=== PATIENT | male | born 1965 | race American Indian/Alaskan Native ===

== ENCOUNTER 2023-08-01 10:09 | Outpatient (CLI) | payer OTHER, SELFPAY ==
--- NOTE | 2023-08-02 14:24 | WPDNEUROLOGY ---
Neurology EEG Report General Information Date of Study: 08/01/23 TEST eeg DIAGNOSIS syncopal episode and collapse CONDITION OF RECORDING awake drowsy and sleep EEG NUMBER [id number] CLINICAL HISTORY patient reports he has been having episodes of losing consciousness over the last couple of months. EEG DESCRIPTION Basic resting occipital frequency consists of 11 to 13 hertz per 2nd alpha activity admixed with low-voltage 15 to 18 hertz per 2nd beta activity and with poor isaiah posterior gradient. Low-voltage beta activity seen diffusely during drowsiness admixed with multiple movement artifacts. Bilateral symmetrical activities noted during sleep. Photic stimulation produced normal drive. Hyperventilation not done. Intermittent EKG artifacts are noted. Non paroxysmal. Nonfocal. Nonlateralizing. IMPRESSION No significant abnormalities noted
== END 2023-08-01 10:10 | disposition home or self-care (01) ==
PROVIDERS: Visit Provider Internal Medicine Infectious Disease
DX: R55 Syncope and collapse (principal)
CPT/HCPCS: 95816

== ENCOUNTER 2025-02-21 13:39 | Outpatient (CLI) | payer OTHER, SELFPAY ==
[2025-02-21 15:08] LABS: Iron 94 ug/dL (49-181)
[2025-02-21 15:15] LABS: Alanine Aminotransferase 22 U/L (6-50); Albumin Level 4.4 g/dL (3.5-5.1); Alkaline Phosphatase 74 U/L (38-126); Aspartate Amino Transferase 44 U/L (17-59); Bilirubin,Total 0.9 mg/dL (0.2-1.3); Total Protein 7.6 g/dL (6.3-8.2)
[2025-02-21 15:16] LABS: INR 1.1; Prothrombin Time 13.8 Seconds (11.1-14.7)
[2025-02-21 15:18] LABS: Percent Iron Saturation 30 % (20-50)
--- OUTSIDE RECORDS SUMMARY | 2025-02-21 15:18 | XMS_ITS | Clinical Summary ---
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
--- OUTSIDE RECORDS SUMMARY | 2025-02-21 15:18 | XMS_ITS | Clinical Summary ---
Author Organization [facility] Initiative Gaming Address [address] [place] [address] Care Team Providers Care Harnessmaker Apprentice Name Role Phone Shabbir Andrade MD Primary Care Provider Source Comments [facility],non-owned Affiliates and Associated Physician Practices is amultiple site organization consisting of ambulatory clinics and hospital sitesin [place], [place], [place] and [place]. This disclosure is being madepursuant to the Care Everywhere program and may not contain all information available regarding this patient. Last updated 18.[facility] [employer] Allergies No known active allergies Medications * Be aware that medications may not be up to date on this document. Alwaysverify current medications with the patient. sildenafil (Viagra) 100 MG tablet Viagra 100 mg tablet Take 1 TABLET 1 HOUR PRIOR TO SEXUAL ACTIVITY DIRECTED, BUT NOT TO EXCEED MORE THAN 1 IN 24 HOURS. MUST LAST 30 DAYS Active polyethylene glycol 3350 (Miralax) 17 g packet Take 17 (seventeen) g by mouth once daily 30 packet 5 Active nystatin (Mycostatin) 453192 UNIT/GM cream Apply to affected area 3 times daily Apply to toes 3 times daily 4 Active benzonatate (Tessalon) 100 MG capsule Take 1 (one) capsule by mouth 3 times daily as needed for Cough 30 capsule 5 Active aspirin (Aspirin) 81 MG chew tablet Take 1 (one) tablet by mouth once daily (chew and swallow) 30 tablet 12/17/2024 3:44 PM CDT Active albuterol HFA (Ventolin HFA) 108 (90 Base) MCG/ACT inhaler Inhale 2 (two) puffs by mouth every 4 hours as needed 8.5 g Active atorvastatin (Lipitor) 40 MG tablet Take 1 (one) tablet by mouth at bedtime 30 tablet 12/17/2024 3:44 PM CDT Active losartan (Cozaar) 25 MG tablet Take 1 (one) tablet by mouth once daily 30 tablet Active metoprolol succinate XL 24hr (Toprol XL) 25 MG tablet Take 0.5 (one-half) tablet by mouth once daily 15 tablet 12/17/2024 3:44 PM CDT Active furosemide (Lasix) 80 MG tablet Take 1 (one) tablet by mouth 2 times daily 60 tablet 12/17/2024 3:44 PM CDT Active omeprazole (PriLOSEC) 40 MG capsule Take 1 (one) capsule by mouth daily before breakfast 30 capsule 5 Active Active Problems Problem Noted Date Diagnosed Date Demand ischemia 12/14/2024 Assessment & Plan (12/16/2024 1:14 PM CDT): Due to acute CHF. Assessment & Plan (12/15/2024 1:17 PM CDT): Due to acute CHF. Assessment & Plan (12/14/2024 12:33 PM CDT): Due to acute CHF. Acute on chronic systolic heart failure 11/15/19 Assessment & Plan (12/16/2024 2:43 PM CDT): Switch Lasix to 80 mg PO b.i.d.. Continue losartan 25 mg daily. Continue metoprolol succinate 12.5 mg daily. Monitor strict I/O. Discussed case with Dr. Ramos from Cardiology. Assessment & Plan (12/15/2024 1:17 PM CDT): Continue IV diuresis with Lasix 80 mg IV b.i.d.. Restart losartan 25 mg daily. Continue metoprolol succinate 12.5 mg daily. Monitor strict I/O. Discussed case with Dr. Ramos from Cardiology. The patient does not look particularly overloaded on exam. If his symptoms do not improve, can try dose of prednisone for COPD component. Assessment & Plan (12/14/2024 12:33 PM CDT): Continue IV diuresis, increase dose of furosemide to 80 mg IV b.i.d.. Continue strict I/O. Hold ARB at this time given slight bump in creatinine but anticipate starting the next day. Continue home metoprolol succinate at 12.5 mg daily. Restart spironolactone 25 mg daily. Monitor BMP daily. Consulted cardiology. Acute on chronic heart failu re with reduced ejection fraction and diastolic dysfunction 11/14/2024 Other cirrhosis of liver 07/18/2024 Assessment & Plan (12/16/2024 1:14 PM CDT): Unknown etiology. Will discuss further with the patient. Ascites noted could be due to CHF. Assessment & Plan (12/15/2024 1:17 PM CDT): Unknown etiology. Will discuss further with the patient. Ascites noted could be due to CHF. Assessment & Plan (12/14/2024 12:48 PM CDT): Unknown etiology. Will discuss further with the patient. Ascites noted could be due to CHF. Acute heart failure with red uced ejection fraction (HFrEF, <= 40%) 05/25/2024 Leukocytosis 05/25/2024 MSSA bacteremia 05/22/2024 Acute hypoxic respiratory failure 05/21/2024 Methamphetamine abuse 05/21/2024 Transaminitis 05/21/2024 Elevated lactic acid level 05/21/2024 Sinus tachycardia 05/21/2024 Non compliance w medication regimen 05/20/2024 COPD exacerbation 05/20/2024 Class 1 obesity due to exces s calories without serious comorbidity with body mass index (BMI) of 32.0 to 32.9 in adult 05/16/2024 Influenza A 05/16/2024 Abdominal wall hematoma 05/14/2024 Prediabetes 09/05/2022 Chronic obstructive pulmonary disease (COPD) Assessment & Plan (12/16/2024 2:43 PM CDT): Will give trial of prednisone 40 mg daily in case he has a component of COPD worsening. Assessment & Plan (12/15/2024 1:17 PM CDT): Not in exacerbation. Continue nebulizers PRN. Assessment & Plan (12/14/2024 12:33 PM CDT): Not in exacerbation. Continue nebulizers PRN. Hypertension, unspecified type 08/22/2022 IVDU (intravenous drug user) 08/22/2022 Ankle wound, left, subsequent encounter 08/23/19 23 Cellulitis of left ankle 08/03/2022 Essential hypertension 08/03/2022 Assessment & Plan (12/16/2024 1:14 PM CDT): Restart losartan 25 mg daily. Assessment & Plan (12/15/2024 1:17 PM CDT): Restart losartan 25 mg daily. Assessment & Plan (12/15/2024 7:20 AM CDT): Anticipate starting losartan in AM if renal function amenable ROSE (acute kidney injury) 08/03/2022 History of hepatitis C 08/03/2022 Open wound of left lower leg, initial encounter 08/02/2022 Pneumonia of both lungs due to infectious organi sm 09/16/2019 Right flank pain 09/16/2019 Generalized anxiety disorder 09/16/2019 Abdominal pain, generalized 12/11/2018 Hematochezia 12/11/2018 Colitis 12/11/2018 Chronic right shoulder pain 09/08/2017 AA (alcohol abuse) 11/28/2015 Abuse, drug or alcohol 11/28/2015 Gastroesophageal reflux disease without esophagi tis 11/28/2015 Assessment & Plan (12/16/2024 1:14 PM CDT): Continue PPI daily Assessment & Plan (12/15/2024 1:17 PM CDT): Continue PPI daily Assessment & Plan (12/14/2024 12:33 PM CDT): Continue PPI daily Tobacco abuse 11/28/2015 HLD (hyperlipidemia) 11/28/2015 Intravenous drug user 11/28/2015 Nodule, subcutaneous 11/28/2015 Polysubstance abuse 11/28/2015 Resolved Problems Problem Noted Date Diagnosed Date Resolved Date Hepatitis C 08/22/2022 05/21/2024 Overview (05/21/2024): Treated per pt Dehydration 09/16/2019 09/30/2019 Constipation 12/11/2018 01/08/2019 Encounters Date Type Department Care Team Description 12/13/2024 8:49 PM CDT - 12/17/2024 4:00 PM CDT Hospital Encounter [facility] 4 Transitional Care Unit [address] [place] [address] [address] [facility] [address] [facility] Hayes, David M, MD Hospitalist Discharge Disposition: Home or Self Care 12/13/2024 Travel 11/27/2024 7:50 PM CDT - 11/28/2024 1:01 AM CDT Emergency ER at [address] [address] Flakito Bhatti DO Shortness of breath; Tachycardia Discharge Disposition: Home or Self Care 11/27/2024 Travel from Last 3 Months Immunizations Immunization Administration Dates Next Due FLU VACCINE QUAD IIV4 SPLIT 0.25 ML IM 2,01/08/2016 HEP A VACCINE, ADULT 01/08/2016,10/23/2006 Hep B, Adjuvanted 08/15/2022 INFLUENZA VACCINE, QUADR. (A FLURIA, FLUZONE QUADRIVALENT; 6MO+) (IIV4) 02/11/2020 INFLUENZA VACCINE, QUADR. (F LUZONE; FLULAVAL; FLUARIX; AFLURIA QUADRIVALENT; 6MO+), 0.5 ML (IIV4) 12/31/2016 PNEUMOCOCCAL PCV20 CONJ VAC IM 08/15/2022 PNEUMOCOCCAL PPSV23 01/08/2016 TDAP (7yrs+) 02/05/2016 Zoster Hzv Vacc Recombinant Inj Im 08/15/2022 Social History Tobacco Use Types Packs/Day Years Used Date Smoking Tobacco: Every Day Cigarettes 0.3 30 Smokeless Tobacco: Never Tobacco Cessation:Ready to Q uit: No; Counseling Given: Yes Alcohol Use Standard Drinks/Week Comments Yes 0 (1 standard drink = 0.6 oz pure alcohol) social drinking rarely per month AUDIT-C Answer Date Recorded Q1: How often do you have a drink containing alc ohol? Monthly or less 12/14/2024 Q2: How many drinks containi ng alcohol do you have on a typical day when you are drinking? 3 or 4 12/14/2024 Q3: How often do you have si x or more drinks on one occasion? Never 12/14/2024 Overall Financial Resource Strain (CARDIA) Answe r Date Recorded How hard is it for you to pa y for the very basics like food, housing, medical care, and heating? Not hard at all 12/14/2024 [facility] - Occupational Stress Questionnaire Answer Date Recorded Do you feel stress - tense, restless, nervous, or anxious, or unable to sleep at night because your mind is troubled all the time - these days? Not at all 12/14/2024 Hunger Vital Sign Answer Date Recorded Within the past 12 months, y ou worried that your food would run out before you got the money to buy more. Never true 12/15/19 25 Within the past 12 months, t he food you bought just didn't last and you didn't have money to get more. Never true 12/14/2024 PRAPARE - Transportation Answer Date Re corded In the past 12 months, has l ack of transportation kept you from medical appointments or from getting medications? Yes 11/26 In the past 12 months, has l ack of transportation kept you from meetings, work, or from getting things needed for daily living? Yes 12/14/2024 Housing Stability Vital Sign Answer Joao e Recorded In the last 12 months, was t here a time when you were not able to pay the mortgage or rent on time? Yes 08/24/2022 In the last 12 months, how many places have you lived? 1 08/24/2022 In the last 12 months, was t here a time when you did not have a steady place to sleep or slept in a fdc (including now)? No 08/24/2022 Housing Stability Vital Sign Answer Joao e Recorded In the last 12 months, was t here a time when you were not able to pay the mortgage or rent on time? No 12/14/2024 In the past 12 months, how m any times have you moved where you were living? 20 12/14/2024 At any time in the [facility] were you homeless or living in a fdc (including now)? Yes 12/14/2024 Sex and Gender Information Value Date Recorded Sex Assigned at Not on file Legal Sex Male 2:15 PM CDT Gender Identity Not on file Sexual Orientation Not on file Last Filed Vital Signs Vital Sign Reading Time Taken Comments Blood Pressure 121/86 12/17/2024 11:03 AM CDT Pulse 69 12/17/2024 9:03 AM CDT Temperature 36.1 C (97 F) 12/17/2024 11:03 AM CDT Respiratory Rate 18 12/17/2024 2:48 PM CDT Oxygen Saturation 96% 12/17/2024 12: 01 PM CDT Inhaled Oxygen Concentration 100% 12:37 PM CDT Weight 77.5 kg (170 lb 13.7 oz) 12/17/2024 4:26 AM CDT Height 170.2 cm (5' 7) 12/14/2024 3:00 PM CDT Body Mass Index 26.76 12/14/2024 3:00 PM CDT Plan of Treatment Health Maintenance Due Date Last Done Comments COLOGUARD (AGES 45-75) - COLON CA SCREENING 1963 COLON MONITORING 1963 COLONOSCOPY - COLON CA SCREENING 1963 CT COLONOGRAPHY - COLON CA SCREENING 1963 Colorectal Cancer Screening 1963 FIT - COLON CA SCREENING 1963 FLEX SIG - COLON CA SCREENING 1965 HEPATITIS B VACCINE (2 of 2 - CpG risk 2-dose series) 09/12/2022 08/15/2022 ZOSTER VACCINE (2 of 2) 10/10/2022 08/15/2022 Respiratory Syncytial Virus (RSV) Vaccine Pt: or over 60 yrs (1 - Risk 60-74 years 1-dose series) 2023 DEPRESSION SCREENING 04/28/2024 COVID-19 VACCINE ( - season) 2024 INFLUENZA VACCINE (#1) 2024 2, 02/11/2020, 12/31/2016, Additional history exists DTAP/TDAP/TD VACCINES (2 - Td or Tdap) 02/04/2026 02/05/2016 SCREENING FOR DIABETES 12/17/2027 5, 12/15/2024, 12/13/2024, Additional history exists HIV SCREENING Completed 08/03/2022, 09/18/2019 PNEUMOCOCCAL VACCINE 50+ Completed 08/15/2022, 12/27 HEPATITIS C SCREENING Completed 05/21/2024 , 08/21/2022, 08/03/2022, Additional history exists HIB VACCINE Aged Out No longer eligi ble based on patient's age to complete this topic HPV VACCINE Aged Out No longer eligi ble based on patient's age to complete this topic MENINGOCOCCAL (Group B) VACCINE SHARED DECISION-MAKING Aged Out No longer eligible based on patient's age to complete this topic MENINGOCOCCAL GROUPS A/C/Y/W VACCINE Aged Out No longer eligible based on patient's age to complete this topic Procedures Procedure Name Priority Date/Time Associated Diagnosis Comments CARDIAC RHYTHM STRIP ORDER 01/06/2025 4:18 PM CDT HOME O2 EVAL (DESATURATION SCREEN) Routine 12/17/2024 8:00 AM CDT BASIC METABOLIC PANEL (CALCIUM TOTAL) Routine 12/16/2024 7:46 AM CDT CBC W AUTO DIFFERENTIAL STAT 12/15/2024 7:08 AM CDT Acute on chronic congestive heart failure, unspecified heart failure type (HCC) PHOSPHORUS BLOOD STAT 12/15/2024 7:08 AM CDT Acute on chronic congestive heart failure, unspecified heart failure type (HCC) COMPREHENSIVE METABOLIC PANEL STAT 12/15/2024 7:08 AM CDT Acute on chronic congestive heart failure, unspecified heart failure type (HCC) CARDIAC EKG ORDER 12/14/2024 3:5 0 PM CDT TROPONIN-I HIGH SENSITIVE REFLEX 1HOUR Timed 12/13/2024 10:46 PM CDT OXYGEN WITH TITRATION PROTOCOL (ADULT) Routine 12/13/2024 9:43 PM CDT XR CHEST 1VW PORTABLE STAT 12/13/2024 9:20 PM CDT SOB (shortness of breath) DIFFERENTIAL MANUAL STAT 12/13/2024 9 :09 PM CDT MAGNESIUM BLOOD STAT 12/13/2024 9:09 PM CDT B-TYPE NATRIURETIC PEPTIDE STAT 12/13/2024 9:09 PM CDT TROPONIN-I HIGH SENSITIVE BASELINE + 1HR STAT 12/13/2024 9:09 PM CDT BASIC METABOLIC PANEL (CALCIUM TOTAL) STAT 12/13/2024 9:09 PM CDT CBC W AUTO DIFFERENTIAL STAT 12/13/2024 9:09 PM CDT EKG 12-LEAD STAT 12/13/2024 8:56 PM CDT SOB (shortness of breath) CARDIAC EKG ORDER 11/29/2024 5:[address] ANGIO CHEST PULM EMBOLISM STAT 11/27/2024 9:35 PM CDT Shortness of breath Tachycardia TROPONIN-I HIGH SENSITIVE REFLEX 1HOUR Timed 11/27/2024 9:23 PM CDT XR CHEST 1VW STAT 11/27/2024 8:27 PM CDT Shortness of breath B-TYPE NATRIURETIC PEPTIDE STAT 11/27/2024 8:26 PM CDT TROPONIN-I HIGH SENSITIVE BASELINE + 1HR STAT 11/27/2024 8:26 PM CDT COMPREHENSIVE METABOLIC PANEL STAT 11/27/2024 8:26 PM CDT CBC W AUTO DIFFERENTIAL STAT 11/27/2024 8:26 PM CDT EKG 12-LEAD STAT 11/27/2024 7:53 PM CDT Shortness of breath CARDIAC RHYTHM STRIP ORDER 11/22/2024 7:07 PM CDT LAB RESULTS ORDER 11/22/2024 7:0 7 PM CDT HEPATITIS C AB SCREEN RFLX NAAT QUANT Routine 08/03/2022 12:11 AM CDT IVDU (intravenous drug user) HIV-1 HIV-2 ANTIBODY + HIV P24 AG PANEL Routine 08/03/2022 12:11 AM CDT IVDU (intravenous drug user) from Last 3 Months or Most Recently Relevant to Health Maintenance Results * CARDIAC RHYTHM STRIP ORDER (01/06/2025 4:18 PM CDT) Only the most recent of2 resultswithin the time period is included. Narrative 01/06/2025 4:18 PM CDT Ordered by an unspecified provider. us Scanned Document CARDIAC SERVICES ORDERABLES Wil clarita Result - Final * (ABNORMAL) BASIC METABOLIC PANEL (CALCIUM TOTAL) (12/16/2024 7:46 AM CDT) Only the most recent of2 resultswithin the time period is included. Glucose 113(H) 70 - 99 mg/dL 12/16/2024 8:25 AM CDT [facility] Sodium 135(L) 136 - 145 mmol/L 12/16/2024 8:25 AM CDT [facility] Potassium 3.6 3.5 - 5.1 mmol/L 12/16/2024 8:25 AM CDT [facility] Chloride 107 98 - 107 mmol/L 12/16/2024 8:25 AM CDT [facility] CO2 20(L) 22 - 29 mmol/L 12/16/2024 8:25 AM CDT [facility] Calcium 7.6(L) 8.4 - 10.4 mg/dL 12/16/2024 8:25 AM CDT [facility] Anion Gap 8 6 - 16 mmol/L 12/16/2024 8:25 AM CDT [facility] BUN 27(H) 7 - 26 mg/dL 12/16/2024 8:25 AM CDT [facility] Creatinine 1.39(H) 0.72 - 1.25 mg/dL 12/16/2024 8:25 AM T [facility] eGFR by CKD-EPI 58(L) >=90 mL/min/1.7 3 m2 12/16/2024 8:25 AM T [facility] Comment:Estimated Glomerular Filtration Rate (eGFR) calculated using the CKD-EPI Creatinine Equation (2020), per the National Kidney Foundation and [place] [employer] of Nephrology recommendations. Blood BLOOD SPECIMEN / Unknown Lab Venipuncture / Unknown 12/16/2024 7:46 AM CDT 12/16/2024 7:52 AM CDT Channing Fuentes MD LAB - CHEMISTRY ORDERABLES Opal negron Result [facility] [address] [place] [address] * (ABNORMAL) CBC W AUTO DIFFERENTIAL (12/15/2024 7:08 AM CDT) Only the most recent of3 resultswithin the time period is included. WBC 4.3 4.0 - 10.7 x10E9/L 12/15/2024 7:29 AM CDT [facility] RBC Count 5.17 4.30 - 5.80 x10E12/L 12/15/2024 7:29 AM CDT [facility] Hemoglobin 13.9 13.3 - 17.5 g/dL 12/15/2024 7:29 AM CDT [facility] Hematocrit 42.9 38.7 - 51.1 % 12/15/2024 7:29 AM CDT [facility] MCV 83.0 80.0 - 98.0 fL 12/15/2024 7:29 AM CDT [facility] MCH 26.9 26.7 - 33.6 pg 12/15/2024 7:29 AM CDT [facility] MCHC 32.4 31.7 - 36.3 g/dL 12/15/2024 7:29 AM CDT [facility] RDW-CV 15.9(H) 11.3 - 14.8 % 12/15/2024 7:29 AM CDT [facility] Platelet Count 153 150 - 420 x10E9/L 12/15/2024 7:29 AM CDT [facility] MPV 9.8 7.8 - 11.4 fL 12/15/2024 7:29 AM [facility] Neutrophil % 38.6(L) 41.0 - 74.0 % 12/15/2024 7:29 AM [facility] Lymphocyte % 46.9 17.0 - 47.0 % 12/15/2024 7:29 AM [facility] Monocyte % 11.4(H) 3.0 - 11.0 % 12/15/2024 7:29 AM [facility] Eosinophil % 2.1 0.0 - 7.0 % 12/15/2024 7:29 AM [facility] Basophil % 0.5 0.0 - 1.6 % 12/15/2024 7:29 AM [facility] Immature Granulocytes % 0.5 0.0 - 1.0 % 12/15/2024 7:29 AM [facility] Neutrophil Absolute 1.67 1.60 - 7.50 x10E9/L 12/15/2024 7:29 AM CDT [facility] Lymphocyte Absolute 2.02 1.00 - 4.40 x10E9/L 12/15/2024 7:29 AM CDT [facility] Monocyte Absolute 0.49 0.15 - 1.00 x10E9/L 12/15/2024 7:29 AM CDT [facility] Eosinophil Absolute 0.09 0.00 - 0.60 x10E9/L 12/15/2024 7:29 AM CDT [facility] Basophil Absolute 0.02 0.00 - 0.13 x10E9/L 12/15/2024 7:29 AM [facility] Blood BLOOD SPECIMEN / Unknown Lab Venipuncture / Unknown 12/15/2024 7:08 AM CDT 12/15/2024 7:27 AM CDT us Frankie Pranav Jennifer GROUP ACTIVITIES AIDE-BILLPOSTER LAB - HEMATOLOGY ORDER DALE Final Result [facility] [address] [place] [address] * (ABNORMAL) COMPREHENSIVE METABOLIC PANEL (12/15/2024 7:08 AM CDT) Only the most recent of2 resultswithin the time period is included. Glucose 87 70 - 99 mg/dL 12/15/2024 7:45 AM [facility] Sodium 138 136 - 145 mmol/L 12/15/2024 7:45 AM [facility] Potassium 3.3(L) 3.5 - 5.1 mmol/L 12/15/2024 7:45 AM [facility] Chloride 107 98 - 107 mmol/L 12/15/2024 7:45 AM [facility] CO2 20(L) 22 - 29 mmol/L 12/15/2024 7:45 AM [facility] Calcium 7.5(L) 8.4 - 10.4 mg/dL 12/15/2024 7:45 AM [facility] Anion Gap 11 6 - 16 mmol/L 12/15/2024 7:45 AM [facility] BUN 23 7 - 26 mg/dL 12/15/2024 7:45 AM [facility] Creatinine 1.35(H) 0.72 - 1.25 mg/dL 12/15/2024 7:45 AM [facility] Alkaline Phosphatase 68 40 - 150 U/L 12/15/2024 7:45 AM [facility] ALT 8 6 - 57 U/L 12/15/2024 7:45 AM [facility] AST 28 10 - 48 U/L 12/15/2024 7:45 AM [facility] Protein Total 6.3(L) 6.4 - 8.3 gm/dL 12/15/2024 7:45 AM CDT [facility] Albumin 3.2 3.1 - 4.5 gm/dL 12/15/2024 7:45 AM CDT [facility] Bilirubin Total 1.1 0.2 - 1.2 mg/dL 12/15/2024 7:45 AM CDT [facility] eGFR by CKD-EPI 60(L) >=90 mL/min/1.7 3 m2 12/15/2024 7:45 AM CDT [facility] Comment:Estimated Glomerular Filtration Rate (eGFR) calculated using the CKD-EPI Creatinine Equation (2020), per the National Kidney Foundation and [place] [employer] of Nephrology recommendations. Blood BLOOD SPECIMEN / Unknown Lab Venipuncture / Unknown 12/15/2024 7:08 AM CDT 12/15/2024 7:27 AM CDT Frankie Rodriguez GROUP ACTIVITIES AIDE-BILLPOSTER LAB - CHEMISTRY ORDERA BLES Final Result Performing Organization Address City/[facility]/ZIP Co de Phone Number [facility] [address] [place] [address] [phone] * PHOSPHORUS BLOOD (12/15/2024 7:08 AM CDT) [facility] Phosphorus 3.8 2.5 - 4.5 mg/dL 12/15/2024 7:45 AM CDT [facility] Blood BLOOD SPECIMEN / Unknown Lab Venipuncture / Unknown 12/15/2024 7:08 AM CDT 12/15/2024 7:27 AM CDT Frankie Rodriguez GROUP ACTIVITIES AIDE-BILLPOSTER LAB - CHEMISTRY ORDERA BLES Final Result [facility] [address] [place] [address] [phone] * CARDIAC EKG ORDER (12/14/2024 3:50 PM CDT) Only the most recent of2 resultswithin the time period is included. Narrative 12/14/2024 3:50 PM CDT Ordered by an unspecified provider. Scanned Document CARDIAC SERVICES ORDERABLES Fin al Result * (ABNORMAL) TROPONIN-I HIGH SENSITIVE REFLEX 1HOUR (12/13/2024 10:46 PM CDT) Only the most recent of2 resultswithin the time period is included. Troponin I High Sensitive 37(H) <=35 ng/L 12/13/2024 11:31 PM CDT [facility] Delta Troponin I HS 12/13/2024 11:31 PM CDT [facility] Comment:Delta value intentio amara not calculated. Baseline to 1 hour specimen collection interval exceeded. Blood BLOOD SPECIMEN / Unknown Venipuncture / Unknown 12/13/2024 10:46 PM CDT 12/13/2024 10:52 PM CDT Flakito Bhatti DO LAB - CHEMISTRY ORDERABLES Final Result Performing Organization Address City/State/[facility] Co de Phone Number [facility] [address] [place] [address] * XR CHEST 1VW PORTABLE (12/13/2024 9:20 PM CDT) Anatomical Region Laterality Modality Chest Radiographic Disha ging 12/14/2024 9:01 AM CDT Narrative 12/14/2024 9:02 AM CDT PROCEDURE: XR CHEST 1VW PORTABLE DATE/TIME OF EXAM: 12/13/2024 9:21 PM CLINICAL INFORMATION: None relevant/not provided if blank. Indication: R06.02: SOB (shortness of breath) Additional History: Findings/impression: Heart is markedly enlarged. No focal consolidation is seen. No pleural effusion is seen. No pneumothorax is identified. > Interpreting Provider: Amandeep Orozco MD on 12/14/2024 9:02 AM Procedure Note Amandeep Orozco MD - 12/14/2024 PROCEDURE: XR CHEST 1VW PORTABLE DATE/TIME OF EXAM: 12/13/2024 9:21 PM CLINICAL INFORMATION: None relevant/not provided if blank. Indication: R06.02: SOB (shortness of breath) Additional History: Findings/impression: Heart is markedly enlarged. No focal consolidationis seen. No pleural effusion is seen. No pneumothorax is identified. > Interpreting Provider: Amandeep Orozco MD on 12/14/2024 9:02 AM Flakito Bhatti DO DIAGNOSTIC IMAGING ORDERABLES Fi nal Result * (ABNORMAL) TROPONIN-I HIGH SENSITIVE BASELINE + 1HR (12/13/2024 9:09 PM CDT) Only the most recent of2 resultswithin the time period is included. [facility] Troponin I High Sensitive 37(H) <=35 ng/L 12/13/2024 9:37 PM CDT [facility] Blood BLOOD SPECIMEN / Unknown Venipuncture / Unknown 12/13/2024 9:09 PM CDT 12/13/2024 9:12 PM CDT Flakito Bhatti DO LAB - CHEMISTRY ORDERABLES Final Result Performing Organization Address City/State/[facility] Co de Phone Number [facility] [address] [place] [address] [phone] * (ABNORMAL) DIFFERENTIAL MANUAL (12/13/2024 9:09 PM CDT) [facility] Neutrophil % 54 41 - 74 % 12/13/2024 10:24 PM CDT [facility] [facility] Lymphocyte % 38 17 - 47 % 12/13/2024 10:24 PM CDT [facility] Monocyte % 4 3 - 11 % 12/13/2024 10:24 PM CDT [facility] Eosinophil % 1 0 - 7 % 12/13/2024 10:24 PM CDT [facility] Basophil % 3(H) 0 - 2 % 12/13/2024 10:24 PM CDT [facility] Neutrophil Absolute 2.27 1.60 - 7.50 x10E9/L 12/13/2024 10:24 PM CDT [facility] Lymphocyte Absolute 1.60 1.00 - 4.40 x10E9/L 12/13/2024 10:24 PM CDT [facility] Monocyte Absolute 0.17 0.15 - 1.00 x10E9/L 12/13/2024 10:24 PM CDT [facility] Eosinophil Absolute 0.04 0.00 - 0.60 x10E9/L 12/13/2024 10:24 PM CDT [facility] Basophil Absolute 0.13 0.00 - 0.13 x10E9/L 12/13/2024 10:24 PM CDT [facility] RBC Morphology REVIEWED 12/13/2024 10:24 PM CDT [facility] Wheeling Cells MANY(A) (none) 12/13/2024 10:24 PM CDT [facility] Blood BLOOD SPECIMEN / Unknown Venipuncture / Unknown 12/13/2024 9:09 PM CDT 12/13/2024 9:12 PM CDT Flakito Bhatti DO LAB - HEMATOLOGY ORDERABLES Opal l Result Performing Organization Address [facility] Co de Phone Number [facility] [address] [place] [address] * (ABNORMAL) B-TYPE NATRIURETIC PEPTIDE (12/13/2024 9:09 PM CDT) Only the most recent of2 resultswithin the time period is included. BNP 4,997(H) <=100 pg/mL 12/13/2024 9:36 PM CDT [facility] Blood BLOOD SPECIMEN / Unknown Venipuncture / Unknown 12/13/2024 9:09 PM CDT 12/13/2024 9:12 PM CDT [facility] - 12/13/2024 9:36 PM CDT A cutoff of 100 pg/mL has been demonstrated to provide the maximal combination of sensitivity, specificity, and negative predictive value for contributing to the diagnosis of congestive heart failure (CHF) only. A B-Type Natriuretic Peptide (BNP) value greater than or equal to 100 pg/mL is consistent with a diagnosis of CHF in the appropriate clinical setting. False positive results are more common in females greater than 75 years of age. Blood concentrations of natriuretic peptides may also be elevated in patients with myocardial infarction and in patients who are candidates for or are undergoing renal dialysis. Flakito Bhatti DO LAB - CHEMISTRY ORDERABLES Final Result Performing Organization Address [facility] Co de Phone Number [facility] [address] [place] [address] * MAGNESIUM BLOOD (12/13/2024 9:09 PM CDT) Magnesium 1.9 1.6 - 2.6 mg/dL 12/13/2024 9:56 PM CDT [facility] Blood BLOOD SPECIMEN / Unknown Venipuncture / Unknown 12/13/2024 9:09 PM CDT 12/13/2024 9:12 PM CDT Flakito Bhatti DO LAB - CHEMISTRY ORDERABLES Final Result Performing Organization Address [facility] de Phone Number [facility] [address] [place] [address] * EKG 12-Lead (12/13/2024 8:56 PM CDT) Only the most recent of2 resultswithin the time period is included. Ventricular Rate 104 BPM [facility] Atrial Rate 104 BPM [facility] P-R Interval 162 ms [facility] QRS Duration ms 92 ms [facility] Q-T Interval ms 372 ms [facility] QTC Calculation (Bezet) 489 ms [facility] Calculated P [place] 66 degrees [facility] Calculated R [place] 96 degrees [facility] Calculated T [place] 26 degrees [facility] Interpretation EKG SINUS TACHYCARDIA WITH PREMATURE ATRIAL COMPLEXES WITH ABERRANT CONDUCTION POSSIBLE LEFT ATRIAL ENLARGEMENT RIGHTWARD AXIS INCOMPLETE RIGHT BUNDLE BRANCH BLOCK POSSIBLE ANTERIOR INFARCT (CITED ON OR BEFORE 27-NOV-2024) ABNORMAL ECG WHEN COMPARED WITH ECG OF 27-NOV-2024 19:53, ABERRANT CONDUCTION IS NOW PRESENT NONSPECIFIC T WAVE ABNORMALITY HAS REPLACED INVERTED T WAVES IN INFERIOR LEADS Confirmed by DO RAMOS STEPHANIE ([id number]) on 12/14/2024 6:17:34 PM SM MUSE 12/13/2024 8:56 PM CDT 12/14/2024 6:17 PM CDT Flakito Bhatti DO ECG ORDERABLES Edited Result - Final Performing Organization Address [facility] Co de Phone Number [facility] * CT Angio Chest Pulm Embolism (11/27/2024 9:35 PM CDT) Anatomical Region Laterality Modality Chest Computed Tomogra phy 11/28/2024 9:58 AM CDT Impressions 11/28/2024 10:08 AM CDT IMPRESSION: 1. No pulmonary embolism. 2. Severe cardiomegaly with minimal interstitial edema. 3. Tracheobronchial malacia 4. Liver cirrhosis with small ascites > Interpreting Provider: Ponce Ko MD on 11/28/2024 10:08 AM Narrative 11/28/2024 10:08 AM CDT PROCEDURE: CT ANGIO CHEST PULM EMBOLISM DATE/TIME OF EXAM: 11/27/2024 9:35 PM CLINICAL INFORMATION: None relevant/not provided if blank. Indication: R06.02: Shortness of breath R00.0: Tachycardia Additional History: COMPARISON: Chest CT from 05/24/2024 TECHNIQUE: CT angiography of the chest was performed with IV contrast. MIP (maximum intensity projection) images or 3D post processing was performed. CT dose reduction technique was used including Automated Exposure Control CONTRAST: IOPAMIDOL 76 % IV SOLN:100 mL FINDINGS: Overall exam quality is moderate to good for evaluating the pulmonary arteries. There are no intraluminal filling defects to indicate pulmonary embolism. The main pulmonary artery is somewhat enlarged up to 4.3 cm but the right and left main pulmonary arteries are normal in size. No pneumonia, mass or pleural effusion. Minimal interstitial edema in the dependent portions of the lungs. The heart is enlarged including the left and right ventricle and especially the right atrium. No pericardial effusion. Mild calcified plaques in the coronary arteries. The thoracic aorta is normal in size. No significant mediastinal or axillary adenopathy. The trachea is somewhat narrowed in the AP dimension. There is also moderate narrowing of both the right and left mainstem bronchi which is similar to the prior exam. This could indicate underlying tracheomalacia. The liver surface is diffusely nodular suggesting underlying cirrhosis. Small ascites in the upper abdomen. No acute bony findings. Procedure Note Ponce Ko MD - 11/28/2024 PROCEDURE: CT ANGIO CHEST PULM EMBOLISM DATE/TIME OF EXAM: 11/27/2024 9:35 PM CLINICAL INFORMATION: None relevant/not provided if blank. Indication: R06.02: Shortness of breath R00.0: Tachycardia Additional History: COMPARISON: Chest CT from 05/24/2024 TECHNIQUE: CT angiography of the chest was performed with IV contrast. MIP (maximum intensity projection) images or 3D post processing was performed. CTdose reduction technique was used including Automated Exposure Control CONTRAST: IOPAMIDOL 76 % IV SOLN:100 mL FINDINGS: Overall exam quality is moderate to good for evaluating the pulmonary arteries. There are no intraluminal filling defects to indicatepulmonary embolism. The main pulmonary artery is somewhat enlarged up to 4.3 cmbut the right and left main pulmonary arteries are normal in size. No pneumonia, mass or pleural effusion. Minimal interstitial edema in the dependent portions of the lungs. The heart is enlarged including the left and right ventricle andespecially the right atrium. No pericardial effusion. Mild calcified plaques inthe coronary arteries. The thoracic aorta is normal in size. Nosignificant mediastinal or axillary adenopathy. The trachea is somewhat narrowed in the AP dimension. There is also moderate narrowing of both the right and left mainstem bronchi which is similar to the prior exam. This could indicate underlyingtracheomalacia. The liver surface is diffusely nodular suggesting underlying cirrhosis. Small ascites in the upper abdomen. No acute bony findings. IMPRESSION: 1. No pulmonary embolism. 2. Severe cardiomegaly with minimal interstitial edema. 3. Tracheobronchial malacia 4. Liver cirrhosis with small ascites > Interpreting Provider: Ponce Ko MD on 11/28/2024 10:08 AM [address]ito Bhatti DO CT ORDERABLES Final Result * XR Chest 1Vw (11/27/2024 8:27 PM CDT) Anatomical Region Laterality Modality Chest Radiographic Disha ging 11/28/2024 11:0 6 AM CDT Impressions 11/28/2024 11:07 AM CDT IMPRESSION: No acute findings > Interpreting Provider: Ponce Ko MD on 11/28/2024 11:07 AM Narrative 11/28/2024 11:07 AM CDT PROCEDURE: XR CHEST 1VW DATE/TIME OF EXAM: 11/27/2024 8:27 PM CLINICAL INFORMATION: None relevant/not provided if blank. Indication: R06.02: Shortness of breath Additional History: COMPARISON: Chest from 11/14/2024 FINDINGS: The lungs are clear and free of effusion. The heart is chronically enlarged. Mediastinum and bony thorax are unremarkable. Procedure Note Ponce Ko MD - 11/28/2024 PROCEDURE: XR CHEST 1VW DATE/TIME OF EXAM: 11/27/2024 8:27 PM CLINICAL INFORMATION: None relevant/not provided if blank. Indication: R06.02: Shortness of breath Additional History: COMPARISON: Chest from 11/14/2024 FINDINGS: The lungs are clear and free of effusion. The heart is chronically enlarged. Mediastinum and bony thorax are unremarkable. IMPRESSION: No acute findings > Interpreting Provider: Ponce Ko MD on 11/28/2024 11:07 AM us Oneyda Castaneda PA-C DIAGNOSTIC IMAGING OR DERABLES Final Result * LAB RESULTS ORDER (11/22/2024 7:07 PM CDT) Narrative 11/22/2024 7:07 PM CDT Ordered by an unspecified provider. us Scanned Document LAB - THERAPEUTIC DRUG MONITORI NG ORDERABLES Final Result * (ABNORMAL) HEPATITIS C AB SCREEN RFLX NAAT QUANT (08/03/2022 12:11 AM CDT) Hepatitis C Antibody Reactive( A) Non-react bharat 08/03/2022 2:06 AM CDT [facility] Comment:Serum for supplement al Hepatitis C quantitative RNA PCR testing will be reflexively sent out by the lab. Blood BLOOD SPECIMEN / Unknown Lab Venipuncture / Unknown 08/03/2022 12:11 AM CDT 08/03/2022 1:04 AM CDT us Kishan Nolan PA-C LAB - CHEMISTRY ORDERABLE S Final Result [facility] [address] [place] [id number], [place] [phone] * HIV-1 HIV-2 ANTIBODY + HIV P24 AG PANEL (08/03/2022 12:11 AM CDT) HIV Antigen/Antibod y 1 & 2 Non-reacti ve Non-react bharat 08/03/2022 1:43 AM CDT [facility] Comment:No Laboratory eviden ce of HIV infection. Blood BLOOD SPECIMEN / Unknown Lab Venipuncture / Unknown 08/03/2022 12:11 AM CDT 08/03/2022 1:04 AM CDT us Kishan Nolan PA-C LAB - CHEMISTRY ORDERABLE S Final Result [facility] [address] [place] [address], [place] [phone] from Last 3 Months or Most Recently Relevant to Health Maintenance Additional Health Concerns Infection Onset Date Last Indicated MRSA Hx Comment:Wound culture - 08/02/22 08/02/2022 02/26/2023 Insurance [facility] Member Subscriber Plan / Payer (Ef fective 2016-Present) Name:Steffany Sykes Relation to Subscriber:Self Name:Steffany Sykes Payer ID:Not on file Group ID:Not on file Type:Medicaid Managed Care Address: [address] [place], [place] [id number] [place] [address] [facility] Advance Directives * DNR - IF PULSELESS NO CPR, NO SHOCK (Latest Code Status on File) Date Activated Date Inactivated Comments 12/14/2024 3:22 AM 12/17/2024 5:30 PM Question Answer Comments : DO NOT discontinue a ny active orders without asking attending physician. * Full Code Date Activated Date Inactivated Comments 12/13/2024 11:39 PM 12/14/2024 3:22 AM * LIMITED RESUSCITATION-PRIOR AND AFTER ARREST Date Activated Date Inactivated Comments 11/14/2024 5:20 PM 11/19/2024 4:46 PM Question Answer Comments Limited Resuscitation: No Chest Compress ionNo Cardioversion, No Defibrilation, No External or Internal PacemakerNo Intubation, No Invasive Ventilation * LIMITED RESUSCITATION-PRIOR AND AFTER ARREST Date Activated Date Inactivated Comments 11/14/2024 4:54 PM 11/14/2024 5:20 PM Question Answer Comments Limited Resuscitation: No Chest Compress ionNo Intubation, No Invasive Ventilation * DNR - IF PULSELESS NO CPR, NO SHOCK Date Activated Date Inactivated Comments 11/14/2024 4:29 PM 11/14/2024 4:54 PM Question Answer Comments : DO NOT discontinue a ny active orders without asking attending physician. 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
--- OUTSIDE RECORDS SUMMARY | 2025-02-21 15:18 | XMS_ITS | Clinical Summary ---
Author Organization [facility] al Address [address] [place] [address] Care Team Providers Care Cementer Name Role Phone Shabbir Andrade MD Primary Care Provider Allergies No known active allergies Medications losartan (COZAAR) 25 mg tablet Take 1 tablet (25 mg total) by mouth daily 90 tablet 2 10/15/2024 Active spironolactone (ALDACTONE) 25 mg tablet Take 1 tablet (25 mg total) by mouth daily 90 tablet 2 10/15/2024 Active aspirin 81 mg chewable tablet Take 1 tablet (81 mg total) by mouth daily 11/20/2024 Active atorvastatin (LIPITOR) 40 mg tablet Take 1 tablet (40 mg total) by mouth nightly 11/19/2024 Active furosemide (LASIX) 80 mg tablet Take 1 tablet (80 mg total) by mouth daily 11/19/2024 Active metoprolol XL (TOPROL-XL) 50 mg extended release tabletIndicatio ns:Chronic systolic congestive heart failure (HCC) Take 1 tablet (50 mg total) by mouth daily 90 tablet 3 11/29/2024 Active empagliflozin (JARDIANCE) 10 mg tabletIndicatio ns:Heart Failure Take 1 tablet (10 mg total) by mouth daily 90 tablet 3 11/29/2024 Active Active Problems Problem Noted Date Diagnosed Date Chronic systolic congestive heart failure 2024 Drug abuse 10/15/2024 Encounters Date Type Department Care Team Description 01/10/2025 Telephone [facility] [address] [facility] [address] [place] [address] Damon Barker II, MD 11/29/2024 1:30 PM CDT Office Visit [facility] [address] [place] [id number] Chika Cruz NP Chronic systolic congestive heart failure (HCC) (Primary Dx); Nonischemic cardiomyopathy (HCC); Methamphetamine abuse (HCC); Hospital discharge follow-up from Last 3 Months Medical History Medical History Date Comments GERD (gastroesophageal reflux disease) Hypertension Social History Tobacco Use Types Packs/Day Years Used Date Smoking Tobacco: Every Day Cigarettes Smokeless Tobacco: Never Tobacco Cessation:Ready to Q uit: Not Asked; Counseling Given: Not Answered Sex and Gender Information Value Date Recorded Sex Assigned at Not on file 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 Gender Identity Not on file Sexual Orientation Not on file Obstetrics History Last Filed Vital Signs Vital Sign Reading Time Taken Comments Blood Pressure 112/72 11/29/2024 1:40 PM CDT Pulse 100 11/29/2024 1:40 PM CDT Temperature 36.2 C (97.1 F) 01/02/2022 5:40 PM CDT Respiratory Rate 21 01/03/2022 2:30 AM CDT Oxygen Saturation 96% 11/29/2024 1:40 PM CDT Inhaled Oxygen Concentration - - Weight 82.6 kg (182 lb) 11/29/2024 1:40 PM CDT Height 170.2 cm (5' 7) 11/29/2024 1:40 PM CDT Body Mass Index 28.51 11/29/2024 1:40 PM CDT Plan of Treatment Health Maintenance Due Date Last Done Comments Depression Screening 1965 Hepatitis C Screening 1965 Prostate Cancer Screening-PSA 1965 Regular Well Visit/Exam 18-64 12/02/1981 Zoster Vaccine (2 of 2) 10/10/2022 08/15/2022 Influenza Vaccine (#1) 2024 4, 01/25/2022, 02/11/2020, Additional history exists DTaP/Tdap/Td Vaccine (2 - Td or Tdap) 02/04/2026 02/05/2016 Colon Cancer Screening-Colonoscopy 09/27/2032 09/27/2022 Hepatitis B Screening Completed 08/15/2022 Pneumococcal vaccine <65 Completed 08/15/2022, 12/27 Colon Cancer Screening-CT Colonography Discontinued 09/27/2022 Colon Cancer Screening-DNA Stool Discontinued 09/28/19 Colon Cancer Screening-FIT Discontinued 09/27/2022 Colon Cancer Screening-Sigmoidoscopy Discontinued 09/27/2022 Procedures Procedure Name Priority Date/Time Associated Diagnosis Comments CT VIRTUAL COLONOSCOPY DIAGNOSTIC WO CONTRAST Schedule Routine, Read Routine (OP Routine) 09/27/2022 1:54 PM CDT Procedure and treatment not carried out because of other contraindication from Last 3 Months or Most Recently Relevant to Health Maintenance Results * CT Colonoscopy Diagnostic WO Contrast (09/27/2022 1:54 PM CDT) Anatomical Region Laterality Modality Body N/A Computed Tomogra phy 09/27/2022 3:27 PM CDT Impressions 09/30/2022 7:55 AM CDT C3: Polyp, possible advanced adenoma, follow-up colonoscopy recommended. Dictated by: Annette Anderson D.O. The radiology attending physician has personally reviewed this study, and had reviewed and/or edited this written report and agrees with it. Electronically signed by: Katy Hewitt M.D. Narrative 09/30/2022 7:55 AM CDT EXAMINATION: CT colonography without intravenous contrast HISTORY: Incomplete colonoscopy. TECHNIQUE: Transaxial computed tomographic images through the abdomen and pelvis were obtained without intravenous contrast after insufflation of the colon with CO2 through a rectal catheter. Images were obtained in the supine and right lateral decubitus positions. COMPARISON: None FINDINGS: The following findings are reported according to the CT Colonography Reporting and Data System (C-RADS) from Radiology 2005; 236:3-9. Colonic preparation and distention: adequate. All six segments of the colon are adequately distended on both supine and right lateral decubitus views. Colonic findings: There is colonic diverticulosis Multiple polyps greater than 5 mm are present and detailed below: - posterior wall of the lower rectum, 1.5 cm (series 2 image 419) - upper rectum along a fold, 0.5 cm (series 2 image 390 and image 310 of coronal reconstruction) - mid ascending colon along a fold, 0.9 cm (series 2 image 247) Extracolonic findings: This CT examination is performed without intravenous contrast and with a low dose technique optimized for evaluation of the colon. There is coronary artery calcification. The liver, spleen, pancreas, gallbladder, adrenal glands, and kidneys are unremarkable within the context of limited noncontrast technique. No renal stones or hydronephrosis. No lymphadenopathy. Mild calcific atherosclerosis of the right common iliac artery. No arterial aneurysm. No free fluid. No suspicious osseous lesions. Severe degenerative changes of the lower lumbar spine. Procedure Note Ktay Hewitt MD - 09/30/2022 EXAMINATION: CT colonography without intravenous contrast HISTORY: Incomplete colonoscopy. TECHNIQUE: Transaxial computed tomographic images through the abdomen and pelvis were obtained without intravenous contrast after insufflation of the colon with CO2 through a rectal catheter. Images were obtained in the supine and right lateral decubitus positions. COMPARISON: None FINDINGS: The following findings are reported according to the CT Colonography Reporting and Data System (C-RADS) from Radiology 2005; 236:3-9. Colonic preparation and distention: adequate. All six segments of the colon are adequately distended on both supine and right lateral decubitus views. Colonic findings: There is colonic diverticulosis Multiple polyps greater than 5 mm are present and detailed below: - posterior wall of the lower rectum, 1.5 cm (series 2 image 419) - upper rectum along a fold, 0.5 cm (series 2 image 390 and image 310 of coronal reconstruction) - mid ascending colon along a fold, 0.9 cm (series 2 image 247) Extracolonic findings: This CT examination is performed without intravenous contrast and with a low dose technique optimized for evaluation of the colon. There is coronary artery calcification. The liver, spleen, pancreas, gallbladder, adrenal glands, and kidneys are unremarkable within the context of limited noncontrast technique. No renal stones or hydronephrosis. No lymphadenopathy. Mild calcific atherosclerosis of the right common iliac artery. No arterial aneurysm. No free fluid. No suspicious osseous lesions. Severe degenerative changes of the lower lumbar spine. IMPRESSION: C3: Polyp, possible advanced adenoma, follow-up colonoscopy recommended. Dictated by: Annette Fraum, D.O. The radiology attending physician has personally reviewed this study, and had reviewed and/or edited this written report and agrees with it. Electronically signed by: Katy Hewitt M.D. Zay De Leon MD IMG CT PROCEDURES Final Result from Last 3 Months or Most Recently Relevant to Health Maintenance Insurance Member Subscriber Plan / Payer (Ef fective 2022-Present) Name:Lex Sykes Cookie Relation to Subscriber:Self Name:Lex Sykes Cookie Payer ID:[id number] (NAIC) Group ID:Not on file Type:MEDICAID RISK OTHER Address: ATTN: CLAIMS DEPT [address] [facility] [place] [phone] Care Teams Cementer Relationship Specialty [place] [address] [place] [phone] PCP - General Internal Medicine 08/09/24
--- OUTSIDE RECORDS SUMMARY | 2025-02-21 15:18 | XMS_ITS | Data Portability ---
Author Organization [facility] TEJJanetteWalnut Shawna Address [address] [place] [address] Care Team Providers Care Tour Counselor Name Role Phone MAGGIE HERNANDEZ Supervisor Baking SCOOBY ALEGRE Concrete Carpenter ANTOLIN VORA Furniture Designer Assessment Encounter Date Assessment Date Assessment LastModified by Organization Details LastModified Time 08/17/2024 08/17/2024 Dietitian/ Branch Billing Payroll Clerk Consult August 17, 2024 Assessment: I was able to meet with this patient for their nutrition assessment over the phone. Pt stated that they drink a lot of milk, states that he drinks a gallon in 1 day, 1500 calories. Pt states that he drank skim milk before but now he has been drinking Whole milk. States that he gained 20 lbs in less than 20 weeks. Pt is agreeable to receive educational materials through email. I asked this patient if they had any questions for me and they said no. I also asked the patient what they normally eat and they state: Breakfast- Bowl of cereal, oatmeal with toast and raspberry preserves and butter OR Frozen Waffle with sausage and eggs Lunch/Dinner- Tuna [place] with lettuce, tomatoes, onions, peppers, banana peppers Beverages- Tacos with ground beef, spaghetti, meatloaf, sweet potatoes Snacks- chips, cookies, yogurt, raspberry sorbet Exercise- milk, koolaid, iced tea Labs: 06/21/2024: HgA1c- 6.2 Nutrition Diagnosis: Food and nutrition related knowledge deficit related to limited previous nutrition education as evidenced by HbA1c 6.2%. Intervention/Mon itoring/Evaluati on: We talked about MyPlate - Eating more nonstarchy vegetables (carrots, cucumbers, tomatoes, broccoli, cauliflower, etc), whole grains (brown rice, oatmeal, popcorn; potatoes, peas, corn) and lean proteins (chicken, fish, turkey, lean beef, beans, eggs, peanut butter). I educated patient on the importance of not skipping meals. We talked about reading the nutrition facts label. We talked about monitoring carbohydrates to have at least 45-60g of carbohydrates at each meal and about 30-45g to lose weight. We talked about eating less saturated fats, sodium, and added sugars. I encouraged them to drink more water, sugar free drinks/pour-ins, and sparkling water. We talked about meeting the 150 minutes of exercise each week or 30 minutes/day. Emailed Education Material: MyPlate Plate, Plan Your Portions, Best Foods For You: Making Healthy Food Choices and Healthy Snack Choices, Nutrition for Life, Recipes, and Meal Plan. (Email did not work/not able to send an email.) Goals: 1. Continue to monitor carbohydrates 2. Work on a balanced plate/MyPlate Thank you for this referral! Sincerely, Russell Chong MS, RDN, LDN Registered Dietitian [facility] [email or web address] Not available 08/19/2024 12:15:41 01/06/2025 01/06/2025 He is not here with his medications and the renewals were based on the most recent hospital discharge on 12/17/2024. [email or web address] Not available 01/06/2025 18:24:44 01/12/2025 01/12/2025 rtc 3 mo [email or web address] Not available 12/27 14:26:47 02/11/2025 02/11/2025 He is not here with his medications and the renewals were based on the most recent hospital discharge on 12/17/2024. [email or web address] Not available 02/11/2025 14:21:06 Plan of Treatment Reminders Order Date Submit Date Provider Last Modified By Organization Details Last Modified Time Details Appointments ANY 15 2024 01:00P M [place] Christiano DPM Not available Not available Not available ANY 30 2025 02:00P M Shabbir Andrade MD Not available Not available Not available Lab HbA1c (hemoglob in A1c), blood 2024 025 [facility], [address] [facility], [place], [address], 01/25/2025 10:12:21 lipid panel, serum 2024 025 [facility], [address] [facility], [place], [address], 01/25/2025 08:32:53 albumin/c reatinine , mass ratio, urine 2024 025 [facility], [address] [facility], [address], [place], [address], 01/25/2025 10:12:19 CBC 2024 025 [facility], [address] [facility], [facility] [address], [place], [address], 01/25/2025 08:32:54 magnesium , serum or plasma 2024 025 [facility], [address] [facility], [place], [address], 01/25/2025 08:32:54 CMP, serum or plasma 2024 025 [facility], [address] [facility], [address], [place], [address], 01/25/2025 10:12:[address] referral 2024 025 [place], [address], [place], [address], 02/11/2025 14:12:51 diabetic ophthalmo logy referral 2024 025 [facility], [address], [place], [address], 02/11/2025 14:20:44 Procedures None recorded. Surgeries None recorded. Imaging None recorded. Medication Orders ammonium lactate 12 % lotion 2024 [facility][id number], [address] , [place], [place], [id number], 01/12/2025 14:26:45 ketoconaz ole 2 % topical cream 2024 [facility] #[id number], [address] [facility], [place], [place], [id number], 01/12/2025 14:26:45 furosemid e 80 mg tablet 2024 025 [facility] #[id number], [address] [facility], [place], [place], [id number], 01/06/2025 15:23:03 metoprolo l succinate ER 25 mg tablet,ex tended release 24 hr 2024 025 [facility] #[id number], [address] [facility], [place], [place], [id number], 01/06/2025 15:26:53 aspirin 81 mg tablet,de layed release 2024 025 [facility] #[id number], [address] [facility], [place], [place], [id number], 01/06/2025 15:26:57 omeprazol e 40 mg capsule,d elayed release 2024 025 [facility] #[id number], [address] [facility], [place], [place], [id number], 01/06/2025 15:28:26 albuterol sulfate HFA 90 mcg/actua tion aerosol inhaler [address] [facility] #[id number], [address] [facility], [place], [place], [id number], 01/06/2025 15:53:50 losartan 25 mg tablet 2024 025 [id number], [address] , [place], [place], [id number], 01/06/2025 15:26:53 ketoconaz ole 2 % topical cream 2024 025 [facility] #[id number], [address] , [place], [place], [id number], 10/13/2024 14:26:45 Patient TargetsNo targets recorded. Patient Instructions Encounter Date Encounter Id Patient Instructions Last Modified By Organization Details Last Modified Time 10/13/2024 [id number] toenail fungus: care instructions Not available 10/13/2024 14:26:34 athlete's foot: care instructions Not available 10/13/2024 14:26:34 01/06/2025 [id number] learning about type 2 diabetes oajao Not available 01/06/2025 15:26:47 type 2 diabetes: care instructions oajao Not available 01/06/2025 15:26:48 Labs Cardiology follow up (Scheduled) Nephrology (Scheduled) Neurology follow up Follow up in 4 weeks with all your medications or an accurate list Ophthalmology oajao Not available 01/06/2025 18:26:46 Very detailed follow up visit oajao Not available 01/06/2025 18:26:21 01/12/2025 [id number] toenail fungus: care instructions Not available 01/12/2025 14:26:37 athlete's foot: care instructions Not available 01/12/2025 14:26:38 02/11/2025 [id number] A healthy lifestyle: care instructions oajao Not available 02/11/2025 18:59:14 Clarify the dose of Jardiance Follow up in 3 months and PRN oajao Not available 02/11/2025 14:34:56 Reason for Referral Diabetic Ophthalmology Refer ral for Type 2 diabetes mellitus Referring Physician: Shabbir Andrade, Internal Medicine, Encounter Date: 01/06/2025 Neurologist Referral for His tory of cerebrovascular accident CVA with left sided weakness Referring Physician: Shabbir Andrade, Internal Medicine, Encounter Date: 01/06/2025 Results Created Date Observation Date Name Description Value Unit Range Abnormal Flag Note LastModifiedBy Organization Detail LastModifiedTime 07/18/1907/17/2024 Gas panel - Arter ial blood Unknown Analyte 7.223 pH_un its low: 7.35pH unitsh igh: 7.45pH units critical low Not Available Not Available 07/30/2024 11:51:08 07/18/19 25 07/17/2024 Gas panel - Arter ial blood Unknown Analyte 31.8 mm[hg ] low: 35mm[h g]high : 48mm[h g] low Not Available Not Available 07/30/2024 11:51:08 07/18/19 25 07/17/2024 Gas panel - Arter ial blood Unknown Analyte 96.8 mm[hg ] low: 83mm[h g]high : 108mm[ hg] normal Not Available Not Available 07/30/2024 11:51:08 07/18/19 25 07/17/2024 Gas panel - Arter ial blood HCO3 13.1 mmol/ L low: 21mmol /Lhigh : 28mmol /L critical low Not Available Not Available 07/30/2024 11:51:08 07/18/19 25 07/17/2024 Gas panel - Arter ial blood base excess -13.3 mmol/ L text: -2.0 low Not Available Not Available 07/30/2024 11:51:08 07/18/19 25 07/17/2024 Gas panel - Arter ial blood CO2, calculated 14.1 mmol/ L low: 18mmol /Lhigh : 28mmol /L low Not Available Not Available 07/30/2024 11:51:08 07/18/19 25 07/17/2024 Gas panel - Arter ial blood A-A gradient 324.9 mm[hg ] low: 0mm[hg ]high: 14mm[h g] high Not Available Not Available 07/30/2024 11:51:08 07/18/19 25 07/17/2024 Gas panel - Arter ial blood jae's test Jae test for arteri al compet ency normal Not Available Not Available 11:51:08 07/18/19 25 07/17/2024 Gas panel - Arter ial blood Unknown Analyte Arteri al site normal Not Available Not Available 11:51:08 07/18/19 25 07/17/2024 Gas panel - Arter ial blood Unknown Analyte 65 % normal Not Available Not Available 07/2024 11:51:08 07/18/19 25 07/17/2024 Gas panel - Arter ial blood Unknown Analyte On ventil ator normal Not Available Not Available 11:51:08 07/18/19 25 07/17/2024 Gas panel - Arter ial blood Unknown Analyte AC16 VT500 P7 normal Not Available Not Available 11:51:08 07/18/19 25 07/17/2024 Gluco se [Mass /volu me] in Capil george blood by Gluco meter glucose [mass/volume ] in capillary blood by glucometer 135 mg/dL low: 74mg/d Lhigh: 99mg/d L high Not Available Not Available 07/30/2024 11:51:08 07/18/19 25 07/17/2024 Basic metab olic 1999 panel - Serum or Plasm a sodium [moles/volum e] in blood 141 mmol/ L low: 137mmo l/Lhig h: 145mmo l/L normal Not Available Not Available 07/30/2024 11:51:08 07/18/19 25 07/17/2024 Basic metab olic 1999 panel - Serum or Plasm a potassium [moles/volum e] in serum or plasma 4.8 mmol/ L low: 3.5mmo l/Lhig h: 5.1mmo l/L normal Not Available Not Available 07/30/2024 11:51:08 07/18/19 25 07/17/2024 Basic metab olic 1999 panel - Serum or Plasm a chloride [moles/volum e] in serum or plasma 107 mmol/ L low: 98mmol /Lhigh : 107mmo l/L normal Not Available Not Available 07/30/2024 11:51:08 07/18/19 25 07/17/2024 [facility] 1999 panel - Serum or Plasm a carbon dioxide, total [moles/volum e] in serum or plasma 13 mmol/ L low: 22mmol /Lhigh : 30mmol /L low Not Available Not Available 07/30/2024 11:51:08 07/18/19 25 07/17/2024 [facility] 1999 panel - Serum or Plasm a anion gap in serum or plasma by calculation 25.8 mmol/ L low: 14mmol /Lhigh : 22mmol /L high Not Available Not Available 07/30/2024 11:51:08 07/18/19 25 07/17/2024 [facility] 1999 panel - Serum or Plasm a glucose [mass/volume ] in serum or plasma 154 mg/dL low: 70mg/d Lhigh: 99mg/d L high Not Available Not Available 07/30/2024 11:51:08 07/18/19 25 07/17/2024 [facility] 1999 panel - Serum or Plasm a urea nitrogen [mass or moles/volume ] in serum or plasma 33 mg/dL low: 8mg/dL high: 19mg/d L high Not Available Not Available 07/30/2024 11:51:08 07/18/19 25 07/17/2024 [facility] 1999 panel - Serum or Plasm a creatinine [mass/volume ] in serum or plasma 2.14 mg/dL low: 0.66mg /dLhig h: 1.25mg /dL high Not Available Not Available 07/30/2024 11:51:08 07/18/19 25 07/17/2024 [facility] 1999 panel - Serum or Plasm a glomerular filtration rate [volume rate/area] in serum, plasma or blood by based on 1.73 sq M 32 1 normal Not Available Not Available 11:51:08 07/18/19 25 07/17/2024 [facility] 1999 panel - Serum or Plasm a calcium [mass/volume ] in serum or plasma 7.7 mg/dL low: 8.4mg/ dLhigh : 10.2mg /dL low Not Available Not Available 07/30/2024 11:51:08 07/18/19 25 07/17/2024 Aceta minop hen [Mass /volu me] in Serum or Plasm a acetaminophe n [mass/volume ] in serum or plasma <10 low: 10mcg/ mLhigh : 30mcg/ mL normal Not Available Not Available 07/30/2024 11:51:07 07/18/19 25 07/17/2024 Lacta te [Mole s/vol ume] in Serum or Plasm a lactate [moles/volum e] in serum or plasma 7.8 mmol/ L low: 0.7mmo l/Lhig h: 1.9mmo l/L critical high Not Available Not Available 07/30/2024 11:51:07 07/18/19 25 07/17/2024 Basic metab olic 1999 panel - Serum or Plasm a sodium [moles/volum e] in blood 137 mmol/ L low: 137mmo l/Lhig h: 145mmo l/L normal Not Available Not Available 07/30/2024 11:51:07 07/18/19 25 07/17/2024 Basic metab olic 1999 panel - Serum or Plasm a potassium [moles/volum e] in serum or plasma 4.6 mmol/ L low: 3.5mmo l/Lhig h: 5.1mmo l/L normal Not Available Not Available 07/30/2024 11:51:07 07/18/19 25 07/17/2024 Basic metab olic 1999 panel - Serum or Plasm a chloride [moles/volum e] in serum or plasma 111 mmol/ L low: 98mmol /Lhigh : 107mmo l/L high Not Available Not Available 07/30/2024 11:51:07 07/18/19 25 07/17/2024 Basic metab olic 1999 panel - Serum or Plasm a carbon dioxide, total [moles/volum e] in serum or plasma 10 mmol/ L low: 22mmol /Lhigh : 30mmol /L low Not Available Not Available 07/30/2024 11:51:07 07/18/19 25 07/17/2024 Basic metab olic 1999 panel - Serum or Plasm a anion gap in serum or plasma by calculation 20.6 mmol/ L low: 14mmol /Lhigh : 22mmol /L normal Not Available Not Available 07/30/2024 11:51:07 07/18/19 25 07/17/2024 [facility] 1999 panel - Serum or Plasm a glucose [mass/volume ] in serum or plasma 135 mg/dL low: 70mg/d Lhigh: 99mg/d L high Not Available Not Available 07/30/2024 11:51:07 07/18/19 25 07/17/2024 [facility] 1999 panel - Serum or Plasm a urea nitrogen [mass or moles/volume ] in serum or plasma 31 mg/dL low: 8mg/dL high: 19mg/d L high Not Available Not Available 07/30/2024 11:51:07 07/18/19 25 07/17/2024 [facility] 1999 panel - Serum or Plasm a creatinine [mass/volume ] in serum or plasma 1.88 mg/dL low: 0.66mg /dLhig h: 1.25mg /dL high Not Available Not Available 07/30/2024 11:51:07 07/18/19 25 07/17/2024 [facility] 1999 panel - Serum or Plasm a glomerular filtration rate [volume rate/area] in serum, plasma or blood by based on 1.73 sq M 37 1 normal Not Available Not Available 11:51:07 07/18/19 25 07/17/2024 [facility] 1999 panel - Serum or Plasm a calcium [mass/volume ] in serum or plasma 8.2 mg/dL low: 8.4mg/ dLhigh : 10.2mg /dL low Not Available Not Available 07/30/2024 11:51:07 07/18/19 25 07/17/2024 Gluco se [Mass /volu me] in Capil george blood by Gluco meter glucose [mass/volume ] in capillary blood by glucometer 185 mg/dL low: 74mg/d Lhigh: 99mg/d L high Not Available Not Available 07/30/2024 11:51:08 07/18/19 25 07/17/2024 Gluco se [Mass /volu me] in Capil george blood by Gluco meter glucose [mass/volume ] in capillary blood by glucometer 64 mg/dL low: 74mg/d Lhigh: 99mg/d L low Not Available Not Available 07/30/2024 11:51:07 07/18/19 25 07/17/2024 Compr ehens bharat metab olic 1999 panel - Serum or Plasm a sodium [moles/volum e] in blood 138 mmol/ L low: 137mmo l/Lhig h: 145mmo l/L normal Not Available Not Available 07/30/2024 11:51:07 07/18/19 25 07/17/2024 Compr ehens bharat metab olic 1999 panel - Serum or Plasm a potassium [moles/volum e] in serum or plasma 6.6 mmol/ L low: 3.5mmo l/Lhig h: 5.1mmo l/L critical high Not Available Not Available 07/30/2024 11:51:07 07/18/19 25 07/17/2024 Compr ehens bharat metab olic 1999 panel - Serum or Plasm a chloride [moles/volum e] in serum or plasma 109 mmol/ L low: 98mmol /Lhigh : 107mmo l/L high Not Available Not Available 07/30/2024 11:51:07 07/18/19 25 07/17/2024 Compr ens bharat metab olic 1999 panel - Serum or Plasm a carbon dioxide, total [moles/volum e] in serum or plasma 10 mmol/ L low: 22mmol /Lhigh : 30mmol /L low Not Available Not Available 07/30/2024 11:51:07 07/18/19 25 07/17/2024 Compr ens bharat metab olic 1999 panel - Serum or Plasm a anion gap in serum or plasma by calculation 25.6 mmol/ L low: 14mmol /Lhigh : 22mmol /L high Not Available Not Available 07/30/2024 11:51:07 07/18/19 25 07/17/2024 Compr ehens bharat metab olic 1999 panel - Serum or Plasm a glucose [mass/volume ] in serum or plasma 60 mg/dL low: 70mg/d Lhigh: 99mg/d L low Not Available Not Available 07/30/2024 11:51:07 07/18/19 25 07/17/2024 Compr ehens bharat metab olic 1999 panel - Serum or Plasm a urea nitrogen [mass or moles/volume ] in serum or plasma 26 mg/dL low: 8mg/dL high: 19mg/d L high Not Available Not Available 07/30/2024 11:51:07 07/18/19 25 07/17/2024 [facility] [employer] [facility] [employer] [facility] 1999 panel - Serum or Plasm a creatinine [mass/volume ] in serum or plasma 1.9 mg/dL low: 0.66mg /dLhig h: 1.25mg /dL high Not Available Not Available 07/30/2024 11:51:07 07/18/19 25 07/17/2024 [facility] [employer] [facility] [employer] [facility] 1999 panel - Serum or Plasm a glomerular filtration rate [volume rate/area] in serum, plasma or blood by based on 1.73 sq M 36 1 normal Not Available Not Available 11:51:07 07/18/19 25 07/17/2024 [facility] [employer] [facility] 1999 panel - Serum or Plasm a alkaline phosphatase [enzymatic activity/vol ume] in serum or plasma 88 U/L low: 38U/Lh igh: 126U/L normal Not Available Not Available 07/30/2024 11:51:07 07/18/19 25 07/17/2024 [facility] [employer] [facility]har[facility] [employer] ic 1999 panel - Serum or Plasm a alanine aminotransfe rase [enzymatic activity/vol ume] in serum or plasma 173 U/L low: 0U/Lhi gh: 50U/L high Not Available Not Available 07/30/2024 11:51:07 07/18/19 25 07/17/2024 [facility] [employer] bharat metab olic 1999 panel - Serum or Plasm a aspartate aminotransfe rase [enzymatic activity/vol ume] in serum or plasma 362 U/L low: 15U/Lh igh: 46U/L high Not Available Not Available 07/30/2024 11:51:07 07/18/19 25 07/17/2024 Compr Omiciaens bharat [employer] [facility] 1999 panel - Serum or Plasm a bilirubin.to christina [mass/volume ] in serum or plasma 4.4 mg/dL low: 0.2mg/ dLhigh : 1.3mg/ dL high Not Available Not Available 07/30/2024 11:51:07 07/18/19 25 07/17/2024 Compr Omiciaens bharat [employer] olic 2000 panel - Serum or Plasm a calcium [mass/volume ] in serum or plasma 8.7 mg/dL low: 8.4mg/ dLhigh : 10.2mg /dL normal Not Available Not Available 07/30/2024 11:51:07 07/18/19 25 07/17/2024 [facility] [employer] olic 1999 panel - Serum or Plasm a protein [mass/volume ] in serum or plasma 8 g/dL low: 6.3g/d Lhigh: 8.2g/d L normal Not Available Not Available 07/30/2024 11:51:07 07/18/19 25 07/17/2024 [facility] [employer] olic 1999 panel - Serum or Plasm a albumin [mass/volume ] in serum or plasma 4.8 g/dL low: 3.4g/d Lhigh: 5g/dL normal Not Available Not Available 07/30/2024 11:51:07 07/18/19 25 07/17/2024 [facility] [employer] ic 1999 panel - Serum or Plasm a globulin [mass/volume ] in serum 3.2 g/dL low: 2.6g/d Lhigh: 4.2g/d L normal Not Available Not Available 07/30/2024 11:51:07 07/18/19 25 07/17/2024 [facility] [employer] ic 1999 panel - Serum or Plasm a albumin/glob ulin [mass ratio] in serum or plasma 1.5 ratio low: 1ratio high: 2ratio normal Not Available Not Available 07/30/2024 11:51:07 07/18/19 25 07/17/2024 Lacta te [Mole s/vol ume] in Serum or Plasm a lactate [moles/volum e] in serum or plasma 9.3 mmol/ L low: 0.7mmo l/Lhig h: 1.9mmo l/L critical high Not Available Not Available 07/30/2024 11:51:07 07/18/19 25 07/17/2024 Dipesh ol [Mass /volu me] in Serum or Plasm a ethanol [mass/volume ] in serum or plasma <10 low: 0mg/dL high: 10mg/d L normal Not Available Not Available 07/30/2024 11:51:07 07/18/19 25 07/17/2024 Beta hydro xybut yrate [Mole s/vol ume] in Serum or Plasm a beta hydroxybutyr ate [moles/volum e] in serum or plasma 0.34 mmol/ L low: 0.02mm ol/Lhi gh: 0.27mm ol/L high Not Available Not Available 07/30/2024 11:51:07 07/18/19 25 07/17/2024 Drugs ident ified in Urine by Scree frieda paceo rylie Nomin al amphetamines [presence] in urine Positi ve Not Available Not Available 11:51:07 07/18/19 25 07/17/2024 Drugs ident ified in Urine by Scree n metho rylie Nomin al barbiturates [presence] in urine Negati ve normal Not Available Not Available 11:51:07 07/18/19 25 07/17/2024 Drugs ident ified in Urine by Scree frieda Guillaumein al benzodiazepi eliza [presence] in urine Negati ve normal Not Available Not Available 11:51:07 07/18/19 25 07/17/2024 Drugs ident ified in Urine by Scree frieda metho rylie Nomin al cocaine [presence] in urine Negati ve normal Not Available Not Available 11:51:07 07/18/19 25 07/17/2024 Drugs ident ified in Urine by Scree frieda metho rylie Nomin al fentanyl Negati ve normal Not Available Not Available 11:51:07 07/18/19 25 07/17/2024 Drugs ident ified in Urine by Scree frieda metho rylie Nomin al methadone [presence] in urine Negati ve normal Not Available Not Available 11:51:07 07/18/19 25 07/17/2024 Drugs ident ified in Urine by Scree frieda metho rylie Nomin al opiates [presence] in urine Negati ve normal Not Available Not Available 11:51:07 07/18/19 25 07/17/2024 Drugs ident ified in Urine by Scree frieda metho rylie Nomin al oxycodone [presence] in urine Negati ve normal Not Available Not Available 11:51:07 07/18/19 25 07/17/2024 Drugs ident ified in Urine by Sera lindsey phencyclidin e [presence] in urine Negati ve normal Not Available Not Available 11:51:07 07/18/19 25 07/17/2024 Drugs ident ified in Urine by Screprince lindsey cannabinoids [presence] in urine Negati ve normal Not Available Not Available 11:51:07 07/18/19 25 07/17/2024 Urina lysis compl ete W Refle x Cultu re panel - Urine color of urine by auto Color of urine normal Not Available Not Available 11:51:07 07/18/19 25 07/17/2024 Urina lysis compl ete W Refle x Cultu re panel - Urine appearance of urine Urine specim en Not Available Not Available 11:51:07 07/18/19 25 07/17/2024 Urina lysis compl ete W Refle x Cultu re panel - Urine specific gravity of urine by test strip 1.013 1 low: 1.001h igh: 1.03 normal Not Available Not Available 07/30/2024 11:51:07 07/18/19 25 07/17/2024 Urina lysis compl ete W Refle x Cultu re panel - Urine pH of urine by test strip 5 pH_un its low: 5pH unitsh igh: 9pH units normal Not Available Not Available 07/30/2024 11:51:07 07/18/19 25 07/17/2024 Urina lysis compl ete W Refle x Cultu re panel - Urine leukocytes [#/volume] in urine by test strip Leukoc yte estera se measur ement text: negati ve normal Not Available Not Available 07/30/2024 11:51:07 07/18/19 25 07/17/2024 Urina lysis compl ete W Refle x Cultu re panel - Urine nitrite [presence] in urine by test strip Labora tory test findin g text: negati ve normal Not Available Not Available 07/30/2024 11:51:07 07/18/19 25 07/17/2024 Urina lysis compl ete W Refle x Cultu re panel - Urine protein [mass/volume ] in urine by test strip 70 mg/dL text: negati ve Not Available Not Available 07/30/2024 11:51:07 07/18/19 25 07/17/2024 Urina lysis compl ete W Refle x Cultu re panel - Urine glucose [moles/volum e] in urine by test strip Labora tory test findin g text: normal normal Not Available Not Available 07/30/2024 11:51:07 07/18/19 25 07/17/2024 Urina lysis compl ete W Refle x Cultu re panel - Urine ketones [moles/volum e] in urine by test strip Labora tory test findin g text: negati ve normal Not Available Not Available 07/30/2024 11:51:07 07/18/19 25 07/17/2024 Urina lysis compl ete W Refle x Cultu re panel - Urine urobilinogen [mass/volume ] in urine by test strip Urobil inogen measur ement, urine text: normal normal Not Available Not Available 07/30/2024 11:51:07 07/18/19 25 07/17/2024 Urina lysis compl ete W Refle x Cultu re panel - Urine bilirubin.to christina [mass/volume ] in urine by test strip Urine dipsti ck for biliru bin text: negati ve normal Not Available Not Available 07/30/2024 11:51:07 07/18/19 25 07/17/2024 Urina lysis compl ete W Refle x Cultu re panel - Urine erythrocytes [#/volume] in urine by test strip Urine dipsti ck for blood text: negati ve Not Available Not Available 07/30/2024 11:51:07 07/18/19 25 07/17/2024 Urina lysis compl ete W Refle x Cultu re panel - Urine leukocytes [#/area] in urine sediment by automated count Leukoc ytes in urine low: 0/[hpf ]high: 8/[hpf ] normal Not Available Not Available 07/30/2024 11:51:07 07/18/19 25 07/17/2024 Urina lysis compl ete W Refle x Cultu re panel - Urine erythrocytes [#/area] in urine sediment by automated count Blood in urine low: 0/[hpf ]high: 4/[hpf ] Not Available Not Available 07/30/2024 11:51:07 07/18/19 25 07/17/2024 Urina lysis compl ete W Refle x Cultu re panel - Urine bacteria [presence] in urine by automated Urine findin g Not Available Not Available 11:51:07 07/18/19 25 07/17/2024 Urina lysis compl ete W Refle x Cultu re panel - Urine mucus [#/area] in urine sediment by automated count Urine findin g Not Available Not Available 11:51:07 07/18/19 25 07/17/2024 Urina lysis compl ete W Refle x Cultu re panel - Urine epithelial cells.squ[place] us [#/area] in urine sediment by automated count Urine findin g Not Available Not Available 11:51:07 07/18/19 25 07/17/2024 Urina lysis compl ete W Refle x Cultu re panel - Urine hyaline casts [#/area] in urine sediment by automated count Urine findin g text: none seen Not Available Not Available 07/30/2024 11:51:07 07/18/19 25 07/17/2024 Tropo young I.car diac [Mass /volu me] in Serum or Plasm a by Detec tion limit <= 0.01 ng/mL troponin I.cardiac [mass/volume ] in serum or plasma by detection limit <= 0.01 NG/mL 0.033 NG/mL low: 0NG/mL high: 0.034N G/mL normal Not Available Not Available 07/30/2024 11:51:07 07/18/19 25 07/17/2024 CBC W Auto Diffe renti al panel - Blood leukocytes [#/volume] in blood by automated count 7.3 x10'3 /uL low: 4.2x10 '3/uLh igh: 10.8x1 0'3/uL normal Not Available Not Available 07/30/2024 11:51:06 07/18/19 25 07/17/2024 CBC W Auto Diffe renti al panel - Blood erythrocytes [#/volume] in blood by automated count 5.56 x10'6 /uL low: 4.1x10 '6/uLh igh: 5.8x10 '6/uL normal Not Available Not Available 07/30/2024 11:51:06 07/18/19 25 07/17/2024 CBC W Auto Diffe renti al panel - Blood hemoglobin [mass/volume ] in blood 15.8 g/dL low: 13.2g/ dLhigh : 17g/dL normal Not Available Not Available 07/30/2024 11:51:06 07/18/19 25 07/17/2024 CBC W Auto Diffe renti al panel - Blood hematocrit [volume fraction] of blood by automated count 50.5 % low: 39.3%h igh: 50% high Not Available Not Available 07/30/2024 11:51:06 07/18/19 25 07/17/2024 CBC W Auto Diffe renti al panel - Blood MCV [entitic mean volume] in red blood cells by automated count 90.8 fL low: 80fLhi gh: 97fL normal Not Available Not Available 07/30/2024 11:51:06 07/18/19 25 07/17/2024 CBC W Auto Diffe andrei al panel - Blood MCH [entitic mass] by automated count 28.4 pg low: 27pghi gh: 33pg normal Not Available Not Available 07/30/2024 11:51:06 07/18/19 25 07/17/2024 CBC W Auto Diffe andrei lindsey panel - Blood MCHC [entitic mass/volume] in red blood cells by automated count 31.3 g/dL low: 31g/dL high: 36g/dL normal Not Available Not Available 07/30/2024 11:51:06 07/18/19 25 07/17/2024 CBC W Auto Diffe rentone al panel - Blood erythrocyte [distwidth] in red blood cells 20.8 % low: 11.8%h igh: 15.5% high Not Available Not Available 07/30/2024 11:51:06 07/18/19 25 07/17/2024 CBC W Auto Diffe andrei al panel - Blood platelets [#/volume] in blood by automated count 316 x10'3 /uL low: 150x10 '3/uLh igh: 400x10 '3/uL normal Not Available Not Available 07/30/2024 11:51:06 07/18/19 25 07/17/2024 CBC W Auto Diffe renti al panel - Blood platelet [entitic mean volume] in blood by automated count 9.3 fL low: 9fLhig h: 12.4fL normal Not Available Not Available 07/30/2024 11:51:06 07/18/19 25 07/17/2024 CBC W Auto Diffe renti al panel - Blood neutrophils/ leukocytes in blood 70.9 % low: 39%hig h: 72% normal Not Available Not Available 07/30/2024 11:51:06 07/18/19 25 07/17/2024 CBC W Auto Diffe renti al panel - Blood lymphocytes/ leukocytes in blood 23.8 % low: 16%hig h: 47% normal Not Available Not Available 07/30/2024 11:51:06 07/18/19 25 07/17/2024 CBC W Auto Diffe renti al panel - Blood monocytes/le ukocytes in blood 4.5 % low: 5%high : 12% low Not Available Not Available 07/30/2024 11:51:06 07/18/19 25 07/17/2024 CBC W Auto Diffe renti al panel - Blood eosinophils [#/volume] in blood 0.1 % low: 1%high : 7% low Not Available Not Available 07/30/2024 11:51:06 07/18/19 25 07/17/2024 CBC W Auto Diffe renti al panel - Blood basophils/le ukocytes in blood 0.3 % low: 0%high : 2% normal Not Available Not Available 07/30/2024 11:51:06 07/18/19 25 07/17/2024 CBC W Auto Diffe renti al panel - Blood immature granulocytes /leukocytes in blood 0.4 % low: 0%high : 0.5% normal Not Available Not Available 07/30/2024 11:51:06 07/18/19 25 07/17/2024 CBC W Auto Diffe renti al panel - Blood neutrophils [#/volume] in blood 5.2 x10'3 /uL low: 1.5x10 '3/uLh igh: 8x10'3 /uL normal Not Available Not Available 07/30/2024 11:51:06 07/18/19 25 07/17/2024 CBC W Auto Diffe renti al panel - Blood lymphocytes [#/volume] in blood 1.75 x10'3 /uL low: 1.07x1 0'3/uL high: 3.43x1 0'3/uL normal Not Available Not Available 07/30/2024 11:51:06 07/18/19 25 07/17/2024 CBC W Auto Diffe renti al panel - Blood monocytes [#/volume] in blood 0.33 x10'3 /uL low: 0.29x1 0'3/uL high: 0.99x1 0'3/uL normal Not Available Not Available 07/30/2024 11:51:06 07/18/19 25 07/17/2024 CBC W Auto Diffe renti al panel - Blood eosinophils [#/volume] in blood 0.01 x10'3 /uL low: 0.02x1 0'3/uL high: 0.53x1 0'3/uL low Not Available Not Available 07/30/2024 11:51:06 07/18/19 25 07/17/2024 CBC W Auto Diffe renti al panel - Blood basophils [#/volume] in blood 0.02 x10'3 /uL low: 0.01x1 0'3/uL high: 0.08x1 0'3/uL normal Not Available Not Available 07/30/2024 11:51:06 07/18/19 25 07/17/2024 CBC W Auto Diffe renti al panel - Blood immature granulocytes [#/volume] in blood 0.03 x10'3 /uL low: 0x10'3 /uLhig h: 0.05x1 0'3/uL normal Not Available Not Available 07/30/2024 11:51:06 07/18/19 25 07/17/2024 CBC W Auto Diffe renti al panel - Blood nucleated erythrocytes /leukocytes [ratio] in blood 0 % high: 0% normal Not Available Not Available 07/30/2024 11:51:06 07/18/19 25 07/17/2024 CBC W Auto Diffe renti al panel - Blood nucleated erythrocytes [#/volume] in blood by automated count 0 x10'3 /uL normal Not Available Not Available 07/31/19 11:51:06 07/18/19 25 07/17/2024 CBC W Auto Diffe renti al panel - Blood anisocytosis [presence] in blood by light microscopy Labora tory data interp retati on normal Not Available Not Available 11:51:06 07/18/19 25 07/17/2024 CBC W Auto Diffe renti al panel - Blood poikilocytos is [presence] in blood by light microscopy Labora tory data interp retati on normal Not Available Not Available 11:51:06 07/18/19 25 07/17/2024 CBC W Auto Diffe renti al panel - Blood target cells [presence] in blood by light microscopy Labora tory data interp retati on normal Not Available Not Available 11:51:06 07/18/19 25 07/17/2024 CBC W Auto Diffe renti al panel - Blood ovalocytes [presence] in blood by light microscopy Labora tory data interp retati on normal Not Available Not Available 11:51:06 07/18/19 25 07/17/2024 Basic metab olic 1999 panel - Serum or Plasm a sodium [moles/volum e] in blood 141 mmol/ L low: 137mmo l/Lhig h: 145mmo l/L normal Not Available Not Available 07/30/2024 11:51:05 07/18/19 25 07/17/2024 Basic metab olic 1999 panel - Serum or Plasm a potassium [moles/volum e] in serum or plasma 5.5 mmol/ L low: 3.5mmo l/Lhig h: 5.1mmo l/L high Not Available Not Available 07/30/2024 11:51:05 07/18/19 25 07/17/2024 Basic metab olic 1999 panel - Serum or Plasm a chloride [moles/volum e] in serum or plasma 110 mmol/ L low: 98mmol /Lhigh : 107mmo l/L high Not Available Not Available 07/30/2024 11:51:05 07/18/19 25 07/17/2024 Basic metab olic 2000 panel - Serum or Plasm a carbon dioxide, total [moles/volum e] in serum or plasma 9 mmol/ L low: 22mmol /Lhigh : 30mmol /L critical low Not Available Not Available 07/30/2024 11:51:05 07/18/19 25 07/17/2024 [facility] 1999 panel - Serum or Plasm a anion gap in serum or plasma by calculation 27.5 mmol/ L low: 14mmol /Lhigh : 22mmol /L high Not Available Not Available 07/30/2024 11:51:05 07/18/19 25 07/17/2024 [facility] 1999 panel - Serum or Plasm a glucose [mass/volume ] in serum or plasma 115 mg/dL low: 70mg/d Lhigh: 99mg/d L high Not Available Not Available 07/30/2024 11:51:05 07/18/19 25 07/17/2024 [facility] 1999 panel - Serum or Plasm a urea nitrogen [mass or moles/volume ] in serum or plasma 24 mg/dL low: 8mg/dL high: 19mg/d L high Not Available Not Available 07/30/2024 11:51:05 07/18/19 25 07/17/2024 [facility] 1999 panel - Serum or Plasm a creatinine [mass/volume ] in serum or plasma 1.53 mg/dL low: 0.66mg /dLhig h: 1.25mg /dL high Not Available Not Available 07/30/2024 11:51:05 07/18/19 25 07/17/2024 [facility] 1999 panel - Serum or Plasm a glomerular filtration rate [volume rate/area] in serum, plasma or blood by based on 1.73 sq M 47 1 normal Not Available Not Available 11:51:05 07/18/19 25 07/17/2024 [facility] 1999 panel - Serum or Plasm a calcium [mass/volume ] in serum or plasma 8.9 mg/dL low: 8.4mg/ dLhigh : 10.2mg /dL normal Not Available Not Available 07/30/2024 11:51:05 07/18/19 25 07/17/2024 Tropo young I.car diac [Mass /volu me] in Serum or Plasm a by Detec tion limit <= 0.01 ng/mL troponin I.cardiac [mass/volume ] in serum or plasma by detection limit <= 0.01 NG/mL 0.033 NG/mL low: 0NG/mL high: 0.034N G/mL normal Not Available Not Available 07/30/2024 11:51:06 07/19/19 25 07/18/2024 Osmol ality of Serum or Plasm a osmolality of serum or plasma 313 mosmo l/kg low: 280mos mol/kg high: 301mos mol/kg high Not Available Not Available 07/30/2024 11:51:09 07/19/19 25 07/18/2024 Osmol ality of Serum or Plasm a osmolality of serum or plasma 311 mosmo l/k low: 275mos mol/kh igh: 295mos mol/k high Not Available Not Available 07/30/2024 11:51:09 07/19/19 25 07/18/2024 Drugs ident ified in Urine by Screprince Guillaumein al amphetamines [presence] in urine Positi ve Not Available Not Available 11:51:05 07/19/19 25 07/18/2024 Drugs ident ified in Urine by Screprince Guillaumein al barbiturates [presence] in urine Negati ve normal Not Available Not Available 11:51:05 07/19/19 25 07/18/2024 Drugs ident ified in Urine by Scree frieda paceo rylie Guillaumein césar benzodiazepi eliza [presence] in urine Positi ve Not Available Not Available 11:51:05 07/19/19 25 07/18/2024 Drugs ident ified in Urine by Scree n metho rylie Nomin al cocaine [presence] in urine Negati ve normal Not Available Not Available 11:51:05 07/19/19 25 07/18/2024 Drugs ident ified in Urine by Scree n metho d Nomin al fentanyl Negati ve normal Not Available Not Available 11:51:05 07/19/19 25 07/18/2024 Drugs ident ified in Urine by Scree n metho d Nomin al methadone [presence] in urine Negati ve normal Not Available Not Available 11:51:05 07/19/19 25 07/18/2024 Drugs ident ified in Urine by Sera lindsey opiates [presence] in urine Negati ve normal Not Available Not Available 11:51:05 07/19/19 25 07/18/2024 Drugs ident ified in Urine by Sera lindsey oxycodone [presence] in urine Negati ve normal Not Available Not Available 11:51:05 07/19/19 25 07/18/2024 Drugs ident ified in Urine by Sera lindsey phencyclidin e [presence] in urine Negati ve normal Not Available Not Available 11:51:05 07/19/19 25 07/18/2024 Drugs ident ified in Urine by Sera lindsey cannabinoids [presence] in urine Negati ve normal Not Available Not Available 11:51:05 07/19/19 25 07/18/2024 Gluco se [Mass /volu me] in Capil george blood by Gluco meter glucose [mass/volume ] in capillary blood by glucometer 167 mg/dL low: 74mg/d Lhigh: 99mg/d L high Not Available Not Available 07/30/2024 11:51:09 07/19/19 25 07/18/2024 Creat inine [Mass /volu me] in Urine creatinine [mass/volume ] in urine 149.8 mg/dL normal Not Available Not Available 0 07/30/2024 11:51:08 07/19/19 25 07/18/2024 Gluco se [Mass /volu me] in Capil george blood by Gluco meter glucose [mass/volume ] in capillary blood by glucometer 262 mg/dL low: 74mg/d Lhigh: 99mg/d L high Not Available Not Available 07/30/2024 11:51:09 07/19/19 25 07/18/2024 Sodiu m [Mole s/vol ume] in Urine sodium [moles/volum e] in urine 18 mmol/ L low: 30mmol /Lhigh : 90mmol /L low Not Available Not Available 07/30/2024 11:51:09 07/19/19 25 07/18/2024 Potas sium [Mole s/vol ume] in Urine potassium [moles/volum e] in urine 112.4 mmol/ L low: 12mmol /Lhigh : 62mmol /L high Not Available Not Available 07/30/2024 11:51:09 07/19/19 25 07/18/2024 Chlor jovani [Mole s/vol ume] in Urine chloride [moles/volum e] in urine 52 mmol/ L normal Not Available Not Available 07/31/19 11:51:08 07/19/19 25 07/18/2024 Osmol ality of Urine osmolality of urine 376 mosmo l/k low: 50mosm ol/khi gh: 1200mo smol/k normal Not Available Not Available 07/30/2024 11:51:08 07/19/19 25 07/18/2024 Osmol ality of Urine osmolality of urine 377 mosmo l/k low: 50mosm ol/khi gh: 1200mo smol/k normal Not Available Not Available 07/30/2024 11:51:08 07/19/19 25 07/18/2024 CBC W Auto Diffe renti al panel - Blood leukocytes [#/volume] in blood by automated count 26.3 x10'3 /uL low: 4.2x10 '3/uLh igh: 10.8x1 0'3/uL high Not Available Not Available 07/30/2024 11:51:06 07/19/19 25 07/18/2024 CBC W Auto Diffe renti al panel - Blood erythrocytes [#/volume] in blood by automated count 5.32 x10'6 /uL low: 4.1x10 '6/uLh igh: 5.8x10 '6/uL normal Not Available Not Available 07/30/2024 11:51:06 07/19/19 25 07/18/2024 CBC W Auto Diffe renti al panel - Blood hemoglobin [mass/volume ] in blood 15.1 g/dL low: 13.2g/ dLhigh : 17g/dL normal Not Available Not Available 07/30/2024 11:51:06 03/23/20 25 07/18/2024 CBC W Auto Diffe renti al panel - Blood hematocrit [volume fraction] of blood by automated count 46.6 % low: 39.3%h igh: 50% normal Not Available Not Available 07/30/2024 11:51:06 07/19/19 25 07/18/2024 CBC W Auto Diffe renti al panel - Blood MCV [entitic mean volume] in red blood cells by automated count 87.6 fL low: 80fLhi gh: 97fL normal Not Available Not Available 07/30/2024 11:51:06 07/19/19 25 07/18/2024 CBC W Auto Diffe renti al panel - Blood MCH [entitic mass] by automated count 28.4 pg low: 27pghi gh: 33pg normal Not Available Not Available 07/30/2024 11:51:06 07/19/19 25 07/18/2024 CBC W Auto Diffe renti al panel - Blood MCHC [entitic mass/volume] in red blood cells by automated count 32.4 g/dL low: 31g/dL high: 36g/dL normal Not Available Not Available 07/30/2024 11:51:06 07/19/19 25 07/18/2024 CBC W Auto Diffe renti al panel - Blood erythrocyte [distwidth] in red blood cells 21.2 % low: 11.8%h igh: 15.5% high Not Available Not Available 07/30/2024 11:51:06 07/19/19 25 07/18/2024 CBC W Auto Diffe renti al panel - Blood platelets [#/volume] in blood by automated count 294 x10'3 /uL low: 150x10 '3/uLh igh: 400x10 '3/uL normal Not Available Not Available 07/30/2024 11:51:06 07/19/19 25 07/18/2024 CBC W Auto Diffe renti al panel - Blood platelet [entitic mean volume] in blood by automated count 10.2 fL low: 9fLhig h: 12.4fL normal Not Available Not Available 07/30/2024 11:51:06 07/19/19 25 07/18/2024 CBC W Auto Diffe renti al panel - Blood neutrophils/ leukocytes in blood 91 % low: 39%hig h: 72% high Not Available Not Available 07/30/2024 11:51:06 07/19/19 25 07/18/2024 CBC W Auto Diffe renti al panel - Blood band form neutrophils/ leukocytes in blood 1 % low: 0%high : 3% normal Not Available Not Available 07/30/2024 11:51:06 07/19/19 25 07/18/2024 CBC W Auto Diffe renti al panel - Blood lymphocytes/ leukocytes in blood 4 % low: 16%hig h: 47% low Not Available Not Available 07/30/2024 11:51:06 07/19/19 25 07/18/2024 CBC W Auto Diffe renti al panel - Blood monocytes/le ukocytes in blood 1 % low: 5%high : 12% low Not Available Not Available 07/30/2024 11:51:06 07/19/19 25 07/18/2024 CBC W Auto Diffe renti al panel - Blood basophils/le ukocytes in blood 1 % low: 0%high : 2% normal Not Available Not Available 07/30/2024 11:51:06 07/19/19 25 07/18/2024 CBC W Auto Diffe renti al panel - Blood myelocytes/l eukocytes in blood 2 % high: 0% high Not Available Not Available 07/30/2024 11:51:06 07/19/19 25 07/18/2024 CBC W Auto Diffe renti al panel - Blood neutrophils [#/volume] in blood 22.73 x10'3 /uL low: 1.5x10 '3/uLh igh: 8x10'3 /uL high Not Available Not Available 07/30/2024 11:51:06 07/19/19 25 07/18/2024 CBC W Auto Diffe renti al panel - Blood anisocytosis [presence] in blood by light microscopy Beea audelia data interp retati on normal Not Available Not Available 11:51:06 07/19/19 25 07/18/2024 Basic metab olic 2000 panel - Serum or Plasm a sodium [moles/volum e] in blood 137 mmol/ L low: 137mmo l/Lhig h: 145mmo l/L normal Not Available Not Available 07/30/2024 11:51:06 07/19/19 25 07/18/2024 [facility] 1999 panel - Serum or Plasm a potassium [moles/volum e] in serum or plasma 5.4 mmol/ L low: 3.5mmo l/Lhig h: 5.1mmo l/L high Not Available Not Available 07/30/2024 11:51:06 07/19/19 25 07/18/2024 [facility] 1999 panel - Serum or Plasm a chloride [moles/volum e] in serum or plasma 105 mmol/ L low: 98mmol /Lhigh : 107mmo l/L normal Not Available Not Available 07/30/2024 11:51:06 07/19/19 25 07/18/2024 [facility] 1999 panel - Serum or Plasm a carbon dioxide, total [moles/volum e] in serum or plasma 14 mmol/ L low: 22mmol /Lhigh : 30mmol /L low Not Available Not Available 07/30/2024 11:51:06 07/19/19 25 07/18/2024 [facility] 1999 panel - Serum or Plasm a anion gap in serum or plasma by calculation 23.4 mmol/ L low: 14mmol /Lhigh : 22mmol /L high Not Available Not Available 07/30/2024 11:51:06 07/19/19 25 07/18/2024 [facility] 1999 panel - Serum or Plasm a glucose [mass/volume ] in serum or plasma 140 mg/dL low: 70mg/d Lhigh: 99mg/d L high Not Available Not Available 07/30/2024 11:51:06 07/19/19 25 07/18/2024 [facility] 1999 panel - Serum or Plasm a urea nitrogen [mass or moles/volume ] in serum or plasma 38 mg/dL low: 8mg/dL high: 19mg/d L high Not Available Not Available 07/30/2024 11:51:06 07/19/19 25 07/18/2024 [facility] 1999 panel - Serum or Plasm a creatinine [mass/volume ] in serum or plasma 2.79 mg/dL low: 0.66mg /dLhig h: 1.25mg /dL high Not Available Not Available 07/30/2024 11:51:06 07/19/19 25 07/18/2024 Basic metab olic 2000 panel - Serum or Plasm a glomerular filtration rate [volume rate/area] in serum, plasma or blood by based on 1.73 sq M 23 1 normal Not Available Not Available 11:51:06 07/19/19 25 07/18/2024 Basic metab olic 2000 panel - Serum or Plasm a calcium [mass/volume ] in serum or plasma 7.4 mg/dL low: 8.4mg/ dLhigh : 10.2mg /dL low Not Available Not Available 07/30/2024 11:51:06 07/19/19 25 07/18/2024 Proth rombi n time (PT) prothrombin time (PT) 31.6 secon ds low: 9.7sec ondshi gh: 12.2se conds high Not Available Not Available 07/30/2024 11:51:09 07/19/19 25 07/18/2024 Proth rombi n time (PT) INR in platelet poor plasma by coagulation assay 3.1 1 normal Not Available Not Available 07/2024 11:51:09 07/19/19 25 07/18/2024 Creat ine kinas e panel - Serum or Plasm a creatine kinase [enzymatic activity/vol ume] in serum or plasma 864 U/L text: 41-331 critical high Not Available Not Available 07/30/2024 11:51:09 07/19/19 25 07/18/2024 Creat ine kinas e panel - Serum or Plasm a creatine kinase.macro molecular type 2/creatine kinase.total in serum or plasma 0 % text: not observ ed normal Not Available Not Available 07/30/2024 11:51:09 07/19/19 25 07/18/2024 Creat ine kinas e panel - Serum or Plasm a creatine kinase.mm/cr eatine kinase.total in serum or plasma by electrophore sis 100 % text: 97-100 normal Not Available Not Available 07/30/2024 11:51:09 07/19/19 25 07/18/2024 Creat ine kinas e panel - Serum or Plasm a creatine kinase.macro molecular type 1/creatine kinase.total in serum or plasma 0 % text: not observ ed normal Not Available Not Available 07/30/2024 11:51:09 07/19/19 25 07/18/2024 Creat ine kinas e panel - Serum or Plasm a creatine kinase.mb/cr eatine kinase.total in serum or plasma by electrophore sis 0 % text: 0-3 normal Not Available Not Available 07/30/2024 11:51:09 07/19/19 25 07/18/2024 Creat ine kinas e panel - Serum or Plasm a creatine kinase.bb/cr eatine kinase.total in serum or plasma by electrophore sis 0 % low: 0 normal Not Available Not Available 07/2024 11:51:09 07/19/19 25 07/18/2024 Compr ehens bharat metab olic 1999 panel - Serum or Plasm a sodium [moles/volum e] in blood 135 mmol/ L low: 137mmo l/Lhig h: 145mmo l/L low Not Available Not Available 07/30/2024 11:51:08 07/19/19 25 07/18/2024 Compr ehens bharat metab olic 1999 panel - Serum or Plasm a potassium [moles/volum e] in serum or plasma 5.7 mmol/ L low: 3.5mmo l/Lhig h: 5.1mmo l/L high Not Available Not Available 07/30/2024 11:51:08 07/19/19 25 07/18/2024 Compr ehens bharat metab olic 1999 panel - Serum or Plasm a chloride [moles/volum e] in serum or plasma 106 mmol/ L low: 98mmol /Lhigh : 107mmo l/L normal Not Available Not Available 07/30/2024 11:51:08 07/19/19 25 07/18/2024 Compr ehens bharat metab olic 1999 panel - Serum or Plasm a carbon dioxide, total [moles/volum e] in serum or plasma 12 mmol/ L low: 22mmol /Lhigh : 30mmol /L low Not Available Not Available 07/30/2024 11:51:08 07/19/19 25 07/18/2024 Compr ehens bharat metab olic 2000 panel - Serum or Plasm a anion gap in serum or plasma by calculation 22.7 mmol/ L low: 14mmol /Lhigh : 22mmol /L high Not Available Not Available 07/30/2024 11:51:08 07/19/19 25 07/18/2024 Compr Omiciaens bharat metab ol 1999 panel - Serum or Plasm a glucose [mass/volume ] in serum or plasma 136 mg/dL low: 70mg/d Lhigh: 99mg/d L high Not Available Not Available 07/30/2024 11:51:08 07/19/19 25 07/18/2024 Compr ehens bharat metab olic 1999 panel - Serum or Plasm a urea nitrogen [mass or moles/volume ] in serum or plasma 36 mg/dL low: 8mg/dL high: 19mg/d L high Not Available Not Available 07/30/2024 11:51:08 07/19/19 25 07/18/2024 [facility] Omiciaens bharat metab ol 1999 panel - Serum or Plasm a creatinine [mass/volume ] in serum or plasma 2.72 mg/dL low: 0.66mg /dLhig h: 1.25mg /dL high Not Available Not Available 07/30/2024 11:51:08 07/19/19 25 07/18/2024 [facility] [employer]har[employer] [facility] 1999 panel - Serum or Plasm a glomerular filtration rate [volume rate/area] in serum, plasma or blood by based on 1.73 sq M 24 1 normal Not Available Not Available 11:51:08 07/19/19 25 07/18/2024 [facility] Omiciaens bharat metab olic 1999 panel - Serum or Plasm a alkaline phosphatase [enzymatic activity/vol ume] in serum or plasma 73 U/L low: 38U/Lh igh: 126U/L normal Not Available Not Available 07/30/2024 11:51:08 07/19/19 25 07/18/2024 Compr Omiciaens bharat metab olic 1999 panel - Serum or Plasm a alanine aminotransfe rase [enzymatic activity/vol ume] in serum or plasma 1387 U/L low: 0U/Lhi gh: 50U/L high Not Available Not Available 07/30/2024 11:51:08 07/19/19 25 07/18/2024 Compr Omiciaens bharat metab olic 2000 panel - Serum or Plasm a aspartate aminotransfe rase [enzymatic activity/vol ume] in serum or plasma 4018 U/L low: 15U/Lh igh: 46U/L high Not Available Not Available 07/30/2024 11:51:08 07/19/19 25 07/18/2024 [facility] [employer] 1999 panel - Serum or Plasm a bilirubin.to christina [mass/volume ] in serum or plasma 3.7 mg/dL low: 0.2mg/ dLhigh : 1.3mg/ dL high Not Available Not Available 07/30/2024 11:51:08 07/19/19 25 07/18/2024 [facility] [employer] 1999 panel - Serum or Plasm a bilirubin.di rect [mass/volume ] in serum or plasma 1.22 mg/dL low: 0mg/dL high: 0.3mg/ dL high Not Available Not Available 07/30/2024 11:51:08 07/19/19 25 07/18/2024 Compr [employer] ol 1999 panel - Serum or Plasm a bilirubin.in direct [mass/volume ] in serum or plasma 1.3 mg/dL low: 0mg/dL high: 1.1mg/ dL high Not Available Not Available 07/30/2024 11:51:08 07/19/19 25 07/18/2024 [facility] [employer] [facility] 1999 panel - Serum or Plasm a calcium [mass/volume ] in serum or plasma 7.2 mg/dL low: 8.4mg/ dLhigh : 10.2mg /dL low Not Available Not Available 07/30/2024 11:51:08 07/19/19 25 07/18/2024 [facility] [employer] 1999 panel - Serum or Plasm a protein [mass/volume ] in serum or plasma 6.8 g/dL low: 6.3g/d Lhigh: 8.2g/d L normal Not Available Not Available 07/30/2024 11:51:08 07/19/19 25 07/18/2024 [facility] [employer] 1999 panel - Serum or Plasm a albumin [mass/volume ] in serum or plasma 4 g/dL low: 3.4g/d Lhigh: 5g/dL normal Not Available Not Available 07/30/2024 11:51:08 07/19/19 25 07/18/2024 Compr ehens bharat metab [facility] 1999 panel - Serum or Plasm a globulin [mass/volume ] in serum 2.8 g/dL low: 2.6g/d Lhigh: 4.2g/d L normal Not Available Not Available 07/30/2024 11:51:08 07/19/19 25 07/18/[facility]24 [facility] 1999 panel - Serum or Plasm a albumin/glob ulin [mass ratio] in serum or plasma 1.4 ratio low: 1ratio high: 2ratio normal Not Available Not Available 07/30/2024 11:51:08 07/19/19 25 07/18/2024 Lacta te [Mole s/vol ume] in Serum or Plasm a lactate [moles/volum e] in serum or plasma 8.5 mmol/ L low: 0.7mmo l/Lhig h: 1.9mmo l/L critical high Not Available Not Available 07/30/2024 11:51:08 07/19/19 25 07/18/2024 Phosp hate [Mass /volu me] in Serum or Plasm a phosphate [mass/volume ] in serum or plasma 10.9 mg/dL low: 2.5mg/ dLhigh : 4.5mg/ dL critical high Not Available Not Available 07/30/2024 11:51:08 07/19/19 25 07/18/2024 [facility] 1999 panel - Serum or Plasm a sodium [moles/volum e] in blood 134 mmol/ L low: 137mmo l/Lhig h: 145mmo l/L low Not Available Not Available 07/30/2024 11:51:08 07/19/19 25 07/18/2024 Compr ens bharat metab [facility] 1999 panel - Serum or Plasm a potassium [moles/volum e] in serum or plasma 6.4 mmol/ L low: 3.5mmo l/Lhig h: 5.1mmo l/L critical high Not Available Not Available 07/30/2024 11:51:08 07/19/19 25 07/18/2024 Compr ens bharat metab [facility] 1999 panel - Serum or Plasm a chloride [moles/volum e] in serum or plasma 108 mmol/ L low: 98mmol /Lhigh : 107mmo l/L high Not Available Not Available 07/30/2024 11:51:08 07/19/19 25 07/18/2024 Compr [employer]harat metab olic 1999 panel - Serum or Plasm a carbon dioxide, total [moles/volum e] in serum or plasma 10 mmol/ L low: 22mmol /Lhigh : 30mmol /L low Not Available Not Available 07/30/2024 11:51:08 07/19/19 25 07/18/2024 Compr ehens bharat metab olic 1999 panel - Serum or Plasm a anion gap in serum or plasma by calculation 22.4 mmol/ L low: 14mmol /Lhigh : 22mmol /L high Not Available Not Available 07/30/2024 11:51:08 07/19/19 25 07/18/2024 [facility] [employer]lic 1999 panel - Serum or Plasm a glucose [mass/volume ] in serum or plasma 150 mg/dL low: 70mg/d Lhigh: 99mg/d L high Not Available Not Available 07/30/2024 11:51:08 07/19/19 25 07/18/2024 Compr [employer] olic 1999 panel - Serum or Plasm a urea nitrogen [mass or moles/volume ] in serum or plasma 34 mg/dL low: 8mg/dL high: 19mg/d L high Not Available Not Available 07/30/2024 11:51:08 07/19/19 25 07/18/2024 [facility] [employer]lic 1999 panel - Serum or Plasm a creatinine [mass/volume ] in serum or plasma 2.48 mg/dL low: 0.66mg /dLhig h: 1.25mg /dL high Not Available Not Available 07/30/2024 11:51:08 07/19/19 25 07/18/2024 Compr [employer] olic 1999 panel - Serum or Plasm a glomerular filtration rate [volume rate/area] in serum, plasma or blood by based on 1.73 sq M 27 1 normal Not Available Not Available 11:51:08 07/19/19 25 07/18/2024 Compr [employer] olic 2000 panel - Serum or Plasm a alkaline phosphatase [enzymatic activity/vol ume] in serum or plasma 71 U/L low: 38U/Lh igh: 126U/L normal Not Available Not Available 07/30/2024 11:51:08 07/19/19 25 07/18/2024 [facility] [employer] [facility] 1999 panel - Serum or Plasm a alanine aminotransfe rase [enzymatic activity/vol ume] in serum or plasma 1127 U/L low: 0U/Lhi gh: 50U/L high Not Available Not Available 07/30/2024 11:51:08 07/19/19 25 07/18/2024 [facility] [employer] [facility] 1999 panel - Serum or Plasm a aspartate aminotransfe rase [enzymatic activity/vol ume] in serum or plasma 3372 U/L low: 15U/Lh igh: 46U/L high Not Available Not Available 07/30/2024 11:51:08 07/19/19 25 07/18/2024 [facility] [employer] [facility] 1999 panel - Serum or Plasm a bilirubin.to christina [mass/volume ] in serum or plasma 3.2 mg/dL low: 0.2mg/ dLhigh : 1.3mg/ dL high Not Available Not Available 07/30/2024 11:51:08 07/19/19 25 07/18/2024 [facility] [employer] [facility] 1999 panel - Serum or Plasm a bilirubin.di rect [mass/volume ] in serum or plasma 0.79 mg/dL low: 0mg/dL high: 0.3mg/ dL high Not Available Not Available 07/30/2024 11:51:08 07/19/19 25 07/18/2024 [facility] [employer] [facility] 1999 panel - Serum or Plasm a bilirubin.in direct [mass/volume ] in serum or plasma 1.3 mg/dL low: 0mg/dL high: 1.1mg/ dL high Not Available Not Available 07/30/2024 11:51:08 07/19/19 25 07/18/2024 [facility] [employer] [place] [id number] panel - Serum or Plasm a calcium [mass/volume ] in serum or plasma 7.5 mg/dL low: 8.4mg/ dLhigh : 10.2mg /dL low Not Available Not Available 07/30/2024 11:51:08 07/19/19 25 07/18/2024 [facility] [employer]lic 1999 panel - Serum or Plasm a protein [mass/volume ] in serum or plasma 6.9 g/dL low: 6.3g/d Lhigh: 8.2g/d L normal Not Available Not Available 07/30/2024 11:51:08 07/19/19 25 07/18/2024 [facility] 1999 panel - Serum or Plasm a albumin [mass/volume ] in serum or plasma 4.1 g/dL low: 3.4g/d Lhigh: 5g/dL normal Not Available Not Available 07/30/2024 11:51:08 07/19/19 25 07/18/2024 Compr ens bharat metab olic 1999 panel - Serum or Plasm a globulin [mass/volume ] in serum 2.8 g/dL low: 2.6g/d Lhigh: 4.2g/d L normal Not Available Not Available 07/30/2024 11:51:08 07/19/19 25 07/18/2024 [facility] panel - Serum or Plasm a albumin/glob ulin [mass ratio] in serum or plasma 1.5 ratio low: 1ratio high: 2ratio normal Not Available Not Available 07/30/2024 11:51:08 07/19/19 25 07/18/2024 Lacta te [Mole s/vol ume] in Serum or Plasm a lactate [moles/volum e] in serum or plasma 8.2 mmol/ L low: 0.7mmo l/Lhig h: 1.9mmo l/L critical high Not Available Not Available 07/30/2024 11:51:08 07/20/19 25 07/19/2024 Gluco se [Mass /volu me] in Capil george blood by Gluco meter glucose [mass/volume ] in capillary blood by glucometer 122 mg/dL low: 74mg/d Lhigh: 99mg/d L high Not Available Not Available 07/30/2024 11:51:09 07/20/19 25 07/19/2024 [facility] [employer]har[employer] metab olic 2000 panel - Serum or Plasm a sodium [moles/volum e] in blood 140 mmol/ L low: 137mmo l/Lhig h: 145mmo l/L normal Not Available Not Available 07/30/2024 11:51:09 07/20/19 25 07/19/2024 Compr [employer] bharat metab olic 1999 panel - Serum or Plasm a potassium [moles/volum e] in serum or plasma 3.3 mmol/ L low: 3.5mmo l/Lhig h: 5.1mmo l/L low Not Available Not Available 07/30/2024 11:51:09 07/20/19 25 07/19/2024 Compr ehens bharat metab olic 1999 panel - Serum or Plasm a chloride [moles/volum e] in serum or plasma 99 mmol/ L low: 98mmol /Lhigh : 107mmo l/L normal Not Available Not Available 07/30/2024 11:51:09 07/20/19 25 07/19/2024 Compr [employer] bharat metab olic 1999 panel - Serum or Plasm a carbon dioxide, total [moles/volum e] in serum or plasma 34 mmol/ L low: 22mmol /Lhigh : 30mmol /L high Not Available Not Available 07/30/2024 11:51:09 07/20/19 25 07/19/2024 Compr [employer] olic 1999 panel - Serum or Plasm a anion gap in serum or plasma by calculation 10.3 mmol/ L low: 14mmol /Lhigh : 22mmol /L low Not Available Not Available 07/30/2024 11:51:09 07/20/19 25 07/19/2024 Compr [employer]har[employer] olic 1999 panel - Serum or Plasm a glucose [mass/volume ] in serum or plasma 158 mg/dL low: 70mg/d Lhigh: 99mg/d L high Not Available Not Available 07/30/2024 11:51:09 07/20/19 25 07/19/2024 Compr [employer]har[employer] olic 1999 panel - Serum or Plasm a urea nitrogen [mass or moles/volume ] in serum or plasma 54 mg/dL low: 8mg/dL high: 19mg/d L high Not Available Not Available 07/30/2024 11:51:09 07/20/19 25 07/19/2024 Compr [employer]harat [employer] olic 1999 panel - Serum or Plasm a creatinine [mass/volume ] in serum or plasma 2.56 mg/dL low: 0.66mg /dLhig h: 1.25mg /dL high Not Available Not Available 07/30/2024 11:51:09 07/20/19 25 07/19/2024 [facility] [employer] [facility] 1999 panel - Serum or Plasm a glomerular filtration rate [volume rate/area] in serum, plasma or blood by based on 1.73 sq M 26 1 normal Not Available Not Available 11:51:09 07/20/19 25 07/19/2024 [facility] [employer] [facility] 1999 panel - Serum or Plasm a alkaline phosphatase [enzymatic activity/vol ume] in serum or plasma 92 U/L low: 38U/Lh igh: 126U/L normal Not Available Not Available 07/30/2024 11:51:09 07/20/19 25 07/19/2024 [facility] [employer] [facility] 1999 panel - Serum or Plasm a alanine aminotransfe rase [enzymatic activity/vol ume] in serum or plasma 2058 U/L low: 0U/Lhi gh: 50U/L high Not Available Not Available 07/30/2024 11:51:09 07/20/19 25 07/19/2024 [facility] [employer] [facility] 1999 panel - Serum or Plasm a aspartate aminotransfe rase [enzymatic activity/vol ume] in serum or plasma 2749 U/L low: 15U/Lh igh: 46U/L high Not Available Not Available 07/30/2024 11:51:09 07/20/19 25 07/19/2024 [facility] [employer] [facility] 1999 panel - Serum or Plasm a bilirubin.to christina [mass/volume ] in serum or plasma 3.7 mg/dL low: 0.2mg/ dLhigh : 1.3mg/ dL high Not Available Not Available 07/30/2024 11:51:09 07/20/19 25 07/19/2024 [facility] [employer] [facility] 1999 panel - Serum or Plasm a bilirubin.di rect [mass/volume ] in serum or plasma 1.41 mg/dL low: 0mg/dL high: 0.3mg/ dL high Not Available Not Available 07/30/2024 11:51:09 07/20/19 25 07/19/2024 [facility] [employer] [facility] 1999 panel - Serum or Plasm a bilirubin.in direct [mass/volume ] in serum or plasma 1.1 mg/dL low: 0mg/dL high: 1.1mg/ dL normal Not Available Not Available 07/30/2024 11:51:09 07/20/19 25 07/19/2024 [facility] [employer] [facility] 1999 panel - Serum or Plasm a calcium [mass/volume ] in serum or plasma 6.8 mg/dL low: 8.4mg/ dLhigh : 10.2mg /dL low Not Available Not Available 07/30/2024 11:51:09 07/20/19 25 07/19/2024 [facility] [employer] [facility] 1999 panel - Serum or Plasm a protein [mass/volume ] in serum or plasma 6.1 g/dL low: 6.3g/d Lhigh: 8.2g/d L low Not Available Not Available 07/30/2024 11:51:09 07/20/19 25 07/19/2024 [facility] [employer] [facility] 1999 panel - Serum or Plasm a albumin [mass/volume ] in serum or plasma 3.5 g/dL low: 3.4g/d Lhigh: 5g/dL normal Not Available Not Available 07/30/2024 11:51:09 07/20/19 25 07/19/2024 [facility] [employer] [facility] 1999 panel - Serum or Plasm a globulin [mass/volume ] in serum 2.6 g/dL low: 2.6g/d Lhigh: 4.2g/d L normal Not Available Not Available 07/30/2024 11:51:09 07/20/19 25 07/19/2024 [facility] [employer] [facility] 1999 panel - Serum or Plasm a albumin/glob ulin [mass ratio] in serum or plasma 1.3 ratio low: 1ratio high: 2ratio normal Not Available Not Available 07/30/2024 11:51:09 07/20/19 25 07/19/2024 [facility] al panel - Blood leukocytes [#/volume] in blood by automated count 21.4 x10'3 /uL low: 4.2x10 '3/uLh igh: 10.8x1 0'3/uL high Not Available Not Available 07/30/2024 11:51:06 07/20/19 25 07/19/2024 CBC W Auto [employer] [facility]rei al panel - Blood erythrocytes [#/volume] in blood by automated count 5.11 x10'6 /uL low: 4.1x10 '6/uLh igh: 5.8x10 '6/uL normal Not Available Not Available 07/30/2024 11:51:06 07/20/19 25 07/19/2024 CBC W Auto [employer]iffe rentoen al panel - Blood hemoglobin [mass/volume ] in blood 14.4 g/dL low: 13.2g/ dLhigh : 17g/dL normal Not Available Not Available 07/30/2024 11:51:06 07/20/19 25 07/19/2024 CBC W Auto [employer]rei al panel - Blood hematocrit [volume fraction] of blood by automated count 43.3 % low: 39.3%h igh: 50% normal Not Available Not Available 07/30/2024 11:51:06 07/20/19 25 07/19/2024 CBC W Auto [employer]iffe andrei lindsey panel - Blood MCV [entitic mean volume] in red blood cells by automated count 84.7 fL low: 80fLhi gh: 97fL normal Not Available Not Available 07/30/2024 11:51:06 07/20/19 25 07/19/2024 CBC W Auto [employer] andrei al panel - Blood MCH [entitic mass] by automated count 28.2 pg low: 27pghi gh: 33pg normal Not Available Not Available 07/30/2024 11:51:06 07/20/19 25 07/19/2024 CBC W Auto [employer] andrei lindsey panel - Blood MCHC [entitic mass/volume] in red blood cells by automated count 33.3 g/dL low: 31g/dL high: 36g/dL normal Not Available Not Available 07/30/2024 11:51:06 07/20/19 25 07/19/2024 CBC W Auto Diffe rentone al panel - Blood erythrocyte [distwidth] in red blood cells 20.3 % low: 11.8%h igh: 15.5% high Not Available Not Available 07/30/2024 11:51:06 07/20/19 25 07/19/2024 CBC W Auto Diffe renti al panel - Blood platelets [#/volume] in blood by automated count 261 x10'3 /uL low: 150x10 '3/uLh igh: 400x10 '3/uL normal Not Available Not Available 07/30/2024 11:51:06 07/20/19 25 07/19/2024 CBC W Auto [employer]iffe renti al panel - Blood platelet [entitic mean volume] in blood by automated count 10 fL low: 9fLhig h: 12.4fL normal Not Available Not Available 07/30/2024 11:51:06 07/20/19 25 07/19/2024 CBC W Auto [employer] renti al panel - Blood neutrophils/ leukocytes in blood 90.3 % low: 39%hig h: 72% high Not Available Not Available 07/30/2024 11:51:06 07/20/19 25 07/19/2024 CBC W Auto [employer]iffe renti al panel - Blood lymphocytes/ leukocytes in blood 3.5 % low: 16%hig h: 47% low Not Available Not Available 07/30/2024 11:51:06 07/20/19 25 07/19/2024 CBC W Auto Diffe renti al panel - Blood monocytes/le ukocytes in blood 5 % low: 5%high : 12% normal Not Available Not Available 07/30/2024 11:51:06 07/20/19 25 07/19/2024 CBC W Auto [employer] renti al panel - Blood eosinophils [#/volume] in blood 0 % low: 1%high : 7% low Not Available Not Available 07/30/2024 11:51:06 07/20/19 25 07/19/2024 CBC W Auto [employer]iffe renti al panel - Blood basophils/le ukocytes in blood 0.1 % low: 0%high : 2% normal Not Available Not Available 07/30/2024 11:51:06 07/20/19 25 07/19/2024 CBC W Auto [employer]iffe renti al panel - Blood immature granulocytes /leukocytes in blood 1.1 % low: 0%high : 0.5% high Not Available Not Available 07/30/2024 11:51:06 07/20/19 25 07/19/2024 CBC W Auto [employer]iffe renti al panel - Blood neutrophils [#/volume] in blood 19.34 x10'3 /uL low: 1.5x10 '3/uLh igh: 8x10'3 /uL high Not Available Not Available 07/30/2024 11:51:06 07/20/19 25 07/19/2024 CBC W Auto [employer]iffe renti al panel - Blood lymphocytes [#/volume] in blood 0.74 x10'3 /uL low: 1.07x1 0'3/uL high: 3.43x1 0'3/uL low Not Available Not Available 07/30/2024 11:51:06 07/20/19 25 07/19/2024 CBC W Auto [employer] renti al panel - Blood monocytes [#/volume] in blood 1.08 x10'3 /uL low: 0.29x1 0'3/uL high: 0.99x1 0'3/uL high Not Available Not Available 07/30/2024 11:51:06 07/20/19 25 07/19/2024 CBC W Auto [employer]iffe renti al panel - Blood eosinophils [#/volume] in blood 0 x10'3 /uL low: 0.02x1 0'3/uL high: 0.53x1 0'3/uL low Not Available Not Available 07/30/2024 11:51:06 07/20/19 25 07/19/2024 CBC W Auto [employer]iffe renti al panel - Blood basophils [#/volume] in blood 0.02 x10'3 /uL low: 0.01x1 0'3/uL high: 0.08x1 0'3/uL normal Not Available Not Available 07/30/2024 11:51:06 07/20/19 25 07/19/2024 CBC W Auto [employer]iffe renti al panel - Blood immature granulocytes [#/volume] in blood 0.23 x10'3 /uL low: 0x10'3 /uLhig h: 0.05x1 0'3/uL high Not Available Not Available 07/30/2024 11:51:06 07/20/19 25 07/19/2024 CBC W Auto Diffe renti al panel - Blood nucleated erythrocytes /leukocytes [ratio] in blood 0.5 % high: 0% high Not Available Not Available 07/30/2024 11:51:06 07/20/19 25 07/19/2024 CBC W Auto Diffe renti al panel - Blood nucleated erythrocytes [#/volume] in blood by automated count 0.11 x10'3 /uL normal Not Available Not Available 07/31/19 11:51:06 07/20/19 25 07/19/2024 CBC W Auto Diffe renti al panel - Blood anisocytosis [presence] in blood by light microscopy Labora tory data interp retati on normal Not Available Not Available 11:51:06 07/20/19 25 07/19/2024 CBC W Auto Diffe renti al panel - Blood polychromasi a [presence] in blood by light microscopy Labora tory data interp retati on normal Not Available Not Available 11:51:06 07/20/19 25 07/19/2024 CBC W Auto Diffe renti al panel - Blood target cells [presence] in blood by light microscopy Labora tory data interp retati on normal Not Available Not Available 11:51:06 07/20/19 25 07/19/2024 CBC W Auto Diffe renti al panel - Blood ovalocytes [presence] in blood by light microscopy Labora tory data interp retati on normal Not Available Not Available 11:51:06 07/20/19 25 07/19/2024 CBC W Auto Diffe renti al panel - Blood toxic granules [presence] in blood by light microscopy Labora tory data interp retati on normal Not Available Not Available 11:51:06 07/20/19 25 07/19/2024 Basic metab olic 1999 panel - Serum or Plasm a sodium [moles/volum e] in blood 138 mmol/ L low: 137mmo l/Lhig h: 145mmo l/L normal Not Available Not Available 07/30/2024 11:51:06 07/20/19 25 07/19/2024 Basic metab olic 1999 panel - Serum or Plasm a potassium [moles/volum e] in serum or plasma 3.7 mmol/ L low: 3.5mmo l/Lhig h: 5.1mmo l/L normal Not Available Not Available 07/30/2024 11:51:06 07/20/19 25 07/19/2024 Basic [facility] 1999 panel - Serum or Plasm a chloride [moles/volum e] in serum or plasma 99 mmol/ L low: 98mmol /Lhigh : 107mmo l/L normal Not Available Not Available 07/30/2024 11:51:06 07/20/19 25 07/19/2024 Basic metab [facility] 1999 panel - Serum or Plasm a carbon dioxide, total [moles/volum e] in serum or plasma 26 mmol/ L low: 22mmol /Lhigh : 30mmol /L normal Not Available Not Available 07/30/2024 11:51:06 07/20/19 25 07/19/2024 Basic metab ic 1999 panel - Serum or Plasm a anion gap in serum or plasma by calculation 16.7 mmol/ L low: 14mmol /Lhigh : 22mmol /L normal Not Available Not Available 07/30/2024 11:51:06 07/20/19 25 07/19/2024 [facility] - Serum or Plasm a glucose [mass/volume ] in serum or plasma 194 mg/dL low: 70mg/d Lhigh: 99mg/d L high Not Available Not Available 07/30/2024 11:51:06 07/20/19 25 07/19/2024 Basic [employer] ic 1999 panel - Serum or Plasm a urea nitrogen [mass or moles/volume ] in serum or plasma 53 mg/dL low: 8mg/dL high: 19mg/d L high Not Available Not Available 07/30/2024 11:51:06 07/20/19 25 07/19/2024 Basic [facility] 1999 panel - Serum or Plasm a creatinine [mass/volume ] in serum or plasma 2.79 mg/dL low: 0.66mg /dLhig h: 1.25mg /dL high Not Available Not Available 07/30/2024 11:51:06 07/20/19 25 07/19/2024 Basic [facility] 1999 panel - Serum or Plasm a glomerular filtration rate [volume rate/area] in serum, plasma or blood by based on 1.73 sq M 23 1 normal Not Available Not Available 11:51:06 07/20/19 25 07/19/2024 Basic metab olic 1999 panel - Serum or Plasm a calcium [mass/volume ] in serum or plasma 6.6 mg/dL low: 8.4mg/ dLhigh : 10.2mg /dL low Not Available Not Available 07/30/2024 11:51:06 07/20/19 25 07/19/2024 Creat ine kinas e [Enzy matic activ ity/v olume ] in Serum or Plasm a creatine kinase [enzymatic activity/vol ume] in serum or plasma 775 U/L low: 55U/Lh igh: 170U/L high Not Available Not Available 07/30/2024 11:51:09 07/21/19 25 07/20/2024 Gluco se [Mass /volu me] in Capil george blood by Gluco meter glucose [mass/volume ] in capillary blood by glucometer 146 mg/dL low: 74mg/d Lhigh: 99mg/d L high Not Available Not Available 07/30/2024 11:51:10 07/21/19 25 07/20/2024 Gluco se [Mass /volu me] in Capil george blood by Gluco meter glucose [mass/volume ] in capillary blood by glucometer 148 mg/dL low: 74mg/d Lhigh: 99mg/d L high Not Available Not Available 07/30/2024 11:51:10 07/21/19 25 07/20/2024 Compr ehens bharat metab olic 1999 panel - Serum or Plasm a sodium [moles/volum e] in blood 144 mmol/ L low: 137mmo l/Lhig h: 145mmo l/L normal Not Available Not Available 07/30/2024 11:51:10 07/21/19 25 07/20/2024 Compr ehens bharat metab olic 1999 panel - Serum or Plasm a potassium [moles/volum e] in serum or plasma 2.9 mmol/ L low: 3.5mmo l/Lhig h: 5.1mmo l/L low Not Available Not Available 07/30/2024 11:51:10 07/21/19 25 07/20/2024 Compr ehens bharat metab olic 1999 panel - Serum or Plasm a chloride [moles/volum e] in serum or plasma 99 mmol/ L low: 98mmol /Lhigh : 107mmo l/L normal Not Available Not Available 07/30/2024 11:51:10 07/21/19 25 07/20/2024 Compr ehens bharat metab olic 1999 panel - Serum or Plasm a carbon dioxide, total [moles/volum e] in serum or plasma 37 mmol/ L low: 22mmol /Lhigh : 30mmol /L high Not Available Not Available 07/30/2024 11:51:10 07/21/19 25 07/20/2024 Compr ehens bharat metab olic 1999 panel - Serum or Plasm a anion gap in serum or plasma by calculation 10.9 mmol/ L low: 14mmol /Lhigh : 22mmol /L low Not Available Not Available 07/30/2024 11:51:10 07/21/19 25 07/20/2024 [facility] [employer] [facility]at metab olic 1999 panel - Serum or Plasm a glucose [mass/volume ] in serum or plasma 159 mg/dL low: 70mg/d Lhigh: 99mg/d L high Not Available Not Available 07/30/2024 11:51:10 07/21/19 25 07/20/2024 Compr [employer] bharat [employer] olic 1999 panel - Serum or Plasm a urea nitrogen [mass or moles/volume ] in serum or plasma 59 mg/dL low: 8mg/dL high: 19mg/d L high Not Available Not Available 07/30/2024 11:51:10 07/21/19 25 07/20/2024 [facility] [employer] bharat metab olic 1999 panel - Serum or Plasm a creatinine [mass/volume ] in serum or plasma 1.54 mg/dL low: 0.66mg /dLhig h: 1.25mg /dL high Not Available Not Available 07/30/2024 11:51:10 07/21/19 25 07/20/2024 Compr ehens bharat [employer] olic 1999 panel - Serum or Plasm a glomerular filtration rate [volume rate/area] in serum, plasma or blood by based on 1.73 sq M 46 1 normal Not Available Not Available 11:51:10 07/21/19 25 07/20/2024 Compr ehens bharat metab olic 1999 panel - Serum or Plasm a alkaline phosphatase [enzymatic activity/vol ume] in serum or plasma 85 U/L low: 38U/Lh igh: 126U/L normal Not Available Not Available 07/30/2024 11:51:10 07/21/19 25 07/20/2024 [facility] [employer] [facility] 1999 panel - Serum or Plasm a alanine aminotransfe rase [enzymatic activity/vol ume] in serum or plasma 1180 U/L low: 0U/Lhi gh: 50U/L high Not Available Not Available 07/30/2024 11:51:10 07/21/19 25 07/20/2024 [facility] [employer] [facility] 1999 panel - Serum or Plasm a aspartate aminotransfe rase [enzymatic activity/vol ume] in serum or plasma 824 U/L low: 15U/Lh igh: 46U/L high Not Available Not Available 07/30/2024 11:51:10 07/21/19 25 07/20/2024 [facility] [employer] [facility] 1999 panel - Serum or Plasm a bilirubin.to christina [mass/volume ] in serum or plasma 4.6 mg/dL low: 0.2mg/ dLhigh : 1.3mg/ dL high Not Available Not Available 07/30/2024 11:51:10 07/21/19 25 07/20/2024 [facility] [employer] [facility] 1999 panel - Serum or Plasm a bilirubin.di rect [mass/volume ] in serum or plasma 2.08 mg/dL low: 0mg/dL high: 0.3mg/ dL high Not Available Not Available 07/30/2024 11:51:10 07/21/19 25 07/20/2024 [facility] [employer] [facility] 1999 panel - Serum or Plasm a bilirubin.in direct [mass/volume ] in serum or plasma 1.5 mg/dL low: 0mg/dL high: 1.1mg/ dL high Not Available Not Available 07/30/2024 11:51:10 07/21/19 25 07/20/2024 [facility] [employer] [place] [id number] panel - Serum or Plasm a calcium [mass/volume ] in serum or plasma 7.4 mg/dL low: 8.4mg/ dLhigh : 10.2mg /dL low Not Available Not Available 07/30/2024 11:51:10 07/21/19 25 07/20/2024 [facility] [employer] bharat metab olic 1999 panel - Serum or Plasm a protein [mass/volume ] in serum or plasma 5.5 g/dL low: 6.3g/d Lhigh: 8.2g/d L low Not Available Not Available 07/30/2024 11:51:10 07/21/19 25 07/20/2024 [facility] 1999 panel - Serum or Plasm a albumin [mass/volume ] in serum or plasma 3 g/dL low: 3.4g/d Lhigh: 5g/dL low Not Available Not Available 07/30/2024 11:51:10 07/21/19 25 07/20/2024 Compr ens bharat metab olic 1999 panel - Serum or Plasm a globulin [mass/volume ] in serum 2.5 g/dL low: 2.6g/d Lhigh: 4.2g/d L low Not Available Not Available 07/30/2024 11:51:10 07/21/19 25 07/20/2024 [facility] [employer] olic 1999 panel - Serum or Plasm a albumin/glob ulin [mass ratio] in serum or plasma 1.2 ratio low: 1ratio high: 2ratio normal Not Available Not Available 07/30/2024 11:51:10 07/21/19 25 07/20/2024 Lacta te [Mole s/vol ume] in Serum or Plasm a lactate [moles/volum e] in serum or plasma 1.9 mmol/ L low: 0.7mmo l/Lhig h: 1.9mmo l/L normal Not Available Not Available 07/30/2024 11:51:10 07/21/19 25 07/20/2024 Phosp hate [Mass /volu me] in Serum or Plasm a phosphate [mass/volume ] in serum or plasma 3.9 mg/dL low: 2.5mg/ dLhigh : 4.5mg/ dL normal Not Available Not Available 07/30/2024 11:51:09 07/21/19 25 07/20/2024 Lacta te [Mole s/vol ume] in Serum or Plasm a lactate [moles/volum e] in serum or plasma 2 mmol/ L low: 0.7mmo l/Lhig h: 1.9mmo l/L high Not Available Not Available 07/30/2024 11:51:09 07/21/19 25 07/20/2024 CBC W Auto [employer]iffe [employer] al panel - Blood leukocytes [#/volume] in blood by automated count 16.6 x10'3 /uL low: 4.2x10 '3/uLh igh: 10.8x1 0'3/uL high Not Available Not Available 07/30/2024 11:51:06 07/21/19 25 07/20/2024 CBC W Auto [employer]iffe renti al panel - Blood erythrocytes [#/volume] in blood by automated count 5.51 x10'6 /uL low: 4.1x10 '6/uLh igh: 5.8x10 '6/uL normal Not Available Not Available 07/30/2024 11:51:06 07/21/19 25 07/20/2024 CBC W Auto [employer]iffe renti al panel - Blood hemoglobin [mass/volume ] in blood 15.8 g/dL low: 13.2g/ dLhigh : 17g/dL normal Not Available Not Available 07/30/2024 11:51:06 07/21/19 25 07/20/2024 CBC W Auto [employer] al panel - Blood hematocrit [volume fraction] of blood by automated count 47.1 % low: 39.3%h igh: 50% normal Not Available Not Available 07/30/2024 11:51:06 07/21/19 25 07/20/2024 CBC W Auto [employer] al panel - Blood MCV [entitic mean volume] in red blood cells by automated count 85.5 fL low: 80fLhi gh: 97fL normal Not Available Not Available 07/30/2024 11:51:06 07/21/19 25 07/20/2024 CBC W Auto [employer]iffe renti al panel - Blood MCH [entitic mass] by automated count 28.7 pg low: 27pghi gh: 33pg normal Not Available Not Available 07/30/2024 11:51:06 07/21/19 25 07/20/2024 CBC W Auto [employer]iffe renti al panel - Blood MCHC [entitic mass/volume] in red blood cells by automated count 33.5 g/dL low: 31g/dL high: 36g/dL normal Not Available Not Available 07/30/2024 11:51:06 07/21/19 25 07/20/2024 CBC W Auto [employer]iffe renti al panel - Blood erythrocyte [distwidth] in red blood cells 20.4 % low: 11.8%h igh: 15.5% high Not Available Not Available 07/30/2024 11:51:06 07/21/19 25 07/20/2024 CBC W Auto [employer]iffe renti al panel - Blood platelets [#/volume] in blood by automated count 256 x10'3 /uL low: 150x10 '3/uLh igh: 400x10 '3/uL normal Not Available Not Available 07/30/2024 11:51:06 07/21/19 25 07/20/2024 CBC W Auto [employer]iffe [employer]i al panel - Blood platelet [entitic mean volume] in blood by automated count 10.2 fL low: 9fLhig h: 12.4fL normal Not Available Not Available 07/30/2024 11:51:06 07/21/19 25 07/20/2024 CBC W Auto [employer]i al panel - Blood neutrophils/ leukocytes in blood 89.9 % low: 39%hig h: 72% high Not Available Not Available 07/30/2024 11:51:06 07/21/19 25 07/20/2024 CBC W Auto [employer]iffe [employer]i al panel - Blood lymphocytes/ leukocytes in blood 4.5 % low: 16%hig h: 47% low Not Available Not Available 07/30/2024 11:51:06 07/21/19 25 07/20/2024 CBC W Auto [employer]iffe renti al panel - Blood monocytes/le ukocytes in blood 4.8 % low: 5%high : 12% low Not Available Not Available 07/30/2024 11:51:06 07/21/1907/20/2024 CBC W Auto [employer]iffe renti al panel - Blood eosinophils [#/volume] in blood 0 % low: 1%high : 7% low Not Available Not Available 07/30/2024 11:51:06 07/21/19 25 07/20/2024 CBC W Auto [employer]iffe renti al panel - Blood basophils/le ukocytes in blood 0.1 % low: 0%high : 2% normal Not Available Not Available 07/30/2024 11:51:06 07/21/1907/20/2024 CBC W Auto [employer]iffe renti al panel - Blood immature granulocytes /leukocytes in blood 0.7 % low: 0%high : 0.5% high Not Available Not Available 07/30/2024 11:51:06 07/21/1907/20/2024 CBC W Auto [employer]iffe renti al panel - Blood neutrophils [#/volume] in blood 14.88 x10'3 /uL low: 1.5x10 '3/uLh igh: 8x10'3 /uL high Not Available Not Available 07/30/2024 11:51:06 07/21/1907/20/2024 CBC W Auto [employer]iffe renti al panel - Blood lymphocytes [#/volume] in blood 0.75 x10'3 /uL low: 1.07x1 0'3/uL high: 3.43x1 0'3/uL low Not Available Not Available 07/30/2024 11:51:06 07/21/1907/20/2024 CBC W Auto [employer]iffe renti al panel - Blood monocytes [#/volume] in blood 0.8 x10'3 /uL low: 0.29x1 0'3/uL high: 0.99x1 0'3/uL normal Not Available Not Available 07/30/2024 11:51:06 07/21/19 25 07/20/2024 CBC W Auto Diffe renti al panel - Blood eosinophils [#/volume] in blood 0 x10'3 /uL low: 0.02x1 0'3/uL high: 0.53x1 0'3/uL low Not Available Not Available 07/30/2024 11:51:06 07/21/1907/20/2024 CBC W Auto Diffe renti al panel - Blood basophils [#/volume] in blood 0.02 x10'3 /uL low: 0.01x1 0'3/uL high: 0.08x1 0'3/uL normal Not Available Not Available 07/30/2024 11:51:06 07/21/19 25 07/20/2024 CBC W Auto [employer]iffe renti al panel - Blood immature granulocytes [#/volume] in blood 0.12 x10'3 /uL low: 0x10'3 /uLhig h: 0.05x1 0'3/uL high Not Available Not Available 07/30/2024 11:51:06 07/21/19 25 07/20/2024 CBC W Auto [employer]iffe renti al panel - Blood nucleated erythrocytes /leukocytes [ratio] in blood 0.7 % high: 0% high Not Available Not Available 07/30/2024 11:51:06 07/21/19 25 07/20/2024 CBC W Auto [employer]iffe renti al panel - Blood nucleated erythrocytes [#/volume] in blood by automated count 0.11 x10'3 /uL normal Not Available Not Available 07/31/19 11:51:06 07/21/19 25 07/20/2024 CBC W Auto Diffe renti al panel - Blood anisocytosis [presence] in blood by light microscopy [employer] interp retati on normal Not Available Not Available 11:51:06 07/21/19 25 07/20/2024 CBC W Auto Diffe renti al panel - Blood polychromasi a [presence] in blood by light microscopy [employer]a [employer] data interp retati on normal Not Available Not Available 11:51:06 07/21/19 25 07/20/2024 CBC W Auto Diffe renti al panel - Blood ovalocytes [presence] in blood by light microscopy [employer] data interp retati on normal Not Available Not Available 11:51:06 07/21/19 25 07/20/2024 Basic metab olic 1999 panel - Serum or Plasm a sodium [moles/volum e] in blood 143 mmol/ L low: 137mmo l/Lhig h: 145mmo l/L normal Not Available Not Available 07/30/2024 11:51:06 07/21/19 25 07/20/2024 Basic metab olic 1999 panel - Serum or Plasm a potassium [moles/volum e] in serum or plasma 3.1 mmol/ L low: 3.5mmo l/Lhig h: 5.1mmo l/L low Not Available Not Available 07/30/2024 11:51:06 07/21/19 25 07/20/2024 Basic metab olic 1999 panel - Serum or Plasm a chloride [moles/volum e] in serum or plasma 98 mmol/ L low: 98mmol /Lhigh : 107mmo l/L normal Not Available Not Available 07/30/2024 11:51:06 07/21/19 25 07/20/2024 [facility] 1999 panel - Serum or Plasm a carbon dioxide, total [moles/volum e] in serum or plasma 37 mmol/ L low: 22mmol /Lhigh : 30mmol /L high Not Available Not Available 07/30/2024 11:51:06 07/21/19 25 07/20/2024 [facility] 1999 panel - Serum or Plasm a anion gap in serum or plasma by calculation 11.1 mmol/ L low: 14mmol /Lhigh : 22mmol /L low Not Available Not Available 07/30/2024 11:51:06 07/21/19 25 07/20/2024 [facility] 1999 panel - Serum or Plasm a glucose [mass/volume ] in serum or plasma 145 mg/dL low: 70mg/d Lhigh: 99mg/d L high Not Available Not Available 07/30/2024 11:51:06 07/21/19 25 07/20/2024 [facility] 1999 panel - Serum or Plasm a urea nitrogen [mass or moles/volume ] in serum or plasma 58 mg/dL low: 8mg/dL high: 19mg/d L high Not Available Not Available 07/30/2024 11:51:06 07/21/19 25 07/20/2024 [facility] 1999 panel - Serum or Plasm a creatinine [mass/volume ] in serum or plasma 1.79 mg/dL low: 0.66mg /dLhig h: 1.25mg /dL high Not Available Not Available 07/30/2024 11:51:06 07/21/19 25 07/20/2024 [facility] 1999 panel - Serum or Plasm a glomerular filtration rate [volume rate/area] in serum, plasma or blood by based on 1.73 sq M 39 1 normal Not Available Not Available 11:51:06 07/21/19 25 07/20/2024 [facility] 1999 panel - Serum or Plasm a calcium [mass/volume ] in serum or plasma 7.4 mg/dL low: 8.4mg/ dLhigh : 10.2mg /dL low Not Available Not Available 07/30/2024 11:51:06 07/21/1907/20/2024 Trigl yceri de [Mass /volu me] in Serum or Plasm a triglyceride [mass/volume ] in serum or plasma 192 mg/dL low: 0mg/dL high: 150mg/ dL high Not Available Not Available 07/30/2024 11:51:09 07/22/19 25 07/21/2024 Gas panel - Arter ial blood Unknown Analyte 7.536 pH_un its low: 7.35pH unitsh igh: 7.45pH units high Not Available Not Available 07/30/2024 11:51:10 07/22/1907/21/2024 Gas panel - Arter ial blood Unknown Analyte 49.9 mm[hg ] low: 35mm[h g]high : 48mm[h g] high Not Available Not Available 07/30/2024 11:51:10 07/22/1907/21/2024 Gas panel - Arter ial blood Unknown Analyte 68.9 mm[hg ] low: 83mm[h g]high : 108mm[ hg] low Not Available Not Available 07/30/2024 11:51:10 07/22/19 25 07/21/2024 Gas panel - Arter ial blood HCO3 42.2 mmol/ L low: 21mmol /Lhigh : 28mmol /L critical high Not Available Not Available 07/30/2024 11:51:10 07/22/19 25 07/21/2024 Gas panel - Arter ial blood base excess 17 mmol/ L text: -2.0 high Not Available Not Available 07/30/2024 11:51:10 07/22/19 25 07/21/2024 Gas panel - Arter ial blood CO2, calculated 43.7 mmol/ L low: 18mmol /Lhigh : 28mmol /L critical high Not Available Not Available 07/30/2024 11:51:10 07/22/19 25 07/21/2024 Gas panel - Arter ial blood A-A gradient 372.3 mm[hg ] low: 0mm[hg ]high: 14mm[h g] high Not Available Not Available 07/30/2024 11:51:10 07/22/19 25 07/21/2024 Gas panel - Arter ial blood jae's test Jae test for arteri al compet ency normal Not Available Not Available 11:51:10 07/22/19 25 07/21/2024 Gas panel - Arter ial blood Unknown Analyte Arteri al site normal Not Available Not Available 11:51:10 07/22/19 25 07/21/2024 Gas panel - Arter ial blood Unknown Analyte 70 % normal Not Available Not Available 07/2024 11:51:10 07/22/19 25 07/21/2024 Gas panel - Arter ial blood Unknown Analyte 60 L/min normal Not Available Not Available 07/2024 11:51:10 07/22/19 25 07/21/2024 Gas panel - Arter ial blood Unknown Analyte High flow oxygen nasal cannul a normal Not Available Not Available 11:51:10 07/22/19 25 07/21/2024 Gluco se [Mass /volu me] in Capil george blood by Gluco meter glucose [mass/volume ] in capillary blood by glucometer 156 mg/dL low: 74mg/d Lhigh: 99mg/d L high Not Available Not Available 07/30/2024 11:51:10 07/22/19 25 07/21/2024 Compr ehens bharat metab olic 1999 panel - Serum or Plasm a sodium [moles/volum e] in blood 146 mmol/ L low: 137mmo l/Lhig h: 145mmo l/L high Not Available Not Available 07/30/2024 11:51:10 07/22/19 25 07/21/2024 Compr ehens bharat metab olic 1999 panel - Serum or Plasm a potassium [moles/volum e] in serum or plasma 2.4 mmol/ L low: 3.5mmo l/Lhig h: 5.1mmo l/L critical low Not Available Not Available 07/30/2024 11:51:10 07/22/19 25 07/21/2024 Compr ehens bharat metab olic 1999 panel - Serum or Plasm a chloride [moles/volum e] in serum or plasma 105 mmol/ L low: 98mmol /Lhigh : 107mmo l/L normal Not Available Not Available 07/30/2024 11:51:10 07/22/19 25 07/21/2024 Compr Omic[employer]ens bharat [employer] olic 1999 panel - Serum or Plasm a carbon dioxide, total [moles/volum e] in serum or plasma 39 mmol/ L low: 22mmol /Lhigh : 30mmol /L high Not Available Not Available 07/30/2024 11:51:10 07/22/19 25 07/21/2024 Compr Omiciaens bharat [employer] olic 1999 panel - Serum or Plasm a anion gap in serum or plasma by calculation 4.4 mmol/ L low: 14mmol /Lhigh : 22mmol /L low Not Available Not Available 07/30/2024 11:51:10 07/22/19 25 07/21/2024 [facility] [employer]har[employer] olic 1999 panel - Serum or Plasm a glucose [mass/volume ] in serum or plasma 154 mg/dL low: 70mg/d Lhigh: 99mg/d L high Not Available Not Available 07/30/2024 11:51:10 07/22/19 25 07/21/2024 [facility] [employer]har[employer] olic 1999 panel - Serum or Plasm a urea nitrogen [mass or moles/volume ] in serum or plasma 48 mg/dL low: 8mg/dL high: 19mg/d L high Not Available Not Available 07/30/2024 11:51:10 07/22/19 25 07/21/2024 [facility] [employer] bharat [employer] olic 1999 panel - Serum or Plasm a creatinine [mass/volume ] in serum or plasma 0.88 mg/dL low: 0.66mg /dLhig h: 1.25mg /dL normal Not Available Not Available 07/30/2024 11:51:10 07/22/19 25 07/21/2024 Compr Omiciaens bharat [employer] olic 1999 panel - Serum or Plasm a glomerular filtration rate [volume rate/area] in serum, plasma or blood by based on 1.73 sq M >60 normal Not Available Not Available 11:51:10 07/22/19 25 07/21/2024 Compr Omiciaens bharat [employer] olic 1999 panel - Serum or Plasm a alkaline phosphatase [enzymatic activity/vol ume] in serum or plasma 74 U/L low: 38U/Lh igh: 126U/L normal Not Available Not Available 07/30/2024 11:51:10 07/22/19 25 07/21/2024 [facility] [employer] [facility] 1999 panel - Serum or Plasm a alanine aminotransfe rase [enzymatic activity/vol ume] in serum or plasma 822 U/L low: 0U/Lhi gh: 50U/L high Not Available Not Available 07/30/2024 11:51:10 07/22/19 25 07/21/2024 [facility] [employer] [facility] 1999 panel - Serum or Plasm a aspartate aminotransfe rase [enzymatic activity/vol ume] in serum or plasma 419 U/L low: 15U/Lh igh: 46U/L high Not Available Not Available 07/30/2024 11:51:10 07/22/19 25 07/21/2024 [facility] 1999 panel - Serum or Plasm a bilirubin.to christina [mass/volume ] in serum or plasma 4.4 mg/dL low: 0.2mg/ dLhigh : 1.3mg/ dL high Not Available Not Available 07/30/2024 11:51:10 07/22/19 25 07/21/2024 [facility] [employer] [facility] 1999 panel - Serum or Plasm a bilirubin.di rect [mass/volume ] in serum or plasma 1.95 mg/dL low: 0mg/dL high: 0.3mg/ dL high Not Available Not Available 07/30/2024 11:51:10 07/22/19 25 07/21/2024 [facility] [employer] [place] [id number] panel - Serum or Plasm a bilirubin.in direct [mass/volume ] in serum or plasma 1.1 mg/dL low: 0mg/dL high: 1.1mg/ dL normal Not Available Not Available 07/30/2024 11:51:10 07/22/19 25 07/21/2024 [facility] [place] [id number] panel - Serum or Plasm a calcium [mass/volume ] in serum or plasma 8.4 mg/dL low: 8.4mg/ dLhigh : 10.2mg /dL normal Not Available Not Available 07/30/2024 11:51:10 07/22/19 25 07/21/2024 [facility] [employer] [facility] 1999 panel - Serum or Plasm a protein [mass/volume ] in serum or plasma 5.5 g/dL low: 6.3g/d Lhigh: 8.2g/d L low Not Available Not Available 07/30/2024 11:51:10 07/22/19 25 07/21/2024 [facility] [employer] bharat [employer] olic 1999 panel - Serum or Plasm a albumin [mass/volume ] in serum or plasma 2.9 g/dL low: 3.4g/d Lhigh: 5g/dL low Not Available Not Available 07/30/2024 11:51:10 07/22/19 25 07/21/2024 [facility] [employer] olic 1999 panel - Serum or Plasm a globulin [mass/volume ] in serum 2.6 g/dL low: 2.6g/d Lhigh: 4.2g/d L normal Not Available Not Available 07/30/2024 11:51:10 07/22/19 25 07/21/2024 [facility] [employer] ic 1999 panel - Serum or Plasm a albumin/glob ulin [mass ratio] in serum or plasma 1.1 ratio low: 1ratio high: 2ratio normal Not Available Not Available 07/30/2024 11:51:10 07/22/19 25 07/21/2024 CBC W Auto [employer]iffe [employer] al panel - Blood leukocytes [#/volume] in blood by automated count 9.9 x10'3 /uL low: 4.2x10 '3/uLh igh: 10.8x1 0'3/uL normal Not Available Not Available 07/30/2024 11:51:06 07/22/19 25 07/21/2024 CBC W Auto [employer]iffe renti al panel - Blood erythrocytes [#/volume] in blood by automated count 4.89 x10'6 /uL low: 4.1x10 '6/uLh igh: 5.8x10 '6/uL normal Not Available Not Available 07/30/2024 11:51:06 07/22/19 25 07/21/2024 CBC W Auto [employer]iffe [employer]i al panel - Blood hemoglobin [mass/volume ] in blood 13.5 g/dL low: 13.2g/ dLhigh : 17g/dL normal Not Available Not Available 07/30/2024 11:51:06 07/22/19 25 07/21/2024 CBC W Auto [employer]iffe renti al panel - Blood hematocrit [volume fraction] of blood by automated count 43.9 % low: 39.3%h igh: 50% normal Not Available Not Available 07/30/2024 11:51:06 07/22/19 25 07/21/2024 CBC W Auto [employer]iffe [employer]i al panel - Blood MCV [entitic mean volume] in red blood cells by automated count 89.8 fL low: 80fLhi gh: 97fL normal Not Available Not Available 07/30/2024 11:51:06 07/22/19 25 07/21/2024 CBC W Auto [employer]iffe renti al panel - Blood MCH [entitic mass] by automated count 27.6 pg low: 27pghi gh: 33pg normal Not Available Not Available 07/30/2024 11:51:06 07/22/19 25 07/21/2024 CBC W Auto [employer] al panel - Blood MCHC [entitic mass/volume] in red blood cells by automated count 30.8 g/dL low: 31g/dL high: 36g/dL low Not Available Not Available 07/30/2024 11:51:06 07/22/19 25 07/21/2024 CBC W Auto [employer]iffe [employer]i al panel - Blood erythrocyte [distwidth] in red blood cells 19.8 % low: 11.8%h igh: 15.5% high Not Available Not Available 07/30/2024 11:51:06 07/22/19 25 07/21/2024 CBC W Auto [employer]iffe [employer]i al panel - Blood platelets [#/volume] in blood by automated count 186 x10'3 /uL low: 150x10 '3/uLh igh: 400x10 '3/uL normal Not Available Not Available 07/30/2024 11:51:06 07/22/19 25 07/21/2024 CBC W Auto [employer] al panel - Blood platelet [entitic mean volume] in blood by automated count 10.1 fL low: 9fLhig h: 12.4fL normal Not Available Not Available 07/30/2024 11:51:06 07/22/19 25 07/21/2024 CBC W Auto [employer] al panel - Blood neutrophils/ leukocytes in blood 88 % low: 39%hig h: 72% high Not Available Not Available 07/30/2024 11:51:06 07/22/19 25 07/21/2024 CBC W Auto [employer]iffe [employer]i al panel - Blood lymphocytes/ leukocytes in blood 4 % low: 16%hig h: 47% low Not Available Not Available 07/30/2024 11:51:06 07/22/19 25 07/21/2024 CBC W Auto Diffe renti al panel - Blood monocytes/le ukocytes in blood 7 % low: 5%high : 12% normal Not Available Not Available 07/30/2024 11:51:06 07/22/19 25 07/21/2024 CBC W Auto Diffe renti al panel - Blood eosinophils [#/volume] in blood 1 % low: 1%high : 7% normal Not Available Not Available 07/30/2024 11:51:06 07/22/19 25 07/21/2024 CBC W Auto [employer]iffe [employer]i al panel - Blood neutrophils [#/volume] in blood 8.83 x10'3 /uL low: 1.5x10 '3/uLh igh: 8x10'3 /uL high Not Available Not Available 07/30/2024 11:51:06 07/22/19 25 07/21/2024 CBC W Auto Diffe renti al panel - Blood anisocytosis [presence] in blood by light microscopy [employer] interp retati on normal Not Available Not Available 11:51:06 07/22/19 25 07/21/2024 CBC W Auto Diffe renti al panel - Blood target cells [presence] in blood by light microscopy [employer] data interp retati on normal Not Available Not Available 11:51:06 07/22/19 25 07/21/2024 CBC W Auto Diffe renti al panel - Blood ovalocytes [presence] in blood by light microscopy Labora [employer] data interp retati on normal Not Available Not Available 11:51:06 07/22/19 25 07/21/2024 CBC W Auto Diffe renti al panel - Blood dacrocytes [presence] in blood by light microscopy Labora tory data interp retati on normal Not Available Not Available 11:51:06 07/22/19 25 07/21/2024 [facility] 1999 panel - Serum or Plasm a sodium [moles/volum e] in blood 146 mmol/ L low: 137mmo l/Lhig h: 145mmo l/L high Not Available Not Available 07/30/2024 11:51:06 07/22/19 25 07/21/2024 [facility] 1999 panel - Serum or Plasm a potassium [moles/volum e] in serum or plasma 2.6 mmol/ L low: 3.5mmo l/Lhig h: 5.1mmo l/L critical low Not Available Not Available 07/30/2024 11:51:06 07/22/19 25 07/21/2024 [facility] 1999 panel - Serum or Plasm a chloride [moles/volum e] in serum or plasma 102 mmol/ L low: 98mmol /Lhigh : 107mmo l/L normal Not Available Not Available 07/30/2024 11:51:06 07/22/19 25 07/21/2024 [facility] 1999 panel - Serum or Plasm a carbon dioxide, total [moles/volum e] in serum or plasma 42 mmol/ L low: 22mmol /Lhigh : 30mmol /L high Not Available Not Available 07/30/2024 11:51:06 07/22/19 25 07/21/2024 [facility] 1999 panel - Serum or Plasm a anion gap in serum or plasma by calculation 4.6 mmol/ L low: 14mmol /Lhigh : 22mmol /L low Not Available Not Available 07/30/2024 11:51:06 07/22/19 25 07/21/2024 [facility] 1999 panel - Serum or Plasm a glucose [mass/volume ] in serum or plasma 165 mg/dL low: 70mg/d Lhigh: 99mg/d L high Not Available Not Available 07/30/2024 11:51:06 07/22/19 25 07/21/2024 [facility] 1999 panel - Serum or Plasm a urea nitrogen [mass or moles/volume ] in serum or plasma 54 mg/dL low: 8mg/dL high: 19mg/d L high Not Available Not Available 07/30/2024 11:51:06 07/22/19 25 07/21/2024 Basic metab olic 1999 panel - Serum or Plasm a creatinine [mass/volume ] in serum or plasma 1.06 mg/dL low: 0.66mg /dLhig h: 1.25mg /dL normal Not Available Not Available 07/30/2024 11:51:06 07/22/19 25 07/21/2024 Basic metab olic 1999 panel - Serum or Plasm a glomerular filtration rate [volume rate/area] in serum, plasma or blood by based on 1.73 sq M >60 normal Not Available Not Available 11:51:06 07/22/19 25 07/21/2024 Basic metab olic 1999 panel - Serum or Plasm a calcium [mass/volume ] in serum or plasma 7.5 mg/dL low: 8.4mg/ dLhigh : 10.2mg /dL low Not Available Not Available 07/30/2024 11:51:06 07/23/19 25 07/22/2024 Compr ehens bharat metab olic 1999 panel - Serum or Plasm a sodium [moles/volum e] in blood 147 mmol/ L low: 137mmo l/Lhig h: 145mmo l/L high Not Available Not Available 07/30/2024 11:51:10 07/23/19 25 07/22/2024 Compr ehens bharat metab olic 1999 panel - Serum or Plasm a potassium [moles/volum e] in serum or plasma 3.3 mmol/ L low: 3.5mmo l/Lhig h: 5.1mmo l/L low Not Available Not Available 07/30/2024 11:51:10 07/23/19 25 07/22/2024 Compr ehens bharat metab olic 1999 panel - Serum or Plasm a chloride [moles/volum e] in serum or plasma 108 mmol/ L low: 98mmol /Lhigh : 107mmo l/L high Not Available Not Available 07/30/2024 11:51:10 07/23/19 25 07/22/2024 Compr ehens bharat metab olic 1999 panel - Serum or Plasm a carbon dioxide, total [moles/volum e] in serum or plasma 36 mmol/ L low: 22mmol /Lhigh : 30mmol /L high Not Available Not Available 07/30/2024 11:51:10 07/23/19 25 07/22/2024 [facility] [employer]har[employer] [facility] 1999 panel - Serum or Plasm a anion gap in serum or plasma by calculation 6.3 mmol/ L low: 14mmol /Lhigh : 22mmol /L low Not Available Not Available 07/30/2024 11:51:10 07/23/19 25 07/22/2024 [facility] [employer] [facility] 1999 panel - Serum or Plasm a glucose [mass/volume ] in serum or plasma 165 mg/dL low: 70mg/d Lhigh: 99mg/d L high Not Available Not Available 07/30/2024 11:51:10 07/23/19 25 07/22/2024 [facility] [employer] bharat [employer] [facility] 1999 panel - Serum or Plasm a urea nitrogen [mass or moles/volume ] in serum or plasma 54 mg/dL low: 8mg/dL high: 19mg/d L high Not Available Not Available 07/30/2024 11:51:10 07/23/19 25 07/22/2024 [facility] [employer] [facility] 1999 panel - Serum or Plasm a creatinine [mass/volume ] in serum or plasma 0.98 mg/dL low: 0.66mg /dLhig h: 1.25mg /dL normal Not Available Not Available 07/30/2024 11:51:10 07/23/19 25 07/22/2024 [facility] [employer]harat [employer] [facility] 1999 panel - Serum or Plasm a glomerular filtration rate [volume rate/area] in serum, plasma or blood by based on 1.73 sq M >60 normal Not Available Not Available 11:51:10 07/23/19 25 07/22/2024 [facility] [employer]harat [employer] [facility] 1999 panel - Serum or Plasm a alkaline phosphatase [enzymatic activity/vol ume] in serum or plasma 75 U/L low: 38U/Lh igh: 126U/L normal Not Available Not Available 07/30/2024 11:51:10 07/23/19 25 07/22/2024 [facility] [employer] bharat [employer] [facility] 1999 panel - Serum or Plasm a alanine aminotransfe rase [enzymatic activity/vol ume] in serum or plasma 720 U/L low: 0U/Lhi gh: 50U/L high Not Available Not Available 07/30/2024 11:51:10 07/23/19 25 07/22/2024 [facility] [employer] [facility] 1999 panel - Serum or Plasm a aspartate aminotransfe rase [enzymatic activity/vol ume] in serum or plasma 298 U/L low: 15U/Lh igh: 46U/L high Not Available Not Available 07/30/2024 11:51:10 07/23/19 25 07/22/2024 [facility] [employer] [facility] 1999 panel - Serum or Plasm a bilirubin.to christina [mass/volume ] in serum or plasma 4.6 mg/dL low: 0.2mg/ dLhigh : 1.3mg/ dL high Not Available Not Available 07/30/2024 11:51:10 07/23/19 25 07/22/2024 [facility] bharat [employer] [facility] 1999 panel - Serum or Plasm a bilirubin.di rect [mass/volume ] in serum or plasma 2.08 mg/dL low: 0mg/dL high: 0.3mg/ dL high Not Available Not Available 07/30/2024 11:51:10 07/23/19 25 07/22/2024 [facility] 1999 panel - Serum or Plasm a bilirubin.in direct [mass/volume ] in serum or plasma 1.1 mg/dL low: 0mg/dL high: 1.1mg/ dL normal Not Available Not Available 07/30/2024 11:51:10 07/23/19 25 07/22/2024 [facility] 1999 panel - Serum or Plasm a calcium [mass/volume ] in serum or plasma 8.4 mg/dL low: 8.4mg/ dLhigh : 10.2mg /dL normal Not Available Not Available 07/30/2024 11:51:10 07/23/19 25 07/22/2024 [facility] [employer] [place] [address] panel - Serum or Plasm a protein [mass/volume ] in serum or plasma 5.4 g/dL low: 6.3g/d Lhigh: 8.2g/d L low Not Available Not Available 07/30/2024 11:51:10 07/23/19 25 07/22/2024 Compr ehens bharat metab olic 1999 panel - Serum or Plasm a albumin [mass/volume ] in serum or plasma 2.9 g/dL low: 3.4g/d Lhigh: 5g/dL low Not Available Not Available 07/30/2024 11:51:10 07/23/19 25 07/22/2024 Compr ehens bharat metab olic 1999 panel - Serum or Plasm a globulin [mass/volume ] in serum 2.5 g/dL low: 2.6g/d Lhigh: 4.2g/d L low Not Available Not Available 07/30/2024 11:51:10 07/23/19 25 07/22/2024 Compr ehens bharat metab olic 1999 panel - Serum or Plasm a albumin/glob ulin [mass ratio] in serum or plasma 1.2 ratio low: 1ratio high: 2ratio normal Not Available Not Available 07/30/2024 11:51:10 07/23/19 25 07/22/2024 Phosp hate [Mass /volu me] in Serum or Plasm a phosphate [mass/volume ] in serum or plasma 4.3 mg/dL low: 2.5mg/ dLhigh : 4.5mg/ dL normal Not Available Not Available 07/30/2024 11:51:10 07/23/19 25 07/22/2024 Magne sium [Mass /volu me] in Serum or Plasm a magnesium [mass/volume ] in serum or plasma 2.3 mg/dL low: 1.6mg/ dLhigh : 2.3mg/ dL normal Not Available Not Available 07/30/2024 11:51:10 07/24/19 25 07/23/2024 Natri ureti c pepti de.B proho rmone N-Ter dean [Mass /volu me] in Serum or Plasm a natriuretic peptide.B prohormone N-terminal [mass/volume ] in serum or plasma 7390 pg/mL low: 0pg/mL high: 299pg/ mL high Not Available Not Available 07/30/2024 11:51:11 07/24/19 25 07/23/2024 CBC W Auto Diffe renti al panel - Blood leukocytes [#/volume] in blood by automated count 12.1 x10'3 /uL low: 4.2x10 '3/uLh igh: 10.8x1 0'3/uL high Not Available Not Available 07/30/2024 11:51:10 07/24/19 25 07/23/2024 CBC W Auto Diffe renti al panel - Blood erythrocytes [#/volume] in blood by automated count 4.78 x10'6 /uL low: 4.1x10 '6/uLh igh: 5.8x10 '6/uL normal Not Available Not Available 07/30/2024 11:51:10 07/24/19 25 07/23/2024 CBC W Auto Diffe renti al panel - Blood hemoglobin [mass/volume ] in blood 13.3 g/dL low: 13.2g/ dLhigh : 17g/dL normal Not Available Not Available 07/30/2024 11:51:10 07/24/19 25 07/23/2024 CBC W Auto Diffe renti al panel - Blood hematocrit [volume fraction] of blood by automated count 41.9 % low: 39.3%h igh: 50% normal Not Available Not Available 07/30/2024 11:51:10 07/24/19 25 07/23/2024 CBC W Auto Diffe renti al panel - Blood MCV [entitic mean volume] in red blood cells by automated count 87.7 fL low: 80fLhi gh: 97fL normal Not Available Not Available 07/30/2024 11:51:10 07/24/19 25 07/23/2024 CBC W Auto Diffe renti al panel - Blood MCH [entitic mass] by automated count 27.8 pg low: 27pghi gh: 33pg normal Not Available Not Available 07/30/2024 11:51:10 07/24/19 25 07/23/2024 CBC W Auto Diffe renti al panel - Blood MCHC [entitic mass/volume] in red blood cells by automated count 31.7 g/dL low: 31g/dL high: 36g/dL normal Not Available Not Available 07/30/2024 11:51:10 07/24/19 25 07/23/2024 CBC W Auto Diffe renti al panel - Blood erythrocyte [distwidth] in red blood cells 19.7 % low: 11.8%h igh: 15.5% high Not Available Not Available 07/30/2024 11:51:10 07/24/19 25 07/23/2024 CBC W Auto Diffe renti al panel - Blood platelets [#/volume] in blood by automated count 137 x10'3 /uL low: 150x10 '3/uLh igh: 400x10 '3/uL low Not Available Not Available 07/30/2024 11:51:10 07/24/19 25 07/23/2024 CBC W Auto Diffe renti al panel - Blood platelet [entitic mean volume] in blood by automated count 9.9 fL low: 9fLhig h: 12.4fL normal Not Available Not Available 07/30/2024 11:51:10 07/24/19 25 07/23/2024 CBC W Auto Diffe renti al panel - Blood neutrophils/ leukocytes in blood 94 % low: 39%hig h: 72% high Not Available Not Available 07/30/2024 11:51:10 07/24/19 25 07/23/2024 CBC W Auto Diffe renti al panel - Blood lymphocytes/ leukocytes in blood 4 % low: 16%hig h: 47% low Not Available Not Available 07/30/2024 11:51:10 07/24/19 25 07/23/2024 CBC W Auto Diffe renti al panel - Blood monocytes/le ukocytes in blood 2 % low: 5%high : 12% low Not Available Not Available 07/30/2024 11:51:10 07/24/19 25 07/23/2024 CBC W Auto Diffe renti al panel - Blood neutrophils [#/volume] in blood 11.04 x10'3 /uL low: 1.5x10 '3/uLh igh: 8x10'3 /uL high Not Available Not Available 07/30/2024 11:51:10 07/24/19 25 07/23/2024 CBC W Auto Diffe renti al panel - Blood lymphocytes [#/volume] in blood 0.4 x10'3 /uL low: 1.07x1 0'3/uL high: 3.43x1 0'3/uL low Not Available Not Available 07/30/2024 11:51:10 07/24/19 25 07/23/2024 CBC W Auto Diffe renti al panel - Blood monocytes [#/volume] in blood 0.58 x10'3 /uL low: 0.29x1 0'3/uL high: 0.99x1 0'3/uL normal Not Available Not Available 07/30/2024 11:51:10 07/24/19 25 07/23/2024 CBC W Auto Diffe renti al panel - Blood eosinophils [#/volume] in blood 0 x10'3 /uL low: 0.02x1 0'3/uL high: 0.53x1 0'3/uL low Not Available Not Available 07/30/2024 11:51:10 07/24/19 25 07/23/2024 CBC W Auto Diffe renti al panel - Blood basophils [#/volume] in blood 0.02 x10'3 /uL low: 0.01x1 0'3/uL high: 0.08x1 0'3/uL normal Not Available Not Available 07/30/2024 11:51:10 07/24/19 25 07/23/2024 CBC W Auto Diffe renti al panel - Blood immature granulocytes [#/volume] in blood 0.07 x10'3 /uL low: 0x10'3 /uLhig h: 0.05x1 0'3/uL high Not Available Not Available 07/30/2024 11:51:10 07/24/19 25 07/23/2024 CBC W Auto Diffe renti al panel - Blood nucleated erythrocytes /leukocytes [ratio] in blood 0.3 % high: 0% high Not Available Not Available 07/30/2024 11:51:10 07/24/19 25 07/23/2024 CBC W Auto Diffe renti al panel - Blood nucleated erythrocytes [#/volume] in blood by automated count 0.04 x10'3 /uL normal Not Available Not Available 07/31/19 11:51:10 07/24/19 25 07/23/2024 CBC W Auto Diffe renti al panel - Blood anisocytosis [presence] in blood by light microscopy Britta win data interp retati on normal Not Available Not Available 11:51:10 07/24/19 25 07/23/2024 CBC W Auto Diffe renti al panel - Blood poikilocytos is [presence] in blood by light microscopy Britta win data interp retati on normal Not Available Not Available 11:51:10 07/24/19 25 07/23/2024 Phosp hate [Mass /volu me] in Serum or Plasm a phosphate [mass/volume ] in serum or plasma 4.1 mg/dL low: 2.5mg/ dLhigh : 4.5mg/ dL normal Not Available Not Available 07/30/2024 11:51:11 07/24/19 25 07/23/2024 Magne sium [Mass /volu me] in Serum or Plasm a magnesium [mass/volume ] in serum or plasma 2.3 mg/dL low: 1.6mg/ dLhigh : 2.3mg/ dL normal Not Available Not Available 07/30/2024 11:51:11 07/24/19 25 07/23/2024 Basic metab olic 1999 panel - Serum or Plasm a sodium [moles/volum e] in blood 140 mmol/ L low: 137mmo l/Lhig h: 145mmo l/L normal Not Available Not Available 07/30/2024 11:51:11 07/24/19 25 07/23/2024 Basic metab olic 1999 panel - Serum or Plasm a potassium [moles/volum e] in serum or plasma 3.3 mmol/ L low: 3.5mmo l/Lhig h: 5.1mmo l/L low Not Available Not Available 07/30/2024 11:51:11 07/24/19 25 07/23/2024 Basic metab olic 1999 panel - Serum or Plasm a chloride [moles/volum e] in serum or plasma 101 mmol/ L low: 98mmol /Lhigh : 107mmo l/L normal Not Available Not Available 07/30/2024 11:51:11 07/24/19 25 07/23/2024 Basic metab olic 1999 panel - Serum or Plasm a carbon dioxide, total [moles/volum e] in serum or plasma 39 mmol/ L low: 22mmol /Lhigh : 30mmol /L high Not Available Not Available 07/30/2024 11:51:11 07/24/19 25 07/23/2024 Basic metab olic 1999 panel - Serum or Plasm a anion gap in serum or plasma by calculation 3.3 mmol/ L low: 14mmol /Lhigh : 22mmol /L low Not Available Not Available 07/30/2024 11:51:11 07/24/19 25 07/23/2024 [facility] 1999 panel - Serum or Plasm a glucose [mass/volume ] in serum or plasma 170 mg/dL low: 70mg/d Lhigh: 99mg/d L high Not Available Not Available 07/30/2024 11:51:11 07/24/19 25 07/23/2024 [facility] 1999 panel - Serum or Plasm a urea nitrogen [mass or moles/volume ] in serum or plasma 54 mg/dL low: 8mg/dL high: 19mg/d L high Not Available Not Available 07/30/2024 11:51:11 07/24/19 25 07/23/2024 [facility] 1999 panel - Serum or Plasm a creatinine [mass/volume ] in serum or plasma 0.99 mg/dL low: 0.66mg /dLhig h: 1.25mg /dL normal Not Available Not Available 07/30/2024 11:51:11 07/24/19 25 07/23/2024 [facility] 1999 panel - Serum or Plasm a glomerular filtration rate [volume rate/area] in serum, plasma or blood by based on 1.73 sq M >60 normal Not Available Not Available 11:51:11 07/24/19 25 07/23/2024 [facility] 1999 panel - Serum or Plasm a calcium [mass/volume ] in serum or plasma 8.1 mg/dL low: 8.4mg/ dLhigh : 10.2mg /dL low Not Available Not Available 07/30/2024 11:51:11 07/25/19 25 07/24/2024 CBC W Auto Diffe renti al panel - Blood leukocytes [#/volume] in blood by automated count 13.6 x10'3 /uL low: 4.2x10 '3/uLh igh: 10.8x1 0'3/uL high Not Available Not Available 07/30/2024 11:51:11 07/25/19 25 07/24/2024 CBC W Auto Diffe renti al panel - Blood erythrocytes [#/volume] in blood by automated count 4.72 x10'6 /uL low: 4.1x10 '6/uLh igh: 5.8x10 '6/uL normal Not Available Not Available 07/30/2024 11:51:11 07/25/19 25 07/24/2024 CBC W Auto Diffe renti al panel - Blood hemoglobin [mass/volume ] in blood 12.6 g/dL low: 13.2g/ dLhigh : 17g/dL low Not Available Not Available 07/30/2024 11:51:11 07/25/19 25 07/24/2024 CBC W Auto Diffe renti al panel - Blood hematocrit [volume fraction] of blood by automated count 40.6 % low: 39.3%h igh: 50% normal Not Available Not Available 07/30/2024 11:51:11 07/25/1907/24/2024 CBC W Auto Diffe renti al panel - Blood MCV [entitic mean volume] in red blood cells by automated count 86 fL low: 80fLhi gh: 97fL normal Not Available Not Available 07/30/2024 11:51:11 07/25/19 25 07/24/2024 CBC W Auto Diffe nerissati al panel - Blood MCH [entitic mass] by automated count 26.7 pg low: 27pghi gh: 33pg low Not Available Not Available 07/30/2024 11:51:11 07/25/19 25 07/24/2024 CBC W Auto Diffe nerissati al panel - Blood MCHC [entitic mass/volume] in red blood cells by automated count 31 g/dL low: 31g/dL high: 36g/dL normal Not Available Not Available 07/30/2024 11:51:11 07/25/19 25 07/24/2024 CBC W Auto Diffe andrei al panel - Blood erythrocyte [distwidth] in red blood cells 19.7 % low: 11.8%h igh: 15.5% high Not Available Not Available 07/30/2024 11:51:11 07/25/19 25 07/24/2024 CBC W Auto Diffe renti al panel - Blood platelets [#/volume] in blood by automated count 111 x10'3 /uL low: 150x10 '3/uLh igh: 400x10 '3/uL low Not Available Not Available 07/30/2024 11:51:11 07/25/19 25 07/24/2024 CBC W Auto Diffe renti al panel - Blood platelet [entitic mean volume] in blood by automated count 9.8 fL low: 9fLhig h: 12.4fL normal Not Available Not Available 07/30/2024 11:51:11 07/25/19 25 07/24/2024 CBC W Auto Diffe renti al panel - Blood neutrophils/ leukocytes in blood 88 % low: 39%hig h: 72% high Not Available Not Available 07/30/2024 11:51:11 07/25/19 25 07/24/2024 CBC W Auto Diffe renti al panel - Blood lymphocytes/ leukocytes in blood 4.6 % low: 16%hig h: 47% low Not Available Not Available 07/30/2024 11:51:11 07/25/19 25 07/24/2024 CBC W Auto Diffe renti al panel - Blood monocytes/le ukocytes in blood 7.3 % low: 5%high : 12% normal Not Available Not Available 07/30/2024 11:51:11 07/25/19 25 07/24/2024 CBC W Auto Diffe renti al panel - Blood eosinophils [#/volume] in blood 0 % low: 1%high : 7% low Not Available Not Available 07/30/2024 11:51:11 07/25/19 25 07/24/2024 CBC W Auto Diffe renti al panel - Blood basophils/le ukocytes in blood 0.1 % low: 0%high : 2% normal Not Available Not Available 07/30/2024 11:51:11 07/25/19 25 07/24/2024 CBC W Auto Diffe renti al panel - Blood neutrophils [#/volume] in blood 11.97 x10'3 /uL low: 1.5x10 '3/uLh igh: 8x10'3 /uL high Not Available Not Available 07/30/2024 11:51:11 07/25/19 25 07/24/2024 CBC W Auto Diffe renti al panel - Blood lymphocytes [#/volume] in blood 0.63 x10'3 /uL low: 1.07x1 0'3/uL high: 3.43x1 0'3/uL low Not Available Not Available 07/30/2024 11:51:11 07/25/19 25 07/24/2024 CBC W Auto Diffe renti al panel - Blood monocytes [#/volume] in blood 1 x10'3 /uL low: 0.29x1 0'3/uL high: 0.99x1 0'3/uL high Not Available Not Available 07/30/2024 11:51:11 07/25/19 25 07/24/2024 CBC W Auto Diffe renti al panel - Blood eosinophils [#/volume] in blood 0 x10'3 /uL low: 0.02x1 0'3/uL high: 0.53x1 0'3/uL low Not Available Not Available 07/30/2024 11:51:11 07/25/19 25 07/24/2024 CBC W Auto Diffe renti al panel - Blood basophils [#/volume] in blood 0.01 x10'3 /uL low: 0.01x1 0'3/uL high: 0.08x1 0'3/uL normal Not Available Not Available 07/30/2024 11:51:11 07/25/19 25 07/24/2024 Phosp hate [Mass /volu me] in Serum or Plasm a phosphate [mass/volume ] in serum or plasma 3.3 mg/dL low: 2.5mg/ dLhigh : 4.5mg/ dL normal Not Available Not Available 07/30/2024 11:51:11 07/25/19 25 07/24/2024 Magne sium [Mass /volu me] in Serum or Plasm a magnesium [mass/volume ] in serum or plasma 2.5 mg/dL low: 1.6mg/ dLhigh : 2.3mg/ dL high Not Available Not Available 07/30/2024 11:51:11 07/25/19 25 07/24/2024 Basic metab olic 1999 panel - Serum or Plasm a sodium [moles/volum e] in blood 138 mmol/ L low: 137mmo l/Lhig h: 145mmo l/L normal Not Available Not Available 07/30/2024 11:51:11 07/25/19 25 07/24/2024 Basic metab olic 2000 panel - Serum or Plasm a potassium [moles/volum e] in serum or plasma 3.5 mmol/ L low: 3.5mmo l/Lhig h: 5.1mmo l/L normal Not Available Not Available 07/30/2024 11:51:11 07/25/19 25 07/24/2024 [facility] 1999 panel - Serum or Plasm a chloride [moles/volum e] in serum or plasma 101 mmol/ L low: 98mmol /Lhigh : 107mmo l/L normal Not Available Not Available 07/30/2024 11:51:11 07/25/19 25 07/24/2024 Basic [facility] 1999 panel - Serum or Plasm a carbon dioxide, total [moles/volum e] in serum or plasma 37 mmol/ L low: 22mmol /Lhigh : 30mmol /L high Not Available Not Available 07/30/2024 11:51:11 07/25/19 25 07/24/2024 Basic [facility] 1999 panel - Serum or Plasm a anion gap in serum or plasma by calculation 3.5 mmol/ L low: 14mmol /Lhigh : 22mmol /L low Not Available Not Available 07/30/2024 11:51:11 07/25/19 25 07/24/2024 [facility] 1999 panel - Serum or Plasm a glucose [mass/volume ] in serum or plasma 147 mg/dL low: 70mg/d Lhigh: 99mg/d L high Not Available Not Available 07/30/2024 11:51:11 07/25/19 25 07/24/2024 [facility] 1999 panel - Serum or Plasm a urea nitrogen [mass or moles/volume ] in serum or plasma 47 mg/dL low: 8mg/dL high: 19mg/d L high Not Available Not Available 07/30/2024 11:51:11 07/25/19 25 07/24/2024 [facility] 1999 panel - Serum or Plasm a creatinine [mass/volume ] in serum or plasma 0.95 mg/dL low: 0.66mg /dLhig h: 1.25mg /dL normal Not Available Not Available 07/30/2024 11:51:11 07/25/19 25 07/24/2024 [facility] 1999 panel - Serum or Plasm a glomerular filtration rate [volume rate/area] in serum, plasma or blood by based on 1.73 sq M >60 normal Not Available Not Available 11:51:11 07/25/19 25 07/24/2024 Basic metab olic 1999 panel - Serum or Plasm a calcium [mass/volume ] in serum or plasma 8.1 mg/dL low: 8.4mg/ dLhigh : 10.2mg /dL low Not Available Not Available 07/30/2024 11:51:11 07/26/19 25 07/25/2024 Proth rombi n time (PT) prothrombin time (PT) 14.1 secon ds low: 9.7sec ondshi gh: 12.2se conds high Not Available Not Available 07/30/2024 11:51:12 07/26/19 25 07/25/2024 Proth rombi n time (PT) INR in platelet poor plasma by coagulation assay 1.3 1 normal Not Available Not Available 07/2024 11:51:12 07/26/19 25 07/25/2024 Compr ehens bharat metab olic 1999 panel - Serum or Plasm a sodium [moles/volum e] in blood 135 mmol/ L low: 137mmo l/Lhig h: 145mmo l/L low Not Available Not Available 07/30/2024 11:51:12 07/26/19 25 07/25/2024 Compr ehens bharat metab olic 2000 panel - Serum or Plasm a potassium [moles/volum e] in serum or plasma 4.1 mmol/ L low: 3.5mmo l/Lhig h: 5.1mmo l/L normal Not Available Not Available 07/30/2024 11:51:12 07/26/19 25 07/25/2024 Compr ehens bharat metab olic 1999 panel - Serum or Plasm a chloride [moles/volum e] in serum or plasma 101 mmol/ L low: 98mmol /Lhigh : 107mmo l/L normal Not Available Not Available 07/30/2024 11:51:12 07/26/19 25 07/25/2024 Compr ehens bharat metab olic 1999 panel - Serum or Plasm a carbon dioxide, total [moles/volum e] in serum or plasma 32 mmol/ L low: 22mmol /Lhigh : 30mmol /L high Not Available Not Available 07/30/2024 11:51:12 07/26/19 25 07/25/2024 [facility] [employer] bharat [employer] [facility] 1999 panel - Serum or Plasm a anion gap in serum or plasma by calculation 6.1 mmol/ L low: 14mmol /Lhigh : 22mmol /L low Not Available Not Available 07/30/2024 11:51:12 07/26/19 25 07/25/2024 [facility] [employer] bharat [employer] [facility] 1999 panel - Serum or Plasm a glucose [mass/volume ] in serum or plasma 225 mg/dL low: 70mg/d Lhigh: 99mg/d L high Not Available Not Available 07/30/2024 11:51:12 07/26/19 25 07/25/2024 [facility] [employer] [facility] 1999 panel - Serum or Plasm a urea nitrogen [mass or moles/volume ] in serum or plasma 36 mg/dL low: 8mg/dL high: 19mg/d L high Not Available Not Available 07/30/2024 11:51:12 07/26/19 25 07/25/2024 [facility] [employer] [facility] 1999 panel - Serum or Plasm a creatinine [mass/volume ] in serum or plasma 0.78 mg/dL low: 0.66mg /dLhig h: 1.25mg /dL normal Not Available Not Available 07/30/2024 11:51:12 07/26/19 25 07/25/2024 [facility] [employer] [facility] 1999 panel - Serum or Plasm a glomerular filtration rate [volume rate/area] in serum, plasma or blood by based on 1.73 sq M >60 normal Not Available Not Available 11:51:12 07/26/19 25 07/25/2024 [facility] [employer] [facility] 1999 panel - Serum or Plasm a alkaline phosphatase [enzymatic activity/vol ume] in serum or plasma 114 U/L low: 38U/Lh igh: 126U/L normal Not Available Not Available 07/30/2024 11:51:12 07/26/19 25 07/25/2024 [facility] [employer] bharat [employer] [facility] 2000 panel - Serum or Plasm a alanine aminotransfe rase [enzymatic activity/vol ume] in serum or plasma 324 U/L low: 0U/Lhi gh: 50U/L high Not Available Not Available 07/30/2024 11:51:12 07/26/19 25 07/25/2024 Compr [employer] bharat [employer] olic 1999 panel - Serum or Plasm a aspartate aminotransfe rase [enzymatic activity/vol ume] in serum or plasma 107 U/L low: 15U/Lh igh: 46U/L high Not Available Not Available 07/30/2024 11:51:12 07/26/19 25 07/25/2024 Compr [employer] bharat [employer] olic 1999 panel - Serum or Plasm a bilirubin.to christina [mass/volume ] in serum or plasma 3.5 mg/dL low: 0.2mg/ dLhigh : 1.3mg/ dL high Not Available Not Available 07/30/2024 11:51:12 07/26/19 25 07/25/2024 Compr [employer] bharat [employer] olic 1999 panel - Serum or Plasm a bilirubin.di rect [mass/volume ] in serum or plasma 0.82 mg/dL low: 0mg/dL high: 0.3mg/ dL high Not Available Not Available 07/30/2024 11:51:12 07/26/19 25 07/25/2024 Compr [employer] bharat [employer] olic 1999 panel - Serum or Plasm a bilirubin.in direct [mass/volume ] in serum or plasma 0.9 mg/dL low: 0mg/dL high: 1.1mg/ dL normal Not Available Not Available 07/30/2024 11:51:12 07/26/19 25 07/25/2024 [facility] [employer] olic 1999 panel - Serum or Plasm a calcium [mass/volume ] in serum or plasma 7.9 mg/dL low: 8.4mg/ dLhigh : 10.2mg /dL low Not Available Not Available 07/30/2024 11:51:12 07/26/19 25 07/25/2024 Compr [employer] olic 2000 panel - Serum or Plasm a protein [mass/volume ] in serum or plasma 5.6 g/dL low: 6.3g/d Lhigh: 8.2g/d L low Not Available Not Available 07/30/2024 11:51:12 07/26/19 25 07/25/2024 Compr ehens bharat metab olic 2000 panel - Serum or Plasm a albumin [mass/volume ] in serum or plasma 3.1 g/dL low: 3.4g/d Lhigh: 5g/dL low Not Available Not Available 07/30/2024 11:51:12 07/26/19 25 07/25/2024 Compr ens bharat metab [facility] 1999 panel - Serum or Plasm a globulin [mass/volume ] in serum 2.5 g/dL low: 2.6g/d Lhigh: 4.2g/d L low Not Available Not Available 07/30/2024 11:51:12 07/26/19 25 07/25/2024 Compr ens bharat metab [facility] 1999 panel - Serum or Plasm a albumin/glob ulin [mass ratio] in serum or plasma 1.2 ratio low: 1ratio high: 2ratio normal Not Available Not Available 07/30/2024 11:51:12 07/26/19 25 07/25/2024 [facility] [employer] panel - Blood leukocytes [#/volume] in blood by automated count 11 x10'3 /uL low: 4.2x10 '3/uLh igh: 10.8x1 0'3/uL high Not Available Not Available 07/30/2024 11:51:11 07/26/19 25 07/25/2024 CBC [facility] [employer] [employer] panel - Blood erythrocytes [#/volume] in blood by automated count 4.66 x10'6 /uL low: 4.1x10 '6/uLh igh: 5.8x10 '6/uL normal Not Available Not Available 07/30/2024 11:51:11 07/26/19 25 07/25/2024 [facility] [employer] panel - Blood hemoglobin [mass/volume ] in blood 13 g/dL low: 13.2g/ dLhigh : 17g/dL low Not Available Not Available 07/30/2024 11:51:11 07/26/19 25 07/25/2024 [facility] [employer] panel - Blood hematocrit [volume fraction] of blood by automated count 40.9 % low: 39.3%h igh: 50% normal Not Available Not Available 07/30/2024 11:51:11 07/26/19 25 07/25/2024 [facility] [employer] panel - Blood MCV [entitic mean volume] in red blood cells by automated count 87.8 fL low: 80fLhi gh: 97fL normal Not Available Not Available 07/30/2024 11:51:11 07/26/19 25 07/25/2024 CBC [facility] [employer] panel - Blood MCH [entitic mass] by automated count 27.9 pg low: 27pghi gh: 33pg normal Not Available Not Available 07/30/2024 11:51:11 07/26/19 25 07/25/2024 CBC W [employer] panel - Blood MCHC [entitic mass/volume] in red blood cells by automated count 31.8 g/dL low: 31g/dL high: 36g/dL normal Not Available Not Available 07/30/2024 11:51:11 07/26/19 25 07/25/2024 CBC [facility] [employer] panel - Blood erythrocyte [distwidth] in red blood cells 19.3 % low: 11.8%h igh: 15.5% high Not Available Not Available 07/30/2024 11:51:11 07/26/19 25 07/25/2024 CBC [facility] [employer] panel - Blood platelets [#/volume] in blood by automated count 100 x10'3 /uL low: 150x10 '3/uLh igh: 400x10 '3/uL low Not Available Not Available 07/30/2024 11:51:11 07/26/19 25 07/25/2024 CBC [facility] [employer] panel - Blood platelet [entitic mean volume] in blood by automated count 10.8 fL low: 9fLhig h: 12.4fL normal Not Available Not Available 07/30/2024 11:51:11 07/26/19 25 07/25/2024 CBC [facility] [employer] panel - Blood neutrophils/ leukocytes in blood 83.4 % low: 39%hig h: 72% high Not Available Not Available 07/30/2024 11:51:11 07/26/19 25 07/25/2024 CBC [facility] [employer] panel - Blood lymphocytes/ leukocytes in blood 7.2 % low: 16%hig h: 47% low Not Available Not Available 07/30/2024 11:51:11 07/26/19 25 07/25/2024 CBC [facility] [employer] panel - Blood monocytes/le ukocytes in blood 7.7 % low: 5%high : 12% normal Not Available Not Available 07/30/2024 11:51:11 07/26/19 25 07/25/2024 CBC [facility] [employer] panel - Blood eosinophils [#/volume] in blood 0 % low: 1%high : 7% low Not Available Not Available 07/30/2024 11:51:11 07/26/19 25 07/25/2024 CBC W [employer] panel - Blood basophils/le ukocytes in blood 0.2 % low: 0%high : 2% normal Not Available Not Available 07/30/2024 11:51:11 07/26/19 25 07/25/2024 CBC W [employer] al panel - Blood immature granulocytes /leukocytes in blood 1.5 % low: 0%high : 0.5% high Not Available Not Available 07/30/2024 11:51:11 07/26/19 25 07/25/2024 CBC [facility] [employer] panel - Blood neutrophils [#/volume] in blood 9.18 x10'3 /uL low: 1.5x10 '3/uLh igh: 8x10'3 /uL high Not Available Not Available 07/30/2024 11:51:11 07/26/19 25 07/25/2024 CBC W [employer] panel - Blood lymphocytes [#/volume] in blood 0.79 x10'3 /uL low: 1.07x1 0'3/uL high: 3.43x1 0'3/uL low Not Available Not Available 07/30/2024 11:51:11 07/26/19 25 07/25/2024 CBC W [employer] panel - Blood monocytes [#/volume] in blood 0.85 x10'3 /uL low: 0.29x1 0'3/uL high: 0.99x1 0'3/uL normal Not Available Not Available 07/30/2024 11:51:11 07/26/19 25 07/25/2024 CBC W [employer] panel - Blood eosinophils [#/volume] in blood 0 x10'3 /uL low: 0.02x1 0'3/uL high: 0.53x1 0'3/uL low Not Available Not Available 07/30/2024 11:51:11 07/26/19 25 07/25/2024 CBC [facility] [employer] panel - Blood basophils [#/volume] in blood 0.02 x10'3 /uL low: 0.01x1 0'3/uL high: 0.08x1 0'3/uL normal Not Available Not Available 07/30/2024 11:51:11 07/26/19 25 07/25/2024 CBC W [employer] panel - Blood immature granulocytes [#/volume] in blood 0.17 x10'3 /uL low: 0x10'3 /uLhig h: 0.05x1 0'3/uL high Not Available Not Available 07/30/2024 11:51:11 07/26/19 25 07/25/2024 CBC [facility] [employer] panel - Blood nucleated erythrocytes /leukocytes [ratio] in blood 0 % high: 0% normal Not Available Not Available 07/30/2024 11:51:11 07/26/19 25 07/25/2024 CBC [facility] [employer] panel - Blood nucleated erythrocytes [#/volume] in blood by automated count 0 x10'3 /uL normal Not Available Not Available 07/31/19 11:51:11 07/27/19 25 07/26/2024 Natri ureti c pepti de.B proho rmone N-Ter dean [Mass /volu me] in Serum or Plasm a natriuretic peptide.B prohormone N-terminal [mass/volume ] in serum or plasma 22064 pg/mL low: 0pg/mL high: 299pg/ mL high Not Available Not Available 07/30/2024 11:51:12 07/27/19 25 07/26/2024 CBC W [employer] al panel - Blood leukocytes [#/volume] in blood by automated count 14.1 x10'3 /uL low: 4.2x10 '3/uLh igh: 10.8x1 0'3/uL high Not Available Not Available 07/30/2024 11:51:12 07/27/19 25 07/26/2024 CBC W [employer] panel - Blood erythrocytes [#/volume] in blood by automated count 4.75 x10'6 /uL low: 4.1x10 '6/uLh igh: 5.8x10 '6/uL normal Not Available Not Available 07/30/2024 11:51:12 07/27/19 25 07/26/2024 CBC W Auto [employer] panel - Blood hemoglobin [mass/volume ] in blood 13 g/dL low: 13.2g/ dLhigh : 17g/dL low Not Available Not Available 07/30/2024 11:51:12 07/27/19 25 07/26/2024 CBC W [employer] panel - Blood hematocrit [volume fraction] of blood by automated count 41.3 % low: 39.3%h igh: 50% normal Not Available Not Available 07/30/2024 11:51:12 07/27/19 25 07/26/2024 CBC W [employer] panel - Blood MCV [entitic mean volume] in red blood cells by automated count 86.9 fL low: 80fLhi gh: 97fL normal Not Available Not Available 07/30/2024 11:51:12 07/27/19 25 07/26/2024 CBC W [employer] panel - Blood MCH [entitic mass] by automated count 27.4 pg low: 27pghi gh: 33pg normal Not Available Not Available 07/30/2024 11:51:12 07/27/19 25 07/26/2024 CBC W [employer] panel - Blood MCHC [entitic mass/volume] in red blood cells by automated count 31.5 g/dL low: 31g/dL high: 36g/dL normal Not Available Not Available 07/30/2024 11:51:12 07/27/19 25 07/26/2024 CBC W [employer] panel - Blood erythrocyte [distwidth] in red blood cells 19.1 % low: 11.8%h igh: 15.5% high Not Available Not Available 07/30/2024 11:51:12 07/27/19 25 07/26/2024 CBC [facility] [employer] panel - Blood platelets [#/volume] in blood by automated count 112 x10'3 /uL low: 150x10 '3/uLh igh: 400x10 '3/uL low Not Available Not Available 07/30/2024 11:51:12 07/27/19 25 07/26/2024 CBC [employer] panel - Blood platelet [entitic mean volume] in blood by automated count 10.4 fL low: 9fLhig h: 12.4fL normal Not Available Not Available 07/30/2024 11:51:12 07/27/19 25 07/26/2024 CBC W [employer] panel - Blood neutrophils/ leukocytes in blood 78.4 % low: 39%hig h: 72% high Not Available Not Available 07/30/2024 11:51:12 07/27/19 25 07/26/2024 CBC W [employer] panel - Blood lymphocytes/ leukocytes in blood 8.4 % low: 16%hig h: 47% low Not Available Not Available 07/30/2024 11:51:12 07/27/19 25 07/26/2024 CBC W [employer] panel - Blood monocytes/le ukocytes in blood 9.3 % low: 5%high : 12% normal Not Available Not Available 07/30/2024 11:51:12 07/27/19 25 07/26/2024 CBC W Auto [employer] al panel - Blood eosinophils [#/volume] in blood 0.4 % low: 1%high : 7% low Not Available Not Available 07/30/2024 11:51:12 07/27/19 25 07/26/2024 CBC W Auto [employer] panel - Blood basophils/le ukocytes in blood 0.3 % low: 0%high : 2% normal Not Available Not Available 07/30/2024 11:51:12 07/27/19 25 07/26/2024 CBC W Auto [employer] panel - Blood immature granulocytes /leukocytes in blood 3.2 % low: 0%high : 0.5% high Not Available Not Available 07/30/2024 11:51:12 07/27/19 25 07/26/2024 CBC W Auto [employer] al panel - Blood neutrophils [#/volume] in blood 11.06 x10'3 /uL low: 1.5x10 '3/uLh igh: 8x10'3 /uL high Not Available Not Available 07/30/2024 11:51:12 07/27/19 25 07/26/2024 CBC W Auto [employer] panel - Blood lymphocytes [#/volume] in blood 1.18 x10'3 /uL low: 1.07x1 0'3/uL high: 3.43x1 0'3/uL normal Not Available Not Available 07/30/2024 11:51:12 07/27/19 25 07/26/2024 CBC W Auto [employer] al panel - Blood monocytes [#/volume] in blood 1.31 x10'3 /uL low: 0.29x1 0'3/uL high: 0.99x1 0'3/uL high Not Available Not Available 07/30/2024 11:51:12 07/27/19 25 07/26/2024 CBC W Auto [employer] panel - Blood eosinophils [#/volume] in blood 0.06 x10'3 /uL low: 0.02x1 0'3/uL high: 0.53x1 0'3/uL normal Not Available Not Available 07/30/2024 11:51:12 07/27/19 25 07/26/2024 CBC W [employer] panel - Blood basophils [#/volume] in blood 0.04 x10'3 /uL low: 0.01x1 0'3/uL high: 0.08x1 0'3/uL normal Not Available Not Available 07/30/2024 11:51:12 07/27/19 25 07/26/2024 CBC W [employer] panel - Blood immature granulocytes [#/volume] in blood 0.45 x10'3 /uL low: 0x10'3 /uLhig h: 0.05x1 0'3/uL high Not Available Not Available 07/30/2024 11:51:12 07/27/19 25 07/26/2024 CBC W Auto [employer] al panel - Blood nucleated erythrocytes /leukocytes [ratio] in blood 0 % high: 0% normal Not Available Not Available 07/30/2024 11:51:12 07/27/19 25 07/26/2024 CBC W [employer] panel - Blood nucleated erythrocytes [#/volume] in blood by automated count 0 x10'3 /uL normal Not Available Not Available 07/31/19 11:51:12 07/27/19 25 07/26/[facility] - Serum or Plasm a sodium [moles/volum e] in blood 136 mmol/ L low: 137mmo l/Lhig h: 145mmo l/L low Not Available Not Available 07/30/2024 11:51:12 07/27/19 25 07/26/2024 Compr ehens bhraat metab olic 1999 panel - Serum or Plasm a potassium [moles/volum e] in serum or plasma 3.9 mmol/ L low: 3.5mmo l/Lhig h: 5.1mmo l/L normal Not Available Not Available 07/30/2024 11:51:12 07/27/19 25 07/26/2024 Compr ens bharat metab olic 1999 panel - Serum or Plasm a chloride [moles/volum e] in serum or plasma 101 mmol/ L low: 98mmol /Lhigh : 107mmo l/L normal Not Available Not Available 07/30/2024 11:51:12 07/27/19 25 07/26/2024 [facility] 1999 panel - Serum or Plasm a carbon dioxide, total [moles/volum e] in serum or plasma 34 mmol/ L low: 22mmol /Lhigh : 30mmol /L high Not Available Not Available 07/30/2024 11:51:12 07/27/19 25 07/26/2024 Compr ens bharat metab olic 1999 panel - Serum or Plasm a anion gap in serum or plasma by calculation 4.9 mmol/ L low: 14mmol /Lhigh : 22mmol /L low Not Available Not Available 07/30/2024 11:51:12 07/27/19 25 07/26/2024 [facility] 1999 panel - Serum or Plasm a glucose [mass/volume ] in serum or plasma 114 mg/dL low: 70mg/d Lhigh: 99mg/d L high Not Available Not Available 07/30/2024 11:51:12 07/27/19 25 07/26/2024 [facility] panel - Serum or Plasm a urea nitrogen [mass or moles/volume ] in serum or plasma 34 mg/dL low: 8mg/dL high: 19mg/d L high Not Available Not Available 07/30/2024 11:51:12 07/27/19 25 07/26/2024 [facility] 1999 panel - Serum or Plasm a creatinine [mass/volume ] in serum or plasma 0.75 mg/dL low: 0.66mg /dLhig h: 1.25mg /dL normal Not Available Not Available 07/30/2024 11:51:12 07/27/19 25 07/26/2024 [facility] 1999 panel - Serum or Plasm a glomerular filtration rate [volume rate/area] in serum, plasma or blood by based on 1.73 sq M >60 normal Not Available Not Available 11:51:12 07/27/19 25 07/26/2024 [facility] 1999 panel - Serum or Plasm a alkaline phosphatase [enzymatic activity/vol ume] in serum or plasma 121 U/L low: 38U/Lh igh: 126U/L normal Not Available Not Available 07/30/2024 11:51:12 07/27/19 25 07/26/2024 [place] [id number] panel - Serum or Plasm a alanine aminotransfe rase [enzymatic activity/vol ume] in serum or plasma 300 U/L low: 0U/Lhi gh: 50U/L high Not Available Not Available 07/30/2024 11:51:12 07/27/19 25 07/26/2024 [place] [id number] panel - Serum or Plasm a aspartate aminotransfe rase [enzymatic activity/vol ume] in serum or plasma 87 U/L low: 15U/Lh igh: 46U/L high Not Available Not Available 07/30/2024 11:51:12 07/27/19 25 07/26/2024 [place] [id number] panel - Serum or Plasm a bilirubin.to christina [mass/volume ] in serum or plasma 3 mg/dL low: 0.2mg/ dLhigh : 1.3mg/ dL high Not Available Not Available 07/30/2024 11:51:12 07/27/19 25 07/26/2024 [facility] [employer] 1999 panel - Serum or Plasm a bilirubin.di rect [mass/volume ] in serum or plasma 0.21 mg/dL low: 0mg/dL high: 0.3mg/ dL normal Not Available Not Available 07/30/2024 11:51:12 07/27/19 25 07/26/2024 [facility] [employer] 1999 panel - Serum or Plasm a bilirubin.in direct [mass/volume ] in serum or plasma 1 mg/dL low: 0mg/dL high: 1.1mg/ dL normal Not Available Not Available 07/30/2024 11:51:12 07/27/19 25 07/26/2024 [facility] [employer] 1999 panel - Serum or Plasm a calcium [mass/volume ] in serum or plasma 8.4 mg/dL low: 8.4mg/ dLhigh : 10.2mg /dL normal Not Available Not Available 07/30/2024 11:51:12 07/27/19 25 07/26/2024 [facility] [employer] 1999 panel - Serum or Plasm a protein [mass/volume ] in serum or plasma 5.9 g/dL low: 6.3g/d Lhigh: 8.2g/d L low Not Available Not Available 07/30/2024 11:51:12 07/27/19 25 07/26/2024 [facility] [employer] 1999 panel - Serum or Plasm a albumin [mass/volume ] in serum or plasma 3.2 g/dL low: 3.4g/d Lhigh: 5g/dL low Not Available Not Available 07/30/2024 11:51:12 07/27/19 25 07/26/2024 [facility] [employer] 1999 panel - Serum or Plasm a globulin [mass/volume ] in serum 2.7 g/dL low: 2.6g/d Lhigh: 4.2g/d L normal Not Available Not Available 07/30/2024 11:51:12 07/27/19 25 07/26/2024 [facility] [employer] olic 2000 panel - Serum or Plasm a albumin/glob ulin [mass ratio] in serum or plasma 1.2 ratio low: 1ratio high: 2ratio normal Not Available Not Available 07/30/2024 11:51:12 07/27/19 25 07/26/2024 [facility] [employer] panel - Blood leukocytes [#/volume] in blood by automated count 15 x10'3 /uL low: 4.2x10 '3/uLh igh: 10.8x1 0'3/uL high Not Available Not Available 07/30/2024 11:51:11 07/27/19 25 07/26/2024 CBC W [employer] panel - Blood erythrocytes [#/volume] in blood by automated count 4.78 x10'6 /uL low: 4.1x10 '6/uLh igh: 5.8x10 '6/uL normal Not Available Not Available 07/30/2024 11:51:11 07/27/19 25 07/26/2024 CBC W [employer] panel - Blood hemoglobin [mass/volume ] in blood 13.1 g/dL low: 13.2g/ dLhigh : 17g/dL low Not Available Not Available 07/30/2024 11:51:11 07/27/19 25 07/26/2024 CBC W [employer] panel - Blood hematocrit [volume fraction] of blood by automated count 41.5 % low: 39.3%h igh: 50% normal Not Available Not Available 07/30/2024 11:51:11 07/27/19 25 07/26/2024 CBC [facility] [employer] panel - Blood MCV [entitic mean volume] in red blood cells by automated count 86.8 fL low: 80fLhi gh: 97fL normal Not Available Not Available 07/30/2024 11:51:11 07/27/19 25 07/26/2024 CBC W [employer] panel - Blood MCH [entitic mass] by automated count 27.4 pg low: 27pghi gh: 33pg normal Not Available Not Available 07/30/2024 11:51:11 07/27/19 25 07/26/2024 CBC W [employer] panel - Blood MCHC [entitic mass/volume] in red blood cells by automated count 31.6 g/dL low: 31g/dL high: 36g/dL normal Not Available Not Available 07/30/2024 11:51:11 07/27/19 25 07/26/2024 CBC W [employer] panel - Blood erythrocyte [distwidth] in red blood cells 19.3 % low: 11.8%h igh: 15.5% high Not Available Not Available 07/30/2024 11:51:11 07/27/19 25 07/26/2024 CBC [facility] [employer] panel - Blood platelets [#/volume] in blood by automated count 114 x10'3 /uL low: 150x10 '3/uLh igh: 400x10 '3/uL low Not Available Not Available 07/30/2024 11:51:11 07/27/19 25 07/26/2024 CBC [employer] panel - Blood platelet [entitic mean volume] in blood by automated count 10.3 fL low: 9fLhig h: 12.4fL normal Not Available Not Available 07/30/2024 11:51:11 07/27/19 25 07/26/2024 CBC [facility] [employer] panel - Blood neutrophils/ leukocytes in blood 80.7 % low: 39%hig h: 72% high Not Available Not Available 07/30/2024 11:51:11 07/27/19 25 07/26/2024 CBC [facility] [employer] panel - Blood lymphocytes/ leukocytes in blood 8.1 % low: 16%hig h: 47% low Not Available Not Available 07/30/2024 11:51:11 07/27/19 25 07/26/2024 CBC W [employer] panel - Blood monocytes/le ukocytes in blood 8.6 % low: 5%high : 12% normal Not Available Not Available 07/30/2024 11:51:11 07/27/19 25 07/26/2024 CBC [facility] [employer] panel - Blood eosinophils [#/volume] in blood 0.1 % low: 1%high : 7% low Not Available Not Available 07/30/2024 11:51:11 07/27/19 25 07/26/2024 CBC W [employer] panel - Blood basophils/le ukocytes in blood 0.2 % low: 0%high : 2% normal Not Available Not Available 07/30/2024 11:51:11 07/27/19 25 07/26/2024 CBC W [employer] panel - Blood immature granulocytes /leukocytes in blood 2.3 % low: 0%high : 0.5% high Not Available Not Available 07/30/2024 11:51:11 07/27/19 25 07/26/2024 CBC W [employer] panel - Blood neutrophils [#/volume] in blood 12.07 x10'3 /uL low: 1.5x10 '3/uLh igh: 8x10'3 /uL high Not Available Not Available 07/30/2024 11:51:11 07/27/19 25 07/26/2024 CBC W [employer] panel - Blood lymphocytes [#/volume] in blood 1.21 x10'3 /uL low: 1.07x1 0'3/uL high: 3.43x1 0'3/uL normal Not Available Not Available 07/30/2024 11:51:11 07/27/19 25 07/26/2024 CBC W [employer] panel - Blood monocytes [#/volume] in blood 1.28 x10'3 /uL low: 0.29x1 0'3/uL high: 0.99x1 0'3/uL high Not Available Not Available 07/30/2024 11:51:11 07/27/19 25 07/26/2024 CBC W [employer] panel - Blood eosinophils [#/volume] in blood 0.01 x10'3 /uL low: 0.02x1 0'3/uL high: 0.53x1 0'3/uL low Not Available Not Available 07/30/2024 11:51:11 07/27/19 25 07/26/2024 CBC W [employer] panel - Blood basophils [#/volume] in blood 0.03 x10'3 /uL low: 0.01x1 0'3/uL high: 0.08x1 0'3/uL normal Not Available Not Available 07/30/2024 11:51:11 07/27/19 25 07/26/2024 CBC W [employer] panel - Blood immature granulocytes [#/volume] in blood 0.35 x10'3 /uL low: 0x10'3 /uLhig h: 0.05x1 0'3/uL high Not Available Not Available 07/30/2024 11:51:11 07/27/19 25 07/26/2024 CBC W [employer] panel - Blood nucleated erythrocytes /leukocytes [ratio] in blood 0 % high: 0% normal Not Available Not Available 07/30/2024 11:51:11 07/27/19 25 07/26/2024 CBC W [employer] panel - Blood nucleated erythrocytes [#/volume] in blood by automated count 0 x10'3 /uL normal Not Available Not Available 07/31/19 11:51:11 07/28/19 25 07/27/2024 CBC W [employer] panel - Blood leukocytes [#/volume] in blood by automated count 14.3 x10'3 /uL low: 4.2x10 '3/uLh igh: 10.8x1 0'3/uL high Not Available Not Available 07/30/2024 11:51:12 07/28/19 25 07/27/2024 CBC W [employer] panel - Blood erythrocytes [#/volume] in blood by automated count 4.97 x10'6 /uL low: 4.1x10 '6/uLh igh: 5.8x10 '6/uL normal Not Available Not Available 07/30/2024 11:51:12 07/28/19 25 07/27/2024 CBC W [employer] panel - Blood hemoglobin [mass/volume ] in blood 13.6 g/dL low: 13.2g/ dLhigh : 17g/dL normal Not Available Not Available 07/30/2024 11:51:12 07/28/19 25 07/27/2024 CBC [facility] [employer] panel - Blood hematocrit [volume fraction] of blood by automated count 42.5 % low: 39.3%h igh: 50% normal Not Available Not Available 07/30/2024 11:51:12 07/28/19 25 07/27/2024 CBC W [employer] panel - Blood MCV [entitic mean volume] in red blood cells by automated count 85.5 fL low: 80fLhi gh: 97fL normal Not Available Not Available 07/30/2024 11:51:12 07/28/19 25 07/27/2024 CBC [facility] [employer] panel - Blood MCH [entitic mass] by automated count 27.4 pg low: 27pghi gh: 33pg normal Not Available Not Available 07/30/2024 11:51:12 07/28/19 25 07/27/2024 [facility] [employer] panel - Blood MCHC [entitic mass/volume] in red blood cells by automated count 32 g/dL low: 31g/dL high: 36g/dL normal Not Available Not Available 07/30/2024 11:51:12 07/28/19 25 07/27/2024 [facility] [employer] panel - Blood erythrocyte [distwidth] in red blood cells 19.6 % low: 11.8%h igh: 15.5% high Not Available Not Available 07/30/2024 11:51:12 07/28/19 25 07/27/2024 [facility] [employer] panel - Blood platelets [#/volume] in blood by automated count 143 x10'3 /uL low: 150x10 '3/uLh igh: 400x10 '3/uL low Not Available Not Available 07/30/2024 11:51:12 07/28/19 25 07/27/2024 [facility] [employer] panel - Blood platelet [entitic mean volume] in blood by automated count 11 fL low: 9fLhig h: 12.4fL normal Not Available Not Available 07/30/2024 11:51:12 07/28/19 25 07/27/2024 CBC [facility] [employer] panel - Blood neutrophils/ leukocytes in blood 81 % low: 39%hig h: 72% high Not Available Not Available 07/30/2024 11:51:12 07/28/19 25 07/27/2024 CBC [facility] [employer] panel - Blood lymphocytes/ leukocytes in blood 11 % low: 16%hig h: 47% low Not Available Not Available 07/30/2024 11:51:12 07/28/19 25 07/27/2024 CBC [facility] [employer] panel - Blood monocytes/le ukocytes in blood 8 % low: 5%high : 12% normal Not Available Not Available 07/30/2024 11:51:12 07/28/19 25 07/27/2024 CBC W [employer] panel - Blood neutrophils [#/volume] in blood 10.55 x10'3 /uL low: 1.5x10 '3/uLh igh: 8x10'3 /uL high Not Available Not Available 07/30/2024 11:51:12 07/28/19 25 07/27/2024 CBC W Auto Diffe renti al panel - Blood anisocytosis [presence] in blood by light microscopy Labora tory data interp retati on normal Not Available Not Available 11:51:12 07/28/19 25 07/27/2024 CBC W Auto Diffe renti al panel - Blood poikilocytos is [presence] in blood by light microscopy Labora tory data interp retati on normal Not Available Not Available 11:51:12 07/29/19 25 07/28/2024 Urina lysis compl ete W Refle x Cultu re panel - Urine color of urine by auto Color of urine normal Not Available Not Available 11:51:13 07/29/19 25 07/28/2024 Urina lysis compl ete W Refle x Cultu re panel - Urine appearance of urine Urine specim en normal Not Available Not Available 11:51:13 07/29/19 25 07/28/2024 Urina lysis compl ete W Refle x Cultu re panel - Urine specific gravity of urine by test strip 1.014 1 low: 1.001h igh: 1.03 normal Not Available Not Available 07/30/2024 11:51:13 07/29/19 25 07/28/2024 Urina lysis compl ete W Refle x Cultu re panel - Urine pH of urine by test strip 7.5 pH_un its low: 5pH unitsh igh: 9pH units normal Not Available Not Available 07/30/2024 11:51:13 07/29/19 25 07/28/2024 Urina lysis compl ete W Refle x Cultu re panel - Urine leukocytes [#/volume] in urine by test strip Leukoc yte estera se measur ement text: negati ve normal Not Available Not Available 07/30/2024 11:51:13 07/29/19 25 07/28/2024 Urina lysis compl ete W Refle x Cultu re panel - Urine nitrite [presence] in urine by test strip Labora tory test findin g text: negati ve normal Not Available Not Available 07/30/2024 11:51:13 07/29/19 25 07/28/2024 Urina lysis compl ete W Refle x Cultu re panel - Urine protein [mass/volume ] in urine by test strip Urine findin g text: negati ve normal Not Available Not Available 07/30/2024 11:51:13 07/29/19 25 07/28/2024 Urina lysis compl ete W Refle x Cultu re panel - Urine glucose [moles/volum e] in urine by test strip 300 mg/dL text: normal Not Available Not Available 07/30/2024 11:51:13 07/29/19 25 07/28/2024 Urina lysis compl ete W Refle x Cultu re panel - Urine ketones [moles/volum e] in urine by test strip Labora tory test findin g text: negati ve normal Not Available Not Available 07/30/2024 11:51:13 07/29/19 25 07/28/2024 Urina lysis compl ete W Refle x Cultu re panel - Urine urobilinogen [mass/volume ] in urine by test strip 6 mg/dL text: normal Not Available Not Available 07/30/2024 11:51:13 07/29/19 25 07/28/2024 Urina lysis compl ete W Refle x Cultu re panel - Urine bilirubin.to christina [mass/volume ] in urine by test strip Urine dipsti ck for biliru bin text: negati ve normal Not Available Not Available 07/30/2024 11:51:13 07/29/19 25 07/28/2024 Urina lysis compl ete W Refle x Cultu re panel - Urine erythrocytes [#/volume] in urine by test strip Urine dipsti ck for blood text: negati ve normal Not Available Not Available 07/30/2024 11:51:13 07/29/19 25 07/28/2024 Urina lysis compl ete W Refle x Cultu re panel - Urine leukocytes [#/area] in urine sediment by automated count Leukoc ytes in urine low: 0/[hpf ]high: 8/[hpf ] normal Not Available Not Available 07/30/2024 11:51:13 07/29/19 25 07/28/2024 Urina lysis compl ete W Refle x Cultu re panel - Urine erythrocytes [#/area] in urine sediment by automated count Blood in urine low: 0/[hpf ]high: 4/[hpf ] normal Not Available Not Available 07/30/2024 11:51:13 07/29/19 25 07/28/2024 Urina lysis compl ete W Refle x Cultu re panel - Urine bacteria [presence] in urine by automated Urine findin g normal Not Available Not Available 11:51:13 07/29/19 25 07/28/2024 Urina lysis compl ete W Refle x Cultu re panel - Urine mucus [#/area] in urine sediment by automated count Urine findin g Not Available Not Available 11:51:13 07/29/19 25 07/28/2024 Urina lysis compl ete W Refle x Cultu re panel - Urine epithelial cells.squamo us [#/area] in urine sediment by automated count Urine findin g normal Not Available Not Available 11:51:13 07/29/19 25 07/28/2024 Urina lysis compl ete W Refle x Cultu re panel - Urine hyaline casts [#/area] in urine sediment by automated count Urine findin g text: none seen Not Available Not Available 07/30/2024 11:51:13 07/29/19 25 07/28/2024 CBC W Auto Diffe renti al panel - Blood leukocytes [#/volume] in blood by automated count 13.4 x10'3 /uL low: 4.2x10 '3/uLh igh: 10.8x1 0'3/uL high Not Available Not Available 07/30/2024 11:51:12 07/29/19 25 07/28/2024 CBC W Auto Diffe renti al panel - Blood erythrocytes [#/volume] in blood by automated count 4.93 x10'6 /uL low: 4.1x10 '6/uLh igh: 5.8x10 '6/uL normal Not Available Not Available 07/30/2024 11:51:12 07/29/19 25 07/28/2024 CBC W Auto Diffe renti al panel - Blood hemoglobin [mass/volume ] in blood 13.5 g/dL low: 13.2g/ dLhigh : 17g/dL normal Not Available Not Available 07/30/2024 11:51:12 07/29/19 25 07/28/2024 CBC W Auto Diffe renti al panel - Blood hematocrit [volume fraction] of blood by automated count 42.1 % low: 39.3%h igh: 50% normal Not Available Not Available 07/30/2024 11:51:12 07/29/19 25 07/28/2024 CBC W Auto Diffe renti al panel - Blood MCV [entitic mean volume] in red blood cells by automated count 85.4 fL low: 80fLhi gh: 97fL normal Not Available Not Available 07/30/2024 11:51:12 07/29/19 25 07/28/2024 CBC W Auto Diffe andrei al panel - Blood MCH [entitic mass] by automated count 27.4 pg low: 27pghi gh: 33pg normal Not Available Not Available 07/30/2024 11:51:12 07/29/19 25 07/28/2024 CBC W Auto Diffe nerissati al panel - Blood MCHC [entitic mass/volume] in red blood cells by automated count 32.1 g/dL low: 31g/dL high: 36g/dL normal Not Available Not Available 07/30/2024 11:51:12 07/29/19 25 07/28/2024 CBC W Auto Diffe andrei al panel - Blood erythrocyte [distwidth] in red blood cells 19.7 % low: 11.8%h igh: 15.5% high Not Available Not Available 07/30/2024 11:51:12 07/29/19 25 07/28/2024 CBC W Auto Diffe renti al panel - Blood platelets [#/volume] in blood by automated count 157 x10'3 /uL low: 150x10 '3/uLh igh: 400x10 '3/uL normal Not Available Not Available 07/30/2024 11:51:12 07/29/19 25 07/28/2024 CBC W Auto Diffe renti al panel - Blood platelet [entitic mean volume] in blood by automated count 10.1 fL low: 9fLhig h: 12.4fL normal Not Available Not Available 07/30/2024 11:51:12 07/29/19 25 07/28/2024 CBC W Auto Diffe renti al panel - Blood neutrophils/ leukocytes in blood 78 % low: 39%hig h: 72% high Not Available Not Available 07/30/2024 11:51:12 07/29/19 25 07/28/2024 CBC W Auto Diffe renti al panel - Blood lymphocytes/ leukocytes in blood 13 % low: 16%hig h: 47% low Not Available Not Available 07/30/2024 11:51:12 07/29/19 25 07/28/2024 CBC W Auto Diffe renti al panel - Blood monocytes/le ukocytes in blood 9 % low: 5%high : 12% normal Not Available Not Available 07/30/2024 11:51:12 07/29/19 25 07/28/2024 CBC W Auto Diffe renti al panel - Blood neutrophils [#/volume] in blood 9.8 x10'3 /uL low: 1.5x10 '3/uLh igh: 8x10'3 /uL high Not Available Not Available 07/30/2024 11:51:12 07/29/19 25 07/28/2024 CBC W Auto Diffe renti al panel - Blood hypochromia [presence] in blood by light microscopy Labora [facility]rede data interp retati on normal Not Available Not Available 11:51:12 07/29/19 25 07/28/2024 CBC W Auto Diffe renti al panel - Blood microcytes [presence] in blood by light microscopy Labora tory data interp retati on normal Not Available Not Available 11:51:12 07/29/19 25 07/28/2024 CBC W Auto Diffe renti al panel - Blood macrocytes [presence] in blood by light microscopy Labora torede data interp retati on normal Not Available Not Available 11:51:12 07/29/19 25 07/28/2024 [facility] [employer] bharat metab olic 1999 panel - Serum or Plasm a sodium [moles/volum e] in blood 135 mmol/ L low: 137mmo l/Lhig h: 145mmo l/L low Not Available Not Available 07/30/2024 11:51:12 07/29/19 25 [facility] - Serum or Plasm a potassium [moles/volum e] in serum or plasma 3.6 mmol/ L low: 3.5mmo l/Lhig h: 5.1mmo l/L normal Not Available Not Available 07/30/2024 11:51:12 07/29/19 25 07/28/2024 [facility] ehens bharat metab olic 1999 panel - Serum or Plasm a chloride [moles/volum e] in serum or plasma 108 mmol/ L low: 98mmol /Lhigh : 107mmo l/L high Not Available Not Available 07/30/2024 11:51:12 07/29/19 25 07/28/2024 [facility] 1999 panel - Serum or Plasm a carbon dioxide, total [moles/volum e] in serum or plasma 26 mmol/ L low: 22mmol /Lhigh : 30mmol /L normal Not Available Not Available 07/30/2024 11:51:12 07/29/19 25 07/28/2024 [facility] - Serum or Plasm a anion gap in serum or plasma by calculation 4.6 mmol/ L low: 14mmol /Lhigh : 22mmol /L low Not Available Not Available 07/30/2024 11:51:12 07/29/19 25 07/28/2024 [facility] [employer] ic 1999 panel - Serum or Plasm a glucose [mass/volume ] in serum or plasma 138 mg/dL low: 70mg/d Lhigh: 99mg/d L high Not Available Not Available 07/30/2024 11:51:12 07/29/19 25 07/28/2024 [facility] 1999 panel - Serum or Plasm a urea nitrogen [mass or moles/volume ] in serum or plasma 16 mg/dL low: 8mg/dL high: 19mg/d L normal Not Available Not Available 07/30/2024 11:51:12 07/29/19 25 07/28/2024 [facility] [employer] bharat [employer] [facility] 1999 panel - Serum or Plasm a creatinine [mass/volume ] in serum or plasma 0.67 mg/dL low: 0.66mg /dLhig h: 1.25mg /dL normal Not Available Not Available 07/30/2024 11:51:12 07/29/19 25 07/28/2024 [facility] [employer] [facility] 1999 panel - Serum or Plasm a glomerular filtration rate [volume rate/area] in serum, plasma or blood by based on 1.73 sq M >60 normal Not Available Not Available 11:51:12 07/29/19 25 07/28/2024 [facility] [employer] bharat [employer] [facility] 1999 panel - Serum or Plasm a alkaline phosphatase [enzymatic activity/vol ume] in serum or plasma 95 U/L low: 38U/Lh igh: 126U/L normal Not Available Not Available 07/30/2024 11:51:12 07/29/19 25 07/28/2024 [facility] [employer] bharat [employer] [facility] 1999 panel - Serum or Plasm a alanine aminotransfe rase [enzymatic activity/vol ume] in serum or plasma 150 U/L low: 0U/Lhi gh: 50U/L high Not Available Not Available 07/30/2024 11:51:12 07/29/19 25 07/28/2024 [facility] [employer] [facility]harat [employer] [facility] 1999 panel - Serum or Plasm a aspartate aminotransfe rase [enzymatic activity/vol ume] in serum or plasma 59 U/L low: 15U/Lh igh: 46U/L high Not Available Not Available 07/30/2024 11:51:12 07/29/19 25 07/28/2024 [facility] [employer] bharat [employer] [facility] 1999 panel - Serum or Plasm a bilirubin.to christina [mass/volume ] in serum or plasma 2.8 mg/dL low: 0.2mg/ dLhigh : 1.3mg/ dL high Not Available Not Available 07/30/2024 11:51:12 07/29/19 25 07/28/2024 [facility] [employer] bharat [employer] [facility] 1999 panel - Serum or Plasm a calcium [mass/volume ] in serum or plasma 7.7 mg/dL low: 8.4mg/ dLhigh : 10.2mg /dL low Not Available Not Available 07/30/2024 11:51:12 07/29/19 25 07/28/2024 [facility] [employer] [facility] 1999 panel - Serum or Plasm a protein [mass/volume ] in serum or plasma 5.1 g/dL low: 6.3g/d Lhigh: 8.2g/d L low Not Available Not Available 07/30/2024 11:51:12 07/29/19 25 07/28/2024 [facility] [employer] [facility] 1999 panel - Serum or Plasm a albumin [mass/volume ] in serum or plasma 2.6 g/dL low: 3.4g/d Lhigh: 5g/dL low Not Available Not Available 07/30/2024 11:51:12 07/29/19 25 07/28/2024 [facility] [employer] [facility] 1999 panel - Serum or Plasm a globulin [mass/volume ] in serum 2.5 g/dL low: 2.6g/d Lhigh: 4.2g/d L low Not Available Not Available 07/30/2024 11:51:12 07/29/19 25 07/28/2024 [facility] 1999 panel - Serum or Plasm a albumin/glob ulin [mass ratio] in serum or plasma 1 ratio low: 1ratio high: 2ratio normal Not Available Not Available 07/30/2024 11:51:12 07/30/19 25 07/29/2024 [facility] 1995 panel - Serum or Plasm a cholesterol [mass/volume ] in serum or plasma 145 mg/dL low: 140mg/ dLhigh : 199mg/ dL normal Not Available Not Available 07/30/2024 11:51:13 07/30/19 25 07/29/2024 [facility] 1995 panel - Serum or Plasm a triglyceride [mass/volume ] in serum or plasma 103 mg/dL low: 0mg/dL high: 150mg/ dL normal Not Available Not Available 07/30/2024 11:51:13 07/30/19 25 07/29/2024 Lip[facility] 1995 panel - Serum or Plasm a cholesterol in HDL [mass or moles/volume ] in serum or plasma 33 mg/dL low: 40mg/d L low Not Available Not Available 07/30/2024 11:51:13 07/30/19 25 07/29/2024 Lip[facility] 1996 panel - Serum or Plasm a cholesterol in LDL [mass/volume ] in serum or plasma 91 mg/dL low: 0mg/dL high: 130mg/ dL normal Not Available Not Available 07/30/2024 11:51:13 07/30/19 25 07/29/2024 CBC W Auto Diffe renti al panel - Blood leukocytes [#/volume] in blood by automated count 13 x10'3 /uL low: 4.2x10 '3/uLh igh: 10.8x1 0'3/uL high Not Available Not Available 07/30/2024 11:51:12 07/30/19 25 07/29/2024 CBC W Auto Diffe renti al panel - Blood erythrocytes [#/volume] in blood by automated count 5.13 x10'6 /uL low: 4.1x10 '6/uLh igh: 5.8x10 '6/uL normal Not Available Not Available 07/30/2024 11:51:12 07/30/19 25 07/29/2024 CBC W Auto Diffe renti al panel - Blood hemoglobin [mass/volume ] in blood 14.2 g/dL low: 13.2g/ dLhigh : 17g/dL normal Not Available Not Available 07/30/2024 11:51:12 07/30/19 25 07/29/2024 CBC W Auto Diffe renti al panel - Blood hematocrit [volume fraction] of blood by automated count 44 % low: 39.3%h igh: 50% normal Not Available Not Available 07/30/2024 11:51:12 07/30/19 25 07/29/2024 CBC W Auto Diffe renti al panel - Blood MCV [entitic mean volume] in red blood cells by automated count 85.8 fL low: 80fLhi gh: 97fL normal Not Available Not Available 07/30/2024 11:51:12 07/30/19 25 07/29/2024 CBC W Auto Diffe renti al panel - Blood MCH [entitic mass] by automated count 27.7 pg low: 27pghi gh: 33pg normal Not Available Not Available 07/30/2024 11:51:12 07/30/19 25 07/29/2024 CBC W Auto Diffe renti al panel - Blood MCHC [entitic mass/volume] in red blood cells by automated count 32.3 g/dL low: 31g/dL high: 36g/dL normal Not Available Not Available 07/30/2024 11:51:12 07/30/19 25 07/29/2024 CBC W Auto Diffe renti al panel - Blood erythrocyte [distwidth] in red blood cells 20.2 % low: 11.8%h igh: 15.5% high Not Available Not Available 07/30/2024 11:51:12 07/30/19 25 07/29/2024 CBC W Auto Diffe renti al panel - Blood platelets [#/volume] in blood by automated count 177 x10'3 /uL low: 150x10 '3/uLh igh: 400x10 '3/uL normal Not Available Not Available 07/30/2024 11:51:12 07/30/19 25 07/29/2024 CBC W Auto Diffe renti al panel - Blood platelet [entitic mean volume] in blood by automated count 9.9 fL low: 9fLhig h: 12.4fL normal Not Available Not Available 07/30/2024 11:51:12 07/30/19 25 07/29/2024 CBC W Auto Diffe renti al panel - Blood neutrophils/ leukocytes in blood 73 % low: 39%hig h: 72% high Not Available Not Available 07/30/2024 11:51:12 07/30/19 25 07/29/2024 CBC W Auto Diffe renti al panel - Blood band form neutrophils/ leukocytes in blood 3 % low: 0%high : 3% normal Not Available Not Available 07/30/2024 11:51:12 07/30/19 25 07/29/2024 CBC W Auto Diffe renti al panel - Blood lymphocytes/ leukocytes in blood 17 % low: 16%hig h: 47% normal Not Available Not Available 07/30/2024 11:51:12 07/30/19 25 07/29/2024 CBC W Auto Diffe renti al panel - Blood monocytes/le ukocytes in blood 3 % low: 5%high : 12% low Not Available Not Available 07/30/2024 11:51:12 07/30/19 25 07/29/2024 CBC W Auto Diffe renti al panel - Blood metamyelocyt es/leukocyte s in blood 1 % high: 0% high Not Available Not Available 07/30/2024 11:51:12 07/30/19 25 07/29/2024 CBC W Auto Diffe renti al panel - Blood myelocytes/l eukocytes in blood 3 % high: 0% high Not Available Not Available 07/30/2024 11:51:12 07/30/19 25 07/29/2024 CBC W Auto Diffe renti al panel - Blood neutrophils [#/volume] in blood 8.9 x10'3 /uL low: 1.5x10 '3/uLh igh: 8x10'3 /uL high Not Available Not Available 07/30/2024 11:51:12 07/30/19 25 07/29/2024 CBC W Auto Diffe renti al panel - Blood anisocytosis [presence] in blood by light microscopy [facility] [employer] data interp retati on normal Not Available Not Available 11:51:12 07/30/19 25 07/29/2024 CBC W Auto Diffe renti al panel - Blood poikilocytos is [presence] in blood by light microscopy Labora tory data interp retati on normal Not Available Not Available 11:51:12 07/30/19 25 07/29/2024 CBC W Auto Diffe renti al panel - Blood ovalocytes [presence] in blood by light microscopy Labora [employer] data interp retati on normal Not Available Not Available 11:51:12 07/30/19 25 07/29/2024 CBC W Auto Diffe renti al panel - Blood dacrocytes [presence] in blood by light microscopy Labora tory data interp retati on normal Not Available Not Available 11:51:12 07/30/19 25 07/29/2024 Compr ehens bharat metab olic 2000 panel - Serum or Plasm a sodium [moles/volum e] in blood 136 mmol/ L low: 137mmo l/Lhig h: 145mmo l/L low Not Available Not Available 07/30/2024 11:51:12 07/30/19 25 07/29/2024 [facility] [employer] bharat [employer] olic 1999 panel - Serum or Plasm a potassium [moles/volum e] in serum or plasma 3.6 mmol/ L low: 3.5mmo l/Lhig h: 5.1mmo l/L normal Not Available Not Available 07/30/2024 11:51:12 07/30/19 25 07/29/2024 [facility] [employer] bharat metab olic 1999 panel - Serum or Plasm a chloride [moles/volum e] in serum or plasma 109 mmol/ L low: 98mmol /Lhigh : 107mmo l/L high Not Available Not Available 07/30/2024 11:51:12 07/30/19 25 07/29/2024 [facility] [employer] bharat metab olic 1999 panel - Serum or Plasm a carbon dioxide, total [moles/volum e] in serum or plasma 24 mmol/ L low: 22mmol /Lhigh : 30mmol /L normal Not Available Not Available 07/30/2024 11:51:12 07/30/19 25 07/29/2024 [facility] [employer] bharat [employer] olic 1999 panel - Serum or Plasm a anion gap in serum or plasma by calculation 6.6 mmol/ L low: 14mmol /Lhigh : 22mmol /L low Not Available Not Available 07/30/2024 11:51:12 07/30/19 25 07/29/2024 [facility] [employer] bharat [employer] olic 1999 panel - Serum or Plasm a glucose [mass/volume ] in serum or plasma 81 mg/dL low: 70mg/d Lhigh: 99mg/d L normal Not Available Not Available 07/30/2024 11:51:12 07/30/19 25 07/29/2024 [facility] [employer] bharat [employer] olic 1999 panel - Serum or Plasm a urea nitrogen [mass or moles/volume ] in serum or plasma 17 mg/dL low: 8mg/dL high: 19mg/d L normal Not Available Not Available 07/30/2024 11:51:12 07/30/19 25 07/29/2024 [facility] [employer] bharat [employer] olic 1999 panel - Serum or Plasm a creatinine [mass/volume ] in serum or plasma 0.73 mg/dL low: 0.66mg /dLhig h: 1.25mg /dL normal Not Available Not Available 07/30/2024 11:51:12 07/30/19 25 07/29/2024 [facility] [employer] bharat [employer] 1999 panel - Serum or Plasm a glomerular filtration rate [volume rate/area] in serum, plasma or blood by based on 1.73 sq M >60 normal Not Available Not Available 11:51:12 07/30/19 25 07/29/2024 [facility] [employer]har[employer] olic 1999 panel - Serum or Plasm a alkaline phosphatase [enzymatic activity/vol ume] in serum or plasma 117 U/L low: 38U/Lh igh: 126U/L normal Not Available Not Available 07/30/2024 11:51:12 07/30/19 25 07/29/2024 Compr [employer] bharat [employer] olic 1999 panel - Serum or Plasm a alanine aminotransfe rase [enzymatic activity/vol ume] in serum or plasma 142 U/L low: 0U/Lhi gh: 50U/L high Not Available Not Available 07/30/2024 11:51:12 07/30/19 25 07/29/2024 Compr [employer] bharat [employer] olic 2000 panel - Serum or Plasm a aspartate aminotransfe rase [enzymatic activity/vol ume] in serum or plasma 58 U/L low: 15U/Lh igh: 46U/L high Not Available Not Available 07/30/2024 11:51:12 07/30/19 25 07/29/2024 Compr [employer]harat [employer] olic 2000 panel - Serum or Plasm a bilirubin.to christina [mass/volume ] in serum or plasma 2.6 mg/dL low: 0.2mg/ dLhigh : 1.3mg/ dL high Not Available Not Available 07/30/2024 11:51:12 07/30/19 25 07/29/2024 Compr [employer]harat [employer] olic 1999 panel - Serum or Plasm a bilirubin.di rect [mass/volume ] in serum or plasma 0 mg/dL low: 0mg/dL high: 0.3mg/ dL normal Not Available Not Available 07/30/2024 11:51:12 07/30/19 25 07/29/2024 Compr [employer] bharat [employer] olic 2000 panel - Serum or Plasm a bilirubin.in direct [mass/volume ] in serum or plasma 1 mg/dL low: 0mg/dL high: 1.1mg/ dL normal Not Available Not Available 07/30/2024 11:51:12 07/30/19 25 07/29/2024 [facility] bharat [facility] 1999 panel - Serum or Plasm a calcium [mass/volume ] in serum or plasma 8 mg/dL low: 8.4mg/ dLhigh : 10.2mg /dL low Not Available Not Available 07/30/2024 11:51:12 07/30/19 25 07/29/2024 [facility] bharat [facility] 1999 panel - Serum or Plasm a protein [mass/volume ] in serum or plasma 5.8 g/dL low: 6.3g/d Lhigh: 8.2g/d L low Not Available Not Available 07/30/2024 11:51:12 07/30/19 25 07/29/2024 [facility] bharat [facility] 1999 panel - Serum or Plasm a albumin [mass/volume ] in serum or plasma 3.1 g/dL low: 3.4g/d Lhigh: 5g/dL low Not Available Not Available 07/30/2024 11:51:12 07/30/19 25 07/29/2024 [facility] bharat [facility] 1999 panel - Serum or Plasm a globulin [mass/volume ] in serum 2.7 g/dL low: 2.6g/d Lhigh: 4.2g/d L normal Not Available Not Available 07/30/2024 11:51:12 07/30/19 25 07/29/2024 [facility] bharat [facility] 1999 panel - Serum or Plasm a albumin/glob ulin [mass ratio] in serum or plasma 1.1 ratio low: 1ratio high: 2ratio normal Not Available Not Available 07/30/2024 11:51:12 07/31/19 25 07/30/2024 CBC W Auto Diffe renti al panel - Blood leukocytes [#/volume] in blood by automated count 10.9 x10'3 /uL low: 4.2x10 '3/uLh igh: 10.8x1 0'3/uL high Not Available Not Available 07/30/2024 11:51:12 07/31/19 25 07/30/2024 CBC W Auto Diffe renti al panel - Blood erythrocytes [#/volume] in blood by automated count 4.86 x10'6 /uL low: 4.1x10 '6/uLh igh: 5.8x10 '6/uL normal Not Available Not Available 07/30/2024 11:51:12 07/31/19 25 07/30/2024 CBC W Auto Diffe renti al panel - Blood hemoglobin [mass/volume ] in blood 13.4 g/dL low: 13.2g/ dLhigh : 17g/dL normal Not Available Not Available 07/30/2024 11:51:12 07/31/19 25 07/30/2024 CBC W Auto Diffe renti al panel - Blood hematocrit [volume fraction] of blood by automated count 41.1 % low: 39.3%h igh: 50% normal Not Available Not Available 07/30/2024 11:51:12 07/31/19 25 07/30/2024 CBC W Auto Diffe renti al panel - Blood MCV [entitic mean volume] in red blood cells by automated count 84.6 fL low: 80fLhi gh: 97fL normal Not Available Not Available 07/30/2024 11:51:12 07/31/19 25 07/30/2024 CBC W Auto Diffe andrei al panel - Blood MCH [entitic mass] by automated count 27.6 pg low: 27pghi gh: 33pg normal Not Available Not Available 07/30/2024 11:51:12 07/31/19 25 07/30/2024 CBC W Auto Diffe andrei lindsey panel - Blood MCHC [entitic mass/volume] in red blood cells by automated count 32.6 g/dL low: 31g/dL high: 36g/dL normal Not Available Not Available 07/30/2024 11:51:12 07/31/19 25 07/30/2024 CBC W Auto Diffe andrei al panel - Blood erythrocyte [distwidth] in red blood cells 19.9 % low: 11.8%h igh: 15.5% high Not Available Not Available 07/30/2024 11:51:12 07/31/19 25 07/30/2024 CBC W Auto Diffe andrei al panel - Blood platelets [#/volume] in blood by automated count 167 x10'3 /uL low: 150x10 '3/uLh igh: 400x10 '3/uL normal Not Available Not Available 07/30/2024 11:51:12 07/31/19 25 07/30/2024 CBC W Auto Diffe renti al panel - Blood platelet [entitic mean volume] in blood by automated count 9.6 fL low: 9fLhig h: 12.4fL normal Not Available Not Available 07/30/2024 11:51:12 07/31/19 25 07/30/2024 CBC W Auto Diffe renti al panel - Blood neutrophils/ leukocytes in blood 69 % low: 39%hig h: 72% normal Not Available Not Available 07/30/2024 11:51:12 07/31/19 25 07/30/2024 CBC W Auto Diffe renti al panel - Blood band form neutrophils/ leukocytes in blood 1 % low: 0%high : 3% normal Not Available Not Available 07/30/2024 11:51:12 07/31/19 25 07/30/2024 CBC W Auto Diffe renti al panel - Blood lymphocytes/ leukocytes in blood 22 % low: 16%hig h: 47% normal Not Available Not Available 07/30/2024 11:51:12 07/31/19 25 07/30/2024 CBC W Auto Diffe renti al panel - Blood monocytes/le ukocytes in blood 5 % low: 5%high : 12% normal Not Available Not Available 07/30/2024 11:51:12 07/31/19 25 07/30/2024 CBC W Auto Diffe renti al panel - Blood metamyelocyt es/leukocyte s in blood 2 % high: 0% high Not Available Not Available 07/30/2024 11:51:12 07/31/19 25 07/30/2024 CBC W Auto Diffe renti al panel - Blood myelocytes/l eukocytes in blood 1 % high: 0% high Not Available Not Available 07/30/2024 11:51:12 07/31/19 25 07/30/2024 CBC W Auto Diffe renti al panel - Blood neutrophils [#/volume] in blood 6.96 x10'3 /uL low: 1.5x10 '3/uLh igh: 8x10'3 /uL normal Not Available Not Available 07/30/2024 11:51:12 07/31/19 25 07/30/2024 CBC W Auto Diffe renti al panel - Blood anisocytosis [presence] in blood by light microscopy Labora tory data interp retati on normal Not Available Not Available 11:51:12 07/31/19 25 07/30/2024 CBC W Auto Diffe renti al panel - Blood poikilocytos is [presence] in blood by light microscopy Labora tory data interp retati on normal Not Available Not Available 11:51:12 07/31/19 25 07/30/2024 CBC W Auto Diffe renti al panel - Blood ovalocytes [presence] in blood by light microscopy Labora tory data interp retati on normal Not Available Not Available 11:51:12 07/31/19 25 07/30/2024 CBC W Auto Diffe renti al panel - Blood dacrocytes [presence] in blood by light microscopy Labora tory data interp retati on normal Not Available Not Available 11:51:12 07/31/19 25 07/30/2024 Compr ehens bharat metab olic 1999 panel - Serum or Plasm a sodium [moles/volum e] in blood 134 mmol/ L low: 137mmo l/Lhig h: 145mmo l/L low Not Available Not Available 07/30/2024 11:51:13 07/31/19 25 07/30/2024 Compr ehens bharat metab olic 1999 panel - Serum or Plasm a potassium [moles/volum e] in serum or plasma 4.1 mmol/ L low: 3.5mmo l/Lhig h: 5.1mmo l/L normal Not Available Not Available 07/30/2024 11:51:13 07/31/19 25 07/30/2024 Compr ehens bharat metab olic 1999 panel - Serum or Plasm a chloride [moles/volum e] in serum or plasma 109 mmol/ L low: 98mmol /Lhigh : 107mmo l/L high Not Available Not Available 07/30/2024 11:51:13 07/31/19 25 07/30/2024 Compr ehens bharat metab olic 1999 panel - Serum or Plasm a carbon dioxide, total [moles/volum e] in serum or plasma 21 mmol/ L low: 22mmol /Lhigh : 30mmol /L low Not Available Not Available 07/30/2024 11:51:13 07/31/19 25 07/30/2024 [facility] [employer] [facility] 1999 panel - Serum or Plasm a anion gap in serum or plasma by calculation 8.1 mmol/ L low: 14mmol /Lhigh : 22mmol /L low Not Available Not Available 07/30/2024 11:51:13 07/31/19 25 07/30/2024 [facility] [employer] [facility] 1999 panel - Serum or Plasm a glucose [mass/volume ] in serum or plasma 85 mg/dL low: 70mg/d Lhigh: 99mg/d L normal Not Available Not Available 07/30/2024 11:51:13 07/31/19 25 07/30/2024 [facility] [employer] [facility] 1999 panel - Serum or Plasm a urea nitrogen [mass or moles/volume ] in serum or plasma 14 mg/dL low: 8mg/dL high: 19mg/d L normal Not Available Not Available 07/30/2024 11:51:13 07/31/19 25 07/30/2024 [facility] [employer] [facility] 1999 panel - Serum or Plasm a creatinine [mass/volume ] in serum or plasma 0.7 mg/dL low: 0.66mg /dLhig h: 1.25mg /dL normal Not Available Not Available 07/30/2024 11:51:13 07/31/19 25 07/30/2024 [facility] [employer] [facility] 1999 panel - Serum or Plasm a glomerular filtration rate [volume rate/area] in serum, plasma or blood by based on 1.73 sq M >60 normal Not Available Not Available 11:51:13 07/31/19 25 07/30/2024 [facility] [employer] [facility] 1999 panel - Serum or Plasm a alkaline phosphatase [enzymatic activity/vol ume] in serum or plasma 107 U/L low: 38U/Lh igh: 126U/L normal Not Available Not Available 07/30/2024 11:51:13 07/31/19 25 07/30/2024 [facility] [employer] [facility] 1999 panel - Serum or Plasm a alanine aminotransfe rase [enzymatic activity/vol ume] in serum or plasma 123 U/L low: 0U/Lhi gh: 50U/L high Not Available Not Available 07/30/2024 11:51:13 07/31/19 25 07/30/2024 [facility] bharat [facility] 1999 panel - Serum or Plasm a aspartate aminotransfe rase [enzymatic activity/vol ume] in serum or plasma 59 U/L low: 15U/Lh igh: 46U/L high Not Available Not Available 07/30/2024 11:51:13 07/31/19 25 07/30/2024 [facility] bharat [facility] 1999 panel - Serum or Plasm a bilirubin.to christina [mass/volume ] in serum or plasma 2.6 mg/dL low: 0.2mg/ dLhigh : 1.3mg/ dL high Not Available Not Available 07/30/2024 11:51:13 07/31/19 25 07/30/2024 [facility] 1999 panel - Serum or Plasm a bilirubin.di rect [mass/volume ] in serum or plasma 0 mg/dL low: 0mg/dL high: 0.3mg/ dL normal Not Available Not Available 07/30/2024 11:51:13 07/31/19 25 07/30/2024 [facility] 1999 panel - Serum or Plasm a bilirubin.in direct [mass/volume ] in serum or plasma 1 mg/dL low: 0mg/dL high: 1.1mg/ dL normal Not Available Not Available 07/30/2024 11:51:13 07/31/19 25 07/30/2024 [facility] bharat [facility] 1999 panel - Serum or Plasm a calcium [mass/volume ] in serum or plasma 8.3 mg/dL low: 8.4mg/ dLhigh : 10.2mg /dL low Not Available Not Available 07/30/2024 11:51:13 07/31/19 25 07/30/2024 [facility] bharat [place] [id number] panel - Serum or Plasm a protein [mass/volume ] in serum or plasma 6.2 g/dL low: 6.3g/d Lhigh: 8.2g/d L low Not Available Not Available 07/30/2024 11:51:13 07/31/19 25 07/30/2024 Compr ehens bharat metab olic 1999 panel - Serum or Plasm a albumin [mass/volume ] in serum or plasma 3.4 g/dL low: 3.4g/d Lhigh: 5g/dL normal Not Available Not Available 07/30/2024 11:51:13 07/31/19 25 07/30/2024 Compr ehens bharat metab olic 1999 panel - Serum or Plasm a globulin [mass/volume ] in serum 2.8 g/dL low: 2.6g/d Lhigh: 4.2g/d L normal Not Available Not Available 07/30/2024 11:51:13 07/31/19 25 07/30/2024 Compr ehens bharat metab olic 1999 panel - Serum or Plasm a albumin/glob ulin [mass ratio] in serum or plasma 1.2 ratio low: 1ratio high: 2ratio normal Not Available Not Available 07/30/2024 11:51:13 11/15/19 25 11/15/2024 Gluco se [Mass /volu me] in Arter ial blood glucose [mass/volume ] in capillary blood by glucometer 116 mg/dL low: 70mg/d Lhigh: 99mg/d L high Not Available Not Available 01/06/2025 05:31:10 11/15/19 25 11/15/2024 Gluco se [Mass /volu me] in Arter ial blood specimen source identified ARTERI AL/CAP ILLARY Not Available Not Available 05:31:10 11/15/19 25 11/15/2024 Gluco se [Mass /volu me] in Arter ial blood interpretati on and review of laboratory results ABNORM AL Not Available Not Available 05:31:10 11/16/19 25 2024 Gluco se [Mass /volu me] in Arter ial blood glucose [mass/volume ] in capillary blood by glucometer 119 mg/dL low: 70mg/d Lhigh: 99mg/d L high Not Available Not Available 01/06/2025 05:31:10 11/16/19 25 2024 Gluco se [Mass /volu me] in Arter ial blood specimen source identified ARTERI AL/CAP ILLARY Not Available Not Available 05:31:10 11/16/1912/03/2024 Gluco se [Mass /volu me] in Arter ial blood interpretati on and review of laboratory results ABNORM AL Not Available Not Available 05:31:10 11/16/19 25 11/15/2024 CBC panel - Blood by Autom ated count leukocytes [#/volume] in blood by automated count 9.2 text: 4.0 - 10.7 x10e9/ L Not Available Not Available 01/06/2025 05:31:10 11/16/19 25 11/15/2024 CBC panel - Blood by Autom ated count erythrocytes [#/volume] in blood by automated count 5.64 text: 4.30 - 5.80 x10e12 /L Not Available Not Available 01/06/2025 05:31:10 11/16/19 25 11/15/2024 CBC panel - Blood by Autom ated count hemoglobin [mass/volume ] in blood 15.7 g/dL low: 13.3g/ dLhigh : 17.5g/ dL Not Available Not Available 01/06/2025 05:31:10 11/16/1911/15/2024 CBC panel - Blood by Autom ated count hematocrit [volume fraction] of blood by automated count 49.9 % low: 38.7%h igh: 51.1% Not Available Not Available 01/06/2025 05:31:10 11/16/1911/15/2024 CBC panel - Blood by Autom ated count MCV [entitic mean volume] in red blood cells by automated count 88.5 fL low: 80fLhi gh: 98fL Not Available Not Available 01/06/2025 05:31:10 11/16/19 25 11/15/2024 CBC panel - Blood by Autom ated count MCH [entitic mass] by automated count 27.8 pg low: 26.7pg high: 33.6pg Not Available Not Available 01/06/2025 05:31:10 11/16/19 25 11/15/2024 CBC panel - Blood by Autom ated count MCHC [entitic mass/volume] in red blood cells by automated count 31.5 g/dL low: 31.7g/ dLhigh : 36.3g/ dL low Not Available Not Available 01/06/2025 05:31:10 11/16/1911/15/2024 CBC panel - Blood by Autom ated count erythrocyte [distwidth] in blood by automated count 14.8 % low: 11.3%h igh: 14.8% Not Available Not Available 01/06/2025 05:31:10 11/16/1911/15/2024 CBC panel - Blood by Autom ated count platelets [#/volume] in blood by automated count 283 text: 150 - 420 x10e9/ L Not Available Not Available 01/06/2025 05:31:10 11/16/1911/15/2024 CBC panel - Blood by Autom ated count platelet [entitic mean volume] in blood by automated count 9.3 fL low: 7.8fLh igh: 11.4fL Not Available Not Available 01/06/2025 05:31:10 11/16/1911/15/2024 CBC panel - Blood by Autom ated count interpretati on and review of laboratory results ABNORM AL Not Available Not Available 05:31:10 11/16/1911/15/2024 Magne sium [Mass /volu me] in Serum or Plasm a magnesium [mass/volume ] in serum or plasma 2.1 mg/dL low: 1.6mg/ dLhigh : 2.6mg/ dL Not Available Not Available 01/06/2025 05:31:10 11/16/1911/15/2024 Magne sium [Mass /volu me] in Serum or Plasm a interpretati on and review of laboratory results NORMAL Not Available Not Available 12/27 05:31:10 11/16/1911/15/2024 Lipid 1996 panel - Serum or Plasm a cholesterol [mass/volume ] in serum or plasma 103 mg/dL high: 200mg/ dL Not Available Not Available 01/06/2025 05:31:10 11/16/19 25 11/15/2024 Lipid 1996 panel - Serum or Plasm a triglyceride [mass/volume ] in serum or plasma 80 mg/dL high: 150mg/ dL Not Available Not Available 01/06/2025 05:31:10 11/16/19 25 11/15/2024 Lipid 1996 panel - Serum or Plasm a cholesterol in HDL [mass/volume ] in serum or plasma 29 mg/dL low: 40mg/d L low Not Available Not Available 01/06/2025 05:31:10 11/16/19 25 11/15/2024 Lipid 1996 panel - Serum or Plasm a cholesterol in LDL [mass/volume ] in serum or plasma by calculation 58 mg/dL high: 130mg/ dL LDL is calcu lated using the Fried kiara equat ion. Not Available Not Available 01/06/2025 05:31:10 11/16/19 25 11/15/2024 Lipid 1996 panel - Serum or Plasm a cholesterol in VLDL [mass/volume ] in serum or plasma by calculation 16 mg/dL high: 30mg/d L Not Available Not Available 01/06/2025 05:31:10 11/16/19 25 11/15/2024 Lipid 1996 panel - Serum or Plasm a cholesterol. total/choles terol in HDL [mass ratio] in serum or plasma 3.6 high: 4.5 Not Available Not Available 01/06/2025 05:31:10 11/16/19 25 11/15/2024 Lipid 1996 panel - Serum or Plasm a cholesterol in LDL/choleste rol in HDL [mass ratio] in serum or plasma 2 high: 5 Not Available Not Available 01/06/2025 05:31:10 11/16/19 25 11/15/2024 Lipid 1996 panel - Serum or Plasm a interpretati on and review of laboratory results ABNORM AL Not Available Not Available 05:31:10 11/16/19 25 11/15/2024 Basic metab olic 2000 panel - Serum or Plasm a glucose [mass/volume ] in serum or plasma 75 mg/dL low: 70mg/d Lhigh: 99mg/d L Not Available Not Available 01/06/2025 05:31:10 11/16/19 25 11/15/2024 Basic metab olic 2000 panel - Serum or Plasm a sodium [moles/volum e] in serum or plasma 139 mmol/ L low: 136mmo l/Lhig h: 145mmo l/L Not Available Not Available 01/06/2025 05:31:10 11/16/19 11/15/2024 [facility] 1999 panel - Serum or Plasm a potassium [moles/volum e] in serum or plasma 4.5 mmol/ L low: 3.5mmo l/Lhig h: 5.1mmo l/L Not Available Not Available 01/06/2025 05:31:10 11/16/19 25 11/15/2024 Basic [facility] 1999 panel - Serum or Plasm a chloride [moles/volum e] in serum or plasma 105 mmol/ L low: 98mmol /Lhigh : 107mmo l/L Not Available Not Available 01/06/2025 05:31:10 11/16/19 25 11/15/2024 Basic [facility] 1999 panel - Serum or Plasm a carbon dioxide, total [moles/volum e] in serum or plasma 17 mmol/ L low: 22mmol /Lhigh : 29mmol /L low Not Available Not Available 01/06/2025 05:31:10 11/16/19 25 11/15/2024 [facility] 1999 panel - Serum or Plasm a calcium [mass/volume ] in serum or plasma 9.2 mg/dL low: 8.4mg/ dLhigh : 10.4mg /dL Not Available Not Available 01/06/2025 05:31:10 11/16/1911/15/2024 [facility] 1999 panel - Serum or Plasm a anion gap in blood by calculation 17 mmol/ L low: 6mmol/ Lhigh: 16mmol /L high Not Available Not Available 01/06/2025 05:31:10 11/16/19 25 11/15/2024 [facility] 1999 panel - Serum or Plasm a urea nitrogen [mass/volume ] in serum or plasma 25 mg/dL low: 7mg/dL high: 26mg/d L Not Available Not Available 01/06/2025 05:31:10 11/16/19 25 11/15/2024 Basic [facility] 1999 panel - Serum or Plasm a creatinine [mass/volume ] in serum or plasma 1.64 mg/dL low: 0.72mg /dLhig h: 1.25mg /dL high Not Available Not Available 01/06/2025 05:31:10 11/16/19 25 11/15/2024 Basic metab olic 1999 panel - Serum or Plasm a glomerular filtration rate [volume rate/area] in serum, plasma or blood by creatinine-b ased formula (CKD-epi 2020)/1.73 sq M 48 text: >=90 mL/min /1.73 m2 low Estim ated Glome rular Filtr ation Rate (eGFR ) calcu lated using the CKD-E PI Creat inine Equat ion (2020 ), per the Natio nal Kidne y Found ation and Ameri can Socie ty of Nephr ology recom menda tions . Not Available Not Available 01/06/2025 05:31:10 11/16/19 25 11/15/2024 Basic metab olic 1999 panel - Serum or Plasm a interpretati on and review of laboratory results ABNORM AL Not Available Not Available 05:31:10 11/16/19 25 11/15/2024 Gluco se [Mass /volu me] in Arter ial blood glucose [mass/volume ] in capillary blood by glucometer 116 mg/dL low: 70mg/d Lhigh: 99mg/d L high Not Available Not Available 11/22/2024 13:27:41 11/16/19 25 11/15/2024 Gluco se [Mass /volu me] in Arter ial blood specimen source identified Arteri al/Cap illary Not Available Not Available 13:27:41 11/16/19 25 11/15/2024 Gluco se [Mass /volu me] in Arter ial blood interpretati on and review of laboratory results Abnorm al Not Available Not Available 13:27:41 11/17/19 25 11/16/2024 Magne sium [Mass /volu me] in Serum or Plasm a magnesium [mass/volume ] in serum or plasma 2.1 mg/dL low: 1.6mg/ dLhigh : 2.6mg/ dL Not Available Not Available 01/06/2025 05:31:11 11/17/19 25 11/16/2024 Magne sium [Mass /volu me] in Serum or Plasm a interpretati on and review of laboratory results NORMAL Not Available Not Available 12/27 05:31:11 11/17/1911/16/2024 [facility] 1999 panel - Serum or Plasm a glucose [mass/volume ] in serum or plasma 131 mg/dL low: 70mg/d Lhigh: 99mg/d L high Not Available Not Available 01/06/2025 05:31:11 11/17/19 25 11/16/2024 [facility] funct ion 1999 panel - Serum or Plasm a sodium [moles/volum e] in serum or plasma 136 mmol/ L low: 136mmo l/Lhig h: 145mmo l/L Not Available Not Available 01/06/2025 05:31:11 11/17/19 25 11/16/2024 Renal funct ion 1999 panel - Serum or Plasm a potassium [moles/volum e] in serum or plasma 4 mmol/ L low: 3.5mmo l/Lhig h: 5.1mmo l/L Not Available Not Available 01/06/2025 05:31:11 11/17/19 25 11/16/2024 Renal funct ion 1999 panel - Serum or Plasm a chloride [moles/volum e] in serum or plasma 106 mmol/ L low: 98mmol /Lhigh : 107mmo l/L Not Available Not Available 01/06/2025 05:31:11 11/17/1911/16/2024 Renal funct ion 1999 panel - Serum or Plasm a carbon dioxide, total [moles/volum e] in serum or plasma 20 mmol/ L low: 22mmol /Lhigh : 29mmol /L low Not Available Not Available 01/06/2025 05:31:11 11/17/1911/16/2024 Renal funct ion 1999 panel - Serum or Plasm a calcium [mass/volume ] in serum or plasma 8.5 mg/dL low: 8.4mg/ dLhigh : 10.4mg /dL Not Available Not Available 01/06/2025 05:31:11 11/17/1911/16/2024 Renal funct ion 1999 panel - Serum or Plasm a anion gap in blood by calculation 10 mmol/ L low: 6mmol/ Lhigh: 16mmol /L Not Available Not Available 01/06/2025 05:31:11 11/17/19 25 11/16/2024 Renal funct ion 1999 panel - Serum or Plasm a urea nitrogen [mass/volume ] in serum or plasma 31 mg/dL low: 7mg/dL high: 26mg/d L high Not Available Not Available 01/06/2025 05:31:11/17/1911/16/2024 Renal funct ion 1999 panel - Serum or Plasm a creatinine [mass/volume ] in serum or plasma 1.6 mg/dL low: 0.72mg /dLhig h: 1.25mg /dL high Not Available Not Available 01/06/2025 05:31:11 11/17/1911/16/2024 Renal funct ion 1999 panel - Serum or Plasm a albumin [mass/volume ] in serum or plasma 3.6 text: 3.1 - 4.5 gm/dL Not Available Not Available 01/06/2025 05:31:11/17/1911/16/2024 Renal funct ion 1999 panel - Serum or Plasm a phosphate [mass/volume ] in serum or plasma 4.3 mg/dL low: 2.5mg/ dLhigh : 4.5mg/ dL Not Available Not Available 01/06/2025 05:31:11 11/17/1911/16/2024 Renal funct ion 1999 panel - Serum or Plasm a glomerular filtration rate [volume rate/area] in serum, plasma or blood by creatinine-b ased formula (CKD-epi 2020)/1.73 sq M 49 text: >=90 mL/min /1.73 m2 low Estim ated Glome rular Filtr ation Rate (eGFR ) calcu lated using the CKD-E PI Creat inine Equat ion (2020 ), per the Natio nal Kidne y Found ation and Ameri can Socie ty of Nephr ology recom menda tions . Not Available Not Available 01/06/2025 05:31:11 11/17/1911/16/2024 Renal funct ion 1999 panel - Serum or Plasm a interpretati on and review of laboratory results ABNORM AL Not Available Not Available 05:31:11 11/17/19 25 11/16/2024 Drugs ident ified in Urine by Sera n sejal Medina al amphetamines [presence] in urine by screen method NOT DETECT ED text: not detect ed Not Available Not Available 01/06/2025 05:31:10 11/17/19 25 11/16/2024 Drugs ident ified in Urine by Screprince Medina al barbiturates [presence] in urine by screen method NOT DETECT ED text: not detect ed Not Available Not Available 01/06/2025 05:31:10 11/17/19 25 11/16/2024 Drugs ident ified in Urine by Screprince lindsey benzodiazepi eliza [presence] in urine by screen method NOT DETECT ED text: not detect ed Not Available Not Available 01/06/2025 05:31:10 11/17/19 25 11/16/2024 Drugs ident ified in Urine by Screprince lindsey cannabinoids [presence] in urine by screen method NOT DETECT ED text: not detect ed Not Available Not Available 01/06/2025 05:31:10 11/17/19 25 11/16/2024 Drugs ident ified in Urine by Screprince Medina al benzoylecgon ine [presence] in urine by screen method NOT DETECT ED text: not detect ed Not Available Not Available 01/06/2025 05:31:10 11/17/19 25 11/16/2024 Drugs ident ified in Urine by Screprince lindsey fentanyl [presence] in urine NOT DETECT ED text: not detect ed Not Available Not Available 01/06/2025 05:31:10 11/17/19 25 11/16/2024 Drugs ident ified in Urine by Screprince lindsey methadone [presence] in urine NOT DETECT ED text: not detect ed Not Available Not Available 01/06/2025 05:31:10 11/17/19 25 11/16/2024 Drugs ident ified in Urine by Scree frieda Guillaumein césar opiates [presence] in urine by screen method NOT DETECT ED text: not detect ed Not Available Not Available 01/06/2025 05:31:10 11/17/19 25 11/16/2024 Drugs ident ified in Urine by Scree frieda Guillaumein césar phencyclidin e [presence] in urine by screen method NOT DETECT ED text: not detect ed Not Available Not Available 01/06/2025 05:31:10 11/17/1911/16/2024 Drugs ident ified in Urine by Sera lindsey this drug screen IS designed for medical purposes only. IT IS not to BE used for legal purposes, including but not limited to worker's comp, police investigatio ns, occupational issues, child custody, etc. any positive result IS only presumptive and must BE confirmed with A separate confirmatory test ordered by the physician. drug screening test cutoff values: amphetamines 1000 NG/mL barbiturates 200 NG/mL benzodiazepi eliza 200 NG/mL cannabinoids (THC) 50 NG/mL cocaine 300 NG/mL fentanyl 1.5 NG/mL methadone 300 NG/mL opiates 300 NG/mL phencyclidin e(pcp) 25 NG/mL THIS DRUG SCREEN IS DESIGN ED FOR MEDICA L PURPOS ES ONLY. IT IS NOT TO BE USED FOR LEGAL PURPOS ES, INCLUD ING BUT NOT LIMITE D TO WORKER 'S COMP, POLICE INVEST IGATIO NS, OCCUPA TIONAL ISSUES , CHILD CUSTOD Y, ETC. ANY POSITI VE RESULT IS ONLY PRESUM PTIVE AND MUST BE CONFIR MED WITH A SEPARA TE CONFIR MATORY TEST ORDERE D BY THE PHYSIC HOLDEN. DRUG SCREEN ING TEST CUTOFF VALUES : AMPHET AMINES 1000 NG/ML BARBIT URATES 200 NG/ML BENZOD IAZEPI ELIZA 200 NG/ML CANNAB INOIDS (THC) 50 NG/ML COCAIN E 300 NG/ML FENTAN YL 1.5 NG/ML METHAD ONE 300 NG/ML OPIATE S 300 NG/ML PHENCY CLIDIN E(PCP) 25 NG/ML Not Available Not Available 05:31:10 11/17/1911/16/2024 Drugs ident ified in Urine by Sera lindsey interpretati on and review of laboratory results NORMAL Not Available Not Available 12/27 05:31:10 11/18/1911/17/2024 Renal funct ion 1999 panel - Serum or Plasm a glucose [mass/volume ] in serum or plasma 104 mg/dL low: 70mg/d Lhigh: 99mg/d L high Not Available Not Available 01/06/2025 05:31:11 11/18/1911/17/2024 Renal funct ion 1999 panel - Serum or Plasm a sodium [moles/volum e] in serum or plasma 141 mmol/ L low: 136mmo l/Lhig h: 145mmo l/L Not Available Not Available 01/06/2025 05:31:11 11/18/19 25 11/17/2024 Renal funct ion 1999 panel - Serum or Plasm a potassium [moles/volum e] in serum or plasma 4.3 mmol/ L low: 3.5mmo l/Lhig h: 5.1mmo l/L Not Available Not Available 01/06/2025 05:31:11 11/18/19 25 11/17/2024 Renal funct ion 1999 panel - Serum or Plasm a chloride [moles/volum e] in serum or plasma 104 mmol/ L low: 98mmol /Lhigh : 107mmo l/L Not Available Not Available 01/06/2025 05:31:11 11/18/19 25 11/17/2024 Renal funct ion 1999 panel - Serum or Plasm a carbon dioxide, total [moles/volum e] in serum or plasma 24 mmol/ L low: 22mmol /Lhigh : 29mmol /L Not Available Not Available 01/06/2025 05:31:11 11/18/19 25 11/17/2024 Renal funct ion 1999 panel - Serum or Plasm a calcium [mass/volume ] in serum or plasma 8.6 mg/dL low: 8.4mg/ dLhigh : 10.4mg /dL Not Available Not Available 01/06/2025 05:31:11 11/18/19 25 11/17/2024 Renal funct ion 1999 panel - Serum or Plasm a anion gap in blood by calculation 13 mmol/ L low: 6mmol/ Lhigh: 16mmol /L Not Available Not Available 01/06/2025 05:31:11 11/18/19 25 11/17/2024 Renal funct ion 1999 panel - Serum or Plasm a urea nitrogen [mass/volume ] in serum or plasma 30 mg/dL low: 7mg/dL high: 26mg/d L high Not Available Not Available 01/06/2025 05:31:11 11/18/19 25 11/17/2024 Renal funct ion 1999 panel - Serum or Plasm a creatinine [mass/volume ] in serum or plasma 1.47 mg/dL low: 0.72mg /dLhig h: 1.25mg /dL high Not Available Not Available 01/06/2025 05:31:11 11/18/1911/17/2024 Renal funct ion 1999 panel - Serum or Plasm a albumin [mass/volume ] in serum or plasma 3.8 text: 3.1 - 4.5 gm/dL Not Available Not Available 01/06/2025 05:31:11 11/18/1911/17/2024 Renal funct ion 1999 panel - Serum or Plasm a phosphate [mass/volume ] in serum or plasma 3.6 mg/dL low: 2.5mg/ dLhigh : 4.5mg/ dL Not Available Not Available 01/06/2025 05:31:11 11/18/1911/17/2024 Renal funct ion 1999 panel - Serum or Plasm a glomerular filtration rate [volume rate/area] in serum, plasma or blood by creatinine-b ased formula (CKD-epi 2020)/1.73 sq M 54 text: >=90 mL/min /1.73 m2 low Estim ated Glome rular Filtr ation Rate (eGFR ) calcu lated using the CKD-E PI Creat inine Equat ion (2020 ), per the [facility] and [employer] Nephr [facility]y recom [facility] . Not Available Not Available 01/06/2025 05:31:11 11/18/1911/17/2024 Renal funct ion 1999 panel - Serum or Plasm a interpretati on and review of laboratory results ABNORM AL Not Available Not Available 05:31:11 11/18/1911/17/2024 Magne sium [Mass /volu me] in Serum or Plasm a magnesium [mass/volume ] in serum or plasma 2 mg/dL low: 1.6mg/ dLhigh : 2.6mg/ dL Not Available Not Available 01/06/2025 05:31:11 11/18/19 25 11/17/2024 Magne sium [Mass /volu me] in Serum or Plasm a interpretati on and review of laboratory results NORMAL Not Available Not Available 12/27 05:31:11 12/14/1912/13/2024 Magne sium [Mass /volu me] in Serum or Plasm a magnesium [mass/volume ] in serum or plasma 1.9 mg/dL low: 1.6mg/ dLhigh : 2.6mg/ dL Not Available Not Available 12/17/2024 22:31:22 12/14/1912/13/2024 Magne sium [Mass /volu me] in Serum or Plasm a interpretati on and review of laboratory results Normal Not Available Not Available 11/27 22:31:22 12/14/1912/13/2024 Natri ureti c pepti de B [Mass /volu me] in Serum or Plasm a natriuretic peptide B [mass/volume ] in serum or plasma 4997 pg/mL high: 100pg/ mL high Not Available Not Available 12/17/2024 22:31:22 12/14/1912/13/2024 Natri ureti c pepti de B [Mass /volu me] in Serum or Plasm a A cutoff of 100 pg/mL has been demonstrated to provide the maximal combination of sensitivity, specificity, and negative predictive value for contributing to the diagnosis of congestive heart failure (CHF) only. A B-type natriuretic peptide (BNP) value greater than or equal to 100 pg/mL IS consistent with A diagnosis of CHF in the appropriate clinical setting. false positive results are more common in females greater than 75 years of age. blood concentratio ns of natriuretic peptides may also BE elevated in patients with myocardial infarction and in patients WHO are candidates for or are undergoing renal dialysis. A cutoff of 100 pg/mL has been demons trated to provid e the cyndi l combin ation of sensit ivity, specif icity, and negati ve predic tive value for contri buting to the diagno sis of conges tive heart failur e (CHF) only. A B-Type Natriu retic Peptid e (BNP) value greate r than or equal to 100 pg/mL is consis tent with a diagno sis of CHF in the [facility] al settin g. False positi ve result s are more common in female s greate r than 75 years of age. Blood concen tratio ns of natriu retic peptid es may also be elevat ed in patien ts with myocar dial infarc tion and in patien ts who are candid ates for or are underg oing renal dialys is. Not Available Not Available 22:31:22 12/14/1912/13/2024 Natri ureti c pepti de B [Mass /volu me] in Serum or Plasm a interpretati on and review of laboratory results Abnorm al Not Available Not Available 22:31:22 12/14/19 25 12/13/2024 Basic metab olic 1999 panel - Serum or Plasm a glucose [mass/volume ] in serum or plasma 95 mg/dL low: 70mg/d Lhigh: 99mg/d L Not Available Not Available 12/17/2024 22:31:22 12/14/19 25 12/13/2024 Basic metab olic 1999 panel - Serum or Plasm a sodium [moles/volum e] in serum or plasma 138 mmol/ L low: 136mmo l/Lhig h: 145mmo l/L Not Available Not Available 12/17/2024 22:31:22 12/14/19 25 12/13/2024 Basic metab olic 1999 panel - Serum or Plasm a potassium [moles/volum e] in serum or plasma 3.4 mmol/ L low: 3.5mmo l/Lhig h: 5.1mmo l/L low Not Available Not Available 12/17/2024 22:31:22 12/14/19 25 12/13/2024 Basic metab olic 1999 panel - Serum or Plasm a chloride [moles/volum e] in serum or plasma 107 mmol/ L low: 98mmol /Lhigh : 107mmo l/L Not Available Not Available 12/17/2024 22:31:22 12/14/19 25 12/13/2024 Basic metab olic 1999 panel - Serum or Plasm a carbon dioxide, total [moles/volum e] in serum or plasma 20 mmol/ L low: 22mmol /Lhigh : 29mmol /L low Not Available Not Available 12/17/2024 22:31:22 12/14/19 25 12/13/2024 Basic metab olic 1999 panel - Serum or Plasm a calcium [mass/volume ] in serum or plasma 8.5 mg/dL low: 8.4mg/ dLhigh : 10.4mg /dL Not Available Not Available 12/17/2024 22:31:22 12/14/1912/13/2024 Basic metab olic 1999 panel - Serum or Plasm a anion gap in blood by calculation 11 mmol/ L low: 6mmol/ Lhigh: 16mmol /L Not Available Not Available 12/17/2024 22:31:22 12/14/1912/13/2024 Basic metab olic 1999 panel - Serum or Plasm a urea nitrogen [mass/volume ] in serum or plasma 14 mg/dL low: 7mg/dL high: 26mg/d L Not Available Not Available 12/17/2024 22:31:22 12/14/1912/13/2024 Basic metab olic 1999 panel - Serum or Plasm a creatinine [mass/volume ] in serum or plasma 1.47 mg/dL low: 0.72mg /dLhig h: 1.25mg /dL high Not Available Not Available 12/17/2024 22:31:22 12/14/19 25 12/13/2024 Basic metab olic 1999 panel - Serum or Plasm a glomerular filtration rate [volume rate/area] in serum, plasma or blood by creatinine-b ased formula (CKD-epi 2020)/1.73 sq M 54 text: >=90 mL/min /1.73 m2 low Estim ated Glome rular Filtr ation Rate (eGFR ) calcu lated using the CKD-E PI Creat inine Equat ion (2020 ), per the Natio nal Kidne y Found ation and Ameri can Socie ty of Nephr ology recom menda tions . Not Available Not Available 12/17/2024 22:31:22 12/14/19 25 12/13/2024 Basic metab olic 1999 panel - Serum or Plasm a interpretati on and review of laboratory results Abnorm al Not Available Not Available 22:31:22 12/14/19 25 12/13/2024 CBC W Auto Diffe renti al panel - Blood leukocytes [#/volume] in blood by automated count 4.2 text: 4.0 - 10.7 x10e9/ L Not Available Not Available 12/17/2024 22:31:22 12/14/19 25 12/13/2024 CBC W Auto Diffe renti al panel - Blood erythrocytes [#/volume] in blood by automated count 5.23 text: 4.30 - 5.80 x10e12 /L Not Available Not Available 12/17/2024 22:31:22 12/14/19 25 12/13/2024 CBC W Auto Diffe renti al panel - Blood hemoglobin [mass/volume ] in blood 14.1 g/dL low: 13.3g/ dLhigh : 17.5g/ dL Not Available Not Available 12/17/2024 22:31:22 12/14/19 25 12/13/2024 CBC W Auto Diffe renti al panel - Blood hematocrit [volume fraction] of blood by automated count 43.2 % low: 38.7%h igh: 51.1% Not Available Not Available 12/17/2024 22:31:22 12/14/19 25 12/13/2024 CBC W Auto Diffe renti al panel - Blood MCV [entitic mean volume] in red blood cells by automated count 82.6 fL low: 80fLhi gh: 98fL Not Available Not Available 12/17/2024 22:31:22 12/14/19 25 12/13/2024 CBC W Auto Diffe renti al panel - Blood MCH [entitic mass] by automated count 27 pg low: 26.7pg high: 33.6pg Not Available Not Available 12/17/2024 22:31:22 12/14/19 25 12/13/2024 CBC W Auto Diffe renti al panel - Blood MCHC [entitic mass/volume] in red blood cells by automated count 32.6 g/dL low: 31.7g/ dLhigh : 36.3g/ dL Not Available Not Available 12/17/2024 22:31:22 12/14/19 25 12/13/2024 CBC W Auto Diffe renti al panel - Blood erythrocyte [distwidth] in red blood cells by automated count 16.3 % low: 11.3%h igh: 14.8% high Not Available Not Available 12/17/2024 22:31:22 12/14/19 25 12/13/2024 CBC W Auto Diffe renti al panel - Blood platelets [#/volume] in blood by automated count 145 text: 150 - 420 x10e9/ L low Not Available Not Available 12/17/2024 22:31:22 12/14/19 25 12/13/2024 CBC W Auto Diffe renti al panel - Blood platelet [entitic mean volume] in blood by automated count 10.5 fL low: 7.8fLh igh: 11.4fL Not Available Not Available 12/17/2024 22:31:22 12/14/19 25 12/13/2024 CBC W Auto Diffe renti al panel - Blood interpretati on and review of laboratory results Abnorm al Not Available Not Available 22:31:22 12/16/19 25 12/15/2024 CBC W Auto Diffe renti al panel - Blood leukocytes [#/volume] in blood by automated count 4.3 text: 4.0 - 10.7 x10e9/ L Not Available Not Available 12/17/2024 22:31:23 12/16/19 25 12/15/2024 CBC W Auto Diffe renti al panel - Blood erythrocytes [#/volume] in blood by automated count 5.17 text: 4.30 - 5.80 x10e12 /L Not Available Not Available 12/17/2024 22:31:23 12/16/19 25 12/15/2024 CBC W Auto Diffe renti al panel - Blood hemoglobin [mass/volume ] in blood 13.9 g/dL low: 13.3g/ dLhigh : 17.5g/ dL Not Available Not Available 12/17/2024 22:31:23 12/16/19 25 12/15/2024 CBC W Auto Diffe renti al panel - Blood hematocrit [volume fraction] of blood by automated count 42.9 % low: 38.7%h igh: 51.1% Not Available Not Available 12/17/2024 22:31:23 12/16/19 25 12/15/2024 CBC W Auto Diffe renti al panel - Blood MCV [entitic mean volume] in red blood cells by automated count 83 fL low: 80fLhi gh: 98fL Not Available Not Available 12/17/2024 22:31:23 12/16/19 25 12/15/2024 CBC W Auto Diffe renti al panel - Blood MCH [entitic mass] by automated count 26.9 pg low: 26.7pg high: 33.6pg Not Available Not Available 12/17/2024 22:31:23 12/16/19 25 12/15/2024 CBC W Auto Diffe renti al panel - Blood MCHC [entitic mass/volume] in red blood cells by automated count 32.4 g/dL low: 31.7g/ dLhigh : 36.3g/ dL Not Available Not Available 12/17/2024 22:31:23 12/16/19 25 12/15/2024 CBC W Auto Diffe renti al panel - Blood erythrocyte [distwidth] in red blood cells by automated count 15.9 % low: 11.3%h igh: 14.8% high Not Available Not Available 12/17/2024 22:31:23 12/16/19 25 12/15/2024 CBC W Auto Diffe renti al panel - Blood platelets [#/volume] in blood by automated count 153 text: 150 - 420 x10e9/ L Not Available Not Available 12/17/2024 22:31:23 12/16/19 25 12/15/2024 CBC W Auto Diffe renti al panel - Blood platelet [entitic mean volume] in blood by automated count 9.8 fL low: 7.8fLh igh: 11.4fL Not Available Not Available 12/17/2024 22:31:23 12/16/19 25 12/15/2024 CBC W Auto Diffe renti al panel - Blood neutrophils/ leukocytes in blood by automated count 38.6 % low: 41%hig h: 74% low Not Available Not Available 12/17/2024 22:31:23 12/16/19 25 12/15/2024 CBC W Auto Diffe renti al panel - Blood lymphocytes/ leukocytes in blood by automated count 46.9 % low: 17%hig h: 47% Not Available Not Available 12/17/2024 22:31:23 12/16/19 25 12/15/2024 CBC W Auto Diffe renti al panel - Blood monocytes/le ukocytes in blood by automated count 11.4 % low: 3%high : 11% high Not Available Not Available 12/17/2024 22:31:23 12/16/19 25 12/15/2024 CBC W Auto Diffe renti al panel - Blood eosinophils/ leukocytes in blood by automated count 2.1 % low: 0%high : 7% Not Available Not Available 12/17/2024 22:31:23 12/16/19 25 12/15/2024 CBC W Auto Diffe renti al panel - Blood basophils/le ukocytes in blood by automated count 0.5 % low: 0%high : 1.6% Not Available Not Available 12/17/2024 22:31:23 12/16/19 25 12/15/2024 CBC W Auto Diffe renti al panel - Blood immature granulocytes /leukocytes in blood by automated count 0.5 % low: 0%high : 1% Not Available Not Available 12/17/2024 22:31:23 12/16/19 25 12/15/2024 CBC W Auto Diffe renti al panel - Blood neutrophils [#/volume] in blood by automated count 1.67 text: 1.60 - 7.50 x10e9/ L Not Available Not Available 12/17/2024 22:31:23 12/16/19 25 12/15/2024 CBC W Auto Diffe renti al panel - Blood lymphocytes [#/volume] in blood by automated count 2.02 text: 1.00 - 4.40 x10e9/ L Not Available Not Available 12/17/2024 22:31:23 12/16/19 25 12/15/2024 CBC W Auto Diffe renti al panel - Blood monocytes [#/volume] in blood by automated count 0.49 text: 0.15 - 1.00 x10e9/ L Not Available Not Available 12/17/2024 22:31:23 12/16/19 25 12/15/2024 CBC W Auto Diffe renti al panel - Blood eosinophils [#/volume] in blood 0.09 text: 0.00 - 0.60 x10e9/ L Not Available Not Available 12/17/2024 22:31:23 12/16/19 25 12/15/2024 CBC W Auto Diffe renti al panel - Blood basophils [#/volume] in blood by automated count 0.02 text: 0.00 - 0.13 x10e9/ L Not Available Not Available 12/17/2024 22:31:23 12/16/19 25 12/15/2024 CBC W Auto Diffe renti al panel - Blood interpretati on and review of laboratory results Abnorm al Not Available Not Available 22:31:23 12/16/19 25 12/15/2024 Phosp hate [Mass /volu me] in Serum or Plasm a phosphate [mass/volume ] in serum or plasma 3.8 mg/dL low: 2.5mg/ dLhigh : 4.5mg/ dL Not Available Not Available 12/17/2024 22:31:22 12/16/19 25 12/15/2024 Phosp hate [Mass /volu me] in Serum or Plasm a interpretati on and review of laboratory results Normal Not Available Not Available 11/27 22:31:22 12/16/19 25 12/15/2024 Compr ehens bharat metab olic 1999 panel - Serum or Plasm a glucose [mass/volume ] in serum or plasma 87 mg/dL low: 70mg/d Lhigh: 99mg/d L Not Available Not Available 12/17/2024 22:31:22 12/16/19 25 12/15/2024 Compr ehens bharat metab olic 1999 panel - Serum or Plasm a sodium [moles/volum e] in serum or plasma 138 mmol/ L low: 136mmo l/Lhig h: 145mmo l/L Not Available Not Available 12/17/2024 22:31:22 12/16/19 25 12/15/2024 Compr ehens bharat metab olic 1999 panel - Serum or Plasm a potassium [moles/volum e] in serum or plasma 3.3 mmol/ L low: 3.5mmo l/Lhig h: 5.1mmo l/L low Not Available Not Available 12/17/2024 22:31:22 12/16/19 25 12/15/2024 Compr ehens bharat metab olic 1999 panel - Serum or Plasm a chloride [moles/volum e] in serum or plasma 107 mmol/ L low: 98mmol /Lhigh : 107mmo l/L Not Available Not Available 12/17/2024 22:31:22 12/16/19 25 12/15/2024 Compr ehens bharat metab olic 2000 panel - Serum or Plasm a carbon dioxide, total [moles/volum e] in serum or plasma 20 mmol/ L low: 22mmol /Lhigh : 29mmol /L low Not Available Not Available 12/17/2024 22:31:22 12/16/19 25 12/15/2024 [facility] ehens bharat metab [facility] 1999 panel - Serum or Plasm a calcium [mass/volume ] in serum or plasma 7.5 mg/dL low: 8.4mg/ dLhigh : 10.4mg /dL low Not Available Not Available 12/17/2024 22:31:22 12/16/19 25 12/15/2024 [facility] 1999 panel - Serum or Plasm a anion gap in blood by calculation 11 mmol/ L low: 6mmol/ Lhigh: 16mmol /L Not Available Not Available 12/17/2024 22:31:22 12/16/19 25 12/15/2024 [facility] 1999 panel - Serum or Plasm a urea nitrogen [mass/volume ] in serum or plasma 23 mg/dL low: 7mg/dL high: 26mg/d L Not Available Not Available 12/17/2024 22:31:22 12/16/19 25 12/15/2024 [facility] 1999 panel - Serum or Plasm a creatinine [mass/volume ] in serum or plasma 1.35 mg/dL low: 0.72mg /dLhig h: 1.25mg /dL high Not Available Not Available 12/17/2024 22:31:22 12/16/19 25 12/15/2024 [facility] 1999 panel - Serum or Plasm a alkaline phosphatase [enzymatic activity/vol ume] in serum or plasma 68 U/L low: 40U/Lh igh: 150U/L Not Available Not Available 12/17/2024 22:31:22 12/16/19 25 12/15/2024 [facility] bharat [employer] [facility] 1999 panel - Serum or Plasm a alanine aminotransfe rase [enzymatic activity/vol ume] in serum or plasma 8 U/L low: 6U/Lhi gh: 57U/L Not Available Not Available 12/17/2024 22:31:22 12/16/19 25 12/15/2024 Compr ehens bharat metab olic 1999 panel - Serum or Plasm a aspartate aminotransfe rase [enzymatic activity/vol ume] in serum or plasma 28 U/L low: 10U/Lh igh: 48U/L Not Available Not Available 12/17/2024 22:31:22 12/16/19 25 12/15/2024 Compr ehens bharat metab olic 1999 panel - Serum or Plasm a protein [mass/volume ] in serum or plasma 6.3 text: 6.4 - 8.3 gm/dL low Not Available Not Available 12/17/2024 22:31:22 12/16/19 25 12/15/2024 Compr ehens bharat metab olic 2000 panel - Serum or Plasm a albumin [mass/volume ] in serum or plasma 3.2 text: 3.1 - 4.5 gm/dL Not Available Not Available 12/17/2024 22:31:22 12/16/19 25 12/15/2024 Compr ehens bharat metab olic 2000 panel - Serum or Plasm a bilirubin.to christina [mass/volume ] in serum or plasma 1.1 mg/dL low: 0.2mg/ dLhigh : 1.2mg/ dL Not Available Not Available 12/17/2024 22:31:22 12/16/19 25 12/15/2024 Compr ens bharat metab olic 2000 panel - Serum or Plasm a glomerular filtration rate [volume rate/area] in serum, plasma or blood by creatinine-b ased formula (CKD-epi 2020)/1.73 sq M 60 text: >=90 mL/min /1.73 m2 low Estim ated Glome rular Filtr ation Rate (eGFR ) calcu lated using the CKD-E PI Creat inine Equat ion (2020 ), per the Natio nal Kidne y Found ation and Ameri can Socie ty of Nephr ology recom menda tions . Not Available Not Available 12/17/2024 22:31:22 12/16/19 25 12/15/2024 Compr ens bharat metab olic 2000 panel - Serum or Plasm a interpretati on and review of laboratory results Abnorm al Not Available Not Available 22:31:22 12/17/19 25 12/16/2024 Basic metab olic 2000 panel - Serum or Plasm a glucose [mass/volume ] in serum or plasma 113 mg/dL low: 70mg/d Lhigh: 99mg/d L high Not Available Not Available 12/17/2024 22:31:23 12/17/19 25 12/16/2024 [facility] 1999 panel - Serum or Plasm a sodium [moles/volum e] in serum or plasma 135 mmol/ L low: 136mmo l/Lhig h: 145mmo l/L low Not Available Not Available 12/17/2024 22:31:23 12/17/19 25 12/16/2024 [facility] 1999 panel - Serum or Plasm a potassium [moles/volum e] in serum or plasma 3.6 mmol/ L low: 3.5mmo l/Lhig h: 5.1mmo l/L Not Available Not Available 12/17/2024 22:31:23 12/17/19 25 12/16/2024 [facility] 1999 panel - Serum or Plasm a chloride [moles/volum e] in serum or plasma 107 mmol/ L low: 98mmol /Lhigh : 107mmo l/L Not Available Not Available 12/17/2024 22:31:23 12/17/19 25 12/16/2024 [facility] 1999 panel - Serum or Plasm a carbon dioxide, total [moles/volum e] in serum or plasma 20 mmol/ L low: 22mmol /Lhigh : 29mmol /L low Not Available Not Available 12/17/2024 22:31:23 12/17/19 25 12/16/2024 [facility] 1999 panel - Serum or Plasm a calcium [mass/volume ] in serum or plasma 7.6 mg/dL low: 8.4mg/ dLhigh : 10.4mg /dL low Not Available Not Available 12/17/2024 22:31:23 12/17/19 25 12/16/2024 [facility] 1999 panel - Serum or Plasm a anion gap in blood by calculation 8 mmol/ L low: 6mmol/ Lhigh: 16mmol /L Not Available Not Available 12/17/2024 22:31:23 12/17/19 25 12/16/2024 [facility] 1999 panel - Serum or Plasm a urea nitrogen [mass/volume ] in serum or plasma 27 mg/dL low: 7mg/dL high: 26mg/d L high Not Available Not Available 12/17/2024 22:31:23 12/17/19 25 12/16/2024 Basic metab olic 1999 panel - Serum or Plasm a creatinine [mass/volume ] in serum or plasma 1.39 mg/dL low: 0.72mg /dLhig h: 1.25mg /dL high Not Available Not Available 12/17/2024 22:31:23 12/17/19 25 12/16/2024 Basic metab olic 1999 panel - Serum or Plasm a glomerular filtration rate [volume rate/area] in serum, plasma or blood by creatinine-b ased formula (CKD-epi 2020)/1.73 sq M 58 text: >=90 mL/min /1.73 m2 low Estim ated Glome rular Filtr ation Rate (eGFR ) calcu lated using the CKD-E PI Creat inine Equat ion (2020 ), per the Natio nal Kidne y Found ation and Ameri can Socie ty of Nephr ology recom menda tions . Not Available Not Available 12/17/2024 22:31:23 12/17/19 25 12/16/2024 Basic metab olic 1999 panel - Serum or Plasm a interpretati on and review of laboratory results Abnorm al Not Available Not Available 22:31:23 01/25/20 25 01/25/2025 LIPID PANEL cholesterol, total 151 mg/dL 100-19 9 Not Available [facility] ([facility]) [address] [place], [address], 01/25/2025 08:32:53 01/25/20 25 01/25/2025 LIPID PANEL triglyceride s 238 mg/dL 0-149 above high normal Not Available [facility] ([facility]) [address] [place], [address], 01/25/2025 08:32:53 01/25/20 25 01/25/2025 LIPID PANEL HDL cholesterol 46 mg/dL >39 Not Available [facility] ([facility]) [address] [facility], [address], 01/25/2025 08:32:53 01/25/2001/25/2025 LIPID PANEL VLDL cholesterol aisha 38 mg/dL 5-40 Not Available [facility] ([facility]) [address] [facility] [place], [place], [address], 01/25/2025 08:32:53 01/25/2001/25/2025 LIPID PANEL LDL chol calc ([facility]) 67 mg/dL 0-99 Not Available [facility] ([facility]) [address] [facility] [place], [place], [address], 01/25/2025 08:32:53 01/25/2001/25/2025 MAGNE SIUM magnesium 2.2 mg/dL 1.6-2. 3 Not Available [facility] ([facility]) [address] [facility] [place], [place], [address], 01/25/2025 08:32:54 01/25/2001/25/2025 CBC, PLATE LET, NO DIFFE RENTI AL WBC 8.0 x10e3 /uL 3.4-10 .8 Not Available [facility] ([facility]) [address] [facility] [place], [place], [address], 01/25/2025 08:32:54 01/25/2001/25/2025 CBC, PLATE LET, NO DIFFE RENTI AL RBC 6.18 x10e6 /uL 4.14-5 .80 above high normal Not Available [facility] ([facility]) [address] [facility] [place], [place], [address], 01/25/2025 08:32:54 01/25/2001/25/2025 CBC, PLATE LET, NO DIFFE RENTI AL hemoglobin 16.3 g/dL 13.0-1 7.7 Not Available [facility] ([facility]) [address] [place], [address], 01/25/2025 08:32:54 01/25/2001/25/2025 CBC, PLATE LET, NO DIFFE RENTI AL hematocrit 50.8 % 37.5-5 1.0 Not Available [facility] ([facility]) [address] [facility] [place], [place], [address], 01/25/2025 08:32:54 01/25/2001/25/2025 CBC, PLATE LET, NO DIFFE RENTI AL MCV 82 fL 79-97 Not Available [facility] ([facility]) [address] [facility] [place], [place], [address], 01/25/2025 08:32:54 01/25/2001/25/2025 CBC, PLATE LET, NO DIFFE RENTI AL MCH 26.4 pg 26.6-3 3.0 below low normal Not Available [facility] ([facility]) [address] [facility] [place], [place], [address], 01/25/2025 08:32:54 01/25/2001/25/2025 CBC, PLATE LET, NO DIFFE RENTI AL MCHC 32.1 g/dL 31.5-3 5.7 Not Available [facility] ([facility]) [address] [facility] [place], [place], [address], 01/25/2025 08:32:54 01/25/2001/25/2025 CBC, PLATE LET, NO DIFFE RENTI AL RDW 19.3 % 11.6-1 5.4 above high normal Not Available [facility] ([facility]) [address] [place], [address], 01/25/2025 08:32:54 01/25/2001/25/2025 CBC, PLATE LET, NO DIFFE RENTI AL platelets 315 x10e3 /uL 150-45 0 Not Available [facility] ([facility]) [address] [place], [address], 01/25/2025 08:32:54 01/25/2001/25/2025 ALBUM IN/CR EATIN INE RATIO ,URIN E creatinine, urine 72.1 mg/dL notest ab. Not Available [facility] ([facility]) [address] [facility] [place], [place], [address], 01/25/2025 10:12:19 01/25/20 25 01/25/2025 ALBUM IN/CR EATIN INE RATIO ,URIN E albumin, urine 3.2 ug/mL notest ab. Not Available [facility] ([facility]) [address] [facility] [place], [place], [address], 01/25/2025 10:12:19 01/25/2001/25/2025 ALBUM IN/CR EATIN INE RATIO ,URIN E alb/creat ratio 4 mg/g_ creat 0-29 Kandace l: 0 - 29 Moder ately incre ased: 30 - 300 Sever francesca incre ased: >300 Not Available [facility] ([facility]) [address] [facility] [place], [place], [address], 01/25/2025 10:12:19 01/25/2001/25/2025 CMP14 +EGFR glucose 147 mg/dL 70-99 above high normal Not Available [facility] ([facility]) [address] [place], [address], 01/25/2025 10:12:20 01/25/20 25 01/25/2025 CMP14 +EGFR BUN 15 mg/dL 8-27 Not Available [facility] ([facility]) [address] [place], [address], 01/25/2025 10:12:20 01/25/20 25 01/25/2025 CMP14 +EGFR creatinine 1.10 mg/dL 0.76-1 .27 Not Available [facility] ([facility]) [address] [place], [address], 01/25/2025 10:12:20 01/25/20 25 01/25/2025 CMP14 +EGFR eGFR 76 mL/mi n/1.7 3 >59 Not Available [facility] ([facility]) [address] [facility] [place], [place], [address], 01/25/2025 10:12:20 01/25/20 25 01/25/2025 CMP14 +EGFR BUN/creatini ne ratio 14 10-24 Not Available [facility] ([facility]) [address] [facility] [place], [place], [address], 01/25/2025 10:12:20 01/25/20 25 01/25/2025 CMP14 +EGFR sodium 138 mmol/ L 134-14 4 Not Available [facility] ([facility]) [address] [facility] [place], [place], [address], 01/25/2025 10:12:20 01/25/20 25 01/25/2025 CMP14 +EGFR potassium 3.6 mmol/ L 3.5-5. 2 Not Available [facility] ([facility]) [address] [facility] [place], [place], [address], 01/25/2025 10:12:20 01/25/20 25 01/25/2025 CMP14 +EGFR chloride 100 mmol/ L 96-106 Not Available [facility] ([facility]) [address] [facility], [place], [address], 01/25/2025 10:12:20 01/25/20 25 01/25/2025 CMP14 +EGFR carbon dioxide, total 21 mmol/ L 20-29 Not Available [facility] ([facility]) [address] [place], [address], 01/25/2025 10:12:20 01/25/20 25 01/25/2025 CMP14 +EGFR calcium 9.0 mg/dL 8.6-10 .2 Not Available [facility] ([facility]) [address] [place], [address], 01/25/2025 10:12:20 01/25/2001/25/2025 CMP14 +EGFR protein, total 7.0 g/dL 6.0-8. 5 Not Available [facility] ([facility]) [address] [facility], [place], [address], 01/25/2025 10:12:20 01/25/2001/25/2025 CMP14 +EGFR albumin 4.4 g/dL 3.9-4. 9 Not Available [facility] ([facility]) [address] [facility] [place], [address], 01/25/2025 10:12:20 01/25/2001/25/2025 CMP14 +EGFR globulin, total 2.6 g/dL 1.5-4. 5 Not Available [facility] ([facility]) [address] [place], [address], 01/25/2025 10:12:20 01/25/2001/25/2025 CMP14 +EGFR bilirubin, total 0.8 mg/dL 0.0-1. 2 Not Available [facility] ([facility]) [address] [place], [address], 01/25/2025 10:12:20 01/25/2001/25/2025 CMP14 +EGFR alkaline phosphatase 93 IU/L 47-123 Not Available [facility] ([facility]) [address] [place], [address], 01/25/2025 10:12:20 01/25/2001/25/2025 CMP14 +EGFR AST (SGOT) 27 IU/L 0-40 Not Available [facility] ([facility]) [address] [facility], [place], [address], 01/25/2025 10:12:20 01/25/20 25 01/25/2025 CMP14 +EGFR ALT (SGPT) 20 IU/L 0-44 Not Available [facility] ([facility]) [address] [facility], [place], [address], 01/25/2025 10:12:20 01/25/20 25 01/25/2025 HEMOG LOBIN A1C hemoglobin A1C 6.4 % 4.8-5. 6 above high normal Predi abete s: 5.7 - 6.4 Diabe karsten: >6.4 Glyce awilda contr ol for adult s with diabe karsten: <7.0 Not Available [facility] ([facility]) [address] [facility], [place], [address], 01/25/2025 10:12:21 07/18/19 25 07/17/2024 CT, abdom en + pelvi s, w/ contr ast No observ ation record ed. [facility] [address] [place], [address], 07/18/2024 20:42:08 07/18/19 25 07/17/2024 XR, chest No observ ation record ed. [facility] [address] [place], [address], 07/18/2024 20:32:03 07/18/19 25 07/17/2024 XR, chest No observ ation record ed. [facility] [address] [place], [address], 07/18/2024 20:33:52 07/19/19 25 07/18/2024 XR, chest No observ ation record ed. [facility] [address] [place], [address], 07/18/2024 20:44:15 07/21/19 25 07/20/2024 XR, chest No observ ation record ed. [facility] [address] [place], [address], 07/21/2024 09:37:02 07/22/19 25 07/21/2024 CT, head, w/o contr ast No observ ation record ed. [facility] [address] [place], [address], 07/22/2024 08:52:04 07/25/19 25 07/24/2024 XR, chest No observ ation record ed. [facility] [address] [place], [address], 07/25/2024 22:33:07 07/27/19 25 07/26/2024 CT, head, w/o contr ast No observ ation record ed. [facility] [address] [place], [address], 07/26/2024 16:44:24 07/29/19 25 07/28/2024 XR, chest No observ ation record ed. [facility] [address] [place], [address], 07/28/2024 14:25:41 Result Notes None recorded. Problems Name Problem SNOMED Code Status Onset Date Resolution Date Notes Provider Name and Address Organization Details Recorded Time Substance abuse 01500778 Active Not Available [facility] 4 15:31:37 Intraveno us drug user 170157928 Active Not Available [facility] 4 15:31:37 Harmful pattern of use of alcohol 86379459 Active Not Available [facility] 4 15:31:37 Tobacco dependenc e syndrome 66233545 Active Not Available [facility] 4 15:31:37 Gastroeso phageal reflux disease 649580960 Active Not Available [facility] 4 15:31:37 Harmful pattern of use of multiple substance s 125431293 Active Not Available [facility] 4 15:31:37 Hepatitis C antibody detected 757962454 Active Not Available [facility] 4 15:31:37 Hyperlipi demia 87267848 Active Not Available [facility] 4 15:31:37 Subcutane ous nodule 70368228 Active Not Available [facility] 4 15:31:37 Pain of hip region 60026448 Active Not Available [facility] 4 15:31:37 Femoral acetabula r impingeme nt 189856281 Active Not Available [facility] 4 15:31:37 Hallux valgus AND bunion 119107729 Active Not Available [facility] 4 15:31:37 Onychomyc osis 734699872 Active Not Available [facility] 4 15:31:37 Multiple skin tags 861764416 Active Not Available [facility] 4 15:31:37 Disorder of knee 348377802 Active 2015 Not Available [facility] 4 15:31:37 Impotence Active 2016 Not Available [facility] 4 15:31:37 Venereal disease screening Active 2016 Not Available [facility] 4 15:31:37 Skin lesion 51059115 Active 2016 Not Available [facility] 4 15:31:37 Ganglion of wrist 147902612 Active 2016 Not Available [facility] 4 15:31:37 High risk sexual behavior 373633216 Active 2016 Not Available [facility] 4 15:31:37 Testoster one level below reference range 119152120 Active 2016 Not Available [facility] 4 15:31:37 Hiatal hernia 15075648 Active 2016 Not Available [facility] 4 15:31:37 Pain of shoulder region 12466179 Active 2016 Not Available [facility] 4 15:31:37 Obesity 556251997 Completed 201609/16/2017 Jaki James PA-C Attn: Accounting ,[address] [place], [address] , [facility] 8 16:20:46 Chronic obstructi ve pulmonary disease 67343751 Active 2016 Not Available [facility] 4 15:31:37 Knee pain Active 2016 Not Available [facility] 4 15:31:37 Knee pain Active 2016 Not Available [facility] 4 15:31:37 Noncompli ance with treatment 0063787 Active 2017 Not Available [facility] 4 15:31:37 Depressiv e disorder 08165675 Active 2017 Not Available [facility] 4 15:31:37 Body mass index 30+ - obesity 293434468 Active 2017 Not Available [facility] 4 15:31:37 Syphilis 67204768 Active 2017 Not Available [facility] 4 15:31:37 Nicotine dependenc e 77621209 Active 2019 Not Available [facility] 4 15:31:37 Essential hypertens ion 83768926 Active 2019 Not Available [facility] 4 15:31:37 History of syphilis 42770999331 36727 Active 2019 Not Available [facility] 4 15:31:37 Impaired fasting glycemia 884482257 Active 2019 Not Available [facility] 4 15:31:37 Pulmonary function studies abnormal 089037553 Active 2022 Not Available [facility] 4 15:31:37 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, [place], [address] , [place] [facility] 4 15:27:52 Disorder of coronary artery 931419095 Active 2023 Shabbir Andrade MD Attn: Accounting ,[address] [facility], [place], [address] , [place] [facility] 4 15:25:34 History of influenza 237375399 Active 2024 Shabbir Andrade MD Attn: Accounting ,[address] [place], [address] , [facility] 15:03:49 Amphetami ne dependenc e 14990692 Active 2024 Shabbir Andrade MD Attn: Accounting ,[address] [place], [address] , [facility] 16:12:32 Tricuspid valve regurgita tion 843074809 Active 2024 Shabbir Andrade MD Attn: Accounting ,[address] [place], [address] , [facility] 16:13:06 Right ventricul ar failure 312688534 Active 2024 Shabbir Andrade MD Attn: Accounting ,[address] [place], [address] , [facility] 16:13:08 History of cerebrova scular accident 167846627 Active 2024 Shabbir Andrade MD Attn: Accounting ,[address] [place], [address] , [facility] 15:16:55 Chronic combined systolic and diastolic heart failure 66275902604 9100 Active 2024 Shabbir Andrade MD Attn: Accounting ,[address] [place], [address] , [facility] 18:25:04 Chronic kidney disease stage 3A 183670726 Active 2024 Shabbir Andrade MD Attn: Accounting ,[address] [place], [address] , [facility] 18:25:41 Notes:Some problems listed i n Documents: #[id number], #[id number] could not be added to this patient's chart. Please review these documents and add these problems to the patient's chart manually as needed. Problem Notes None recorded. Procedures Surgical History Date Name Laterality Status Provider Name and Address Organization Details Recorded Time 01/12 Routine Foot Care completed Birmingham Christiano DPM [address], [place], [address] , [place] [facility] 5 14:25:49 01/06 Diabetic Foot Exam completed Shabbir Andrade MD Attn: Accounting ,[address] [place], [address] , [place] [facility] 5 15:36:47 10/13 Routine Foot Care completed Alirio Christiano DPM [address], [place], [address] , [place] [facility] 5 14:25:58 07/12 Routine Foot Care completed Alirio Christiano DPM [address], [place], [address] , [place] [facility] 5 15:11:30 12/25 Nail Debridement completed TRACY HUNT, DPM [address], [place], [address] , [place] [facility] 4 22:04:35 12/15 Diabetic Foot Exam completed Shabbir Andrade MD Attn: Accounting ,[address] [place], [address] , [place] [facility] 4 15:53:08 07/17 Diabetic Foot Exam completed Shabbir Andrade MD Attn: Accounting ,[address] [place], [address] , [place] [facility] 4 14:29:37 09/30 Ct colonography screening completed Srinivas Andrade MD Attn: Accounting ,[address] [place], [address] , [place] [facility] 3 08:51:20 03/01 esophagogastroduodenoscopy completed Olvin Reyes MD Attn: Accounting ,[address] [place], [address] , [place] [facility] 2 13:51:50 02/28 Skin Tag Removal completed Jaki James PA-C Attn: Accounting ,[address] [place], [address] , [place] [facility] 6 15:06:32 02/14 colonoscopy completed Shabbir Andrade MD Attn: Accounting ,[address] [facility], [place], [address] , [place] [facility] 2 12:26:06 Imaging Results None recorded. Procedure Notes None recorded. Medical Equipment None Reported. Allergies Allergen ID Allergen Name Allergen Category Reaction Reaction Severity Criticality Documentation Date Start Date Code Code System Note Provider Name and Address Organization Details Recorded Time 119288 No known allergy (situatio n) Not available Not available Not available Not available 12/16/2023 58306 6003 SNOMED Shabbir Andrade MD Attn: Accountin g,[address] [facility], [place], [address], [facility] 4 15:14:24 No known drug allergies Medications Name Sig Start Date Stop Date Status Note LastModified by Organization Details LastModified Time losartan 50 mg tablet TAKE 1 TABLET BY MOUTH EVERY DAY DIRECTED 07/24 completed BID Not Available Not Available Not Available ketoconaz ole 2 % shampoo 10/17 completed Not Available Not Available Not Available ammonium lactate 12 % lotion APPLY 1 GRAM TOPICALL Y TO THE AFFECTED AREA TWICE DAILY NEEDED FOR DRY SKIN active Not Available Not Available No t Available cetirizin e 10 mg tablet Take 1 tablet every day by oral route. 12/31 completed Not Available Not Available Not Available benzonata te 200 mg capsule TAKE 1 CAPSULE BY MOUTH THREE TIMES DAILY FOR 5 DAYS NEEDED 09/12 completed Not Available Not Available Not Available hydrocodo ne 5 mg-acetam inophen 325 mg tablet 12/31 completed Not Available Not Available Not Available prednison e 20 mg tablet TAKE 2 TABLETS BY MOUTH 1 TIME FOR 1 DOSE 01/06 completed Not Available Not Available Not Available clindamyc in HCl 150 mg capsule TAKE THREE CAPSULES BY MOUTH THREE TIMES DAILY FOR 10 DAYS FOR INFECTIO N 01/07 completed Not Available Not Available Not Available triamcino lone acetonide 0.5 % topical ointment APPLY A THIN LAYER TO AFFECTED AREA TWICE DAILY. LOWER LEGS ONLY. 07/16 completed Not Available Not Available Not Available cimetidin e 800 mg tablet Take 1 tablet twice a day by oral route for 30 days. 07/16 completed Not Available Not Available Not Available amlodipin e 5 mg tablet TAKE ONE TABLET BY MOUTH EVERY DAY DIRECTED 07/17 completed Not Available Not Available Not Available acyclovir 400 mg tablet Take 1 tablet every 8 hours by oral route for 10 days. 02/10 completed Not Available Not Available Not Available sulfameth oxazole 800 mg-trimet hoprim 160 mg tablet TAKE 1 TABLET BY MOUTH EVERY 12 HOURS FOR 5 DAYS DIRECTED FOR TOE INFECTIO N 03/24 completed Not Available Not Available Not Available peg-elect rolyte solution 420 gram oral solution TAKE DIRECTED BY OFFICE 01/15 completed Not Available Not Available Not Available omeprazol e 40 mg capsule,d elayed release TAKE 1 CAPSULE BY MOUTH EVERY DAY DIRECTED FOR GERD active Not Available Not Available No t Available aspirin 81 mg tablet,de layed release Take 1 tablet every day by oral route at bedtime for 90 days, for Choleste rol. 2024 active Not Available Not Available Not Avai lable quetiapin e 100 mg tablet 02/10 completed Not Available Not Available Not Available sildenafi l 100 mg tablet Take 1 TABLET BY MOUTH 1 HOUR PRIOR TO SEXUAL ACTIVITY DIRECTED , NOT TO EXCEED 1 IN 24 HOURS. active Not Available Not Available No t Available spironola ctone 25 mg tablet TAKE 1 TABLET BY MOUTH EVERY DAY 2024 active Not Available Not Available Not Avai lable Lamisil AT 1 % topical cream APPLY EXTERNAL LY TO THE AFFECTED AND SURROUND ING AREAS EVERY DAY 09/16 completed Not Available Not Available Not Available terbinafi ne HCl 250 mg tablet TAKE 1 TABLET BY MOUTH EVERY DAY 03/24 completed Not Available Not Available Not Available Deep Sea Nasal 0.65 % spray aerosol USE 1 SPRAY IN EACH NOSTRIL 6 TIMES DAILY WHILE AWAKE. 09/12 completed Not Available Not Available Not Available furosemid e 80 mg tablet TAKE 1 TABLET BY MOUTH TWICE DAILY DIRECTED FOR CONGESTI VE HEART FAILURE active Not Available Not Available No t Available amlodipin e 10 mg tablet TAKE 1 TABLET BY MOUTH EVERY DAY DIRECTED 09/16 completed -Amlodip ine by Dr Giraldo, BP 108/65 Not Available Not Available Not Available benzonata te 100 mg capsule TAKE 1 CAPSULE BY MOUTH THREE TIMES DAILY FOR 5 DAYS NEEDED 06/25 completed Not Available Not Available Not Available doxycycli ne monohydra te 100 mg capsule TAKE 1 CAPSULE BY MOUTH EVERY 12 HOURS FOR 3 DAYS 12/09 completed Not Available Not Available Not Available cephalexi n 500 mg capsule TAKE 1 CAPSULE BY MOUTH EVERY 6 HOURS FOR 5 DAYS DIRECTED FOR TOE INFECTIO N 03/24 completed Not Available Not Available Not Available pantopraz ole 40 mg tablet,de layed release Take 1 tablet every day by oral route for 30 days. 03/24 completed Not Available Not Available Not Available simvastat in 20 mg tablet Take 1 tablet every day by oral route in the evening. 02/10 completed Not Available Not Available Not Available nystatin 100,000 unit/gram topical cream APPLY TOPICALL Y TO THE AFFECTED AREA TWICE DAILY active Not Available Not Available No t Available ranitidin e 150 mg tablet Take 1 tablet twice a day by oral route. 09/16 completed Not Available Not Available Not Available promethaz ine 25 mg tablet TAKE 1/2 TABLET BY MOUTH EVERY 6 HOURS NEEDED FOR NAUSEA 09/12 completed Not Available Not Available Not Available losartan 25 mg tablet Take 1 tablet every day by oral route at bedtime for 90 days, for HTN. 2024 active Not Available Not Available Not Avai lable metoprolo l tartrate 50 mg tablet TAKE 1 TABLET BY MOUTH TWICE DAILY 07/16 completed Not Available Not Available Not Available Bicillin L-A 2,400,000 unit/4 mL intramusc ular syringe Inject 4 mL every week by intramus cular route as directed for 21 days. 05/14 completed Not Available Not Available Not Available omeprazol e 20 mg capsule,d elayed release Take 1 capsule every day by oral route. 02/10 completed Not Available Not Available Not Available etodolac 400 mg tablet 09/16 completed Not Available Not Available Not Available hydrochlo rothiazid e 25 mg tablet TAKE 1 TABLET BY MOUTH EVERY DAY DIRECTED 07/16 completed Not Available Not Available Not Available mupirocin 2 % topical ointment 09/16 completed Not Available Not Available Not Available furosemid e 20 mg tablet TAKE 1 TABLET BY MOUTH DAILY 03/24 completed Not Available Not Available Not Available metoprolo l succinate ER 25 mg tablet,ex tended release 24 hr TAKE 1/2 TABLET BY MOUTH EVERY DAY DIRECTED FOR HYPERTEN BLAZE OR CONGESTI VE HEART FAILURE active Not Available Not Available No t Available albuterol sulfate HFA 90 mcg/actua tion aerosol inhaler Inhale 2 puffs every 4 hours by inhalati on route as needed for 30 days, for COPD. 2024 active I was told I don't really need to take that anymore from Dr Barker. Unless I have to: Not Available Not Available Not Available ketoconaz ole 2 % topical cream APPLY TOPICALL Y TO THE AFFECTED AREA DAILY active Not Available Not Available No t Available losartan 100 mg tablet TAKE 1 TABLET BY MOUTH EVERY DAY 01/15 completed Because I was getting all these dizzy spell Not Available Not Available Not Available metformin ER 500 mg tablet,ex tended release 24 hr TAKE 1 TABLET BY MOUTH EVERY DAY DIRECTED FOR DIABETES 03/24 completed Not Available Not Available Not Available gentamici n 0.1 % topical ointment APPLY SMALL AMOUNT TOPICALL Y TO THE AFFECTED AREA THREE TIMES DAILY 07/17 completed Not Available Not Available Not Available amoxicill in 875 mg-potass ium clavulana te 125 mg tablet TAKE 1 TABLET BY MOUTH TWICE DAILY FOR 10 DAYS 06/25 completed Not Available Not Available Not Available oxycodone 5 mg tablet 09/12 completed Not Available Not Available Not Available cholestyr amine (with sugar) 4 gram oral powder 12/31 completed Not Available Not Available Not Available metoprolo l tartrate 25 mg tablet Take 0.5 mg every day by oral route as directed for 30 days. 01/06 completed Not Available Not Available Not Available Truvada 200 mg-300 mg tablet Take 1 tablet every day by oral route. 02/10 completed Not Available Not Available Not Available hydrochlo rothiazid e 12.5 mg tablet TAKE 1 TABLET BY MOUTH EVERY DAY DIRECTED 09/12 completed Not Available Not Available Not Available Symbicort 160 mcg-4.5 mcg/actua tion HFA aerosol inhaler INHALE 2 PUFFS BY MOUTH TWICE DAILY DIRECTED 12/31 completed Not Available Not Available Not Available Gavilyte- C 240 gram-22.7 2 gram-6.72 gram-5.84 gram oral solution MIX AND DRINK DIRECTED 12/24 completed Not Available Not Available Not Available OneTouch Verio test strips USE TO TEST ONCE DAILY active Not Available Not Available No t Available Jardiance active Not Available Not Delia ilable Not Available naloxone 4 mg/actuat ion nasal spray CALL 911. SPR CONTENTS OF ONE SPRAYER (0.1ML) INTO ONE NOSTRIL. REPEAT IN 2-3 MIN IF SYMPTOMS OF OPIOID EMERGENC Y PERSIST, ALTERNAT E NOSTRILS 02/11 completed Not Available Not Available Not Available Vitals Date Recorded Body height Body temperature Body mass index (BMI) Body weight Heart rate Pain severity - 0-10 verbal numeric rating [Score] - Reported Systolic And Diastolic Provider Name and Address Organization Details Last Updated DateTime 5 170.18 cm 98.6 [degF] 35.7 kg/m2 704317. 78 g 114 /min 7 124/96 mm[Hg] Clarisa Ridley MA [facility] 5 14:08:52 Date Recorded Body height Body mass index (BMI) Body weight Oxygen saturation Oxygen saturation in Arterial blood by Pulse oximetry Body temperature Respiratory rate Heart rate Systolic And Diastolic Provider Name and Address Organization Details Last Updated DateTime 5 170.18 cm 27.7 kg/m2 13418.8 5 g 97 % 97 % 98.3 [degF] 20 /min 52 /min 140/100 mm[Hg] Teresa Anderson MA [place] [facility] 5 14:49:00 Date Recorded Body height Body temperature Body mass index (BMI) Body weight Heart rate Pain severity - 0-10 verbal numeric rating [Score] - Reported Systolic And Diastolic Provider Name and Address Organization Details Last Updated DateTime 5 170.18 cm 98.6 [degF] 27.6 kg/m2 58695.2 6 g 68 /min 4 134/94 mm[Hg] Clarisa Ridley MA [facility] 5 14:13:42 Date Recorded Body height Body mass index (BMI) Body weight Oxygen saturation Oxygen saturation in Arterial blood by Pulse oximetry Respiratory rate Heart rate Systolic And Diastolic Provider Name and Address Organization Details Last Updated DateTime 5 170.18 cm 26.9 kg/m2 04750.1 7 g 97 % 97 % 18 /min 48 /min 144/76 mm[Hg] Teresa Anderson MA [facility] 5 14:15:29 Social History Question Answer Notes LastModified by Organization Details LastModified Time Tobacco Smoking Status Current Some Day Smoker Teresa Anderson MA [facility] 01/06/2025 14:47:27 Do You Have An Advance Directive? No Information not available 11/15/2015 What Is Your Level Of Caffeine Consumption? None Information not available 11/15/2015 How Much Tobacco Do You Chew? None Information not available 11/15/2015 In The 14 Days Before Symptom Onset, Have You Had Close Contact With A Laboratory-confi rmed COVID-19 While That Case Was Ill? No Information not available 12/31/2022 In The 14 Days Before Symptom Onset, Have You Had Close Contact With A Person Who Is Under Investigation For COVID-19 While That Person Was Ill? No Information not available 12/31/2022 Have You Been To An Area Known To Be High Risk For COVID-19? No Information not available 12/31/2022 What Type Of Diet Are You Following? REGULAR Information not available 11/15/2015 Which Illicit Or Recreational Drugs Have You Used? Methamphetamine Current. History Of Crack Cocaine Information not available 02/11/2020 Education 12 Information not available 11/15/2015 Are There Any Guns Present In Your Home? No Information not available 11/15/2015 Hard Of Hearing Or Deaf In One Or Both Ears? No Information not available 11/15/2015 Legally Blind In One Or Both Eyes? No Information not available 11/15/2015 Live Alone Or With Others? Alone Information not available 11/15/2015 Marital Status Single Informatio n not available 11/15/2015 Do You Have A Medical Power Of Screwhead Polisher? No Information not available 12/31/2022 What Was The Date Of Your Most Recent Tobacco Screening? 02/11/2025 Information not available 02/11/2025 How Many Children Do You Have? 0 Information not available 11/15/2015 Seat Belts Used Routinely Yes Information not available 11/15/2015 Smoke Alarm In Home Yes Information not available 11/15/2015 At What Age Did You Start Smoking Tobacco? 20 Information not available 11/15/2015 How Much Tobacco Do You Smoke? 1 PPW Information not available 01/06/2025 General Stress Level Low Information not available 11/15/2015 Do You Use Sunscreen Routinely? Yes Information not available 11/15/2015 Has Tobacco Cessation Counseling Been Provided? Yes Information not available 01/25/2022 On What Date Was Tobacco Cessation Counseling Provided? 02/11/2025 Information not available 02/11/2025 Sex: Male Functional Status Question Answer Note LastModified by Organizat ion Details LastModified Time Do you use any illicit or recreational drugs? Yes Information not available 03/26/2022 What is your level of alcohol consumption? Moderate Information not available 02/11/2020 Do you or have you ever used smokeless tobacco? Never used smokeless tobacco Information not available 02/11/2020 Are you currently employed? No Information not available 11/15/2015 Do you or have you ever used e-cigarettes or vape? Never used electronic cigarettes Information not available 02/11/2020 What is your exercise level? None Information not available 11/15/2015 Mental Status None recorded. Family History Relationship Description Onset Age of this Age Resolved Age Notes LastModified by Organization Details LastModified Time Mother Harmful pattern of use of alcohol Not available 2015 15:28:34 Mother Dementia Not availabl e 01/08/2016 15:28:34 Mother Hypercholest erolemia Not available 2015 15:28:34 Mother Hypertensive disorder Not available 2015 15:28:34 Mother Osteoporosis Not avai lable 01/08/2016 15:28:34 Mother Arthritis Not availab le 01/08/2016 15:28:34 Mother Cataract Not availabl e 01/08/2016 15:28:34 Father Harmful pattern of use of alcohol Not available 2015 15:28:34 Father Diabetes mellitus Not available 2015 15:28:34 Father Depressive disorder Not available 2015 15:28:34 Father Heart disease 74 heart attack Not available 01/08/2016 15:28:34 Father Hypercholest erolemia Not available 2015 15:28:34 Father Chronic obstructive pulmonary disease Not available 2015 15:28:34 Sister Lupus erythematosu s Not available 2015 15:28:34 Sister Diabetes mellitus Not available 2015 15:28:34 Sister Depressive disorder Not available 2015 15:28:34 Sister Heart disease 51 heart attack Not available 01/08/2016 15:28:34 Sister Hypertensive disorder Not available 2015 15:28:34 Sister Migraine Not availabl e 01/08/2016 15:28:34 Sister Chronic obstructive pulmonary disease Not available 2015 15:28:34 Sister Arthritis Not availab le 01/08/2016 15:28:34 Medical History Condition Response Coronary Artery Disease N Kidney Cyst N Blood Diseases N Hyperthyroidism N Blood disorders N Blood Transfusion N MRSA N Emphysema N Depression N COPD Y Blood Clots N Pneumonia N Premature N Peripheral Arterial Disease N Edema N TIA N Headaches/Migraines N Anxiety Disorder N Obesity N Polyps N Infertility N Acid Reflux (GERD) N Hematuria N Stroke N Neck Injury N Polio N Hospital Admission other than N Neurologic Disorder N Other Sleep Disorders N Rheumatoid Arthritis N Fibromyalgia N Abdominal Aortic Aneurysm Repair N Kidney Disease N Heart Conditions N Heart Disease/Heart Problems N Hospitalizations N Brain Tumors N Acne N Skin Problems N Eating Disorder N Meningitis N Constipation N Tuberculosis N Cerebral Palsy N Myocardial Infarction N Asthma N Substance Abuse N Peripheral Vascular Disease N Vertigo N Sleep Disorder N Cirrhosis N Pulmonary Embolism N Chicken Pox N Hematologic Disease N Flomax Use Past or Present N Anxiety/Depression N Thyroid Disease N Colon Cancer N Lung Disease N Glaucoma N Developmental or Behavioral Disorders N Bipolar N Pacemaker N Diverticulitis/Diverticulosis N Orthopedic Problems N Anesthesia Complications N Orthotics N Head Injury/Concussion N Congenital Anomalies N Martinez Bite N Chronic Kidney Disease N Endometriosis N Liver Disease N Schizophrenia N Dialysis N Speech Delay N Chronic Obstructive Pulmonary Disease N Parkinson's Disease N Thyroid Problems N GI Problems N Developmental Delay N Anemia N Multiple Sclerosis N Immune System Disorder N Colon Polyps N Heart Attack ([place]) N Diabetes N Cardiomyopathy N Blood Transfusions N Heart Problems/Murmur N Eye Trauma N Congestive Heart Failure (CHF) N Valvular Heart Disease N Hyperlipidemia N Double Vision N Abuse/Domestic Violence N Hepatitis B N Lupus N Epilepsy/Seizures N Reflux/GERD N Aneurysm N Heart Disease N Bronchitis N Pre-Eclampsia N Hypertension N Heart Failure N Other N Gout N High Blood Pressure Y Atrial Fibrillation N Kidney Stones N Head Trauma/Injury N Congenital Heart Disease N Spine Problems N Gastrointestinal Disease N Lung Mass N Sinusitis N Obstructive Sleep Apnea N Muscle, Joint, or Bone Problems N Autoimmune disease N Vision or Eye Problems N Arthritis N Blood Clot N Cancer N Seasonal allergies N Leg or Foot Ulcers N Raynaud's Disease N Aortic Aneurysm N Arrhythmia N Headaches N Heart Problems N Ambloypia N Ear or Hearing Problems N Hyperparathyroidism N Migraines N Artificial Joints N Kidney or Bladder Problems N NSAID Use N Encephalitis N PTSD N Ulcers N Prostate Hypertrophy N Bleeding Disorder N AIDS/HIV N Urinary Tract Infection N Back Problems N Allergies N Atrial Flutter N GERD/Reflux N Hepatitis N Autism Spectrum Disorder (ASD) N Breast Cancer N Hernia N Hypothyroidism N Breast Problem N Genitourinary Disease N Deep Vein Thrombosis N Varicose Veins N Cystic Fibrosis N Hearing Loss N Developmental Problems N Carotid Disease N Vitamin D Deficiency N ADHD N Bladder or Kidney Problems N High Cholesterol N [place] N Valvular Abnormalities N Psychiatric/Mental Health Condition N Organ Transplant N Foot Deformity N Allergies/Hayfever N Dyslipidemia N Hyponatremia N Diabetic Eye Disease N Osteoporosis/Osteopenia N Back Pain N Proteinuria N Mental Illness N Neurological Problems N Ovarian Cancer N Bedwetting N Seizures/Epilepsy N Kidney Failure N Ocular trauma N Diverticulitis N Dementia N Sleep Apnea N Mental Problems N Warfarin Management N Osteoporosis N Immunizations Vaccine Type Date Status Note Provider Nam e and Address Organization Details Recorded Time Hep A, adult 6 completed Not Available [facility] 05/15/2019 02:32:59 Tdap 6 completed Not Available [facility] 05/15/2019 02:40:27 pneumococcal polysaccharide PPV23 6 completed Not Available [facility] 05/15/2019 02:49:53 Influenza, split virus, quadrivalent, preservative 6 completed Not Available [facility] 05/15/2019 02:42:00 Hep A, adult 7 completed Not Available [facility] 05/21/2023 15:31:38 Pneumococcal conjugate PCV20, polysaccharide JCT019 conjugate, adjuvant, PF 4 completed Shabbir Andrade MD Attn: [address] [place], [address], [facility] 06/02/2024 15:08:04 Influenza, split virus, quadrivalent, PF 7 completed Not Available [facility] 05/15/2019 02:33:57 Influenza, split virus, quadrivalent, preservative 0 completed Teresa Anderson MA null, [place] - [facility] 02/11/2020 10:56:57 Influenza, split virus, quadrivalent, preservative 2 completed Shabbir Andrade MD Attn: [address] [place], [address], [place] - [facility] 01/25/2022 14:20:09 Influenza, split virus, trivalent, preservative 4 completed Shabbir Andrade MD Attn: [address] [place], [address], [facility] 03/24/2024 18:59:46 Influenza, split virus, trivalent, PF 5 completed Teresa Anderson MA [place], [place] - [facility] 01/06/2025 17:03:25 Past Encounters Encounter ID Performer Location Encounter Start Date Encounter Closed Date Diagnosis/Indication Diagnosis SNOMED-CT Code Diagnosis ICD10 Code Diagnosis IMO Codes Diagnosis Note [id number] MD Shoaib Irby (Adult Med) [address] [place] [address] 11/15/2015 10:11:18 11/15/2015 11:25:52 Substance abuse 14227741 F55.8 Crack, meth Has not smoked crack 'in a long time' Uses meth 1-2 times/day Intravenous drug user 22 5079848 F19.10 Adult heal th examination 778970025 Z00.01 Harmful pa ttern of use of alcohol 89482447 F10.10 Drinks a fifth of vodka at least every other day 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 1/4-1ppd Family his tory of cardiac disorder 528832016 Z82.49 Screening for malignant neoplasm of prostate 601332746 Z12.5 Screening for malignant neoplasm of colon 584552453 Z12.11 Gastroesop hageal reflux disease 671068743 K21.9 Multiple skin tags 86061 7009 L91.8 under left axilla Pain of hip region 64684 002 M25.559 Subcutaneous nodule 9532 5000 R22.9 Pain in right knee 93735 51238 32810 M25.561 Harmful pa ttern of use of multiple substances 290460964 F19.10 Crack, meth, alcohol, tobacco - discussed with his family hx/o cardiac disease and his recreation al activities , he is on track for an early . He understand s this and declined any help for his addictions . States that he feels like 'he is going to live for a long time' and does not want to quit what he's doing High risk sexual behavior 885387918 Z72.51 States that he is very promiscuou s and does not regularly use protection - homosexual [id number] MD Shoaib Irby (Adult Med) [address] [place] [address] 12/01/2015 11:29:22 12/01/2015 12:59:06 Hyperlipidemia 20274988 E78.5 LFTs WNL, no hep c - d/t family cardiac hx/o will initiate d/t LDL and smoking Pain of hip region 58464 002 M25.559 Will begin with hip xrays Harmful pa ttern of use of multiple substances 023169713 F19.10 Crack, meth, alcohol, tobacco - discussed with his family hx/o cardiac disease and his recreation al activities , he is on track for an early . He understand s this and declined any help for his addictions . States that he feels like 'he is going to live for a long time' and does not want to quit what he's doing Screening for malignant neoplasm of colon 753349142 Z12.11 Patient given number for Dr. Vora's office [id number] MD Shoaib Irby (Adult Med) [address] [place] [id number] 01/08/2016 15:17:28 01/08/2016 16:09:42 Hallux valgus AND bunion 617852516 M20.11 Requesting referral to podiatry Active or passive immunization 337404073 Z23 Onychomycosis 341913032 B35.1 Patient has heavy alcohol consumptio n - will use lamasil cream Intravenous drug user 22 7174759 F19.10 Multiple skin tags 60448 7009 L91.8 under left axilla Patient to make appointmen t for skin tag removal Screening for malignant neoplasm of colon 888644628 Z12.11 Had his consultati on appointmen t - now needs to schedule colonoscop y Femoral ac etabular impingement 463164123 M25.851 Has an appointmen t with ortho on 01/12/16 [id number] MD Shoaib Irby (Adult Med) [address] [place] [phone] 02/29/2016 13:57:30 02/29/2016 14:57:53 Multiple skin tags 664456262 L91.8 under left axilla 4 skin tags removed [id number] MD Shoaib Irby (Adult Med) [address] [place] [phone] 03/05/2016 14:04:39 03/05/2016 14:45:31 Multiple skin tags 089471648 L91.8 healing Disorder of knee 2540975 07 M22.90 Knees 'pop out' like hipsPatien t has an appointmen t with ortho tomorrow - advised to addres this with ortho - will order knee xrays and advised to tell ortho if he is able to complete them prior to his appointmen t tomorrow Hyperlipidemia 33474941 E78.5 LFTs WNL, no hep c - d/t family cardiac hx/o will initiate d/t LDL and smokingPat ient to RTC in 3 months fasting for fasting labs Gastroesop hageal reflux disease 315209251 K21.9 [id number] Marita Bravo MD [facility] (Adult Med) [address] [place] [phone] 04/30/2016 15:15:23 04/30/2016 16:21:36 Impotence 774033094 N52.9 Will check testostero ne - patient states that he has had penile injections in the past that helped greatly so he would like to see urology for those - will refer when labs are received Venereal d isease screening 510852174 Z11.3 There is a note from a general surgeon that states that patient is HIV positive - no documentat ion here - will have nurse contact this MD's office in addition to rescreen patient per request Skin lesion 24059077 L98 .9 0.5cm erythemato us raised lesion with clear borders on palmar aspect of left wrist - patient is persistent in wanting a dermtology referral to 'find out exactly what this is' - will refer - advised this is likely a scar Intravenous drug user 22 6703186 F19.10 Hyperlipidemia 16999056 E78.5 Will repeat fasting labs at next visit Ganglion of wrist 520802 009 M67.431 palmar aspect of right wrist - not bothersome at this time - will continue to montior - advised to RTC if becomes bothersome and will refer for removal High risk sexual behavior 801998825 Z72.51 States that he is very promiscuou s and does not regularly use protection - homosexual [id number] MD Shoaib Irby (Adult Med) [address] [place] [phone] 05/21/2016 11:00:36 05/21/2016 16:39:19 Intravenous drug user 746651003 F19.10 IV drug use since last time the reflex was checked - will recheck today Impotence 059283275 N52. 9 Will check testostero ne - patient states that he has had penile injections in the past that helped greatly so he would like to see urology for those - will refer when labs are receivedWi ll prescribe viagra - discussed the implicatio ns of cardiac disease and viagra and his history of smoking and drug useWill still refer to urology - referral was placed yesterday [id number] Marita Bravo MD [facility] (Adult Med) [address] [place] [phone] 08/13/2016 12:14:05 08/13/2016 13:24:50 Pain of shoulder region 11685235 M25.511 Will begin with shoulder xray and PT - will determine treatment based on xray and response to PTNo MOA for injury Allergic disposition 609 468522 Z91.09 Obesity 520237489 E66.9 Advised 30 minutes of exercise 5 days/week Advised to not drink her calories Advised 3 balanced meals/day with plenty of fruits and vegetables [id number] Marita Bravo MD [facility] (Adult Med) [address] [place] [address] 12/31/2016 15:48:42 12/31/2016 16:51:02 Intravenous drug user 808664291 F19.10 IV drug use since last time the reflex was checked - will recheck today Tobacco de pendence syndrome 86526219 F17.290 05/01-1ppd - advised to quit Hepatitis C antibody detected 701258956 Z86.19 IV drug use Obesity 501636445 E66.9 Advised 30 minutes of exercise 5 days/week Advised to not drink her calories Advised 3 balanced meals/day with plenty of fruits and vegetables Hyperlipidemia 07787309 E78.5 Will repeat fasting labs at next visit Substance abuse 39623348 F55.8 Crack, meth Has not smoked crack 'in a long time' Uses meth 1-2 times/day Patient advised that the lapse of the 6 hours of his memory is likely 2/2 his history of and current polysubsta nce abuse - advised that if this occurs again to go to the ER - discussed that any residual effects would have been seen already and manifested if any issues had occurred and no need for imaging at this timeWihenry f/u on this [facility] that he has done a lot of damage to himself internally with his polysubsta nce abuse and he needs to stop - no interest in quitting at this time High risk sexual behavior 806117798 Z72.51 States that he is very promiscuou s and does not regularly use protection - homosexual Screening for malignant neoplasm of prostate 087199755 Z12.5 Patient consented to screen Active or passive immunization 441646123 Z23 Chronic ob structive pulmonary disease 12430063 J44.9 Per patient, he was dx'ed with COPD by cardiology and states that he feels like he needs a rescue inhalerWil l begin with albuterol PRN for SOB - will readdress at upcoming appointmen t - patient advised if this doesn't provide sufficient relief, we will need to begin a maintainen ce inhaler [id number] Marita Bravo MD [facility] (Adult Med) [address] [place] [phone] 01/22/2017 14:51:25 01/23/2017 14:24:39 Talipes planus 71078126 M21.40 Will refer to podiatry at this time Intravenous drug user 22 3613674 F19.10 IV drug use advised to stop Tobacco de pendence syndrome 67179270 F17.290 /-1ppd - advised to quit Hepatitis C antibody detected 003680736 Z86.19 IV drug use Obesity 187986507 E66.9 Advised 30 minutes of exercise 5 days/week Advised to not drink her calories Advised 3 balanced meals/day with plenty of fruits and vegetables Substance abuse 37738589 F55.8 Crack, meth Has not smoked crack 'in a long time' Uses meth 1-2 times/day No interest in quitting at this time High risk sexual behavior 500389616 Z72.51 States that he is very promiscuou s and does not regularly use protection - homosexual Chronic ob structive pulmonary disease 99359496 J44.9 Per patient, he was dx'ed with COPD by cardiology and states that he feels like he needs a rescue inhalerWil l begin with albuterol PRN for SOB - will readdress at upcoming appointmen t - patient advised if this doesn't provide sufficient relief, we will need to begin a maintainen ce inhalerAdv ised to picker and sorter load and unload inhaler Gastroesop hageal reflux disease 310630959 K21.9 Followed by GI Knee pain 78957004 M25.5 62 Follow by ortho [id number] JENNIFER Engel (Peds) [address] [place] [phone] 02/10/2017 09:34:51 02/11/2017 11:58:35 Knee pain 81269767 M25.562 Left knee pain with possible swelling - will check xrayAdvise d that he needs to f/u with ortho since he is already establishe d with them Low back pain 905640637 M54.5 acute lumbar pain - will check xray - Advised that he needs to f/u with ortho since he is already establishe d with them [id number] MD Shoaib Stoddard (Adult Med) [address] [place] [phone] 04/07/2017 10:13:24 04/07/2017 14:27:50 Knee pain 97140156 M25.561 Patient would like a second opinion for his right knee - will place order right nowPatient states that it is not his knee cap that pops out, but something on the side of his knee - PE WNL [id number] MD Shoaib Stoddard (Adult Med) [address] [place] [phone] 09/16/2017 14:57:04 09/16/2017 16:58:25 Knee pain 11578613 M25.561 Advised that he needs to f/u with ortho Body mass index 30+ - obesity 420709006 Z68.39 Advised 30 minutes of exercise 5 days/week Advised to not drink her calories Advised 3 balanced meals/day with plenty of fruits and vegetables Adult [facility] examination 816950598 Z00.01 Gastroesop hageal reflux disease 881461554 K21.9 Followed by GI Advised to stay away from spicy and greasy foodsAdvis ed to stay away from fatty foodsDo not eat within 2 hours of going to bedStay sitting up after mealsNo smoking Hyperlipidemia 32111134 E78.5 Will repeat fasting labs Tobacco de pendence syndrome 75309663 F17.290 05/01-1ppd - advised to quit High risk sexual behavior 149228658 Z72.51 States that he is very promiscuou s and does not regularly use protection - homosexual Hallux gomez samuel AND bunion 991677695 M20.11 followed by podiatry Noncomplia nce with treatment 1608756 Z91.19 Stopped all meds and stopped seeing specialist s, didn't get surgery done Depressive disorder 7188 9007 F32.1 Advised to make an appointmen t to see counseling on his way out of the office today [id number] JENNIFER Engel (FINISH [employer]W OPERATOR) [address] [place] [address] [phone] 0 10/17/2017 12:19:40 10/17/2017 12:50:13 Vasculitis 43080331 I77.6 dx'ed in the [facility] at this time Will send for ER note and see if applicable , will refer to vascular surgery [id number] MD Shoaib Stoddard (Adult Med) [address] [place] [address] [phone] 0 04/09/2018 14:46:08 04/13/2018 10:22:10 Rash of genitalia 673813946 R21 Will treat for HSV at this time [facility] risk of sexually transmitted infection 474787084 Z20.2 Advised to ALWAYS use condoms Primary er ectile dysfunction 988990384 N52.9 Abscess of scalp 3355864 9 L02.811 Patient advised to go to the ER for abscess drainage [id number] MD Shoaib Stoddard (Adult Med) [address] [place] [address] [phone] 0 04/23/2018 13:07:33 04/24/2018 09:27:18 Syphilis 44246769 A53.9 Patient scheduled as a nurse only visit with Dr. Andrade on 04/30/18 for bicillin #3 High risk sexual behavior 044381218 Z72.51 States that he is very promiscuou s and does not regularly use protection - homosexual [id number] MD Shoaib Avila (Adult Med) [address] [place] [phone] 04/30/2018 14:06:37 05/01/2018 08:59:43 Syphilis 47637211 A53.9 Nurse visit for Bicillin dose 3 of 3.Patient of ENEDELIA James who has left this practice. She did discuss the case with me. He is scheduled to be seen as a new patient on 05/13/2017 [id number] MD Shoaib Avila (Adult Med) [address] [place] [phone] 02/11/2020 09:45:49 02/14/2020 07:27:25 Administration of influenza vaccine 76444400 Z23 General ex amination of patient 026147021 Z00.01 Nicotine dependence 5629 4008 F17.200 History of syphilis 1087 580244 377430 Z86.19 RPR 1:256 04/11/2018 ([facility])Bici llin administer ed here on 04/23/18 and 04/30/2018Th e chart confirms that he had 2 of 3 doses of Bicillin, he never returned for the 3rd dose.Since he never returned for his third dose nor did he come in for his appointmen t on 05/13/2018, I will recheck his labs. Chronic ob structive pulmonary disease 82432816 J44.9 Essential hypertension 40227668 I10 Refusing Amlodipine which was prescribed by a different provider in August 2019.He disagrees with the diagnosis, he however is willing to get a second opinion from the cardiologi [facility] dietWeight loss Screening for malignant neoplasm of prostate 760914600 Z12.5 Screening for malignant neoplasm of colon 627459951 Z12.11 Incomplete colonoscop y, he never got the Barium enema ordered by GI done Hepatitis C antibody detected 168746625 Z86.19 [id number] MD Shoaib Avila (Adult Med) [address] [place] [address] [phone] 0 03/22/2020 14:44:24 03/22/2020 15:43:52 Impaired fasting glycemia 047410547 R73.01 Discussed Primary er ectile dysfunction 926139512 N52.9 Non-compli ant behavior 902901340 R46.89 Discussed 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 He previously was on Amlodipine .He was seen by the cardiologi st and he is aware of the complicati ons of untreated HTN including, but not limited to cardiovasc ular events ([place]), CVAs and renal disease.Lo w salt dietWeight loss [id number] MD Shoaib Avila (Adult Med) [address] [place] [phone] 0 03/29/2020 15:11:57 03/30/2020 11:11:25 Late latent syphilis 015940335 A52.8 DiscussedC ondom use until he completes treatment [id number] MD Shoaib Avila (Adult Med) [address] [place] [phone] 0 01/25/2022 11:57:13 01/28/2022 18:16:52 Administration of influenza vaccine 03968794 Z23 Bleeding from nose 68580 6005 R04.0 History of syphilis 1087 421003 240458 Z86.19 RPR 1:2 ( 0)Bicillin 03/22/2020 , 03/29/2020, it does not appear that he ever returned for the 3rd doseRPR 1:256 04/11/2018 ([facility])Julii kevan administer ed here on 04/23/18 and 04/30/2018 Venereal d isease screening 529338667 Z11.3 General ex amination of patient 509106937 Z00.01 Screening for malignant neoplasm of prostate 929041845 Z12.5 Tachycardia 6026655 R00. 0 Impaired f asting glycemia 225450198 R73.01 Previously discussed SARS-CoV-2 antigen vaccine declined 6406198532 Z28.21 Gastroesop hageal reflux disease 845621824 K21.00 Screening for malignant neoplasm of colon 665229539 Z12.11 Incomplete colonoscop y, he never got the Barium enema ordered by GI doneGI follow up [id number] MD Shoaib Avila (Adult Med) [address] [place] [address] [phone] 0 02/08/2022 08:49:29 02/12/2022 09:59:30 Anemia 492966641 D64.9 Colonoscop y was incomplete , he has an appointmen t with GI.The anemia may be from his recent Epistaxis. Recheck the labs. History of syphilis 1087 614957 904840 Z86.19 This suggests reinfectio n or treatment failure, his HIV test was negative.C omplicatio ns of Syphilis were discussed, I will retreat him again and he was advised to complete the course of Bicillin.R [place] 1:64 (01/25/2022 )Bicillin 03/22/2020 , 03/29/2020, it does not appear that he ever returned for the 3rd doseRPR 1:2 ()Bicillin administer ed here on 04/23/18 and 04/30/2018RP R 1:256 04/11/2018 ([facility]) Leukocytosis 404041936 D 72.829 Impaired f asting glycemia 445195833 R73.01 Discussed again Chronic ob structive pulmonary disease 51547941 J44.9 Electrocar diogram abnormal 920506026 R94.31 105/minute QRS T angle abnormalit y Benign hypertension 1072 5009 I10 Body mass index 30+ - obesity 447343217 Z68.30 Hepatitis C antibody detected 419264767 Z86.19 Serum crea tinine above reference range 960770263 R79.89 Pre-surger y evaluation 757861060 Z01.818 Low/Modera te riskLabs 01/25/2022, mild anemia and leukocytos isCXR 02/05/2022 cardi[facility] lyEKG 02/05/2022 105/minute QRS T angle abnormalit y [id number] MD Shoaib Avila (Adult Med) [address] [place] [address] 03/26/2022 15:03:28 03/28/2022 15:31:00 Anemia 272738572 D64.9 Colonoscop y was incomplete , he has an appointmen t with GI.He has iron deficiency anemia, part of this may be from his recent Epistaxis. History of syphilis 1087 894537 037034 Z86.19 03/26/2022 He needs to restart and complete his treatment course 02/08/2022 This suggests reinfectio n or treatment failure, his HIV test was negative.C omplicatio ns of Syphilis were discussed, I will retreat him again and he was advised to complete the course of Bicillin.R [place] 1:64 (01/25/2022 )Bicillin 03/22/2020 , 03/29/2020, it does not appear that he ever returned for the 3rd doseRPR 1:2 ( 0)Bicillin administer ed here on 04/23/18 and 04/30/2018RP R 1:256 04/11/2018 ([facility]) Benign hypertension 1072 5009 I10 Soft tissu e lesion of wrist and hand 726855736 M79.9 He cannot recall what happened but he has a non tender lesion on the dorsal aspect of his left hand with what appears to be scab Renal insufficiency 7231 50356 N28.9 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 Discourage d [id number] MD Shoaib Avila (Adult Med) [address] [place] [phone] 0 04/05/2022 12:09:57 04/09/2022 14:37:57 History of syphilis [id number] 853394 Z86.19 03/26/2022 He needs to restart and complete his treatment course 02/08/2022 This suggests reinfectio n or treatment failure, his HIV test was negative.C omplicatio ns of Syphilis were discussed, I will retreat him again and he was advised to complete the course of Bicillin.R IL 1:64 (01/25/2022 )Bicillin 03/22/2020 , 03/29/2020, it does not appear that he ever returned for the 3rd doseRPR 1:2 ( 0)Bicillin administer ed here on 04/23/18 and 04/30/2018RP R 1:256 04/11/2018 ([facility]) [id number] MD Shoaib Avila (Adult Med) [address] [place] [address] 24537[address]536 0 04/12/2022 15:03:18 04/16/2022 09:30:07 History of syphilis [id number] 580846 Z86.19 03/26/2022 He needs to restart and complete his treatment course 02/08/2022 This suggests reinfectio n or treatment failure, his HIV test was negative.C omplicatio ns of Syphilis were discussed, I will retreat him again and he was advised to complete the course of Bicillin.R IL 1:64 (01/25/2022 )Bicillin 03/22/2020 , 03/29/2020, it does not appear that he ever returned for the 3rd doseRPR 1:2 ( 0)Bicillin administer ed here on 04/23/18 and 04/30/2018RP R 1:256 04/11/2018 ([facility]) [id number] MD Shoaib Avila (Adult Med) [address] [place] [address] [phone] 0 05/14/2022 14:49:55 05/16/2022 08:56:48 Cough 12508548 R05.9 URI Pulmonary function studies abnormal 097503511 R94.2 The DDX includes ILD, CHF, Anemia and pulmonary HTN. Anemia 869162173 D64.9 Colonoscop y was incomplete , a repeat colonoscop y has been ordered..Shawna boone has iron deficiency anemia, part of this was previously felt to have been from his recent Epistaxis. History of syphilis 1087 795203 466651 Z86.19 He has completed his regimen and will need a repeat RPR in 6 months OV 03/26/2022 He needs to restart and complete his treatment course 02/08/2022 This suggests reinfectio n or treatment failure, his HIV test was negative.C omplicatio ns of Syphilis were discussed, I will retreat him again and he was advised to complete the course of Bicillin.R IL 1:64 (01/25/2022 )Bicillin 03/22/2020 , 03/29/2020, it does not appear that he ever returned for the 3rd doseRPR 1:2 ( 0)Bicillin administer ed here on 04/23/18 and 04/30/2018RP R 1:256 04/11/2018 ([facility]) Body mass index 30+ - obesity 650890883 Z68.30 Overweight 264376842 E66 .3 Acute uppe r respiratory infection 94420301 J06.9 [id number] Shabbir Andrade MD [facility] (Adult Med) [address] [place] [address] [phone] 0 06/25/2022 14:40:07 06/26/2022 09:29:54 Abnormal findings on diagnostic imaging of lung 706047337 R91.8 His PFTS are abnormal with a DDX that includes ILD, Pulm HTN and CHF.I will have him seen by the pulmonolog ist Primary er ectile dysfunction 173215344 N52.9 Chronic cough 24271697 R 05.3 Chronic ob structive pulmonary disease 62258578 J44.9 Pre-surger y evaluation 020490639 Z01.818 Moderate risk of complicati onsLabs 06/20/2022L abs 01/25/2022, mild anemia and leukocytos isCXR 02/05/2022 cardiomega lyEKG 02/05/2022 105/minute QRS T angle abnormalit yEKG 3P FTS 05/09/2022T TE 01/09/2017 [id number] MD Shoaib Avila (Adult Med) [address] [place] [address] [phone] 0 08/07/2022 15:22:48 08/08/2022 14:51:43 Open wound of lower leg 592764752 S81.802A MRSA Methicilli n resistant Staphylococcus aureus infection 473003385 A49.02 Essential hypertension 79055161 I10 He should be on Amlodipine 10 mg and not 5 mgHe should also be on HCTZ 12.5 mg Medication review done by doctor [id number] Z76.89 [id number] MD Shoaib Avila (Adult Med) [address] [place] [address] 29743-818 0 09/12/2022 15:19:35 09/13/2022 12:51:24 Imaging result abnormal 115728387 R93.89 The 08/16/2022 CT scan of the chest ordered by his pulmonolog ist was abnormal;T 10 sclerosis, MRI uihklfF76 density, MRI or CT neededCard iomegalyGy necomastia MRI needed, ordered and discussed Follow-up visit [id number] 9 Z09 Wound of skin 776376233 T14.8XXA He is to complete his course of doxycyclin e [facility] Essential hypertension 77436520 I10 He should be on Amlodipine 10 mg and not 5 mgHe should also be on HCTZ 12.5 mg Screening for malignant neoplasm of prostate 090176371 Z12.5 Impaired f asting glycemia 858112011 R73.01 Discussed again Hyperlipid emia screening 033060913 Z13.188 [id number] [facility] [address] [place] [address] [phone] 0 12/09/2022 09:12:38 12/10/2022 12:41:27 Abscess of skin and/or subcutaneous tissue 99465889 L02.91 He needs an I&D Essential hypertension 97283357 I10 He should be on Amlodipine 10 mg and HCTZ 25 mg History of methicillin resistant Staphylococcus aureus infection 413726996 Z86.14 [id number] Jose Carlos Cespedes MD [facility] [address] [place] [address] 12/12/2022 09:57:28 12/20/2022 11:41:00 Abscess of abdominal wall 97590925 L02.211 s/p spontaneou s drainage, now with open wound with good granulatio n under fibrinous exudate, no I&D required. Finish abx as prescribed , scrub gently 2x day with soap/water /washcloth , return in 2 weeks for wound check. [id number] MD Shoaib Avila (Adult Med) [address] [place] [address] [phone] 0 12/24/2022 13:58:34 12/26/2022 16:21:22 Essential hypertension 25811769 I10 I will add Losartan 25 mg to his Amlodipine 10 mg and HCTZ 25 mg, side effects including but not limited to a rash, an allergic reaction, dizziness and a headache were discussed. 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 [address] [place] [address] 8[address]09-090 2 12/31/2022 12:00:22 12/31/2022 15:16:34 Abscess of skin and/or subcutaneous tissue 40058991 L02.91 1) cleanse incision daily2) moisturize 3) scrub gently with washcloth daily4) return to office should a problem arise [id number] Shabbir Andrade MD [facility] ([facility]) [address] [place] [phone] 0 01/07/2023 14:44:34 01/08/2023 16:54:00 Essential hypertension 78408735 I10 Increase Losartan to 50 mg, side effects were discussed OV 12/31/2022I will add Losartan 25 mg to his Amlodipine 10 mg and HCTZ 25 mg, side effects including but not limited to a rash, an allergic reaction, dizziness and a headache were discussed. Open wound of hand 51890 2004 S61.401D [id number] Darryl Woodall MD [facility] ([facility]) [address] [place] [address] 97460-882 2 01/10/2023 13:46:45 01/16/2023 13:00:19 Chronic kidney disease stage 3 706572638 N18.30 Patient is euvolemic. No volume overload or uremic symptoms. Continue to monitor renal function periodical ly.labs done on 09/25/22 elevated creatinine . Cr 1.36 mg/dl and eGFR 54%. Patient is doing fine. Essential hypertension 92317105 I10 Hypertensi on. stable. continue current meds. Vitamin D deficiency 347 82678 E55.9 Goal vitamin D is > 30. Check Vitamin D level periodical ly. [id number] Darryl Woodall MD [facility] ([facility]) [address] [place] [address] 04/11/2023 14:30:41 04/14/2023 14:16:00 Chronic kidney disease stage 3 698334376 N18.30 Patient is euvolemic. No volume overload or uremic symptoms. Continue to monitor renal function periodical ly.labs done on 09/25/22 elevated creatinine . Cr 1.36 mg/dl and eGFR 54%. Patient is doing fine.No repeat labs available for this visit. Essential hypertension 23567556 I10 Hypertensi on. uncontroll ed. add metoprolol tartrate 25 mg po bid. continue other current meds. Vitamin D deficiency 347 69374 E55.9 Goal vitamin D is > 30. Check Vitamin D level periodical ly. [id number] MD Shoaib Avila (Adult Med) [address] [place] [address] [phone] 0 07/18/2023 11:43:33 07/23/2023 19:06:36 Essential hypertension 90157309 I10 StableHe was seen by the cardiologi st and his Losartan was increased to 100 mg although it appears that he has been taking the 50 mg dose, he is to continue the Amlodipine 10 mg Metoprolol 50 mg BID and HCTZ 25 mg. OV 01/07/2023I ncrease Losartan to 50 mg, side effects were discussed OV 12/31/2022I will add Losartan 25 mg to his Amlodipine 10 mg and HCTZ 25 mg, side effects including but not limited to a rash, an allergic reaction, dizziness and a headache were discussed. Type 2 davy betes mellitus without complication 510516344 E11.9 HBA1C 6.5% 04/17/2023 Discussed History of syphilis 1087 934333 519474 Z86.19 Labs 03/14/2023 , RPR 1:8, previously 1:64 on 01/25/2022 OV 05/14/2022H e has completed his regimen and will need a repeat RPR in 6 months OV 03/26/2022 He needs to restart and complete his treatment course 02/08/2022 This suggests reinfectio n or treatment failure, his HIV test was negative.C omplicatio ns of Syphilis were discussed, I will retreat him again and he was advised to complete the course of Bicillin.R IL 1:64 (01/25/2022 )Bicillin 03/22/2020 , 03/29/2020, it does not appear that he ever returned for the 3rd doseRPR 1:2 ( 0)Bicillin administer ed here on 04/23/18 and 04/30/2018RP R 1:256 04/11/2018 ([facility]) Body mass index 30+ - obesity 158265781 Z68.30 Chronic cough 18637838 R 05.3 Loss of consciousness 41 9310141 R55 Cellulitis of foot 32961 6007 L03.116 L03.396 [id number] MD [facility] (Adult Med) [address] [place] [address] 07/25/2023 13:32:47 07/28/2023 15:36:16 Essential hypertension 20294485 I10 Stable OV 07/18/2023S tableHe was seen by the cardiologi st and his Losartan was increased to 100 mg although it appears that he has been taking the 50 mg dose, he is to continue the Amlodipine 10 mg Metoprolol 50 mg BID and HCTZ 25 mg. OV 01/07/2023I ncrease Losartan to 50 mg, side effects were discussed OV 12/31/2022I will add Losartan 25 mg to his Amlodipine 10 mg and HCTZ 25 mg, side effects including but not limited to a rash, an allergic reaction, dizziness and a headache were discussed. Type 2 davy betes mellitus without complication 755526133 E11.9 HBA1C 6.5% on 07/18/2023O phthalmolo gist OV 07/18/2023H BA1C 6.5% 04/17/2023 Discussed History of syphilis 1087 050488 380347 Z86.19 1:8 07/18/2023 OV 07/18/2023L abs 03/14/2023 , RPR 1:8, previously 1:64 on 01/25/2022 OV 05/14/2022H e has completed his regimen and will need a repeat RPR in 6 months OV 03/26/2022 He needs to restart and complete his treatment course 02/08/2022 This suggests reinfectio n or treatment failure, his HIV test was negative.C omplicatio ns of Syphilis were discussed, I will retreat him again and he was advised to complete the course of Bicillin.R IL 1:64 (01/25/2022 )Bicillin 03/22/2020 , 03/29/2020, it does not appear that he ever returned for the 3rd doseRPR 1:2 ( 0)Bicillin administer ed here on 04/23/18 and 04/30/2018RP R 1:256 04/11/2018 ([facility]) Dyspnea on exertion 6084 5006 R06.09 [id number] [address] [facility] ([facility]) [address] [place] [address] [phone] 2 09/05/2023 12:42:22 09/12/2023 16:18:25 Chronic kidney disease stage 3 941310506 N18.30 Patient is euvolemic. No volume overload or uremic symptoms. Continue to monitor renal function periodical ly.labs done on 09/25/22 elevated creatinine . Cr 1.36 mg/dl and eGFR 54%. Patient is doing fine.No repeat labs available for this visit. labs ordered. Essential hypertension 11414191 I10 Hypertensi on. uncontroll ed. BP 155/99 in the clinic. added metoprolol tartrate 25 mg po bid. continue other current meds. Vitamin D deficiency 347 37771 E55.9 Goal vitamin D is > 30. Check Vitamin D level periodical ly. add ergocalcif kaitlynn 50,000 units po Q weekly. Near syncope 075558491 R 55 Patient had a near syncope episode and asked to go to ER. Patient agreed to go to the ER. EMT was called and patient refused to go to ER once EMT staff was here in the building.o f note: patient mentioned that he has been having near syncopal episodes off and on but has not gone to ER for evaluation . So EMT was called and we tried to help him to get evaluated in the ER/ Hospital but patient refused to go to the ER and turned away EMT staff. patient is capable to make decision and we could not force him to go to the ER. Patient left the clinic in a stable condition. [id number] MD Shoaib Avila (Adult Med) [address] [place] [address] [phone] 0 09/10/2023 14:54:43 09/11/2023 21:02:33 Disorder of coronary artery 018179488 I77.9 Minimal CAD on the CC B-type aleksey riuretic peptide above reference range 7649890987 57626 R89.1 [id number] MD Shoaib Avila (Adult Med) [address] [place] [address] [phone] 0 11/03/2023 15:08:31 11/04/2023 12:52:17 Benign hypertension 79802723 I10 Uncontroll ed due to poor compliance Onychomyco sis of toenails 129395502 B35.1 Edema of l ower extremity 314736757 R60.0 [id number] Shabbir Andrade MD [facility] (Adult Med) [address] [place] [address] 12/16/2023 14:50:45 12/17/2023 11:07:25 Benign hypertension 61623519 I10 Better when it was recheckedH owever, it is unclear if he has been taking Metoprolol 25 mg or 50 mg Infection of toe 2283690 06 L08.9 Itching of skin 07238023 0 L29.9 Screening for malignant neoplasm of prostate 930312447 Z12.5 General ex amination of patient 663548950 Z00.01 Type 2 davy betes mellitus without complication 283114503 E11.9 Labs OV 07/25/2023H BA1C 6.5% on 07/18/2023O phthalmolo gist OV 07/18/2023H BA1C 6.5% 04/17/2023 Discussed [id number] TRACY HUNT DPM [facility] [address] [place] [address] 12/26/2023 15:44:08 01/19/2024 08:51:07 Tinea pedis 1732912 B35.3 The patient was educated why and how the fungal infection evolved in their feet and the patient was given informatio n regarding how to prevent further infection. The patient was told to keep feet dry and change socks. The patient was told to be careful with old shoes and excessive sweating. The patient was educated regarding both OTC and prescripti on treatments . Xerosis du e to atopic dermatitis 785314786 L85.3 The patient was educated regarding proper hydration of their feet/ankle s and the patient was given several recommenda tions for proper creams to protect/hy drate and keep the area healthy. Bilateral atherosclerosis of arteries of lower limbs 1064087631 2582095 I70.203 The patient was educated about the importance of exercise, diet and the need to protect their feet in order to prevent injury or ulceration .Foreign Body: Pain in right foot 38979 93158 97948 M79.671 Pain in left foot 880653 0582 84830 M79.672 Onychomycosis 126277712 B35.1 The patient was educated why and how the fungal infection evolved in their feet and the patient was given informatio n regarding how to prevent further infection. The patient was told to keep feet dry and change socks. The patient was told to be careful with old shoes and excessive sweating. The patient was educated regarding both OTC and prescripti on treatments . [id number] Shabbir Andrade MD [facility] (Adult Med) [address] [place] [address] 01/16/2024 13:59:43 01/20/2024 10:25:17 Benign hypertension 72118829 I10 Type 2 davy betes mellitus without complication 884190451 E11.9 HBA1c 6.4% Labs OV 07/25/2023H BA1C 6.5% on 07/18/2023O phthalmolo gist OV 07/18/2023H BA1C 6.5% 04/17/2023 Discussed Fall W19.XXXA Dizzy spells 232349353 R 42 Proteinuria 28828422 R80 .9 Syncope and collapse 309 689495 R55 ER [id number] TRACY HUNT DPM [facility] [address] [place] [address] 01/20/2024 14:23:39 01/20/2024 15:12:51 Tinea pedis 8861372 B35.3 The patient was educated why and how the fungal infection evolved in their feet and the patient was given informatio n regarding how to prevent further infection. The patient was told to keep feet dry and change socks. The patient was told to be careful with old shoes and excessive sweating. The patient was educated regarding both OTC and prescripti on treatments . Xerosis du e to atopic dermatitis 704390952 L85.3 The patient was educated regarding proper hydration of their feet/ankle s and the patient was given several recommenda tions for proper creams to protect/hy drate and keep the area healthy. Bilateral atherosclerosis of arteries of lower limbs 2190423486 5244492 I70.203 The patient was educated about the importance of exercise, diet and the need to protect their feet in order to prevent injury or ulceration .Foreign Body: Pain in right foot 42292 05566 13968 M79.671 Pain in left foot 229228 3460 36571 M79.672 Onychomycosis 940755218 B35.1 The patient was educated why and how the fungal infection evolved in their feet and the patient was given informatio n regarding how to prevent further infection. The patient was told to keep feet dry and change socks. The patient was told to be careful with old shoes and excessive sweating. The patient was educated regarding both OTC and prescripti on treatments . [id number] Shabbir Andrade MD [facility] (Adult Med) [address] [place] [address] 03/24/2024 14:10:12 03/30/2024 10:25:32 Essential hypertension 82888849 I10 Uncontroll edContinue HCTZ and AldactoneR estart Losartan at 25 mg HS, side effects were discussed OV 01/16/2024S table OV 07/18/2023S tableHe was seen by the cardiologi st and his Losartan was increased to 100 mg although it appears that he has been taking the 50 mg dose, he is to continue the Amlodipine 10 mg Metoprolol 50 mg BID and HCTZ 25 mg. OV 01/07/2023I ncrease Losartan to 50 mg, side effects were discussed OV 12/31/2022I will add Losartan 25 mg to his Amlodipine 10 mg and HCTZ 25 mg, side effects including but not limited to a rash, an allergic reaction, dizziness and a headache were discussed. Administra tion of influenza vaccine 56814395 Z23 Administra tion of pneumococcal vaccine 69466582 Z23 [id number] Darryl Woodall MD [facility] ([facility]) [address] [place] [address] 04/09/2024 15:35:44 04/12/2024 15:38:23 Chronic kidney disease stage 3 303279748 N18.30 CKD stage 3 secondary to hypertensi ve nephroscle rosis. Patient is euvolemic. No volume overload or uremic symptoms. Continue to monitor renal function periodical ly.labs done on 09/25/22 elevated creatinine . Cr 1.36 mg/dl and eGFR 54%. Patient is doing fine.No repeat labs available for this visit. labs ordered. Labs done on 01/08/2024 reveals Cr 1.43 mg/dl with eGFR 56%. Essential hypertension 81447317 I10 Hypertensi on. uncontroll ed. BP 169/115 in the clinic. Patient is on metoprolol tartrate 50 mg po bid. continue other current meds.Obed rodriguez has been feeling dizzy for few days and decided to stop taking all his BP meds. He has not taken BP meds for several days so BP has been running high. Patient is counseled regarding the importance of taking the meds and keep BP 140 / 90 or less. He understood and agrred to start taking BP meds. He was advised to go to ER if BP is running high and not meeting the goal of 140/90 or less. Vitamin D deficiency 347 84160 E55.9 Goal vitamin D is > 30. Check Vitamin D level periodical ly. add ergocalcif kaitlynn 50,000 units po Q weekly. [id number] [facility] [address] [place] [address] 06/02/2024 14:39:48 06/07/2024 12:09:54 Essential hypertension 16668417 I10 Stable when rechecked Uncontroll edContinue HCTZ and AldactoneR estart Losartan at 25 mg HS, side effects were discussed OV 01/16/2024S table OV 07/18/2023 tableHe was seen by the cardiologi and his Losartan was increased to 100 mg although it appears that he has been taking the 50 mg dose, he is to continue the Amlodipine 10 mg Metoprolol 50 mg BID and HCTZ 25 mg. OV 01/07/2023I ncrease Losartan to 50 mg, side effects were discussed OV 12/31/2022I will add Losartan 25 mg to his Amlodipine 10 mg and HCTZ 25 mg, side effects including but not limited to a rash, an allergic reaction, dizziness and a headache were discussed. Follow-up visit 93297424 9 Z09 History of influenza 789 343719 Z87.09 Amphetamin e dependence 95281212 F15.20 Disorder o f lipid metabolism 833837698 E78.9 Right vent ricular failure 275571347 I50.810 Tricuspid valve regurgitation 097310414 I07.1 [id number] Alirio Alvarado DPM [facility] [address] [place] [address] 07/12/2024 14:46:14 07/12/2024 16:39:45 Tinea pedis 8324377 B35.3 The patient was educated why and how the fungal infection evolved in their feet and the patient was given informatio n regarding how to prevent further infection. The patient was told to keep feet dry and change socks. The patient was told to be careful with old shoes and excessive sweating. The patient was educated regarding both OTC and prescripti on treatments . Xerosis du e to atopic dermatitis 851600272 L85.3 The patient was educated regarding proper hydration of their feet/ankle s and the patient was given several recommenda tions for proper creams to protect/hy drate and keep the area healthy. Bilateral atherosclerosis of arteries of lower limbs 0331020237 0010690 I70.203 The patient was educated about the importance of exercise, diet and the need to protect their feet in order to prevent injury or ulceration . Pain in right foot 20736 43594 23955 M79.671 Pain in left foot 411954 9702 79681 M79.672 Onychomycosis 017760154 B35.1 The patient was educated why and how the fungal infection evolved in their feet and the patient was given informatio n regarding how to prevent further infection. The patient was told to keep feet dry and change socks. The patient was told to be careful with old shoes and excessive sweating. The patient was educated regarding both OTC and prescripti on treatments . [id number] Shabbir Andrade MD [facility] (Adult Med) [facility] [place] [address] 07/16/2024 15:13:26 07/21/2024 10:49:16 Essential hypertension 18658405 I10 Uncontroll ed due to non compliance OV 06/02/2024St able when rechecked Uncontroll edContinue HCTZ and AldactoneR estart Losartan at 25 mg HS, side effects were discussed OV 01/16/2024 table OV 07/18/2023 tableHe was seen by the cardiologi st and his Losartan was increased to 100 mg although it appears that he has been taking the 50 mg dose, he is to continue the Amlodipine 10 mg Metoprolol 50 mg BID and HCTZ 25 mg. OV 01/07/2023I ncrease Losartan to 50 mg, side effects were discussed OV 12/31/2022I will add Losartan 25 mg to his Amlodipine 10 mg and HCTZ 25 mg, side effects including but not limited to a rash, an allergic reaction, dizziness and a headache were discussed. Amphetamin e dependence 92033910 F15.20 Right vent ricular failure 804795296 I50.810 Tricuspid valve regurgitation 531508359 I07.1 Dyspnea 805621938 R06.00 Cardiomyopathy 65369304 I42.9 [id number] Nicolette Samaniego MD [facility] (Adult Med) [address] [place] [address] 08/18/2024 11:33:37 08/21/2024 03:48:11 Type 2 diabetes mellitus without complication 092106731 E11.9 [id number] Alirio Alvarado Tram [facility] [address] [place] [address] 10/13/2024 13:51:34 10/13/2024 14:26:29 Tinea pedis 6328870 B35.3 The patient was educated why and how the fungal infection evolved in their feet and the patient was given informatio n regarding how to prevent further infection. The patient was told to keep feet dry and change socks. The patient was told to be careful with old shoes and excessive sweating. The patient was educated regarding both OTC and prescripti on treatments .apply topical rx to nasrin foot rash qd Xerosis du e to atopic dermatitis 199079626 L85.3 The patient was educated regarding proper hydration of their feet/ankle s and the patient was given several recommenda tions for proper creams to protect/hy drate and keep the area healthy. Bilateral atherosclerosis of arteries of lower limbs [id number] I70.203 The patient was educated about the importance of exercise, diet and the need to protect their feet in order to prevent injury or ulceration . Pain in right foot 93194 18219 14940 M79.671 Pain in left foot 590785 2181 32862 M79.672 Onychomycosis 999114732 B35.1 The patient was educated why and how the fungal infection evolved in their feet and the patient was given informatio n regarding how to prevent further infection. The patient was told to keep feet dry and change socks. The patient was told to be careful with old shoes and excessive sweating. The patient was educated regarding both OTC and prescripti on treatments . [id number] Shabbir Andrade MD [facility] (Adult Med) [address] [place] [address] 01/06/2025 14:36:55 01/07/2025 14:14:42 Essential hypertension 95517171 I10 He should continue Losartan 25 mg po daily, Metoprolol ER 12.5 mg po daily and Furosemide 80 mg PO BID, not once a day OV 07/16/2024U ncontrolle d due to non compliance OV 06/02/2024St able when rechecked Uncontroll edContinue HCTZ and AldactoneR estart Losartan at 25 mg HS, side effects were discussed OV 01/16/2024S table OV 07/18/2023 tableHe was seen by the cardiologi st and his Losartan was increased to 100 mg although it appears that he has been taking the 50 mg dose, he is to continue the Amlodipine 10 mg Metoprolol 50 mg BID and HCTZ 25 mg. OV 01/07/2023I ncrease Losartan to 50 mg, side effects were discussed OV 12/31/2022I will add Losartan 25 mg to his Amlodipine 10 mg and HCTZ 25 mg, side effects including but not limited to a rash, an allergic reaction, dizziness and a headache were discussed. Amphetamin e dependence 69482380 F15.20 Post-disch arge follow-up 263293402 Z09 583673 History of cerebrovascular accident 547991826 Z86.73 734970 History of a CVA with left sided weakness Chronic co mbined systolic and diastolic heart failure [id number] 65699 I50.42 264413 Type 2 davy betes mellitus 67966281 E11.9 27470136 HBA1C 6.2% on 05/15/2024R estart/con tinue Atorvastat in 40 mg po daily Chronic ob structive pulmonary disease 74383901 J44.9 Gastroesop hageal reflux disease 810987719 K21.00 Therapeuti c drug monitoring assay 51779585 Z51.81 521788 His Aldactone was discontinu ed on the 12/17/2024 discharge Requires i nfluenza virus vaccination 452229882 Z23 824746 Chronic ki dney disease stage 3A 005573717 N18.31 56736096 [id number] Alirio Alvarado DPM [facility] [address] [place] [address] 01/12/2025 13:18:38 01/13/2025 08:42:56 Tinea pedis 5288689 B35.3 The patient was educated why and how the fungal infection evolved in their feet and the patient was given informatio n regarding how to prevent further infection. The patient was told to keep feet dry and change socks. The patient was told to be careful with old shoes and excessive sweating. The patient was educated regarding both OTC and prescripti on treatments .apply topical rx to nasrin foot rash qd Xerosis du e to atopic dermatitis 207786385 L85.3 The patient was educated regarding proper hydration of their feet/ankle s and the patient was given several recommenda tions for proper creams to protect/hy drate and keep the area healthy. Bilateral atherosclerosis of arteries of lower limbs [id number] 9683268 I70.203 The patient was educated about the importance of exercise, diet and the need to protect their feet in order to prevent injury or ulceration . Pain in right foot 17455 73728 93399 M79.671 Pain in left foot 355006 2985 24597 M79.672 Onychomycosis 570477461 B35.1 The patient was educated why and how the fungal infection evolved in their feet and the patient was given informatio n regarding how to prevent further infection. The patient was told to keep feet dry and change socks. The patient was told to be careful with old shoes and excessive sweating. The patient was educated regarding both OTC and prescripti on treatments . [id number] Shabbir Andrade MD [facility] (Adult Med) [address] [place] [address] 02/11/2025 14:05:52 02/14/2025 12:47:40 Essential hypertension 72207470 I10 Stable on Losartan 25 mg po daily, Metoprolol ER 12.5 mg po daily and Furosemide 80 mg PO BID (OD). OV 01/12/2025H e should continue Losartan 25 mg po daily, Metoprolol ER 12.5 mg po daily and Furosemide 80 mg PO BID, not once a day OV 07/16/2024U ncontrolle d due to non compliance OV 06/02/2024 able when rechecked Uncontroll edContinue HCTZ and AldactoneR estart Losartan at 25 mg HS, side effects were discussed OV 01/16/2024 table OV 07/18/2023 tableHe was seen by the cardiologi st and his Losartan was increased to 100 mg although it appears that he has been taking the 50 mg dose, he is to continue the Amlodipine 10 mg Metoprolol 50 mg BID and HCTZ 25 mg. OV 01/07/2023 ncrease Losartan to 50 mg, side effects were discussed OV 12/31/2022I will add Losartan 25 mg to his Amlodipine 10 mg and HCTZ 25 mg, side effects including but not limited to a rash, an allergic reaction, dizziness and a headache were discussed. Chronic co mbined systolic and diastolic heart failure [id number] 69616 I50.42 396366 On Aldactone 25 mg po daily Type 2 davy betes mellitus 50004159 E11.9 84799508 HBA1C 6.4% on 01/24/2025O n Jardiance ? dose. Overweight in adulthood with body mass index of 25 or more but less than 30 511291594 E66.3 Z68.26 [id number] Overweight 758625546 E66 .3 Review of medication 182 205776 Z79.899 [id number] I need clarificat ion about the dose of his Jardiance. It does not appear that he is taking his statin Health Concerns Section Related Observation LastModified by Organization Detai ls LastModified Time None Recorded Concern Status LastModified by Organization Details LastModified Time None Recorded Advance Directives Directive N: Payers Insurance Date Sequence Insurance Name Policy Number Policy Paredes Covered Member ID Paredes Member ID Guarantor Name 02/15/2019 PAYMENT PLAN Lex Sykes 02/14/2025 1 [place] ON OR AFTER 10/26/20 (MEDICAID REPLACEMENT - HMO) Lex Sykes [id number] Lex Sykes 12/07/2024 1 [place] PRIOR TO 10/26/2020 (MEDICAID REPLACEMENT - HMO) Lex Sykes [id number] Lex Sykes 12/07/2024 1 [facility] (MEDICAID HMO) Lex Sykes [id number] Lex Sykes 12/07/2024 [place] Lex Sykes [id number] Lex Sykes Notes Date Note Type Note Provider Name and Address Organization Details Recorded Time 10/13/2024 text/html ROS as noted in the HPI Patient presents today for evaluation and treatment of nail deformities as well as generalized foot care. The patient states their nails are painful. The patient has been unable to provide self care due to the severe nature of the deformity and their medical condition(s). The patient is receiving medically necessary foot care in order to prevent further problems as well as to relieve irritation and discomfort. Denies nausea, vomiting, fever, chills, shortness of breath, chest pain, difficulty breathing, calf pain. Patient reports thickened skin on the inside of her big toes, thickened toenails, toe nail changes, skin changes on lower legs, tingling and numbness in toes and feet Alirio Alvarado DP [address] [place], [address], [facility] 10/13/2024 14:27:28 01/06/2025 text/html Diabetes F/URepo rted by PatientHPIFor associated symptoms, patient reportsweight loss (50 lbs)but reportsno weight gain,no dizziness,no sweats,no headaches,no confusion,no increased thirst,no increased appetite,no increased urination,no blurred vision,no numbness of feet, andno calluses on feet. For context, patient reportstaking aspirin daily,not missing doses of medications, andno side effects from medications.ROS as noted in the HPI Poor historian I am doing a lot betterFollow up from the hospitalTotally paralyzed on the left Ms Sykes was last seen on 07/16/2024, on that visit, he was sent to the hospital and in the interim, he has had multiple ER visits and hospital admissions.Admitted to;[facility] 12/13/2024-12/17/2024 with [facility] 11/14/2024-11/19/2024 with [facility] 07/16/2024-07/30/2024 (AMA) with CVA with L sided weakness, COPD, acute respiratory failure ; AECOPD, HTN (with accelerated hypertension); Tobacco abuse and Methamphetamine abuse. He is doing relatively well and he has been compliant with his medications Shabbir Andrade MD Attn: Accounting[address] [facility], [place], [address], [facility] 01/06/2025 18:27:15 01/12/2025 text/html ROS as noted in the HPI Patient presents today for evaluation and treatment of nail deformities as well as generalized foot care. The patient states their nails are painful. The patient has been unable to provide self care due to the severe nature of the deformity and their medical condition(s). The patient is receiving medically necessary foot care in order to prevent further problems as well as to relieve irritation and discomfort. Denies nausea, vomiting, fever, chills, shortness of breath, chest pain, difficulty breathing, calf pain. Patient reports thickened skin on the inside of her big toes, thickened toenails, toe nail changes, skin changes on lower legs, tingling and numbness in toes and feet Alirio Alvarado [facility] [address] [place], [address], [facility] 01/12/2025 14:27:24 02/11/2025 text/html Diabetes F/URepo rted by PatientHPIFor associated symptoms, patient reportsweight loss (5 lbs)but reportsno weight gain,no dizziness,no sweats,no headaches,no confusion,no increased thirst,no increased appetite,no increased urination,no blurred vision,no numbness of feet, andno calluses on feet. For labs, patient reportslast a1c result: 6.4%. For context, patient reportsnormal range of home blood sugars (in the low 100s),seeing eye doctor regularly,checking feet regularly,taking aspirin daily,not missing doses of medications, andno side effects from medications. Hypertension F/UReported by PatientHPIFor associated symptoms, patient reportsno dizziness,no lightheadedness,no chest pain,no shortness of breath,no palpitations,no edema, andno calf pain with exertion. For lifestyle, patient reportsregular exerciseandlimiting/a voiding salt. For medications, patient reportstaking medications as directedandno side effects from medication.ROS as noted in the HPI Mr Mony is here for a medication review Shabbir Andrade MD Attn: Accounting[address] , [place], [address], [place] [facility] 02/11/2025 19:01:52
--- OUTSIDE RECORDS SUMMARY | 2025-02-21 15:19 | XMS_ITS | Data Portability ---
Author Organization [place] [facility], Main Office Address [address] [place] [address] Assessment Encounter Date Assessment Date Assessment LastModified by Organization Details LastModified Time 09/25/2022 09/25/2022 This note is dictated and transcribed by [employer]. Sub Master variances may occur. Despite proofreading, typographical errors may occur. Not available 09/25/2022 15:59:28 10/23/2022 10/23/2022 This note is dictated and transcribed by [employer]. Sub Master variances may occur. Despite proofreading, typographical errors may occur. Not available 10/23/2022 14:59:13 11/06/2022 11/06/2022 This note is dictated and transcribed by [employer]. Sub Master variances may occur. Despite proofreading, typographical errors may occur. Not available 11/07/2022 09:00:16 09/30/2023 09/30/2023 Assessment: Nicotine smoke: 04/30 ppd 1987-present = 12 pack years Cough Dyspnea Plan: The following were reviewed and explained to the patient: 2-D echocardiogram 01/09/17 mild TR, PASP 32 mmHg, EF 60% PFT 05/09/22 nl FEV1/FVC, FEV1 2.93 L (103%), TLC 6.43 L (114%), DLCO 58%, DLCO/VA 74% PFT 01/26/16 nl FEV1/FVC, FEV1 3.86 L (112%), TLC 6.29 L (100%), DLCO 87%, DL/VA 87% Lab data 08/12/[address] 08/16/22 no lung pathology, (+) T10 sclerosis, (+) retrocrural density Nicotine cessation counseling provided. [place] for quitting nicotine include getting ready, getting support and encouragement, learning new skills and behaviors and being prepared to handle slips. Tips for dealing with cravings provided. Prevention of subsequent illnesses from nicotine addiction discussed. Comorbidities include but are not limited to hypertension, cerebrovascular disease, coronary heart disease, congestive heart failure, hyperlipidemia, COPD/asthma, peptic ulcer disease, esophagitis/gastri tis, and osteoporosis. Therapy options offered include: Quitting by total abstinence Receiving nicotine replacement therapy Undergoing hypnosis Filling a bupropion or varenicline prescription Enrolling in Quit For Life program Registering at [email or web address] Making a call to 4-558-WJXX-NOW ( ). A strong, clear, personalized message was given to the patient to quit smoking. The patient was urged to set a quit date. We discussed patient's barriers to quitting and I will be of assistance when patient is ready to quit. I encouraged patient to inform friends and family of plans to quit with a request for support. I encouraged the patient to remove all cigarettes from the environment. We reviewed any previous quit attempts and lessons learned from them. I encouraged total abstinence from smoking and advised the patient that drinking alcohol and/or associating with other smokers are associated with failure or relapse. Patient can enroll in [facility]'s smoking cessation class through Aria Turner RN at . Enrollment is free and classes are held every friday of the month from 1:30 pm to 2:30 pm at the conference room next to the cafeteria on the ground floor. Workup will be done as follows: Methacholine challenge testing Bubble echocardiogram MRI of thoracic spine Advised to continue not to smoke. Continue albuterol HFA as needed. Continue Symbicort HFA 160/4.5 mcg 2 puffs BID, not daily. Gargle after use. The patient does not know how to accurately administer the inhalers. Today, the patient was shown how to take these medications. The proper technique for delivering these medications was instructed. The patient expressed a clear understanding and demonstrated back how to use these medications. Without the proper technique, the patient will not reap the benefits of these medications as the contents will not reach the lower airways as intended to be. Adherence to therapy is advocated. Nonadherence may lead to treatment failure, further progression of the condition, and other complications. Hospitals admissions are often the result of individuals not taking prescription medications accurately. Alternatively, greater adherence to medication regimens have shown to lower rates of hospitalization and decrease total medical costs in patients with chronic medical conditions. Advocated influenza vaccination annually and pneumonia vaccination in 2028. Advocated weight loss through diet and exercise. Patient's ideal body weight according to height and gender is up to 160 lbs. Encouraged patient to adjust caloric intake to maintain/achieve ideal body weight, emphasizing on fruits, vegetables, whole grains, and fat-free or low-fat products. These include lean meats, poultry, fish, beans, eggs, and nuts and foods that are low in saturated fats, trans-fats, cholesterol, salt (sodium), and glycemic index. Stressed the importance of regular exercise up to the patient's capacity limits. In this case, we recommend 20 min daily walking, 2 days a week of resistance training. Patient to monitor BP daily and bring records to PCP for further management. Follow-up: 1 week after testing Not available 09/30/2023 15:12:47 11/19/2023 11/19/2023 Assessment: Nicotine smoke: 04/30 ppd 1987-present = 12 pack years Cough Dyspnea Plan: The following were reviewed and explained to the patient: 2-D echocardiogram 01/09/17 mild TR, PASP 32 mmHg, EF 60% Lab data 08/12/[address] 08/16/22 no lung pathology, (+) T10 sclerosis, (+) retrocrural density MRI of thoracic spine 09/25/22 T10 hemangioma PFT 01/26/16 nl FEV1/FVC, FEV1 3.86 L (112%), TLC 6.29 L (100%), DLCO 87%, DLCO/VA 87% PFT 05/09/22 nl FEV1/FVC, FEV1 2.93 L (103%), TLC 6.43 L (114%), DLCO 58%, DLCO/VA 74% Methacholine challenge testing 11/19/23 (-) methacholine challenge up to level 5 Nicotine cessation counseling provided. [place] for quitting nicotine include getting ready, getting support and encouragement, learning new skills and behaviors and being prepared to handle slips. Tips for dealing with cravings provided. Prevention of subsequent illnesses from nicotine addiction discussed. Comorbidities include but are not limited to hypertension, cerebrovascular disease, coronary heart disease, congestive heart failure, hyperlipidemia, COPD/asthma, peptic ulcer disease, esophagitis/gastri tis, and osteoporosis. Therapy options offered include: Quitting by total abstinence Receiving nicotine replacement therapy Undergoing hypnosis Filling a bupropion or varenicline prescription Enrolling in Quit For Life program Registering at [email or web address] Making a call to 4-376-XHGR-NOW ( ). A strong, clear, personalized message was given to the patient to quit smoking. The patient was urged to set a quit date. We discussed patient's barriers to quitting and I will be of assistance when patient is ready to quit. I encouraged patient to inform friends and family of plans to quit with a request for support. I encouraged the patient to remove all cigarettes from the environment. We reviewed any previous quit attempts and lessons learned from them. I encouraged total abstinence from smoking and advised the patient that drinking alcohol and/or associating with other smokers are associated with failure or relapse. Patient can enroll in [facility]'s smoking cessation class through Aria Turner RN at . Enrollment is free and classes are held every friday of the month from 1:30 pm to 2:30 pm at the conference room next to the cafeteria on the ground floor. Workup will be done as follows: Methacholine challenge testing Bubble echocardiogram MRI of thoracic spine Advised to continue not to smoke. Keep albuterol HFA as needed for bronchitic episodes. Discontinue Symbicort HFA 160/4.5 mcg. Adherence to therapy is advocated. Nonadherence may lead to treatment failure, further progression of the condition, and other complications. Hospitals admissions are often the result of individuals not taking prescription medications accurately. Alternatively, greater adherence to medication regimens have shown to lower rates of hospitalization and decrease total medical costs in patients with chronic medical conditions. Advocated influenza vaccination annually and pneumonia vaccination in 2028. Advocated weight loss through diet and exercise. Patient's ideal body weight according to height and gender is up to 160 lbs. Encouraged patient to adjust caloric intake to maintain/achieve ideal body weight, emphasizing on fruits, vegetables, whole grains, and fat-free or low-fat products. These include lean meats, poultry, fish, beans, eggs, and nuts and foods that are low in saturated fats, trans-fats, cholesterol, salt (sodium), and glycemic index. Stressed the importance of regular exercise up to the patient's capacity limits. In this case, we recommend 20 min daily walking, 2 days a week of resistance training. Patient to monitor BP daily and bring records to PCP for further management. Follow-up: as needed Not available 11/19/2023 12:03:56 Plan of Treatment Reminders Order Date Submit Date Provider Last Modified By Organization Details Last Modified Time Details Appointments None recorded. Lab C-reactive protein, quantitativ e, serum or plasma 2022 023 [email or web address] [facility] (Lab), [address] [place], [address], 3 18:07:22 CBC 2022 023 [facility] (Lab), [address] [place], [address], 3 21:51:31 CMP, serum or plasma 2022 023 [facility] (Lab), [address] [place], [address], 3 17:14:19 ESR (erythrocyt e sedimentati on rate), blood 2022 023 [facility] (Lab), [address] [place], [address], 3 17:26:28 Referral None recorded. Procedures None recorded. Surgeries None recorded. Imaging MRI, thoracic spine, w/wo contrast - T10 sclerosis, retrocrural density. Auth Denied 10/01/2023. Provider aware, Appointment needs to be canceled. 2023 024 [email or web address] 82 [facility] ([facility]), [address] [place], [address], 4 08:29:49 US, echocardiog rodriguez, transthorac ic, bubble study - check for shunt; approved [id number] 10/01/2023 - 09/30/20242023 024 [email or web address] 82 [facility] ([facility] Sched[facility]), [address] [place], [address], 4 08:33:13 MRI, ankle, w/wo contrast - rule out soft tissue tumor medial ankle 2022 023 [email or web address] [facility] ([facility] Scheduling), [address] [place], [address], 3 17:26:18 Medication Orders gentamicin 0.1 % topical ointment [address] [id number], [address] [place], [place], [id number], 4 16:31:15 gentamicin 0.1 % topical ointment [address] [id number], [address] [place], [place], [id number], 4 16:31:15 mupirocin 2 % topical ointment 2022 023 [email or web address] [id number], [address] [place], [place], [id number], 3 15:04:52 Patient TargetsNo targets recorded. Patient Instructions Encounter Date Encounter Id Patient Instructions Last Modified By Organization Details Last Modified Time 09/30/2023 [id number] methacholine challenge* - no auth required Not available 10/08/2023 09:43:27 Reason for Referral None Reported. Results Created Date Observation Date Name Description Value Unit Range Abnormal Flag Note LastModifiedBy Organization Detail LastModifiedTime 09/26/19 23 09/25/2022 COMPR EHENS LUIS METAB OLIC PANEL sodium 141 mmol/ L 137-14 5 Not Available [facility] (Lab) [address] [facility] [place], [address], 09/25/2022 17:14:19 09/26/19 23 09/25/2022 COMPR EHENS LUIS METAB OLIC PANEL potassium 3.5 mmol/ L 3.5-5. 1 Not Available [facility] (Lab) [address] [place], [address], 09/25/2022 17:14:19 09/26/19 23 09/25/2022 COMPR EHENS LUIS METAB OLIC PANEL chloride 103 mmol/ L 98-107 Not Available [facility] (Lab) [address] [place], [address], 09/25/2022 17:14:19 09/26/19 23 09/25/2022 COMPR EHENS LUIS METAB OLIC PANEL carbon dioxide 24 mmol/ L 22-30 Not Available [facility] (Lab) [address] [place], [address], 09/25/2022 17:14:19 09/26/19 23 09/25/2022 COMPR EHENS LUIS METAB OLIC PANEL anion gap 17.5 mmol/ L 14-22 Not Available [facility] (Lab) [address] [place], [address], 09/25/2022 17:14:19 09/26/19 23 09/25/2022 COMPR EHENS LUIS METAB OLIC PANEL glucose 94 mg/dL 70-99 Not Available [facility] (Lab) [address] [place], [address], 09/25/2022 17:14:19 09/26/19 23 09/25/2022 COMPR EHENS LUIS METAB OLIC PANEL BUN 18 mg/dL 8-19 Not Available [facility] (Lab) [address] [place], [address], 09/25/2022 17:14:19 09/26/19 23 09/25/2022 COMPR EHENS LUIS METAB OLIC PANEL creatinine 1.36 mg/dL 0.66-1 .25 high Not Available [facility] (Lab) [address] [place], [address], 09/25/2022 17:14:19 09/26/19 23 09/25/2022 COMPR EHENS LUIS METAB OLIC PANEL GFR 54 Refer ence Range : Lucan ge GFR Healt hy Adult : >60 mL/mi n/1.7 3 m2 Chron ic Kidne y Disea se: 15-60 mL/mi n/1.7 3 m2 Kidne y Failu re: <15/m L/min /1.73 m2 www.n iddk. nih.g ov The MDRD study equat ion has not been valid ated in child nerissa <18 years of age; pregn ant women ; the elder ly >85 years of age; or in some racia l or ethni c subgr oups, such as Hispa nics. Outsi de the valid ated bebeto eters , estim ated GFR is less accur ate, requi ring clini aisha judgm ent on a case- by-ca se basis . Clini aisha inter preta tion for other races and ages must be made by the clini daniel. The MDRD study equat ion has not been valid ated for the evalu ation of serum creat inine relat ed to nutri malinda l statu s or medic ation usage . For perso ns <18 years of age, a pedia tric GFR calcu lator is avail able on the [facility] websi te: https ://nika w.dgina nielsen.o rg/pr stuartess ional s/kdo qi/gf r_cal culat or Not Available [facility] (Lab) [address] [place], [address], 09/25/2022 17:14:19 09/26/1909/25/2022 COMPR EHENS LUIS METAB OLIC PANEL alkaline phosphatase 71 U/L 38-126 Not Available [facility] (Lab) [address] [place], [address], 09/25/2022 17:14:19 09/26/19 23 09/25/2022 COMPR EHENS LUIS METAB OLIC PANEL alanine aminotransfe rase 24 U/L 0-50 Not Available [facility] (Lab) [address] [place], [address], 09/25/2022 17:14:19 09/26/19 23 09/25/2022 COMPR EHENS LUIS METAB OLIC PANEL aspartate aminotransfe rase 38 U/L 15-46 Not Available [facility] (Lab) [address] [place], [address], 09/25/2022 17:14:19 09/26/19 23 09/25/2022 COMPR EHENS LUIS METAB OLIC PANEL bilirubin, total 0.80 mg/dL 0.20-1 .30 Not Available [facility] (Lab) [address] [place], [address], 09/25/2022 17:14:19 09/26/19 23 09/25/2022 COMPR EHENS LUIS METAB OLIC PANEL calcium 8.8 mg/dL 8.4-10 .2 Not Available [facility] (Lab) [address] [place], [address], 09/25/2022 17:14:19 09/26/19 23 09/25/2022 COMPR EHENS LUIS METAB OLIC PANEL total protein 8.7 g/dL 6.3-8. 2 high Not Available [facility] (Lab) [address] [place], [address], 09/25/2022 17:14:19 09/26/1909/25/2022 COMPR EHENS LUIS METAB OLIC PANEL albumin 4.6 g/dL 3.4-5. 0 Not Available [facility] (Lab) [address] [place], [address], 09/25/2022 17:14:19 09/26/19 23 09/25/2022 COMPR EHENS LUIS METAB OLIC PANEL globulin 4.1 g/dL 2.6-4. 2 Not Available [facility] (Lab) [address] [place], [address], 09/25/2022 17:14:19 09/26/19 23 09/25/2022 COMPR EHENS LUIS METAB OLIC PANEL A/G ratio 1.1 ratio 1.0-2. 0 Not Available [facility] (Lab) [address] [place], [address], 09/25/2022 17:14:19 09/26/19 23 09/25/2022 C REACT LUIS PROTE IN,UL TRA SENS C-reactive protein 0.18 mg/dL 0.0-0. 5 Not Available [facility] (Lab) [address] [place], [address], 09/25/2022 17:17:46 09/26/19 23 09/25/2022 SEDIM ENTAT ION RATE erythrocyte sedimentatio n rate 2 mm/HR 0-20 Not Available [facility] (Lab) [address] [place], [address], 09/25/2022 17:26:28 09/26/19 23 09/25/2022 CBC W/O DIFFE RENTI AL white blood cells 8.5 x10'3 /uL 4.2-10 .8 Not Available [facility] (Lab) [address] [place], [address], 09/25/2022 21:51:31 09/26/19 23 09/25/2022 CBC W/O DIFFE RENTI AL red blood cells 6.28 x10'6 /uL 4.10-5 .80 high Not Available [facility] (Lab) [address] [place], [address], 09/25/2022 21:51:31 05/31/09/25/2022 CBC W/O DIFFE RENTI AL hemoglobin 14.4 g/dL 13.2-1 7.0 Not Available [facility] (Lab) [address] [place], [address], 09/25/2022 21:51:31 09/26/19 23 09/25/2022 CBC W/O DIFFE RENTI AL hematocrit 47.7 % 39.3-5 0.0 Not Available [facility] (Lab) [address] [place], [address], 09/25/2022 21:51:31 09/26/19 23 09/25/2022 CBC W/O DIFFE RENTI AL mean red cell volume 76.0 fL 80.0-9 7.0 low Not Available [facility] (Lab) [address] [place], [address], 09/25/2022 21:51:31 09/26/19 23 09/25/2022 CBC W/O DIFFE RENTI AL mean red cell hemoglobin 22.9 pg 27.0-3 3.0 low Not Available [facility] (Lab) [address] [place], [address], 09/25/2022 21:51:31 09/26/19 23 09/25/2022 CBC W/O DIFFE RENTI AL mean RBC HGB concentratio n 30.2 g/dL 31.0-3 6.0 low Not Available [facility] (Lab) [address] [place], [address], 09/25/2022 21:51:31 09/26/19 23 09/25/2022 CBC W/O DIFFE RENTI AL red cell distribution width 23.0 % 11.8-1 5.5 high Not Available [facility] (Lab) [address] [place], [address], 09/25/2022 21:51:31 09/26/19 23 09/25/2022 CBC W/O DIFFE RENTI AL platelets 371 x10'3 /uL 150-40 0 Not Available [facility] (Lab) [address] [place], [address], 09/25/2022 21:51:31 09/26/19 23 09/25/2022 CBC W/O DIFFE RENTI AL mean platelet volume 8.7 fL 9.0-12 .4 low Not Available [facility] (Lab) [address] [place], [address], 09/25/2022 21:51:31 09/26/19 23 09/25/2022 CULTU RE WOUND /TISS UE+GR .STAI N [email or web address] ===== ===== ===== ===== ===== ===== ===== ===== ===== ===== ===== ===== ===== ===== ===== ===== ===== ===== ===== ===== ===== ===== ===== ===== CULTU RE NO.: [id number] Exam Statu s: Final Exam Type: CULTU RE WOUND /TISS UE+ ===== ===== ===== ===== ===== ===== ===== ===== ===== ===== ===== ===== ===== ===== ===== ===== ===== ===== ===== ===== ===== ===== ===== ===== Cultu re Repor t: Organ ism #01 Staph yloco ccus aureu s (staa ur) Antib iotic s staau r Achie vable Achie vable (01) Dosag e Serum Level Urine Level mcg/m l mcg/m l Cefox itin Scree n POS + 021D Cipro floxa flavio >=8 R 021D Dapto mycin 0.25 S 021D Doxyc yclin e 1 S 021D Eryth romyc in >=8 R 021D Genta micin <=0.5 S 021D Induc ible Clind amyci NEG - 021D Levof loxac in 4 R 021D Linez olid 2 S 021D Oxaci llin >=4 R 021D Rifam pin <=0.5 S 021D Tetra cycli ne >=16 R 021D Trmet hopri m.Sul fa 20 S 021D Vanco mycin <=0.5 S 021D rt - Test Card Code AST-G P 021D o2 - Final Organ ism STAPH Y 021D af - Antib iotic Fami MACRO L 021D af - Antib iotic Famil y Na ap - Pheno type Name RESIS T 021D ap - Pheno type Name Not Available [facility] (Lab) [address] [place], [address], 09/29/2022 09:59:02 11/04/19 24 09/25/2022 MRI, thora cic spine , w/o contr ast No observ ation record ed. BARCODE Not Available 2023 09:15:35 11/21/19 24 11/19/2023 metha choli ne chall enge* No observ ation record ed. [facility] ([facility]) [address] [place], [address], 11/21/2023 12:49:15 01/27/2001/08/2024 US, echoc ardio gram, trans thora cic, compl ete No observ ation record ed. BARCODE Not Available 2023 09:52:40 07/18/1907/17/2024 XR, chest No observ ation record ed. [email or web address] [facility] [address] [place], [address], 07/19/2024 10:48:56 Result Notes None recorded. Problems Name Problem SNOMED Code Status Onset Date Resolution Date Notes Provider Name and Address Organization Details Recorded Time Current tear of lateral cartilage AND/OR meniscus of knee Active Not Available [facility] 3 18:35:35 Hypercholeste rolemia 18671853 Active 2016 Not Available [facility] 3 18:35:34 Acid reflux 008541702 Active 2016 Not Available [facility] 3 18:35:35 Smoker 39055982 Active 2022 Primo Barker MD [address], [place], [address] , [place] 3 15:53:04 Notes:Medical History: IV me thamphetamine use Depression Rhinitis IgE 38 IU/mL Eosinophils 380/uL AAT PiMM 191 mg% Nicotine use Obesity Hypertension EF 60% Mild TR with PASP 32 mmHg Elevated BNP Hyperlipidemia IFG Hiatal hernia with VIANEY Alcohol use (+) Hepatitis C Syphilis Hypogonadism ED Thoracic DDD T10 hemangioma Hallux valgus Bunion Onychomycosis Procedure History: Left forearm abscess I&D 1990 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 Procedures Surgical History Date Name Laterality Status Provider Name and Address Organization Details Recorded Time 11/06/2022 Wound Care-Podiat ry completed Grace Patterson RN [facility] 11/06/2022 14:20:40 10/23/2022 Wound Care-Podiat ry completed Grace Patterson RN [facility] 10/23/2022 15:10:29 09/25/2022 Wound Care-Podiat ry completed Williams Keita DPM [address], [place], [address], [place] 09/25/2022 15:59:15 Imaging Results None recorded. Procedure Notes None recorded. Medical Equipment None Reported. Allergies No known drug allergies Medications Name Sig Start Date Stop Date Status Note LastModified by Organization Details LastModified Time losartan 50 mg tablet TAKE 1 TABLET BY MOUTH EVERY DAY DIRECTED 09/29 completed Not Available Not Available Not Available ketoconazol e 2 % shampoo 05/09 completed Not Available Not Available Not Available cetirizine 10 mg tablet 08/12 completed Not Available Not Available Not Available benzonatate 200 mg capsule TAKE 1 CAPSULE BY MOUTH THREE TIMES DAILY FOR 5 DAYS NEEDED 09/20 completed Not Available Not Available Not Available hydrocodone 5 mg-acetamin ophen 325 mg tablet 08/12 completed Not Available Not Available Not Available clindamycin HCl 150 mg capsule TAKE THREE CAPSULES BY MOUTH THREE TIMES DAILY FOR 10 DAYS FOR INFECTION 09/20 completed Not Available Not Available Not Available cimetidine 800 mg tablet active Not Available Not Available Not Available amlodipine 5 mg tablet TAKE ONE TABLET BY MOUTH EVERY DAY DIRECTED 09/20 completed Not Available Not Available Not Available peg-electro lyte solution 420 gram oral solution TAKE DIRECTED BY OFFICE 09/20 completed Not Available Not Available Not Available omeprazole 40 mg capsule,del ayed release 07/16 completed Not Available Not Available Not Available Lamisil AT 1 % topical cream 02/26 completed Not Available Not Available Not Available Deep Sea Nasal 0.65 % spray aerosol USE 1 SPRAY IN EACH NOSTRIL 6 TIMES DAILY WHILE AWAKE. 07/16 completed Not Available Not Available Not Available amlodipine 10 mg tablet TAKE 1 TABLET BY MOUTH EVERY DAY DIRECTED 09/29 completed Not Available Not Available Not Available benzonatate 100 mg capsule TAKE 1 CAPSULE BY MOUTH THREE TIMES DAILY FOR 5 DAYS NEEDED 07/16 completed Not Available Not Available Not Available doxycycline monohydrate 100 mg capsule TAKE 1 CAPSULE BY MOUTH EVERY 12 HOURS FOR 3 DAYS 10/23 completed Not Available Not Available Not Available cephalexin 500 mg capsule TAKE 1 CAPSULE BY MOUTH EVERY 6 HOURS FOR 5 DAYS DIRECTED FOR CELLULITI S 09/29 completed Not Available Not Available Not Available pantoprazol e 40 mg tablet,matt yed release active Not Available Not Available Not Available simvastatin 20 mg tablet TK 1 T PO QD IN THE ADONAY 08/12 completed Not Available Not Available Not Available ranitidine 150 mg tablet 05/09 completed Not Available Not Available Not Available promethazin e 25 mg tablet TAKE 1/2 TABLET BY MOUTH EVERY 6 HOURS NEEDED FOR NAUSEA 07/16 completed Not Available Not Available Not Available losartan 25 mg tablet TAKE 1 TABLET BY MOUTH DAILY DIRECTED 09/29 completed Not Available Not Available Not Available metoprolol tartrate 50 mg tablet TAKE 1 TABLET BY MOUTH TWICE DAILY active Not Available Not Available No t Available omeprazole 20 mg capsule,del ayed release 05/09 completed Not Available Not Available Not Available etodolac 400 mg tablet 08/12 completed Not Available Not Available Not Available hydrochloro thiazide 25 mg tablet TAKE 1 TABLET BY MOUTH EVERY DAY DIRECTED active Not Available Not Available No t Available mupirocin 2 % topical ointment APPLY A SMALL AMOUNT TO THE AFFECTED wound area left ankle BY TOPICAL ROUTE 3 TIMES PER DAY 10/23 completed Not Available Not Available Not Available Viagra 100 mg tablet Take 1 TABLET BY MOUTH 1 HOUR PRIOR TO SEXUAL ACTIVITY DIRECTED, NOT TO EXCEED 1 IN 24 HOURS. active Not Available Not Available No t Available albuterol sulfate HFA 90 mcg/actuati on aerosol inhaler INHALE TWO PUFFS BY MOUTH EVERY 4 HOURS NEEDED active Not Available Not Available No t Available losartan 100 mg tablet TAKE 1 TABLET BY MOUTH EVERY DAY active Not Available Not Available No t Available metformin ER 500 mg tablet,exte nded release 24 hr TAKE 1 TABLET BY MOUTH EVERY DAY DIRECTED FOR DIABETES active Not Available Not Available No t Available gentamicin 0.1 % topical ointment APPLY SMALL AMOUNT TOPICALLY TO THE AFFECTED AREA THREE TIMES DAILY 09/20 completed Not Available Not Available Not Available amoxicillin 875 mg-potassiu m clavulanate 125 mg tablet TAKE 1 TABLET BY MOUTH TWICE DAILY FOR 10 DAYS 07/16 completed Not Available Not Available Not Available oxycodone 5 mg tablet 09/29 completed Not Available Not Available Not Available cholestyram ine (with sugar) 4 gram oral powder 08/12 completed Not Available Not Available Not Available metoprolol tartrate 25 mg tablet TAKE 1 TABLET BY MOUTH TWICE DAILY 09/29 completed Not Available Not Available Not Available omeprazole 09/29 completed Not Available Not Available Not Available hydrochloro thiazide 12.5 mg tablet TAKE 1 TABLET BY MOUTH EVERY DAY DIRECTED 09/20 completed Not Available Not Available Not Available Symbicort 160 mcg-4.5 mcg/actuati on HFA aerosol inhaler INHALE 2 PUFFS BY MOUTH TWICE DAILY DIRECTED 01/07 completed Not Available Not Available Not Available Gavilyte-C 240 gram-22.72 gram-6.72 gram-5.84 gram oral solution MIX AND DRINK DIRECTED 07/16 completed Not Available Not Available Not Available Dgimed OrthoToColor Promos Verio test strips USE TO TEST ONCE DAILY 09/29 completed Not Available Not Available Not Available Vitals Date Recorded Body height Body mass index (BMI) Body weight Body temperature Oxygen saturation Oxygen saturation in Arterial blood by Pulse oximetry Respiratory rate Heart rate Systolic And Diastolic Provider Name and Address Organization Details Last Updated DateTime 3 170.18 cm 30.5 kg/m2 85795.5 1 g 98.1 [degF] 96 % 96 % 18 /min 96 /min 132/83 mm[Hg] Grace Patterson RN [facility] [employer] [facility] 3 15:26:13 Date Recorded Body temperature Heart rate Respiratory rate Heart rate Provider Name and Address Organization Details Last Updated DateTime 09/30/2023 97.7 [degF] 101 /min 17 /min 101 /min Primo Barker MD [address], [place], [address] , [facility] [employer] [facility] 09/30/2023 15:00:32 Date Recorded Body height Body mass index (BMI) Body weight Oxygen saturation Oxygen saturation in Arterial blood by Pulse oximetry Systolic And Diastolic Provider Name and Address Organization Details Last Updated DateTime 4 170.18 cm 32.6 kg/m2 99972.2 1 g 96 % 96 % 126/80 mm[Hg] Sue Escobar CMA [facility] [employer] [facility] 4 14:44:48 Date Recorded Body height Body temperature Oxygen saturation Oxygen saturation in Arterial blood by Pulse oximetry Respiratory rate Heart rate Systolic And Diastolic Provider Name and Address Organization Details Last Updated DateTime 3 170.18 cm 98 [degF] 95 % 95 % 18 /min 108 /min 158/98 mm[Hg] Grace Patterson RN [facility] [employer] [facility] 3 14:18:52 Date Recorded Heart rate Heart rate Respiratory rate Provider Name and Address Organization Details Last Updated DateTime 11/19/2023 99 /min 99 /min 15 /min Primo Barker MD [address], [place], [address], [facility] [employer] 11/19/2023 12:19:09 Date Recorded Body height Body mass index (BMI) Body weight Oxygen saturation Oxygen saturation in Arterial blood by Pulse oximetry Body temperature Systolic And Diastolic Provider Name and Address Organization Details Last Updated DateTime 4 170.18 cm 32 kg/m2 99328.8 4 g 97 % 97 % 98.1 [degF] 124/70 mm[Hg] Sue Escobar CMA [facility] [employer] 4 11:53:32 Social History Question Answer Notes LastModified by Organization Details LastModified Time Tobacco Smoking Status Current Every Day Smoker LAVONNE Ruiz, [facility] [employer] 08/12/2022 15:07:03 What Is Your Level Of Caffeine Consumption? None Information not available 08/12/2022 In The 14 Days Before Symptom Onset, Have You Had Close Contact With A Laboratory-confi rmed COVID-19 While That Case Was Ill? No Information not available 08/12/2022 In The 14 Days Before Symptom Onset, Have You Had Close Contact With A Person Who Is Under Investigation For COVID-19 While That Person Was Ill? No Information not available 08/12/2022 What Type Of Diet Are You Following? REGULAR Information not available 08/12/2022 Which Illicit Or Recreational Drugs Have You Used? Methamphetamine Information not available 08/12/2022 Do You Have An Electrostatic Air Filter? No Information not available 08/12/2022 Do You Have A Humidifier? No Information not available 08/12/2022 Do You Have Moisture Problems In Your Home? No Information not available 08/12/2022 What Was The Date Of Your Most Recent Tobacco Screening? 08/12/2022 Information not available 08/12/2022 Do You Have Any Pets? No Information not available 08/12/2022 Do You Use Your Seat Belt Or Car Seat Routinely? Yes Information not available 08/12/2022 Do You Have Smoke And Carbon Monoxide Detectors In Your Home? Yes Unsure About Carbon Monoxide Information not available 08/12/2022 Are You Passively Exposed To Smoke? Yes Information not available 08/12/2022 How Much Tobacco Do You Smoke? 0.25 PPD Information not available 08/12/2022 Do You Use Sunscreen Routinely? No Information not available 08/12/2022 Have You Recently Traveled Abroad? No Information not available 08/12/2022 Do You Have Any Dietary Restrictions? No Information not available 08/12/2022 Sex: Unknown Functional Status Question Answer Note LastModified by Organizat ion Details LastModified Time Do you use any illicit or recreational drugs? Yes Information not available 08/12/2022 Do you or have you ever used any other forms of tobacco or nicotine? Yes Information not available 08/12/2022 What is your level of alcohol consumption? Occasional Information not available 08/12/2022 Do you or have you ever used smokeless tobacco? Never used smokeless tobacco Information not available 08/12/2022 Are you currently employed? No Information not available 08/12/2022 Do you or have you ever used e-cigarettes or vape? Former user of electronic cigarettes Information not available 08/12/2022 What is your exercise level? None Information not available 08/12/2022 Mental Status Question Answer Note LastModified by Organization D etails LastModified Time Do you feel stressed (tense, restless, nervous, or anxious, or unable to sleep at night)? [id number] Information not available 08/12/2022 Family History Relationship Description Onset Age of this Age Resolved Age Notes LastModified by Organization Details LastModified Time Mother Harmful pattern of use of alcohol Not available 2022 19:48:46 Mother Dementia Not available 0 07/16/2022 19:48:54 Mother Hyperlipidem ia Not available 2022 19:49:03 Mother Hypertensive disorder Not available 2022 19:49:22 Mother Osteoporosis Not availab le 07/16/2022 19:49:31 Mother Osteoarthrit is Not available 2022 19:49:38 Mother Cataract Not available 0 07/16/2022 19:49:46 Mother Depressive disorder Not available 2022 15:47:14 Father Harmful pattern of use of alcohol Not available 2022 19:49:51 Father Diabetes mellitus Not available 2022 19:50:00 Father Depressive disorder Not available 2022 19:50:11 Father Heart disease Not available 2022 19:50:22 Father Hyperlipidem ia Not available 2022 19:50:29 Sister Systemic lupus erythematosu s Not available 2022 19:50:58 Sister Diabetes mellitus Not available 2022 19:51:02 Sister Heart disease Not available 2022 19:51:25 Sister Hypertensive disorder Not available 2022 19:51:32 Sister Migraine Not available 0 07/16/2022 19:51:43 Sister Osteoarthrit is Not available 2022 19:52:01 Sister Congestive heart failure Not available 2022 15:47:42 Medical History Condition Response BACK INJECTIONS N ALLERGIES/HAYFEVER N LUNG DISEASE/DISORDER Y HISTORY OF DRUG ABUSE N INSOMNIA N ESRD N RADIATION / CHEMOTHERAPY N COPD Y RHEUMATOID ARTHRITIS N HIGH CHOLESTEROL / HYPERLIPIDEMIA N PVD N EDEMA N CAROTID BLOCKAGE N SHINGLES N DEPRESSION (INCLUDING POST ) N BOWEL PROBLEMS N BACK / NECK PROBLEMS N HAVE YOU BEEN HOSPITALIZED OR SEEN IN [facility] IN THE PAST YEAR ? Y FAILED BACK SYNDROME N STROKE/TIA N LYMPHEDEMA N THYROID DISEASE N TB SKIN TEST N POLYCYSTIC OVARIES N OBESITY N HISTORY WITH COMPLICATIONS WITH ANESTHES IA ? N ANEURYSM N FIBROMYALGIA N OSTEOPOROSIS N URINARY/BLADDER/KIDNEY PROBLEMS N CORONARY ARTERY DISEASE (CAD) N Do you have Advance directive? N ARTHRITIS N Do you have a healthcare POA? N RESPIRATORY PROBLEMS Y USE OF BLOOD THINNERS N NO SIGNIFICANT PAST MEDICAL HISTORY N DIABETES, TYPE N VON WILLIBRAND'S DISEASE N PERIPHERAL VASCULAR DISEASE N PERIPHERAL ARTERY DISEASE N HEARTBURN / REFLUX Y AFIB N Do you have a living will? N BLOOD CLOTS N POST LAMINECTOMY SYNDROME N HEPATITIS / LIVER DISEASE N PULMONARY DISEASE N USE OF NSAIDS N GOUT N ALZHEIMER'S DISEASE N PAIN N ARTERIAL INSUFFICIENCY N SEIZURES/EPILEPSY N HEADACHES/MIGRAINES N CHF N VASCULAR DISEASE N Blood Disorder N DIZZINESS N NEUROPATHY N AIDS/HIV N KIDNEY DISEASE N HEART DISEASE/HEART PROBLEMS N LIVER DISEASE N MENTAL DISORDER/ILLNESS N NEUROPSYCHOLOGICAL N HYPERTENSION Y CARDIAC ARRHYTHMIA N CANCER: SPECIFY N TOURETTE'S N ANXIETY DISORDER N ANEMIA/BLOOD DISORDER N ANESTHESIA COMPLICATIONS N BIPOLAR DISORDER N AUTOIMMUNE DISEASE N OSTEOARTHRITIS N TUBERCULOSIS N FOOT PROBLEM Y Past Encounters Encounter ID Performer Location Encounter Start Date Encounter Closed Date Diagnosis/Indication Diagnosis SNOMED-CT Code Diagnosis ICD10 Code Diagnosis IMO Codes Diagnosis Note [id number] Primo Barker MD [facility] [place] [address] [facility] [address] [place] [address] 08/12/2022 14:26:05 08/13/2022 08:35:34 Dyspnea on exertion 35077417 R06.09 R05.9 T78.40XA D89.9 Smoker 88123494 F17.218 F17.219 Z87.891 [id number] Williams Keita DPM [facility] [address] [place] [address] 09/25/2022 15:06:58 09/25/2022 15:58:52 Ulcer of left ankle 0414182447 0279956 L97.329 possible ulcerated soft tissue massfurthe r evaluation needed recommend MRI rule out cancer Mass of so ft tissue of left lower limb 0510303079 3924448 R22.42 [id number] [facility] [address] [place] [address] 10/23/2022 14:26:22 10/23/2022 15:09:36 Ulcer of left ankle 4765049117 1208238 L97.329 possible ulcerated soft tissue masshealed with thin epithelial izationdid not slate picker mupirocin secondary to expensepos itive culturesRx gentamicin ointmentfu rther evaluation needed recommend MRI rule out cancerfoll ow-up 2 weeks Mass of so ft tissue of left lower limb 3937368627 7751207 R22.42 did not obtain [id number] Williams Keita DPM [facility] [address] [place] [address] 11/06/2022 14:10:02 11/06/2022 14:57:14 Ulcer of left ankle 6058695024 6885987 L97.329 possible ulcerated soft tissue masscontin ue gentamicin ointmentob tain ultrasound follow-up 2 weeks Mass of so ft tissue of left lower limb 8449622552 7377605 R22.42 has not obtained ultrasound [id number] Primo Barker MD [facility]_[address] [address] 09/30/2023 14:32:06 10/01/2023 09:45:04 Dyspnea on exertion 00059736 R06.09 R05.9 T78.40XA D89.9 Lesion of thoracic spine 665498844 M99.9 [id number] Primo Barker MD [facility] [address] [address] 11/19/2023 11:41:45 11/20/2023 09:23:31 Dyspnea on exertion 97693865 R06.09 R05.9 T78.40XA D89.9 Smoker 55481714 F17.218 F17.219 Z87.891 Health Concerns Section Related Observation LastModified by Organization Detai ls LastModified Time None Recorded Concern Status LastModified by Organization Details LastModified Time None Recorded Advance Directives Directive None Recorded Payers Insurance Date Sequence Insurance Name Policy Number Policy Paredes Covered Member ID Paredes Member ID Guarantor Name 08/09/2024 1 [facility] ON OR AFTER 10/26/20 (MEDICAID REPLACEMENT - HMO) Lex Syeks [id number] Lex Sykes Notes Date Note Type Note Provider Name and Address Organization Details Recorded Time 09/25/2022 text/html . Patient is a 56-year-old male who presents the office with complaints of non-healing wound to the left ankle medially. Patient states he has been to [facility] emergency room on 2 separate occasions since June this year for this issue. Patient states he was given antibiotics and sent home to which the wound has never healed. Patient states the wound has been bigger. Patient states his father from cancer but is unsure what type of cancer he had. I have concerns as this lesion is firm slightly raised is an ulcerated in the middle with a slightly purple discoloration around the rim. Patient denies any fever, chills, nausea vomiting. Patient presents without dressings on the area today. Patient denies any other complaints. Williams Keita DPM [address], [place], [address], [facility] 09/25/2022 16:01:08 10/23/2022 text/html . Patient is a 56-year-old male who returns the office for follow-up on open wound of the left ankle. Patient did not obtain his MRI. Patient does have epithelialization across the area today and had positive cultures Staph a, resistant to oxacillin. Patient states he did not slate picker the mupirocin ointment because it was too expensive. Patient denies any fever, chills, nausea or vomiting. Patient denies any other pedal complaints. Williams Keita DPM [address], [place], [address], [place] 10/23/2022 15:11:39 11/06/2022 text/html . Patient is a 56-year-old male who returns the office for a wound to the lateral fibular area. Patient continues to do well with no acute signs of infection. Patient has only a very small area left to heal. Patient has yet to have the ultrasound to rule out any underlying soft tissue Mass. Patient denies any new pedal complaints. Williams Keita DPM [address], [place], [address], [place] 11/07/2022 09:01:19 09/30/2023 text/html Primary care/Referring provider: Shabbir Andrade MD CC: Patient is sent back by his PCP. He was lost to follow up after initial visit on 08/12/22. Patient is here to go over his chest CT and lab data as part of his shortness of breath evaluation/management. Initial development of shortness of breath: 2020Duration of shortness of breath: 4 yearsCondition of shortness of breath: stableTiming of shortness of breath: afternoonFrequency: up to 5 times a dayLimits activities: yesAggravating factors: walking, going up 1 flight of stepsAlleviating factors: rest Modified [employer] [place] (mMRC) Dyspnea Scale - Grade 2Grade 0 I only get breathless with strenuous exercise .Grade 1 I get short of breath when hurrying on the level or walking up a slight hill .Grade 2 I walk slower than people of the same age on the level because of breathlessness or have to stop for breath when walking at my own pace on the level .Grade 3 I stop for breath after walking about 100 yards or after a few minutes on the level .Grade 4 I am too breathless to leave the house or I am breathless when dressing . Treatment history: Albuterol HFA as needed since 01/2022 Symbicort 160/4.5 mcg 2 puffs daily since 07/2022 Other symptoms:Drooling: noDysarthria: noNeck pain: noOdynophagia: noDysphagia: noWeak mastication: noFacial weakness: noNasal speech: noProtruding tongue: noProductive cough: yellowWheezing: noChest tightness: yesOrthopnea: noFrequent throat clearing or swallowing: noPalpitations: noHeartburn: noEdema: yes Environmental exposures:Nicotine smoke: 04/30 ppd 1987-present = 12 pack yearsPaint: noDye: noDust mites: yesMold: noDamp basement: noWood burning stove: noAnimal dander: noCockroaches: noPollen: yesArsenic: noAsbestos: noBeryllium: noCadmium: noChromium: noCoal smoke: noDiesel fumes: noNickel: noSilica: noSoot: no EPWORTH SLEEPINESS SCALE (ESS) CHANCE OF DOZING SCORE0 = would never doze1 = slight chance of dozing2 = moderate chance of dozing3 = high chance of dozing SITUATION AND CHANCE OF DOZINGSitting and reading - 1Watching television - 1Sitting inactive in a public place (e.g. a theater or meeting) - 0As a passenger in a car for an hour without a break - 0Lying down to rest in the afternoon when circumstances permit - 1Sitting and talking to someone - 0Sitting quietly after lunch without alcohol - 0In a car, while stopped for a few minutes in the traffic - 0TOTAL SCORE 3Subjectively, patient has a slight chance of dozing. Primo Barker MD [address] [place] [address], [address], [place], [address], [place] - [facility] [employer] 09/30/2023 15:21:37 11/19/2023 text/html Primary care/Referring provider: Shabbir Andrade MD Patient is here to go over his methacholine challenge test as part of his shortness of breath evaluation/management. Initial development of shortness of breath: 2020Duration of shortness of breath: 4 yearsCondition of shortness of breath: improvedTiming of shortness of breath: afternoonFrequency: up to 1 time a dayLimits activities: yesAggravating factors: walking, going up 2 flights of stepsAlleviating factors: rest Modified [employer] [place] (mMRC) Dyspnea Scale - Grade 2Grade 0 I only get breathless with strenuous exercise .Grade 1 I get short of breath when hurrying on the level or walking up a slight hill .Grade 2 I walk slower than people of the same age on the level because of breathlessness or have to stop for breath when walking at my own pace on the level .Grade 3 I stop for breath after walking about 100 yards or after a few minutes on the level .Grade 4 I am too breathless to leave the house or I am breathless when dressing . Treatment history: Albuterol HFA as needed since 01/2022 Symbicort 160/4.5 mcg 2 puffs daily since 07/2022 Other symptoms:Drooling: noDysarthria: noNeck pain: noOdynophagia: noDysphagia: noWeak mastication: noFacial weakness: noNasal speech: noProtruding tongue: noProductive cough: yellowWheezing: noChest tightness: yesOrthopnea: noFrequent throat clearing or swallowing: noPalpitations: noHeartburn: noEdema: yes Environmental exposures:Nicotine smoke: 04/30 ppd 1987-present = 12 pack yearsPaint: noDye: noDust mites: yesMold: noDamp basement: noWood burning stove: noAnimal dander: noCockroaches: noPollen: yesArsenic: noAsbestos: noBeryllium: noCadmium: noChromium: noCoal smoke: noDiesel fumes: noNickel: noSilica: noSoot: no EPWORTH SLEEPINESS SCALE (ESS) CHANCE OF DOZING SCORE0 = would never doze1 = slight chance of dozing2 = moderate chance of dozing3 = high chance of dozing SITUATION AND CHANCE OF DOZINGSitting and reading - 1Watching television - 1Sitting inactive in a public place (e.g. a theater or meeting) - 1As a passenger in a car for an hour without a break - 1Lying down to rest in the afternoon when circumstances permit - 2Sitting and talking to someone - 0Sitting quietly after lunch without alcohol - 1In a car, while stopped for a few minutes in the traffic - 0TOTAL SCORE 3Subjectively, patient has a slight chance of dozing. Primo Barker MD [address] [place] [address], [address] [address], [place], [address], [facility] 11/19/2023 12:19:17
[2025-02-21 15:47] LABS: Ferritin 193.00 ng/mL (11.1-264)
[2025-02-21 15:48] LABS: Hepatitis B Surface Antigen Negative (Negative)
[2025-02-21 15:54] LABS: HAV RESULT Negative (Negative); Hepatitis B Core IgM Result Negative (Negative)
[2025-02-22 07:09] LABS: GGT 54 IU/L (0-65)
[2025-02-22 14:08] LABS: ANA by IFA Rfx Titer/Pattern Negative (.)
[2025-02-24 18:08] LABS: HCV RT-PCR, Qnt (NG) YES YES
== END 2025-02-21 13:40 | disposition home or self-care (01) ==
LOC: ANHLAB 13:42
PROVIDERS: Visit Provider Nurse Practitioner Family
DX: K74.60 Unspecified cirrhosis of liver (principal); R10.12 Left upper quadrant pain
CPT/HCPCS: 36415; 80074; 80076; 82103; 82390; 82728; 82977; 83540; 83550; 85610; 86015; 86038; 86381; 86803; 87522; 87902